=== PATIENT | female | born 2000 | race Caucasian/White ===

== ENCOUNTER 2020-01-23 23:35 | Emergency (ER) | payer MEDICAID, SELFPAY ==
[2020-01-23 23:49] VITALS: BP 124/88; PULSE 87; RESP 17; TEMP 36.7; O2SAT 98; BMI 31.1
--- NOTE | 2020-01-24 | XR_ITS ---
EXAMINATIONS: ELBOW 3 VIEWS, LEFT AND FOREARM 2 VIEWS, LEFT AND WRIST 3 VIEWS, LEFT CLINICAL INFORMATION: Pain following trauma. COMPARISON: None. TECHNIQUE: AP, lateral, oblique views of the left elbow are provided. AP and lateral views of the left forearm are provided. AP, lateral, oblique views of the left wrist are provided. FINDINGS: There are no fractures or dislocations. There is no elbow joint effusion. There is no displacement of the pronator fat pad. There is mild soft tissue swelling about the medial aspect of the left elbow. IMPRESSION: Mild soft tissue swelling about the elbow. No evidence for acute fracture to the left elbow, forearm or wrist.
--- NOTE | 2020-01-24 | XR_ITS ---
EXAMINATIONS: SHOULDER 3 VIEWS, LEFT AND HUMERUS 2 VIEWS, LEFT CLINICAL INFORMATION: Pain following trauma. COMPARISON: None. TECHNIQUE: AP views of the left shoulder were obtained in internal and external rotation. In addition, a Y view was obtained. AP and lateral views of the left humerus are provided. FINDINGS: There are no fractures or dislocations. The humeral head is seated within a well-formed glenoid. The AC joint is intact. IMPRESSION: Unremarkable left shoulder and humerus radiographs.
--- NOTE | 2020-01-24 00:43 | PC.NURSE ---
Provider over to eval pt
--- NOTE | 2020-01-24 00:46 | ED.FALL ---
HPI - Fall General Chief Complaint: Fall <Tuyet Wong NP - Last Filed: 01/24/20 02:49> Stated Complaint: Crisis <Tuyet Wong NP - Last Filed: 01/24/20 02:49> Time Seen by Provider: 01/24/20 02:12 <Tuyet Wong NP - Last Filed: 01/24/20 02:49> Source: patient, EMS and RN notes reviewed <Tuyet Wong NP - Last Filed: 01/24/20 02:49> Mode of arrival: EMS <Tuyet Wong NP - Last Filed: 01/24/20 02:49> Limitations: other ( cognitive impairment) <Tuyet Wong NP - Last Filed: 01/24/20 02:49> History of Present Illness HPI Narrative: 20-year-old female presents with injury to the left bicep, elbow, and upper forearm after falling out of her First floor window. the fall was less than 2 ft, and patient has significant bruising to the medial aspect of the left arm. Patient does live in a [facility], the person is considered cognitively challenged, and is able to make her needs known. she reports pain in the left shoulder, bicep, elbow, forearm, and wrist. She does not describe any other injury and denies chest pain and pressure, palpitations, shortness of breath, abdominal pain, abdominal distention, dysuria, hematuria, loss of consciousness, and head trauma. <Tuyet Wong NP - Last Filed: 01/24/20 02:49> MD complaint: fall <MALCOLM Shaikh Last Filed: 01/24/20 02:49> Onset (ago): hour(s) ( 1 hour ago) <MALCOLM Shaikh Last Filed: 01/24/20 02:49> Fall from: from height (distance) ( 2 ft, fell out of her 1st floor window) <Tuyet Wong NP - Last Filed: 01/24/20 02:49> Fall witnessed: no <Tuyet Wong NP - Last Filed: 01/24/20 02:49> Place fall occurred: other ( [facility]) <Tuyet Wong NP - Last Filed: 01/24/20 02:49> Loss of consciousness: none <Tuyet Wong NP - Last Filed: 01/24/20 02:49> Symptoms prior to fall: none <Tuyet Wong NP - Last Filed: 01/24/20 02:49> Location of injury - extremities: left: arm, elbow and forearm <Tuyet Wong NP - Last Filed: 01/24/20 02:49> Severity: moderate <Tuyet Wong NP - Last Filed: 01/24/20 02:49> Severity scale (1-10): 5 <Tuyet Wong NP - Last Filed: 01/24/20 02:49> Quality: aching <Tuyet Wong NP - Last Filed: 01/24/20 02:49> Associated symptoms (after fall): denies <Tuyet Wong NP - Last Filed: 01/24/20 02:49> Related Data Home Medications: Home Medications Medication Instructions Recorded Confirmed aripiprazole [Abilify] 5 mg PO BID 01/24/20 01/24/20 guanfacine 2 mg PO BEDTIME 01/24/20 01/24/20 levonorgestrel-ethinyl estrad 1 tab PO DAILY 01/24/20 01/24/20 [Aviane] melatonin 5 mg PO BEDTIME PRN 01/24/20 01/24/20 metformin 2,250 mg PO DAILY 01/24/20 01/24/20 sertraline 150 mg PO DAILY 01/24/20 01/24/20 <Tuyet Wong NP - Last Filed: 01/24/20 02:49> Allergies/Adverse Reactions: Allergies Allergy/AdvReac Type Severity Reaction Status Date / Time No Known Allergies Allergy Verified 01/24/20 00:57 <Tuyet Wong NP - Last Filed: 01/24/20 02:49> Review of Systems Review of Systems: Yes all other systems are reviewed and are negative <Tuyet Wong NP - Last Filed: 01/24/20 02:49> Constitutional: Constitutional: Reports no additional constitutional complaints <MALCOLM Shaikh Last Filed: 01/24/20 02:49> Eyes: Eyes: Reports no additional eye complaints <Tuyet Wong NP - Last Filed: 01/24/20 02:49> ENT: Reports system reviewed and no additional complaints, except as documented and Reports Normal hearing present <Tuyet Wong NP - Last Filed: 01/24/20 02:49> Cardiovascular: Cardiovascular: Reports no additional cardiovascular complaints <Tuyet Wong NP - Last Filed: 01/24/20 02:49> Respiratory: Respiratory: Reports no additional respiratory complaints <Tuyet Wong NP - Last Filed: 01/24/20 02:49> Gastrointestinal: Gastrointestinal: Reports no additional gastrointestinal complaints <Tuyet Wong NP - Last Filed: 01/24/20 02:49> Musculoskeletal: Musculoskeletal: Reports no additional musculoskeletal complaints and Reports as per HPI <Tuyet Wong NP - Last Filed: 01/24/20 02:49> Integumentary/Breasts: Skin/Breast: Reports swelling <Tuyet Wong NP - Last Filed: 01/24/20 02:49> Neurologic: Reports system reviewed and no additional complaints, except as documented and Reports Normal hearing present <Tuyet Wong ALL AROUND GEAR MACHINE OPERATOR - Last Filed: 01/24/20 02:49> Psychiatric: Psychiatric: Reports no additional psychiatric complaints <Tuyet Wong NP - Last Filed: 01/24/20 02:49> Endocrine: Endocrine: Reports no additional endocrine complaints <Tuyet Wong NP - Last Filed: 01/24/20 02:49> Hematologic/Lymphatic: Hematologic/Lymphatic: Reports no additional hematologic/lymphatic complaints <Tuyet Wong NP - Last Filed: 01/24/20 02:49> [facility] Past Medical History Attestation statement: The following information was validated with the patient. <Tuyet Wong NP - Last Filed: 01/24/20 02:49> Medical History: Medical History Anxiety Obsessive compulsive disorder <Tuyet Wong NP - Last Filed: 01/24/20 02:49> Social History Social History: Social History Alcohol intake: never Smoked in Last 30 Days: No Use of substances other than those prescribed or required for medical reasons: No Advance Directives: No <Tuyet Wong NP - Last Filed: 01/24/20 02:49> Physical Exam Vital Signs and I&O and Narrative: Vital Signs and I&O: Vital Signs Temp 98.0 F 01/23/20 23:49 Pulse 87 01/23/20 23:49 Resp 17 01/24/20 02:01 BP 124/88 01/23/20 23:49 Pulse Ox 98 01/23/20 23:49 Intake & Output 01/23/20 01/24/20 01/24/20 18:59 06:59 18:59 Weight 79.746 kg Body Mass Index 31.1 <Tuyet Wong NP - Last Filed: 01/24/20 02:49> Vital Signs and I&O: Vital Signs Temp 98.0 F 01/23/20 23:49 Pulse 87 01/23/20 23:49 Resp 17 01/24/20 02:01 BP 124/88 01/23/20 23:49 Pulse Ox 98 01/23/20 23:49 Intake & Output 01/23/20 01/24/20 01/24/20 18:59 06:59 18:59 Weight 79.746 kg Body Mass Index 31.1 <Gonzalez Chaney DO - Last Filed: 01/24/20 18:14> Const: General: cooperative, healthy appearing, comfortable and no acute distress <Tuyet Wong NP - Last Filed: 01/24/20 02:49> Nutritional Appearance: average body habitus <Tuyet Wong NP - Last Filed: 01/24/20 02:49> Orientation/consciousness: patient oriented x3 <Tuyet Wong NP - Last Filed: 01/24/20 02:49> Limitations: other limitations ( Cognitive impairment, resides in a mcc) <Tuyet Wong NP - Last Filed: 01/24/20 02:49> HENMT: Head: Yes normal to inspection, Yes No palpable skull fracture present and No Rausch's sign <Tuyet Wong NP - Last Filed: 01/24/20 02:49> Ears: hearing grossly normal bilaterally and external ears normal <Tuyet Wong NP - Last Filed: 01/24/20 02:49> General nose exam: Normal external nose present <Tuyet Wong ALL AROUND GEAR MACHINE OPERATOR - Last Filed: 01/24/20 02:49> Face and sinus: Yes normal facial exam <Tuyet Wong ALL AROUND GEAR MACHINE OPERATOR - Last Filed: 01/24/20 02:49> Mouth: Normal oral and palatal mucosa present <Tuyet Wong ALL AROUND GEAR MACHINE OPERATOR - Last Filed: 01/24/20 02:49> Teeth and gingiva: dentition normal <Tuyet Wong ALL AROUND GEAR MACHINE OPERATOR - Last Filed: 01/24/20 02:49> Throat: Yes posterior oropharynx normal <Tuyet Wong ALL AROUND GEAR MACHINE OPERATOR - Last Filed: 01/24/20 02:49> Eyes: General: appearance normal, both eyes and all related structures <Tuyet Wong ALL AROUND GEAR MACHINE OPERATOR - Last Filed: 01/24/20 02:49> Pupils: Equal, round and reactive pupils present <Tuyet Wong ALL AROUND GEAR MACHINE OPERATOR - Last Filed: 01/24/20 02:49> EOM: EOMs intact bilaterally <Tuyet Wong ALL AROUND GEAR MACHINE OPERATOR - Last Filed: 01/24/20 02:49> Neck: Neck: Yes normal visual inspection, Yes full ROM, Yes no lymphadenopathy and Yes no meningeal signs <Tuyet Wong ALL AROUND GEAR MACHINE OPERATOR - Last Filed: 01/24/20 02:49> Chest: Chest palpation & inspection: normal inspection of the chest and normal palpation of entire chest wall <Tuyet Wong ALL AROUND GEAR MACHINE OPERATOR - Last Filed: 01/24/20 02:49> Resp: Effort & Inspection: normal respiratory effort and able to speak in complete sentences <Tuyet Wong ALL AROUND GEAR MACHINE OPERATOR - Last Filed: 01/24/20 02:49> Auscultation: clear to auscultation bilaterally <Tuyet Wong ALL AROUND GEAR MACHINE OPERATOR - Last Filed: 01/24/20 02:49> Cardio: Rate: regular rate <Tuyet Wong ALL AROUND GEAR MACHINE OPERATOR - Last Filed: 01/24/20 02:49> Rhythm: regular rhythm <Tuyet Wong ALL AROUND GEAR MACHINE OPERATOR - Last Filed: 01/24/20 02:49> GI: Inspection: Yes normal to inspection <Tuyet Wong ALL AROUND GEAR MACHINE OPERATOR - Last Filed: 01/24/20 02:49> Auscultation: normal bowel sounds <Tuyet Wong ALL AROUND GEAR MACHINE OPERATOR - Last Filed: 01/24/20 02:49> : General: Yes no CVA tenderness <Tuyet Wong ALL AROUND GEAR MACHINE OPERATOR - Last Filed: 01/24/20 02:49> Back/Spine/Pelvis: Back: no CVA tenderness <Tuyet Wong ALL AROUND GEAR MACHINE OPERATOR - Last Filed: 01/24/20 02:49> Thoracic/Lumbar Spine: thoracic and lumbar spine normal to inspection <Tuyet Wong ALL AROUND GEAR MACHINE OPERATOR - Last Filed: 01/24/20 02:49> Pelvis: no pain with anterior-posterior compression and no pain with lateral compression <Tuyet Wong ALL AROUND GEAR MACHINE OPERATOR - Last Filed: 01/24/20 02:49> Skin: Other: 10 cm by 5 cm ecchymotic area from the lower bicep to the mid forearm, dime-sized bruise to the left wrist radial aspect. <Tuyet Wong ALL AROUND GEAR MACHINE OPERATOR - Last Filed: 01/24/20 02:49> General skin exam: ecchymosis and erythema <Tuyet Wong ALL AROUND GEAR MACHINE OPERATOR - Last Filed: 01/24/20 02:49> Neuro: General: patient oriented x3 and no meningeal signs <Tuyet Wong ALL AROUND GEAR MACHINE OPERATOR - Last Filed: 01/24/20 02:49> Cranial nerves: Yes Normal hearing present <Tuyet Wong ALL AROUND GEAR MACHINE OPERATOR - Last Filed: 01/24/20 02:49> Motor exam (neuro): 5/5 motor strength present throughout <Tuyet Wong ALL AROUND GEAR MACHINE OPERATOR - Last Filed: 01/24/20 02:49> Extrem: General: Yes full ROM, Yes capillary refill normal and Yes normal exam except as noted ( tenderness to the left acromial process, bicep, elbow, and wrist) <Tuyet Wong ALL AROUND GEAR MACHINE OPERATOR - Last Filed: 01/24/20 02:49> Right upper extremity: full ROM <Tuyet Wong ALL AROUND GEAR MACHINE OPERATOR - Last Filed: 01/24/20 02:49> Left upper extremity: normal to inspection and full ROM <Tuyet Wong ALL AROUND GEAR MACHINE OPERATOR - Last Filed: 01/24/20 02:49> Right lower extremity: normal to inspection and full ROM <Tuyet Wong ALL AROUND GEAR MACHINE OPERATOR - Last Filed: 01/24/20 02:49> Left lower extremity: normal to inspection and full ROM <Tuyet Wong NP - Last Filed: 01/24/20 02:49> Psych: Appearance: grossly normal <Tuyet Wong NP - Last Filed: 01/24/20 02:49> Speech and movement: Normal speech and movement present <Tuyet Wong NP - Last Filed: 01/24/20 02:49> Attitude: cooperative <Tuyet Wong NP - Last Filed: 01/24/20 02:49> Course Course Hospital Course: 20-year-old female presents after fall out of her 1st floor window. At this time we will order x-ray of the left shoulder, humerus, elbow, forearm and wrist. She does have full range of motion to all extremities, no tenderness to cervical thoracic or lumbar spine with full range of motion. <MALCOLM Shaikh Last Filed: 01/24/20 02:49> Reevaluation(s) Reevaluation #1: x-rays are negative for acute findings and fracture. Plan of care is to discharge home, pain management Tylenol and Motrin as needed. Patient verbalized understanding of and agrees to plan of care discharge home. <Tuyet Wong NP - Last Filed: 01/24/20 02:49> Time: 02:14 <Tuyet Wong NP - Last Filed: 01/24/20 02:49> MDM - Fall Differential Diagnosis Differential diagnosis: Likely dislocation, fracture and compression fracture <Tuyet Wong NP - Last Filed: 01/24/20 02:49> Medical Records Attestation: I reviewed the patient's medical records. <MALCOLM Shaikh Last Filed: 01/24/20 02:49> Imaging Data left shoulder, humerus, elbow, forearm and wrist x-ray: Attestation: I personally reviewed and interpreted this imaging study as follows: <MALCOLM Shaikh Last Filed: 01/24/20 02:49> My impression: I agree with radiologist's interpretation <Tuyet Wong NP - Last Filed: 01/24/20 02:49> Radiologist's impression: AP, lateral, oblique views of the left elbow are provided. AP and lateral views of the left forearm are provided. AP, lateral, oblique views of the left wrist are provided. FINDINGS: There are no fractures or dislocations. There is no elbow joint effusion. There is no displacement of the pronator fat pad. There is mild soft tissue swelling about the medial aspect of the left elbow. IMPRESSION: Mild soft tissue swelling about the elbow. No evidence for acute fracture to the left elbow, forearm or wrist <Tuyet Wong NP - Last Filed: 01/24/20 02:49> Discharge Plan Discharge Clinical Impression: Fall Qualifiers: Encounter type: initial encounter Qualified Code(s): W19.XXXA - Unspecified fall, initial encounter Contusion Qualifiers: Encounter type: initial encounter Contusion area: elbow Qualified Code(s): S50.02XA - Contusion of left elbow, initial encounter <Tuyet Wong NP - Last Filed: 01/24/20 02:49> Patient Disposition: Home, Self-Care <Tuyet Wong NP - Last Filed: 01/24/20 02:49> Instructions: Contusion in Adults (ED), Fall Prevention (ED) <Tuyet Wong NP - Last Filed: 01/24/20 02:49> Additional Instructions: please follow-up with primary care provider in 3-5 days to evaluate contusion to the left elbow. Use compression wrap as needed to help with pain management. return to the emergency department for any new, concerning, or worsening symptoms. <Tuyet Wong NP - Last Filed: 01/24/20 02:49> Prescriptions: No Action levonorgestrel-ethinyl estrad [Aviane] 0.1-20 mg-mcg Tablet 1 tab PO DAILY RF: 0 guanfacine 2 mg Tablet 2 mg PO BEDTIME RF: 0 aripiprazole [Abilify] 10 mg Tablet 5 mg PO BID RF: 0 metformin 750 mg Tablet Extended Release 24 Hr 2,250 mg PO DAILY RF: 0 melatonin 5 mg Tablet 5 mg PO BEDTIME PRN (Reason: Sleep) RF: 0 sertraline 100 mg Tablet 150 mg PO DAILY RF: 0 <MALCOLM Shaikh Last Filed: 01/24/20 02:49> Interventions: ED Discharge Assessment Last Done: 01/24/20 03:52 <MALCOLM Shaikh Last Filed: 01/24/20 02:49> Discharge Date/Time: 01/24/20 03:53 <Tuyet Wong NP - Last Filed: 01/24/20 02:49>
[2020-01-24 01:52] VITALS: RESP 20
[2020-01-24 02:01] VITALS: RESP 17
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
== END 2020-01-24 03:53 | disposition home or self-care (01) ==
LOC: HO.ED 01-24 02:33
PROVIDERS: Emergency Provider Emergency Medicine
DX: S50.02XA Contusion of left elbow, initial encounter (principal); W13.4XXA Fall from, out of or through window, initial encounter; Y93.9 Activity, unspecified; Y92.042 Bedroom in boarding-house as the place of occurrence of the external cause; Y99.9 Unspecified external cause status
CPT/HCPCS: 73020; 73060; 73070; 73090; 73100; 99284

== ENCOUNTER 2020-02-28 07:05 | Emergency (ER) | payer MEDICARE, MEDICAID, SELFPAY ==
[2020-02-28] VITALS (10 sets, daily range): BP systolic 109–124; BP diastolic 60–79; PULSE 81–99; RESP 16–24; TEMP 36.1–36.8; O2SAT 95–97; BMI 29.2
--- NOTE | 2020-02-28 07:14 | ED.PSYCH ---
HPI - Psych General Chief Complaint: Psychiatric Symptoms Stated Complaint: HAVING BAD DAY @ [facility],ODD W/CPD,?SI Time Seen by Provider: 02/28/20 07:14 Source: patient and EMS Mode of arrival: EMS Limitations: other (intellectual disability, uncooperative, agitated) History of Present Illness MD complaint: suicidal ideation, feels depressed and other (agitation, agression at care home) Onset (ago): day(s) (today) Duration: constant History of same: Yes Relieving factors: none Exacerbating factors: none Associated psychiatric symptoms: depression and suicidal ideation Associated symptoms: denies other symptoms Treatments prior to arrival: none If self harm: admits thoughts of self harm Related Data Home Medications Medication Instructions Recorded Confirmed aripiprazole [Abilify] 5 mg PO BID 01/24/20 01/24/20 guanfacine 2 mg PO BEDTIME 01/24/20 01/24/20 levonorgestrel-ethinyl estrad 1 tab PO DAILY 01/24/20 01/24/20 [Aviane] melatonin 5 mg PO BEDTIME PRN 01/24/20 01/24/20 metformin 2,250 mg PO DAILY 01/24/20 01/24/20 sertraline 150 mg PO DAILY 01/24/20 01/24/20 Allergies Allergy/AdvReac Type Severity Reaction Status Date / Time No Known Allergies Allergy Verified 01/24/20 00:57 Review of Systems Review of Systems: ROS unable to be obtained due to agitation and being uncooperative on arrival PMFSH Past Medical History Medical History Anxiety Intellectual disability Obsessive compulsive disorder Oppositional defiant disorder Social History Social History (Updated 02/28/20 @ 07:15 by Brynn Ruiz DO) Alcohol intake: never Smoking Status: Smoker, status unknown Use of substances other than those prescribed or required for medical reasons: No Advance Directives: No Advance Directives Information Provided: No Physical Exam Vital Signs: Vital Signs: Last Vital Signs Temp 98.2 F 02/28/20 07:57 Pulse 87 02/28/20 10:50 Resp 20 02/28/20 11:05 BP 109/60 02/28/20 10:35 Pulse Ox 95 02/28/20 10:50 Body Mass Index 29.2 Appearance: Alert. Oriented X3. No distress but intermittent agitation Eyes: Pupils equal, round and reactive to light. ENT: Pharynx normal. Neck: Normal inspection. Neck supple. CVS: Normal heart rate and rhythm. Pulses normal. Respiratory: No respiratory distress. Breath sounds normal. Abdomen: no signs of trauma Skin: Skin warm and dry. Normal skin color. Normal skin turgor. Extremities: No lower extremity edema. Neuro: Oriented X 3. No motor deficit. No sensory deficit. cannot participate in exam Course Course Course Narrative: patient became very agitated, hitting her head, self harm, refused PO medications could not be de-escalated by staff - IM haldol and ativan ordered for patient and staff safety these behaviors are not new, currently plan back to care home per CARE team patient became agitated about going to care home RN worried she may need IM medications due to escalation, patient agitated, threatening patient able to take PO medications instead of IM, CARE team and care home trying to work out a plan for [place] note these behaviors are chronic MDM - Psych MDM Narrative Medical decision making narrative: 20 yo female with impulse control, ODD, intellectual disability here with agitation and making SI statements - at this time will need labs, BHN consult, she was able to de-escalate with staff Lab Data Result diagrams: 02/28/20 14:52 02/28/20 14:52 Labs: Lab Results 02/28/20 02/28/20 Range/Units 14:52 14:52 WBC 8.0 (4.8-10.8) X10*3/uL RBC 4.50 (4.20-5.50) X10*6/uL Hgb 13.4 (12.0-16.0) g/dl Hct 39.2 (37-47) % MCV 87.1 (80-98) fL MCH 29.8 (27.0-33.0) pg MCHC 34.2 (31.0-35.0) g/dl RDW 12.5 (11.0-16.0) % Plt Count 228 (160-400) X10*3/uL MPV 9.2 L (9.4-12.3) fL Immature Gran % (Auto) 0.4 (0.0-0.4) % Neut % (Auto) 72.4 (45-73) % Lymph % (Auto) 16.5 L (20-40) % Woodward % (Auto) 8.8 (2-11) % Eos % (Auto) 1.4 (0-4) % Baso % (Auto) 0.5 (0-2) % Lymph # (Auto) 1.3 (1.2-4.9) X10*3/uL Woodward # (Auto) 0.7 (0.1-1.2) X10*3/uL Eos # (Auto) 0.1 (0.0-0.4) X10*3/uL Baso # (Auto) 0.0 (0.0-0.2) X10*3/uL Abs Immat Gran (auto) 0.03 (0.00-0.03) X10*3/uL Absolute Neuts (auto) 5.8 (2.0-8.3) X10*3/uL Absolute Nucleated RBC 0.000 (0.0-0.012) X10*3/uL Nucleated RBC % (auto) 0.0 (0.0-0.2) /100WBC Sodium 138 (135-145) mmol/L Potassium 4.1 (3.3-5.1) mmol/l Chloride 100 (96-108) mmol/L Carbon Dioxide 28 (22-29) mmol/L Anion Gap 14 (12-20) BUN 16 (9-16) mg/dL Creatinine 0.76 (0.5-1.4) mg/dL Estim Creat Clear Calc 112.5 Estimated GFR > 60 Random Glucose 116 H (60-115) mg/dL Calcium 8.8 (8.4-10.2) mg/dL Total Bilirubin 0.5 (0.0-1.0) mg/dL Direct Bilirubin 0.2 (0.0-0.5) mg/dL AST 25 (5-31) U/L ALT 28 (0-31) U/L Alkaline Phosphatase 63 (39-117) U/L Total Protein 7.3 (6.5-8.0) g/dL Albumin 4.4 (3.5-5.0) g/dL Discharge Plan Discharge Clinical Impression: Oppositional defiant disorder Patient Disposition: Home, Self-Care Additional Instructions: return to ED for any worsening symptoms or concerns Prescriptions: No Action levonorgestrel-ethinyl estrad [Aviane] 0.1-20 mg-mcg Tablet 1 tab PO DAILY RF: 0 guanfacine 2 mg Tablet 2 mg PO BEDTIME RF: 0 aripiprazole [Abilify] 10 mg Tablet 5 mg PO BID RF: 0 metformin 750 mg Tablet Extended Release 24 Hr 2,250 mg PO DAILY RF: 0 melatonin 5 mg Tablet 5 mg PO BEDTIME PRN (Reason: Sleep) RF: 0 sertraline 100 mg Tablet 150 mg PO DAILY RF: 0 Referrals: Physician,Unknown [Primary Care Provider] - 2 days (please follow up with your mental health providers)
--- NOTE | 2020-02-28 09:31 | PC.NURSE ---
Pt out on unit, began to eat plastic cup and yell when attempting to remove. Pt also making gestures to bite arms. Pt quickly varies from laughing, and joking with staff to gesturing to bite arm while smiling and looking at staff. Attempted to give pt ativan but pt declining at this time.
--- NOTE | 2020-02-28 09:46 | PC.NURSE ---
Attempted to call nursing home re: medications- staff member does not have access at this time, but will return call.
[2020-02-28] MEDS: Haloperidol Lactate 5 MG/ML VIAL IM ×2 (10:12→15:42)
[2020-02-28] MEDS: LORazepam 2 MG/ML VIAL IM (10:13)
--- NOTE | 2020-02-28 10:16 | PC.NURSE ---
Pt declined to take PO medications despite multiple attempts by different staff. Pt attempting to eat paper that she is finding around the unit, then began banging her head against the wall. Attempted to redirect multiple times, pt unable to accept redirection. Pt medicated as ordered, then required restraints for safety as she continued to bang her head. Dr meadows notied
--- NOTE | 2020-02-28 11:55 | PC.NURSE ---
Restraints d/c at 1105, pt no longer harming herself. Pt reporting nausea at this time- Dr Ruiz aware.
--- NOTE | 2020-02-28 12:39 | PC.NURSE ---
Per [facility], pt has been trying to gag by putting finger down her throat. Pt asked to stop behavior. Pt is awaiting BHN evaluation. Attempted to reach BHN but unable to. Care team able to reach BHN- will call w/ eta of crisis evaluation.
--- NOTE | 2020-02-28 13:09 | PC.NURSE ---
Yinka Sharma- [employer] [facility]: [phone]
--- NOTE | 2020-02-28 13:21 | PC.NURSE ---
Care team in to see. N called to notify that care team will evaluate pt.
[2020-02-28 15:00] LABS: MANUAL DIFF FLAG NO
[2020-02-28 15:01] LABS: Basophils Percent Auto 0.5 % (0-2); Eosinophils Absolute Auto 0.1 X10*3/uL (0.0-0.4); Eosinophils Percent Auto 1.4 % (0-4); Hematocrit 39.2 % (37-47); Hemoglobin 13.4 g/dl (12.0-16.0); Imm Gran Abs Auto 0.03 X10*3/uL (0.00-0.03); Imm Gran Pct Auto 0.4 % (0.0-0.4); Lymphocytes Absolute Auto 1.3 X10*3/uL (1.2-4.9); Lymphocytes Percent Auto 16.5 % (20-40); Mean Corpuscular HGB Conc 34.2 g/dl (31.0-35.0); Mean Corpuscular Hemoglobin 29.8 pg (27.0-33.0); Mean Corpuscular Volume 87.1 fL (80-98); Mean Platelet Volume 9.2 fL (9.4-12.3); Monocytes Absolute Auto 0.7 X10*3/uL (0.1-1.2); Monocytes Percent Auto 8.8 % (2-11); Neutrophils Absolute Auto 5.8 X10*3/uL (2.0-8.3); Neutrophils Percent Auto 72.4 % (45-73); Platelet Count 228 X10*3/uL (160-400); Red Cell Distribution Width 12.5 % (11.0-16.0)
--- NOTE | 2020-02-28 15:19 | PC.NURSE ---
Pt calling 911 several times, states she is refusing to return to residential. pt standing on furniture, refusing prn, states 'i want to go to a mental hospital' Dr meadows aware. Care team in to talk w/ pt.
[2020-02-28 15:25] LABS: Alanine Aminotransferase 28 U/L (0-31); Albumin Level 4.4 g/dL (3.5-5.0); Alkaline Phosphatase 63 U/L (39-117); Anion Gap 14 (12-20); Aspartate Amino Transferase 25 U/L (5-31); Bilirubin Direct 0.2 mg/dL (0.0-0.5); Bilirubin Total 0.5 mg/dL (0.0-1.0); Blood Urea Nitrogen 16 mg/dL (9-16); Calcium 8.8 mg/dL (8.4-10.2); Carbon Dioxide 28 mmol/L (22-29); Chloride 100 mmol/L (96-108); Creatinine Clr Calc Pharmacy 112.5; Estimated Glomerular Filt Rate > 60; Glucose Random 116 mg/dL (60-115); Potassium 4.1 mmol/l (3.3-5.1); Sodium 138 mmol/L (135-145); Total Protein 7.3 g/dL (6.5-8.0)
--- NOTE | 2020-02-28 15:51 | PC.NURSE ---
Pt accepted po medication, currently resting in room, no further spitting or jumping up on furniture.
--- NOTE | 2020-02-28 16:21 | PC.NURSE ---
When speaking to pt about returning to custodial, pt became agitated, stating 'i don't want to go back,' pt got up and attempted to acll 911. When attempting to remove phone, pt began to bite, kick. Pt restrained, Dr Marroquin notified.
--- NOTE | 2020-02-28 17:29 | PC.NURSE ---
Pt now stating that she would like to return to long-term, but behaviorally continues to be oppositional, setting off alarms in the pod, refusing to return to room when asked. Yinka Sharma from long-term called, report given including recent restraint, pt threatening to ask ambulance to take her to [facility] instead of long-term.
--- NOTE | 2020-02-28 17:55 | PC.NURSE ---
pt calmer, has maintained behavioral control and states she is ready to return to the retirement. [facility] called. Dr Marroquin aware pt is stating that she is ready to return. pt currently on telephone, calling her mother.
--- NOTE | 2020-02-28 19:31 | PC.NURSE ---
Patient was supposed to be picked up at 1815, at 1930 we were notified that there is a delay d/t emergency, new tentative ETA for ambulance will be 1999, will continue to monitor. Patient hyper-verbal, presents staff with numerous question, needs to be monitored for her behavior, will continue to monitor.
--- NOTE | 2020-02-28 19:45 | PC.NURSE ---
Called [facility] to check on ETA, notified that delayed happened d/t high volume of cases, new ETA will be 2015 or sooner, patient not happy with wait time, just voided in water pitcher calling her urine a Bailey Mcghee, patient advised not repeat the behavior, little to no effect to redirection, will continue to monitor.
== END 2020-02-28 20:33 | disposition home or self-care (01) ==
PROVIDERS: Emergency Provider Emergency Medicine
DX: F91.3 Oppositional defiant disorder (principal); Z79.899 Other long term (current) drug therapy
CPT/HCPCS: 36415; 80048; 80076; 85025; 96372; 99285; J2060

== ENCOUNTER 2020-06-30 09:58 | Outpatient (REF) | payer MEDICARE, MEDICAID, SELFPAY ==
[2020-07-01 09:20] LABS: BV Int Neg Control Negative (Negative); BV Int Pos Control Positive (Positive)
== END 2020-06-30 09:59 | disposition home or self-care (01) ==
LOC: HO.LAB 09:58
PROVIDERS: PCP Internal Medicine; Visit Provider Obstetrics & Gynecology
DX: N89.8 Other specified noninflammatory disorders of vagina (principal); R30.0 Dysuria; F79 Unspecified intellectual disabilities
CPT/HCPCS: 87480; 87510; 87660; 99202

== ENCOUNTER 2020-07-01 11:51 | Outpatient (REF) | payer MEDICARE, MEDICAID, SELFPAY ==
--- NOTE | ~2020-07-01 | XR_ITS ---
EXAMINATION: XR FOOT, LEFT CLINICAL INFORMATION: Left foot injury COMPARISON: None TECHNIQUE: AP, lateral, and oblique views of the left foot. FINDINGS: There is either nonunion of ossification center versus old nonunion fracture base of the left metatarsal. Soft tissue swelling is seen about the dorsum and inferior aspects of metatarsals. No acute fracture or dislocation is evident. Joint spaces are maintained. XR/XR foot LT 2V IMPRESSION: Soft tissue swelling without evidence of acute fracture or dislocation of the left foot. Either old fracture with nonunion versus secondary ossification center base of the fifth metatarsal.
== END 2020-07-01 11:52 | disposition home or self-care (01) ==
LOC: HO.LAB 11:51
PROVIDERS: Absent Provider Internal Medicine; PCP Internal Medicine; Visit Provider Obstetrics & Gynecology
DX: R30.0 Dysuria (principal); E11.9 Type 2 diabetes mellitus without complications; S99.922A Unspecified injury of left foot, initial encounter
CPT/HCPCS: 73620; 87086

== ENCOUNTER 2020-10-07 21:16 | Emergency (ER) | payer MEDICARE, MEDICAID, SELFPAY ==
--- NOTE | ~2020-10-07 | XR_ITS ---
EXAMINATION: CHEST RADIOGRAPH AND KUB CLINICAL INFORMATION: Patient swallowed a quater COMPARISON: None TECHNIQUE: 2 view chest, single view abdomen FINDINGS: No significant abnormalities seen involving the heart lungs or mediastinum. Mild thoracic scoliosis is present. A radiopaque foreign body is not seen. The abdominal bowel gas pattern is normal. No abnormal calcifications are seen. A radiopaque foreign body is not seen. XR/XR KUB IMPRESSION: Negative studies. The quater is not visualized. The patient did in fact swallow this, it has already passed.
--- NOTE | ~2020-10-07 | XR_ITS ---
EXAMINATION: CHEST RADIOGRAPH AND KUB CLINICAL INFORMATION: Patient swallowed a quater COMPARISON: None TECHNIQUE: 2 view chest, single view abdomen FINDINGS: No significant abnormalities seen involving the heart lungs or mediastinum. Mild thoracic scoliosis is present. A radiopaque foreign body is not seen. The abdominal bowel gas pattern is normal. No abnormal calcifications are seen. A radiopaque foreign body is not seen. XR/XR chest 2V IMPRESSION: Negative studies. The quater is not visualized. The patient did in fact swallow this, it has already passed.
[2020-10-07 21:22] VITALS: BP 148/84; PULSE 95; RESP 18; TEMP 36.8; O2SAT 96; BMI 26.4
--- NOTE | 2020-10-07 22:19 | ED.GENADULT ---
HPI - General Adult General Chief complaint: General Medical Stated complaint: swallowed a quarter Time Seen by Provider: 10/07/20 22:18 Source: patient and family Mode of arrival: ambulatory Limitations: other (Cognitive impairment, cerebral palsy) History of Present Illness HPI narrative: 20-year-old female presents with her mother, 20-year-old female with cerebral palsy, cognitive impairment presents with suspicion of swallowing a quarter. Patient does have a history of swallowing items. States that she swallowed this quarter last night and is not complaining of any symptoms or complications. Onset (ago): day(s) (One) Severity: mild Treatments prior to arrival: none Related Data Home Medications Medication Instructions Recorded Confirmed guanfacine 1 mg tablet,extended 1 mg PO QAM 06/30/20 release 24 hr guanfacine 2 mg tablet,extended 2 mg PO BEDTIME 06/30/20 release 24 hr haloperidol 5 mg tablet 7.5 mg PO BID 06/30/20 Previous Rx's Medication Instructions Recorded aripiprazole 10 mg tablet 5 mg PO BID 90 Days #90 tab 04/26/20 guanfacine 2 mg tablet 2 mg PO BEDTIME 90 Days #90 tab 04/26/20 melatonin 5 mg tablet 5 mg PO BEDTIME PRN 90 Days #90 tab 04/26/20 sertraline 100 mg tablet 150 mg PO DAILY 90 Days #135 tab 04/26/20 metformin 750 mg tablet,extended 750 mg PO BID 90 Days #180 tab 05/25/20 release 24 hr fluconazole 150 mg tablet 150 mg PO Q3D #2 tab 07/02/20 acetaminophen 500 mg tablet 500 mg PO Q6H PRN 30 Days #120 tab 09/09/20 Allergies Allergy/AdvReac Type Severity Reaction Status Date / Time No Known Allergies Allergy Verified 06/30/20 10:29 Review of Systems Review of Systems: Constitutional: No Fever, No Chills ENT/Mouth: No Ear Pain, No Hoarseness, No sore throat Eyes: No Eye Pain, No Swelling, No Redness, No Foreign Body Cardiovascular: No Chest Pain, No SOB Respiratory: No Cough, No Dyspnea Gastrointestinal: No Nausea, No Vomiting, No Diarrhea, No abdominal Pain Genitourinary: No Dysuria, No Hematuria Musculoskeletal: No joint pain, No Myalgias, No Joint Swelling Skin: No Skin lacerations, No rash Neuro: No Weakness, No Numbness, No Paresthesias, No Loss of Consciousness, No Dizziness, No Headache Psych: No Anxiety/Panic, No Depression Heme/Lymph: no easy bruising, no Lymphadenopathy Endocrine: No Polyuria, No Polydipsia Yes all other systems are reviewed and are negative [facility] Past Medical History Attestation statement: The following information was validated with the patient. Source: old records reviewed Medical History Anxiety Diabetes mellitus Intellectual disability Obsessive compulsive disorder Oppositional defiant disorder Trauma of toe of left foot Vaginal irritation Social History Social History Alcohol intake: never Advance Directives: No Advance Directives Information Provided: Yes Patient : No Gender identity: female Physical Exam Vital Signs: Vital Signs: Last Vital Signs Temp 98.2 F 10/07/20 21: Pulse 95 10/07/20 21:22 Resp 18 10/07/20 21: BP 148/84 H 10/07/20 21: Pulse Ox 96 10/07/20 21:22 Body Mass Index 26.4 Appearance: Alert. Oriented to self, per patient baseline of cerebral palsy and cognitive impairment. No acute distress. Eyes: Pupils equal, round and reactive to light. ENT: Pharynx normal. Neck: Normal inspection. Neck supple. CVS: Normal heart rate and rhythm. Pulses normal. Respiratory: No respiratory distress. Breath sounds normal. Abdomen: Soft and nontender. Skin: Skin warm and dry. Normal skin color. Normal skin turgor. Extremities: No lower extremity edema. Neuro: No motor deficit. No sensory deficit. Course Course Course Narrative: 20-year-old female presents for suspicion of swallowed foreign body, a quarter which she reported to her [facility] staff that she swallowed last night. KUB and chest x-ray does not indicate any foreign bodies, patient does have a history of reporting foreign body ingestion without actually swallowing an item. Mother states this is 1 of her behaviors for attention Chest x-ray and KUB negative. Plan of care is to discharge home. Medical Decision Making MDM Narrative Medical decision making narrative: Foreign body ingestion Imaging Data Chest and KUB: Attestation: I personally reviewed and interpreted this imaging study as follows: Radiologist's impression: EXAMINATION: CHEST RADIOGRAPH AND KUB CLINICAL INFORMATION: Patient swallowed a quater COMPARISON: None TECHNIQUE: 2 view chest, single view abdomen FINDINGS: No significant abnormalities seen involving the heart lungs or mediastinum. Mild thoracic scoliosis is present. A radiopaque foreign body is not seen. The abdominal bowel gas pattern is normal. No abnormal calcifications are seen. A radiopaque foreign body is not seen. XR/XR KUB IMPRESSION: Negative studies. The quater is not visualized. The patient did in fact swallow this, it has already passed. Discharge Plan Discharge Clinical Impression: Normal exam Patient Disposition: Home, Self-Care Instructions: Normal Exam (ED) Additional Instructions: Your child was evaluated for suspicion of swallowing a coin. X-rays are negative for foreign body. Thank you for choosing this emergency department for evaluation. Please follow-up with primary care physician as needed. Return to the emergency department for any new, concerning, or worsening symptoms. Prescriptions: No [facility] aripiprazole [Abilify] 10 mg tablet 5 mg PO BID 90 Days Qty: 90 RF: 2 guanfacine 2 mg tablet 2 mg PO BEDTIME 90 Days Qty: 90 RF: 1 melatonin 5 mg tablet 5 mg PO BEDTIME PRN (Reason: Sleep) 90 Days Qty: 90 RF: 3 sertraline 100 mg tablet 150 mg PO DAILY 90 Days Qty: 135 RF: 3 metformin 750 mg tablet extended release 24 hr 750 mg PO BID 90 Days Qty: 180 RF: 3 fluconazole 150 mg tablet 150 mg PO Q3D Qty: 2 RF: 0 acetaminophen [Acetaminophen Pain Relief] 500 mg tablet 500 mg PO Q6H PRN (Reason: fever or pain) 30 Days Qty: 120 RF: 6 haloperidol 5 mg tablet 7.5 mg PO BID RF: 0 guanfacine 2 mg tablet extended release 24 hr 2 mg PO BEDTIME RF: 0 guanfacine 1 mg tablet extended release 24 hr 1 mg PO QAM RF: 0 Interventions: ED Discharge Assessment Last Done: 10/07/20 22:25 Discharge Date/Time: 10/07/20 22:27
== END 2020-10-07 22:27 | disposition home or self-care (01) ==
PROVIDERS: Emergency Provider Emergency Medicine Emergency Medical Services; PCP Internal Medicine
DX: Z03.89 Encounter for observation for other suspected diseases and conditions ruled out (principal); G80.9 Cerebral palsy, unspecified
CPT/HCPCS: 71046; 74018; 99283

== ENCOUNTER 2020-10-17 20:53 | Emergency (ER) | payer MEDICARE, MEDICAID, SELFPAY ==
[2020-10-17 21:11] VITALS: BP 138/85; PULSE 123
[2020-10-17 21:13] VITALS: BP 127/82; PULSE 96; RESP 18; TEMP 36.4; O2SAT 96; BMI 31.8
--- NOTE | 2020-10-17 22:39 | ED_ITS ---
HPI - General Adult General Chief complaint: General Medical Stated complaint: crisis Time Seen by Provider: 10/17/20 22:38 History of Present Illness HPI narrative: 20-year-old female presents today with having agitation. Patient denies any suicidal homicidal ideation. Came from a detention. Related Data Home Medications Medication Instructions Recorded Confirmed guanfacine 1 mg tablet,extended 1 mg PO QAM 06/30/20 10/17/20 release 24 hr guanfacine 2 mg tablet,extended 2 mg PO BEDTIME 06/30/20 10/17/20 release 24 hr haloperidol 5 mg tablet 7.5 mg PO BID 06/30/20 10/17/20 Previous Rx's Medication Instructions Recorded guanfacine 2 mg tablet 2 mg PO BEDTIME 90 Days #90 tab 04/26/20 melatonin 5 mg tablet 5 mg PO BEDTIME PRN 90 Days #90 tab 04/26/20 sertraline 100 mg tablet 150 mg PO DAILY 90 Days #135 tab 04/26/20 metformin 750 mg tablet,extended 750 mg PO BID 90 Days #180 tab 05/25/20 release 24 hr acetaminophen 500 mg tablet 500 mg PO Q6H PRN 30 Days #120 tab 09/09/20 Allergies Allergy/AdvReac Type Severity Reaction Status Date / Time No Known Allergies Allergy Verified 06/30/20 10:29 Review of Systems Review of Systems: No chest pain or shortness breath no dizziness no nausea no vomiting Yes all other systems are reviewed and are negative [facility] Past Medical History Medical History Anxiety Diabetes mellitus Intellectual disability Obsessive compulsive disorder Oppositional defiant disorder Trauma of toe of left foot Vaginal irritation Social History Social History Alcohol intake: never Advance Directives: No Advance Directives Information Provided: Yes Guardian: Yes (Sheila Everett, mother) Patient : No Gender identity: female Physical Exam Vital Signs: Vital Signs: Last Vital Signs Temp 98.1 F 10/18/20 01:15 Pulse 86 10/18/20 01:15 Resp 17 10/18/20 01:15 BP 143/74 H 10/18/20 01:15 Pulse Ox 98 10/18/20 01:15 Body Mass Index 31.8 Appearance: Alert. Oriented X3. No acute distress. Eyes: Pupils equal, round and reactive to light. ENT: Pharynx normal. Neck: Normal inspection. Neck supple. No lymph nodes noted. No crepitus CVS: Normal heart rate and rhythm. Pulses normal. Normal S1 and S2 Respiratory: No respiratory distress. Breath sounds normal. No Wheezing. No rales Abdomen: Soft and nontender. No rigidity. No distention. good BS x4 Skin: Skin warm and dry. Normal skin color. Normal skin turgor. Extremities: No lower extremity edema. Neurovascular intact to all extremities. No Lacerations. No Rash Neuro: Oriented X 3. No motor deficit. No sensory deficit. Moving all extermities. No slurred speech Medical Decision Making MDM Narrative Medical decision making narrative: well-appearing no acute distress. Patient evaluated by care team. They are comfortable with discharge close follow-up outpatient basis. Lab Data Labs: Lab Results 10/17/20 Range/Units 23:28 COVID-19 ([facility]EDA) Negative (Negative) COVID-19 Clin Com See Note Discharge Plan Discharge Clinical Impression: Mood disorder Patient Disposition: Home, Self-Care Instructions: Mood Disorders (ED) Prescriptions: No [facility] guanfacine 2 mg tablet 2 mg PO BEDTIME 90 Days Qty: 90 RF: 1 melatonin 5 mg tablet 5 mg PO BEDTIME PRN (Reason: Sleep) 90 Days Qty: 90 RF: 3 sertraline 100 mg tablet 150 mg PO DAILY 90 Days Qty: 135 RF: 3 metformin 750 mg tablet extended release 24 hr 750 mg PO BID 90 Days Qty: 180 RF: 3 acetaminophen [Acetaminophen Pain Relief] 500 mg tablet 500 mg PO Q6H PRN (Reason: fever or pain) 30 Days Qty: 120 RF: 6 haloperidol 5 mg tablet 7.5 mg PO BID RF: 0 guanfacine 2 mg tablet extended release 24 hr 2 mg PO BEDTIME RF: 0 guanfacine 1 mg tablet extended release 24 hr 1 mg PO QAM RF: 0 Referrals: Physician,Unknown [Primary Care Provider] - 2 days (follow up as per care team)
--- NOTE | 2020-10-18 00:03 | PC.NURSE ---
Patient uncooperative, labile, little to no re-directability, engages in unsafe behavior, standing on table, calling 911, punching TV, refusing to take medication, detention staff here with patient, will continue to monitor.
[2020-10-18 00:18] LABS: COVID-19 Test Negative (Negative); IDNOW Serial# 08D9AD1C
[2020-10-18] MEDS: HaloperidoL 0.5 MG TABLET 7.5 MG PO (01:09)
[2020-10-18 01:15] VITALS: BP 143/74; PULSE 86; RESP 17; TEMP 36.7; O2SAT 98
--- NOTE | 2020-10-18 01:17 | PC.NURSE ---
Patient took her HS Haldol 7.5 mg after repeated encouragement, allowed look into her left nostril for crayon, appears like something piece lodged, provider notified for assessment, provider assessed the left nostril for crayon reported no foreign object lodged, patient reported she doesn't feel anything lodged in her nostril, will continue to monitor.
--- NOTE | 2020-10-18 02:56 | MHC.CARE ---
CARE team completed evaluation. Plan is for discharge in the morning. CARE team will coordinate with nursing home staff for pt to return to the program.
--- NOTE | 2020-10-18 06:18 | PC.NURSE ---
Patient did have difficulty falling sleep but overall slept well, staff from [facility] left at 0545, no distress observed/reported, patient was up x 2 for bathroom use and back, disposition is discharge in the morning to the [facility], care team is in touch with [facility] staff, will continue to monitor.
--- NOTE | 2020-10-18 07:21 | PC.NURSE ---
patient remains at rest presently attended by close obs staff patients respirations are even and unlabored, appears in no distress
--- NOTE | 2020-10-18 07:55 | PC.NURSE ---
clients staff arrived from long[facility]term t/w was in preparation to discharge client to long-term. [place] periodically yelled not going back there leave me alone . 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 patient expressed displeasure even after staff left. patient began slapping and striking face not sufficient force to cause damage
--- NOTE | 2020-10-18 08:21 | PC.NURSE ---
patient refused am medications. will reattempt delivery in 15 minutes.
--- NOTE | 2020-10-18 08:40 | PC.NURSE ---
reattempted to deliver clients medications. patient does not express why she doesnt want to take meds, yells and kicks legs on bed expressing desire to not take meds. patient attended by close obs staff.
--- NOTE | 2020-10-18 08:50 | PC.NURSE ---
third attempt made to request client to take meds unsuccessful.
--- NOTE | 2020-10-18 11:22 | MHC.CARE ---
Call from Tammie Florez from [facility] ([phone]) They are not able to brain picker patient at the hospital and requesting ambulance ride to [address] [place] [address] in [place]. This was arranged, CARE Team called Tammie and confirmed 11:30 am brain picker here. Since patient has been refusing to go home, strategies to help facilitate were discussed. Patient's evening phone call with mom is scheduled for 8:00 and can only happen if she is at home, she is likely looking forward to that. There will be no residents and one staff at the house and patient will have activities and 1:1 attention. Updated ED staff about the plan and that patient may be difficult to transition.
== END 2020-10-18 12:18 | disposition home or self-care (01) ==
PROVIDERS: Emergency Provider Emergency Medicine Emergency Medical Services
DX: F39 Unspecified mood [affective] disorder (principal); E11.9 Type 2 diabetes mellitus without complications; Z79.84 Long term (current) use of oral hypoglycemic drugs; Z20.822 Contact with and (suspected) exposure to COVID-19
CPT/HCPCS: 36415; 87635; 99283

== ENCOUNTER 2020-10-18 12:48 | Emergency (ER) | payer MEDICARE, MEDICAID, SELFPAY ==
[2020-10-18] VITALS (12 sets, daily range): BP systolic 118; BP diastolic 67; PULSE 91; RESP 18; TEMP 36.6; O2SAT 97; BMI 26.6
--- NOTE | 2020-10-18 13:44 | ED.PSYCH ---
HPI - Psych General Chief Complaint: Psychiatric Symptoms Stated Complaint: crisis Time Seen by Provider: 10/18/20 15:56 Source: patient Mode of arrival: ambulatory Limitations: no limitations History of Present Illness HPI Narrative: Patient presents to ED incident behavior disturbance. Patient with discharges morning from ER back to her nursing home and the nursing home called EMS because they state they cannot watch the patient. [facility] crisis evaluated patient in community and does not think patient needs inpatient care. Patient was not suicidal or homicidal. Patient has developmental delay and needs constant attention. Patient is not suicidal or homicidal. Related Data Home Medications Medication Instructions Recorded Confirmed guanfacine 1 mg tablet,extended 1 mg PO QAM 06/30/20 10/18/20 release 24 hr guanfacine 2 mg tablet,extended 2 mg PO BEDTIME 06/30/20 10/18/20 release 24 hr haloperidol 5 mg tablet 7.5 mg PO BID 06/30/20 10/18/20 Previous Rx's Medication Instructions Recorded guanfacine 2 mg tablet 2 mg PO BEDTIME 90 Days #90 tab 04/26/20 melatonin 5 mg tablet 5 mg PO BEDTIME PRN 90 Days #90 tab 04/26/20 sertraline 100 mg tablet 150 mg PO DAILY 90 Days #135 tab 04/26/20 metformin 750 mg tablet,extended 750 mg PO BID 90 Days #180 tab 05/25/20 release 24 hr acetaminophen 500 mg tablet 500 mg PO Q6H PRN 30 Days #120 tab 09/09/20 Allergies Allergy/AdvReac Type Severity Reaction Status Date / Time No Known Allergies Allergy Verified 06/30/20 10:29 Review of Systems Review of Systems: Yes all other systems are reviewed and are negative Constitutional: Constitutional: Reports as per HPI and Reports no additional constitutional complaints Eyes: Eyes: Reports as per HPI and Reports no additional eye complaints ENT: Reports system reviewed and no additional complaints, except as documented and Reports as per HPI Cardiovascular: Cardiovascular: Reports as per HPI and Reports no additional cardiovascular complaints Respiratory: Respiratory: Reports as per HPI and Reports no additional respiratory complaints Gastrointestinal: Gastrointestinal: Reports as per HPI and Reports no additional gastrointestinal complaints Genitourinary: Genitourinary: Reports no additional female genitourinary complaints and Reports as per HPI Musculoskeletal: Musculoskeletal: Reports no additional musculoskeletal complaints and Reports as per HPI Neurologic: Reports system reviewed and no additional complaints, except as documented and Reports as per HPI Psychiatric: Psychiatric: Reports no additional psychiatric complaints and Reports as per HPI Comments: Behavior disturbance [facility] Past Medical History Medical History Anxiety Diabetes mellitus Intellectual disability Obsessive compulsive disorder Oppositional defiant disorder Trauma of toe of left foot Vaginal irritation Social History Social History Alcohol intake: never Advance Directives: No Advance Directives Information Provided: No Gender identity: female Physical Exam Vital Signs: Vital Signs: Last Vital Signs Temp 97.9 F 10/18/20 19:10 Pulse 91 10/18/20 19:10 Resp 18 10/18/20 21:05 BP 118/67 10/18/20 19:10 Pulse Ox 97 10/18/20 19:10 Body Mass Index 26.6 Const: General: cooperative, healthy appearing, comfortable, no acute distress, well developed and alert Orientation/consciousness: patient oriented x3 HENMT: Head: Yes normal to inspection, Yes No palpable skull fracture present, Yes normocephalic and Yes atraumatic Eyes: General: appearance normal, both eyes and all related structures Neck: Neck: Yes normal visual inspection, Yes full ROM, Yes no lymphadenopathy, Yes no meningeal signs, Yes trachea midline, Yes supple and No tender Chest: Chest palpation & inspection: normal inspection of the chest and normal palpation of entire chest wall Resp: Effort & Inspection: normal respiratory effort and able to speak in complete sentences Auscultation: clear to auscultation bilaterally Cardio: Jugular venous distension: no JVD Heart sounds: S1 normal heart sound present and S2 normal heart sound present GI: Inspection: Yes normal to inspection and No abdominal wall ecchymosis Palpation (GI): Soft to palpation, not firm, nontender, no guarding and not rigid : General: No CVA tenderness and Yes no CVA tenderness Back/Spine/Pelvis: Back: no CVA tenderness, No CVA tenderness and No back tenderness Skin: General skin exam: no rashes or lesions noted and elasticity normal Neuro: General: patient oriented x3, gait normal, no meningeal signs and CN's II-XI intact bilaterally Cranial nerves: Yes CN's II-XII intact bilaterally Extrem: General: Yes normal to inspection and Yes full ROM Psych: Appearance: grossly normal, well kempt and not disheveled Course Course Course Narrative: care team consulting Felicitas will contact nursing home. Does not think patient needs inpatient admission. Reevaluation(s) Reevaluation #1: PATIENT WILL BE A N REFERRAL FOR RESPITE. PATIENT DURING ED STAY BECAME AGGRESSIVE AND WAS TRYING TO HURT HERSELF BY HITTING HEAD ON THE WALL AND NOT LISTENING TO THE NURSES STOP. PATIENT REFUSED TO TAKE ANY ORAL MEDS. PATIENT TRIED THROWING BODY IN THE GROUND. PATIENT WILL BE SEDATED. Time: 18:06 Reevaluation #2: Care team middleware consultant Ebony states patient no longer needs N evaluation. Patient will be discharged tomorrow after 12:30pmt tomorrow. She states nursing home will have a staff meeting concerning patient tomorrow morning. Time: 21:51 MDM - Psych MDM Narrative Medical decision making narrative: behavior disturbance Lab Data Result diagrams: 10/18/20 17:28 10/18/20 17:28 Labs: Lab Results 10/18/20 10/18/20 10/18/20 Range/Units 17:28 17:28 17:28 WBC 7.6 (4.8-10.8) X10*3/uL RBC 4.46 (4.20-5.50) X10*6/uL Hgb 12.9 (12.0-16.0) g/dl Hct 39.1 (37-47) % MCV 87.7 (80-98) fL MCH 28.9 (27.0-33.0) pg MCHC 33.0 (31.0-35.0) g/dl RDW 12.5 (11.0-16.0) % Plt Count 264 (160-400) X10*3/uL MPV 8.8 L (9.4-12.3) fL Immature Gran % (Auto) 0.7 H (0.0-0.4) % Neut % (Auto) 69.7 (45-73) % Lymph % (Auto) 17.1 L (20-40) % Mellette % (Auto) 10.9 (2-11) % Eos % (Auto) 1.2 (0-4) % Baso % (Auto) 0.4 (0-2) % Lymph # (Auto) 1.3 (1.2-4.9) X10*3/uL Mellette # (Auto) 0.8 (0.1-1.2) X10*3/uL Eos # (Auto) 0.1 (0.0-0.4) X10*3/uL Baso # (Auto) 0.0 (0.0-0.2) X10*3/uL Abs Immat Gran (auto) 0.05 H (0.00-0.03) X10*3/uL Absolute Neuts (auto) 5.3 (2.0-8.3) X10*3/uL Absolute Nucleated RBC 0.000 (0.0-0.012) X10*3/uL Nucleated RBC % (auto) 0.0 (0.0-0.2) /100WBC Sodium 137 (135-145) mmol/L Potassium 4.2 (3.3-5.1) mmol/L Chloride 103 (96-108) mmol/L Carbon Dioxide 24 (22-29) mmol/L Anion Gap 14 (12-20) BUN 12 (9-16) mg/dL Creatinine 0.79 (0.5-1.4) mg/dL Estim Creat Clear Calc 103.6 Estimated GFR > 60 Random Glucose 120 H (60-115) mg/dL Calcium 9.6 D (8.4-10.2) mg/dL Total Bilirubin < 0.2 (0.0-1.0) mg/dL Direct Bilirubin < 0.2 (0.0-0.5) mg/dL AST 20 (5-31) U/L ALT 14 (0-31) U/L Alkaline Phosphatase 65 (39-117) U/L Total Protein 7.7 (6.5-8.0) g/dL Albumin 4.3 (3.5-5.0) g/dL Ethyl Alcohol < 10 mg/dL 10/18/20 Range/Units 17:28 WBC (4.8-10.8) X10*3/uL RBC (4.20-5.50) X10*6/uL Hgb (12.0-16.0) g/dl Hct (37-47) % MCV (80-98) fL MCH (27.0-33.0) pg MCHC (31.0-35.0) g/dl RDW (11.0-16.0) % Plt Count (160-400) X10*3/uL MPV (9.4-12.3) fL Immature Gran % (Auto) (0.0-0.4) % Neut % (Auto) (45-73) % Lymph % (Auto) (20-40) % Mellette % (Auto) (2-11) % Eos % (Auto) (0-4) % Baso % (Auto) (0-2) % Lymph # (Auto) (1.2-4.9) X10*3/uL Mellette # (Auto) (0.1-1.2) X10*3/uL Eos # (Auto) (0.0-0.4) X10*3/uL Baso # (Auto) (0.0-0.2) X10*3/uL Abs Immat Gran (auto) (0.00-0.03) X10*3/uL Absolute Neuts (auto) (2.0-8.3) X10*3/uL Absolute Nucleated RBC (0.0-0.012) X10*3/uL Nucleated RBC % (auto) (0.0-0.2) /100WBC Sodium (135-145) mmol/L Potassium (3.3-5.1) mmol/L Chloride (96-108) mmol/L Carbon Dioxide (22-29) mmol/L Anion Gap (12-20) BUN (9-16) mg/dL Creatinine (0.5-1.4) mg/dL Estim Creat Clear Calc Estimated GFR Random Glucose (60-115) mg/dL Calcium (8.4-10.2) mg/dL Total Bilirubin Cancelled (0.0-1.0) mg/dL Direct Bilirubin Cancelled (0.0-0.5) mg/dL AST Cancelled (5-31) U/L ALT Cancelled (0-31) U/L Alkaline Phosphatase Cancelled (39-117) U/L Total Protein Cancelled (6.5-8.0) g/dL Albumin Cancelled (3.5-5.0) g/dL Ethyl Alcohol mg/dL Discharge Plan Discharge Clinical Impression: Behavioral problems Prescriptions: No Action guanfacine 2 mg tablet 2 mg PO BEDTIME 90 Days Qty: 90 RF: 1 melatonin 5 mg tablet 5 mg PO BEDTIME PRN (Reason: Sleep) 90 Days Qty: 90 RF: 3 sertraline 100 mg tablet 150 mg PO DAILY 90 Days Qty: 135 RF: 3 metformin 750 mg tablet extended release 24 hr 750 mg PO BID 90 Days Qty: 180 RF: 3 acetaminophen [Acetaminophen Pain Relief] 500 mg tablet 500 mg PO Q6H PRN (Reason: fever or pain) 30 Days Qty: 120 RF: 6 haloperidol 5 mg tablet 7.5 mg PO BID RF: 0 guanfacine 2 mg tablet extended release 24 hr 2 mg PO BEDTIME RF: 0 guanfacine 1 mg tablet extended release 24 hr 1 mg PO QAM RF: 0
--- NOTE | 2020-10-18 14:23 | PC.NURSE ---
half-way staff at bedside
--- NOTE | 2020-10-18 14:26 | MHC.CARE ---
1300 Spoke to [facility] Co-response clinician, Anam Gomez, who responded to the 911 call from [facility] and came to the ED with first responders. He stated that the situation was out of control, patient was throwing object, aggressive, could not be calmed or redirected so they brought her to the ED. 1345 Call to logistics program manager, Tammie Florez regarding patient's quick return to the hospital after discharging. She stated that she does not believe an inpatient admission is indicated due to patient's attention seeking behavior and unhappy with placement. Tammie ([phone]) explained that since patient returned from vacation her behavior has escalated. She recommended a respite which would give them more time to put things in place for patient, they will call [facility] to try and work out a plan. She will call us as soon as she has information about next steps, this may not be until tomorrow.
--- NOTE | 2020-10-18 15:08 | MHC.CARE ---
Addendum entered by Ebony Cheney LCSW 10/18/20 16:04: CARE team spoke with Tammie. Discussed plan for pt to remain in ED overnight and to discharge around 12:30pm tomorrow (Thursday 10/19) to return to the [facility] for a 1:00pm team meeting. The goal is that pt will be agreeable to returning to the [facility], as she typically enjoys attending these meetings. If pt is agreeable, she can be transported by the [facility] staff. If she is not agreeable, an ambulance will be arranged to transport her home. This physician underwriter will discuss plan to ED provider and pod nurse and will speak with pt later about the meeting. No [facility] evaluation needed at this time. Original Note: CARE team completed an evaluation with pt last night 10/17/20 after she arrived to ED following an episode of aggression at her [facility]. Pt was cleared for discharge and return to her [facility], which was discussed with the quality assurance test program manager. This physician underwriter spoke with Jessica Yan, hydrochloric area supervisor for [facility], who is advocating for a short inpatient admission so that pt can be started on a PRN for agitation. Pt reportedly has a history of a paradoxical reaction to a previous PRN that had been prescribed, however Jessica doesn't recall what medication this is, which is not helpful. This recommendation is a contrast to what another CARE restaurant team member had discussed with the [facility]ci clinician, Tammie, that inpt psych wouldn't be appropriate and that a [facility] respite stay would be best. Pt will be referred to [facility] for evaluation. A psych consult may be requested, dependent on what the recommendations from [facility] crisis team are.
[2020-10-18 17:34] LABS: MANUAL DIFF FLAG NO
[2020-10-18 17:45] LABS: Basophils Percent Auto 0.4 % (0-2); Eosinophils Absolute Auto 0.1 X10*3/uL (0.0-0.4); Eosinophils Percent Auto 1.2 % (0-4); Hematocrit 39.1 % (37-47); Hemoglobin 12.9 g/dl (12.0-16.0); Imm Gran Abs Auto 0.05 X10*3/uL (0.00-0.03); Imm Gran Pct Auto 0.7 % (0.0-0.4); Lymphocytes Absolute Auto 1.3 X10*3/uL (1.2-4.9); Lymphocytes Percent Auto 17.1 % (20-40); Mean Corpuscular Hemoglobin 28.9 pg (27.0-33.0); Mean Corpuscular Volume 87.7 fL (80-98); Mean Platelet Volume 8.8 fL (9.4-12.3); Monocytes Absolute Auto 0.8 X10*3/uL (0.1-1.2); Monocytes Percent Auto 10.9 % (2-11); Neutrophils Absolute Auto 5.3 X10*3/uL (2.0-8.3); Neutrophils Percent Auto 69.7 % (45-73); Platelet Count 264 X10*3/uL (160-400); Red Blood Count 4.46 X10*6/uL (4.20-5.50); Red Cell Distribution Width 12.5 % (11.0-16.0); White Blood Count 7.6 X10*3/uL (4.8-10.8)
[2020-10-18] MEDS: diphenhydrAMINE HCL 50 MG/ML VIAL IM (18:00)
[2020-10-18] MEDS: Haloperidol Lactate 5 MG/ML VIAL IM (18:00)
[2020-10-18] MEDS: LORazepam 2 MG/ML VIAL IM (18:00)
--- NOTE | 2020-10-18 18:00 | PC.NURSE ---
PT COMBATIVE, NOT RESPONDING TO STAFF REDIRECTION, BANGING HEAD AGAINST WALL, SLAMMING DOOR, PUNCHING TV, REFUSING PRN MEDICATIONS, REFUSING RELAXATION TECHNIQUES, PROVIDER NOTIFIED, IM MEDICATIONS ORDERED FOR AGITATION.
[2020-10-18 18:04] LABS: Ethanol < 10 mg/dL
[2020-10-18 18:15] LABS: Alanine Aminotransferase 14 U/L (0-31); Albumin Level 4.3 g/dL (3.5-5.0); Alkaline Phosphatase 65 U/L (39-117); Anion Gap 14 (12-20); Aspartate Amino Transferase 20 U/L (5-31); Bilirubin Direct < 0.2 mg/dL (0.0-0.5); Bilirubin Total < 0.2 mg/dL (0.0-1.0); Blood Urea Nitrogen 12 mg/dL (9-16); Calcium 9.6 mg/dL (8.4-10.2); Carbon Dioxide 24 mmol/L (22-29); Chloride 103 mmol/L (96-108); Creatinine Clr Calc Pharmacy 103.6; Estimated Glomerular Filt Rate > 60; Glucose Random 120 mg/dL (60-115); Potassium 4.2 mmol/L (3.3-5.1); Sodium 137 mmol/L (135-145); Total Protein 7.7 g/dL (6.5-8.0)
--- NOTE | 2020-10-18 22:04 | PC.NURSE ---
Patient is in milieu playing DARNELL with staff member, calm and quiet at this time, patient 4 times bladder incontinence, patient had supervised shower, patient is status post chemical restraint with minimal to no effect, will continue to monitor.
[2020-10-19] MEDS: Melatonin 3 MG TABLET 6 MG PO (00:44)
[2020-10-19] MEDS: HaloperidoL 5 MG TABLET 7.5 MG PO (00:44)
--- NOTE | 2020-10-19 06:19 | PC.NURSE ---
Patient is currently in bed appears sleeping, no distress observed/reported, respiration +/=/non-labored bilaterally, patient overall slept well had some difficulty falling sleep. Patient before going to bed had episodes of biting piece of Styrofoam cup but piece came out with vomit, patient also tried to eat pillow tag but was intervened appropriately, disposition is patient will be discharged to her [facility] at 1230 today per her [facility] team meeting, patient is aware, will continue to monitor.
--- NOTE | 2020-10-19 11:23 | PC.NURSE ---
Report received. Pt currently resting in bed, no complaints at this time, calm.
--- NOTE | 2020-10-19 12:30 | MHC.CARE ---
Call from program staff, Tammie, she asked that we tell patient that she is going home, there will be a meeting with Gwen Cho ([facility]), Angelina and Gale as soon as she gets there. Spoke to patient who remained facing the wall and barely engaged. Provided the updated information and advised that the ambulance would be coming to get her soon, asked her if she would cooperate and she said she would. Called Tammie back and told her that at this time patient seems agreeable at this time.
== END 2020-10-19 14:36 | disposition home or self-care (01) ==
PROVIDERS: Physician Assistant; Emergency Provider Internal Medicine
DX: F69 Unspecified disorder of adult personality and behavior (principal); F41.9 Anxiety disorder, unspecified; F42.9 Obsessive-compulsive disorder, unspecified; E11.9 Type 2 diabetes mellitus without complications; Z79.84 Long term (current) use of oral hypoglycemic drugs; Z79.899 Other long term (current) drug therapy
CPT/HCPCS: 36415; 80053; 80076; 82077; 82248; 85025; 96372; 99285; J1200; J2060

== ENCOUNTER 2020-10-19 14:38 | Emergency (ER) | payer MEDICARE, MEDICAID, SELFPAY ==
[2020-10-19] VITALS (12 sets, daily range): BP systolic 105; BP diastolic 72; PULSE 91; RESP 17–22; TEMP 36.4; O2SAT 95; BMI 32.0
--- NOTE | ~2020-10-19 | XR_ITS ---
EXAMINATION: XR CHEST CLINICAL INFORMATION: swallowed pen COMPARISON: None TECHNIQUE: 2 views of the chest were obtained. FINDINGS: No radiopaque foreign body. No significant abnormality is noted involving the heart, lungs, mediastinum, bony thorax or soft tissues. XR/XR chest 2V IMPRESSION: Unremarkable examination. No radiopaque foreign body.
--- NOTE | 2020-10-19 15:12 | PC.NURSE ---
alf staff with pt at bedside
--- NOTE | 2020-10-19 15:24 | PC.NURSE ---
Addendum entered by Romy Street 10/19/20 17:59: Provider Maxine Lebron and CARE team notified at time of original note. Original Note: retirement staff asked to leave because pt was asleep. retirement staff advised that they needed to stay with pt. retirement staff asked to be let out to make a phone call. retirement staff was then observed on camera exiting the hospital through the ambulance bay door approx 15 minutes ago, and has not returned. [facility] went outside approx 10 minutes ago to check if retirement staff was still outside, and reported they were nowhere to be seen.
--- NOTE | 2020-10-19 15:44 | ED_ITS ---
HPI - Psych General Chief Complaint: Psychiatric Symptoms <Maxine Sampson NP - Last Filed: 10/19/20 16:54> Stated Complaint: Crisis <Maxine Sampson NP - Last Filed: 10/19/20 16:54> Time Seen by Provider: 10/19/20 15:43 <Maxine Sampson NP - Last Filed: 10/19/20 16:54> Source: EMS and old records reviewed <Maxine Sampson NP - Last Filed: 10/19/20 16:54> Mode of arrival: EMS <Maxine Sampson NP - Last Filed: 10/19/20 16:54> Limitations: no limitations <Maxine Sampson NP - Last Filed: 10/19/20 16:54> History of Present Illness HPI Narrative: 20-year-old female with a past medical history of behavioral disturbances coming from a longterm due to aggressive behavior. This is the patient's 3rd visit in the last 24 hours for similar complaints. She was seen here yesterday and was cleared to return to the longterm and the same this morning but she has had a aggressive behavior there and they feel like they cannot manage her safely. Per staff the patient has been in this longterm for approximately 1 month and it is a new place for her. <Maxine Sampson NP - Last Filed: 10/19/20 16:54> Related Data Home Medications: Home Medications Medication Instructions Recorded Confirmed guanfacine 1 mg tablet,extended 1 mg PO QAM 06/30/20 10/19/20 release 24 hr guanfacine 2 mg tablet,extended 2 mg PO BEDTIME 06/30/20 10/19/20 release 24 hr haloperidol 5 mg tablet 7.5 mg PO BID 06/30/20 10/19/20 Previous Rx's Medication Instructions Recorded melatonin 5 mg tablet 5 mg PO BEDTIME PRN 90 Days #90 tab 04/26/20 sertraline 100 mg tablet 150 mg PO DAILY 90 Days #135 tab 04/26/20 metformin 750 mg tablet,extended 750 mg PO BID 90 Days #180 tab 05/25/20 release 24 hr acetaminophen 500 mg tablet 500 mg PO Q6H PRN 30 Days #120 tab 09/09/20 <Maxine Sampson NP - Last Filed: 10/19/20 16:54> Allergies/Adverse Reactions: Allergies Allergy/AdvReac Type Severity Reaction Status Date / Time No Known Allergies Allergy Verified 06/30/20 10:29 <Maxine Sampsno NP - Last Filed: 10/19/20 16:54> Review of Systems Review of Systems: Yes Unobtainable due to mental status <Maxine Sampson NP - Last Filed: 10/19/20 16:54> PMFSH Past Medical History Attestation statement: The following information was validated with the patient. <Maxine Sampson NP - Last Filed: 10/19/20 16:54> Source: old records reviewed and nursing notes reviewed <Maxine Sampson NP - Last Filed: 10/19/20 16:54> Medical History: Medical History Anxiety Diabetes mellitus Intellectual disability Obsessive compulsive disorder Oppositional defiant disorder Trauma of toe of left foot Vaginal irritation <Maxine Sampson NP - Last Filed: 10/19/20 16:54> Social History Social History: Social History Alcohol intake: never Advance Directives: No Advance Directives Information Provided: No Gender identity: female <Maxine Sampson NP - Last Filed: 10/19/20 16:54> Physical Exam Vital Signs: Vital Signs: Last Vital Signs Temp 97.3 F 10/24/20 08:14 Pulse 87 10/24/20 08:14 Resp 16 10/24/20 08:14 BP 119/66 10/24/20 08:14 Pulse Ox 95 10/24/20 08:14 Body Mass Index 32.0 <Maxine Sampson NP - Last Filed: 10/19/20 16:54> Vital Signs: Last Vital Signs Temp 97.3 F 10/24/20 08:14 Pulse 87 10/24/20 08:14 Resp 16 10/24/20 08:14 BP 119/66 10/24/20 08:14 Pulse Ox 95 10/24/20 08:14 Body Mass Index 32.0 <Tuyet Omalley NP - Last Filed: 10/19/20 22:00> Vital Signs: Last Vital Signs Temp 97.3 F 10/24/20 08:14 Pulse 87 10/24/20 08:14 Resp 16 10/24/20 08:14 BP 119/66 10/24/20 08:14 Pulse Ox 95 10/24/20 08:14 Body Mass Index 32.0 <LAURA Mcgee - Last Filed: 10/23/20 08:55> Vital Signs: Last Vital Signs Temp 97.3 F 10/24/20 08:14 Pulse 87 10/24/20 08:14 Resp 16 10/24/20 08:14 BP 119/66 10/24/20 08:14 Pulse Ox 95 10/24/20 08:14 Body Mass Index 32.0 <LAURA Maher - Last Filed: 10/21/20 11:42> Vital Signs: Last Vital Signs Temp 97.3 F 10/24/20 08:14 Pulse 87 10/24/20 08:14 Resp 10/24/20 08:14 BP 119/66 10/24/20 08:14 Pulse Ox 95 10/24/20 08:14 Body Mass Index 32.0 <LAURA Schulte - Last Filed: 10/24/20 08:54> Const: General: awake <Maxine Sampson NP - Last Filed: 10/19/20 16:54> Limitations: behavioral limitations <Maxine Sampson NP - Last Filed: 10/19/20 16:54> HENMT: Head: Yes normal to inspection <Maxine Sampson NP - Last Filed: 10/19/20 16:54> Ears: hearing grossly normal bilaterally <Maxine Sampson NP - Last Filed: 10/19/20 16:54> General nose exam: Normal external nose present <Maxine Sampson NP - Last Filed: 10/19/20 16:54> Face and sinus: Yes normal facial exam <Maxine Sampson NP - Last Filed: 10/19/20 16:54> Mouth: Normal oral and palatal mucosa present <Maxine Sampson NP - Last Filed: 10/19/20 16:54> Throat: Yes posterior oropharynx normal <Maxine Sampson NP - Last Filed: 10/19/20 16:54> Eyes: General: appearance normal, both eyes and all related structures <Maxine Sampson NP - Last Filed: 10/19/20 16:54> Neck: Neck: Yes normal visual inspection <Maxine Sampson NP - Last Filed: 10/19/20 16:54> Chest: Chest palpation & inspection: normal inspection of the chest <Allan Sampson NP - Last Filed: 10/19/20 16:54> Resp: Effort & Inspection: normal respiratory effort <Maxine Sampson NP - Last Filed: 10/19/20 16:54> Skin: General skin exam: no rashes or lesions noted <Maxine Sampson NP - Last Filed: 10/19/20 16:54> Neuro: General: moves all extremities <Maxine Sampson NP - Last Filed: 10/19/20 16:54> Gait exam (Neuro): Normal gait present <Maxine Sampson NP - Last Filed: 10/19/20 16:54> Extrem: General: Yes normal to inspection <Maxine Sampson NP - Last Filed: 10/19/20 16:54> Course Course Course Narrative: 20-year-old female with a past medical history of ODD, OCD, intellectual disability here from a longterm for behavior change. This is patient's 3rd visit in the last 24 hours for similar unfortunately, she was recently placed in a new longterm in the last few weeks and she has had changes in behavior since then. She does have of self-harm behaviors and frequently bangs her head against objects. No current trauma. Vital signs stable. Patient is intermittently cooperative with staff. Will plan for crisis evaluation 1700-Sign out to Tuyet Rogers pending above <Maxine Sampson NP - Last Filed: 10/19/20 16:54> Physician observation continued. Patient is not in any physical distress. Patient vital signs are stable. Patient is still a bed search <LAURA Schulte - Last Filed: 10/24/20 08:54> Reevaluation(s) Reevaluation #1: 10/21/20--Physician observation continued. Vital signs are stable. No complaints overnight, patient continues to be Section 12 inpatient bed search. <LAURA Maher - Last Filed: 10/21/20 11:42> Time: 08:40 <LAURA Maher - Last Filed: 10/21/20 11:42> MDM - Psych Lab Data Labs: Lab Results 10/23/20 Range/Units 09:38 COVID-19 (FRIEDA) Negative (Negative) COVID-19 Clin Com See Note <Maxine Sampson NP - Last Filed: 10/19/20 16:54> Lab Results 10/23/20 Range/Units 09:38 COVID-19 (FRIEDA) Negative (Negative) COVID-19 Clin Com See Note <Tuyet Omalley NP - Last Filed: 10/19/20 22:00> Lab Results 10/23/20 Range/Units 09:38 COVID-19 (FRIEDA) Negative (Negative) COVID-19 Clin Com See Note <LAURA Mcgee - Last Filed: 10/23/20 08:55> Lab Results 10/23/20 Range/Units 09:38 COVID-19 (FRIEDA) Negative (Negative) COVID-19 Clin Com See Note <LAURA Maher - Last Filed: 10/21/20 11:42> Lab Results 10/23/20 Range/Units 09:38 COVID-19 (FRIEDA) Negative (Negative) COVID-19 Clin Com See Note <LAURA Schulte - Last Filed: 10/24/20 08:54> Discharge Plan Discharge Clinical Impression: Bipolar disorder, Cognitive developmental delay <Maxine Sampson NP - Last Filed: 10/19/20 16:54> Patient Disposition: [facility] <Maxine Sampson NP - Last Filed: 10/19/20 16:54> Transfer Details: patient will be transferred to [facility] accepting physician <Maxine Sampson NP - Last Filed: 10/19/20 16:54> patient will be transferred to [facility] accepting physician <Tuyet Omalley NP - Last Filed: 10/19/20 22:00> patient will be transferred to [facility] accepting physician <LAURA Mcgee - Last Filed: 10/23/20 08:55> patient will be transferred to [facility] accepting physician <LAURA Maher - Last Filed: 10/21/20 11:42> patient will be transferred to [facility] accepting physician <LAURA Schulte - Last Filed: 10/24/20 08:54> Instructions: Anxiety (ED) <Maxine Sampson NP - Last Filed: 10/19/20 16:54> Additional Instructions: please follow-up with outpatient psychiatry as scheduled. Thank you for choosing this emergency department for evaluation. Please follow-up with primary care physician as needed. Return to the emergency department for any new, concerning, or worsening symptoms. <Maxine Sampson NP - Last Filed: 10/19/20 16:54> Prescriptions: No Action melatonin 5 mg tablet 5 mg PO BEDTIME PRN (Reason: Sleep) 90 Days Qty: 90 RF: 3 sertraline 100 mg tablet 150 mg PO DAILY 90 Days Qty: 135 RF: 3 metformin 750 mg tablet extended release 24 hr 750 mg PO BID 90 Days Qty: 180 RF: 3 acetaminophen [Acetaminophen Pain Relief] 500 mg tablet 500 mg PO Q6H PRN (Reason: fever or pain) 30 Days Qty: 120 RF: 6 haloperidol 5 mg tablet 7.5 mg PO BID RF: 0 guanfacine 2 mg tablet extended release 24 hr 2 mg PO BEDTIME RF: 0 guanfacine 1 mg tablet extended release 24 hr 1 mg PO QAM RF: 0 <Maxine Sampson NP - Last Filed: 10/19/20 16:54> Interventions: ED Discharge Assessment Last Done: 10/19/20 20:35 <Maxine Sampson NP - Last Filed: 10/19/20 16:54> ED Observation ED Observation Progress Notes 1: Progress Note: 10/20/20 - 08:14 LAURA Mcgee Physician observation continued. Overnight patient was aggressive and was unable to be redirected despite attempting multiple times and she was starting to hurt herself as well and there was the risks of her breaking the glasses in the psychiatric area in hurting herself with the glass from the door/windows therefore the patient was placed in a four-point restraint given IM Haldol 5 mg and 2 mg of IM Ativan and 10 mg of IM Olanzapine. then the patient was placed on one-to-one observation. After that patient had an uneventful night she was released from the 4 point restraints. patient was reporting that she swallowed a pen and she vomited therefore an x-ray was obtained and was negative for any foreign bodies. Otherwise patient is currently resting respirations even and unlabored in no apparent distress. Vital signs remained stable within normal limits. No focal deficits are noted. Lungs clear to auscultation. CV RRR. Abdomen is soft and nontender. Will continue to monitor as patient is awaiting [facility] evaluation. <LAURA Mcgee - Last Filed: 10/23/20 08:55>
--- NOTE | 2020-10-19 17:06 | PC.NURSE ---
Pt incontinent of urine x1. Pt was observed standing in her room, and urinating onto the floor. When asked why she did this, pt stated I did it because I was lonely . Pt cooperative with filemon marcelo, and assisted MHT in cleaning up her room.
--- NOTE | 2020-10-19 17:19 | PC.NURSE ---
Spoke with Desirae, it business systems analyst at [facility]. Referral was received, and she will be calling back with an ETA.
--- NOTE | 2020-10-19 17:25 | PC.NURSE ---
Call back from Desirae at [facility] - someone will be out to assess pt within the next two hours
--- NOTE | 2020-10-19 17:54 | PC.NURSE ---
Message left for jail clinician, Tammie ([phone]), requesting for pt's personal supply of guanfacine ER to be delivered to the hospital, as medication is not stocked in the hospital pharmacy.
--- NOTE | 2020-10-19 18:15 | PC.NURSE ---
BHN here to assess pt
--- NOTE | 2020-10-19 19:01 | PC.NURSE ---
Patient wandering in POD, patient is being closely watched for her unsafe behavior, will continue to monitor.
[2020-10-19] MEDS: HaloperidoL 5 MG TABLET 7.5 MG PO (19:36)
[2020-10-19] MEDS: Haloperidol Lactate 5 MG/ML VIAL IM (22:18)
[2020-10-19] MEDS: LORazepam 2 MG/ML VIAL IM (22:18)
[2020-10-19] MEDS: OLANZapine 10 MG VIAL IM (22:19)
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
[2020-10-20] VITALS (11 sets, daily range): RESP 18
--- NOTE | 2020-10-20 00:55 | PC.NURSE ---
Patient's restraint was released from her restraint at 2330, appears patient was calming down, patient had an episode vomiting and reported she swallowed whole pen, security checked the camera nothing obvious was seen, provider notified/X-ray ordered/result no foreign object was seen int he X-ray, patient was then put on one to one observation for her unsafe behavior, patient is currently in bed appears sleeping, no distress observed/reported, will continue to monitor on 1:1 for observation.
--- NOTE | 2020-10-20 06:04 | PC.NURSE ---
Patient needed continuous redirection while awake, patient is being observed on one to one for her unsafe behavior, patient has been sleeping since 329, will continue to monitor.
--- NOTE | 2020-10-20 08:07 | PC.NURSE ---
PT REMAINS ASLEEP. 1:1 MAINTAINED.
--- NOTE | 2020-10-20 10:01 | MHC.CARE ---
Call from Tammie Florez ([phone]), assisted clinician, she was unaware that patient had not made it back to the program last night, provided her with details. Regarding patient swallowing objects, to staff knowledge patient many times has reported she swallowed something but has actually not; they do not delay medical treatment but have made this observation. intermediate staff stated a commitment to caring for this patient and feel they are able to but not while she is so dysregulated and violent. The current situation is dangerous for everyone involved. They are requesting a medication consult with the purpose of breaking the current cycle of agitation so they can work on skill development and emotional regulation. She is in a training from 1-4 but could take a call if necessary. Jessica Yan ([phone]), S Psychologist/Clinical Director from the [facility] called to encourage psychiatry consultation and inpatient admission, said that patient has been stable for long periods of time and is off her baseline, thinks there is an anxiety component. There were no S respite beds available. She would like patient's psychiatrist Dr. Guzman consulted. Provider updated with plan of care.
--- NOTE | 2020-10-20 11:33 | PC.NURSE ---
Report received. Pt asleep at current, no signs of distress, RR even and unlabored. Remains on 1:1 obs. Waiting for BHN to reassess.
--- NOTE | 2020-10-20 12:44 | PC.NURSE ---
Spoke with Maia at [facility]. A clinician should be available to assess pt between 1400 and 1500.
[2020-10-20] MEDS: HaloperidoL 5 MG TABLET 7.5 MG PO ×2 (13:45→21:20)
[2020-10-20] MEDS: Sertraline HCL 50 MG TABLET 150 MG PO (13:46)
[2020-10-20] MEDS: metFORMIN HCl ER 750 MG TAB.ER.24H PO ×2 (13:46→19:55)
--- NOTE | 2020-10-20 14:21 | PM.PSYCN ---
History of Present Illness Date of Service: 10/20/20 Chief Complaint: Crisis Reason for Consult: oppositional and aggressive behaviors apparently being deployed instrumentally to prevent discharge from the ED to long-term. Requesting physician: Alisson Bryant Discussed with referring provider: No Sources of Information: patient interviewed and chart reviewed Additional Sources of Information: staff in the behavioral pod HPI Narrative: aggressive/violent at long-term, brought to ED as long-term cannot manage her behaviors. pt gets violent/agitated with attempts to discharge her back to long-term. Past Psychiatric History: Anxiety Intellectual disability Obsessive compulsive disorder Oppositional defiant disorder Medical Evaluation Reviewed: Yes Personal & Social History: had lived at home with her mother and been cared for by her until recently as mother is no longer able. she was placed in a long-term which she does not like. [facility] Medical History Anxiety Diabetes mellitus Intellectual disability Obsessive compulsive disorder Oppositional defiant disorder Trauma of toe of left foot Vaginal irritation Substance History: N/A Diagnostics Vital Signs (24Hr): Vital Signs - 24 hr 10/19/20 14:57 10/19/20 15:05 10/19/20 21:10 Temperature Pulse Rate Respiratory Rate 18 18 18 Blood Pressure Pulse Oximetry 10/19/20 21:55 10/19/20 22:10 10/19/20 22:25 Temperature Pulse Rate Respiratory Rate 20 20 22 H Blood Pressure Pulse Oximetry 10/19/20 22:40 10/19/20 22:55 10/19/20 23:10 Temperature Pulse Rate Respiratory Rate 20 20 20 Blood Pressure Pulse Oximetry 10/19/20 23:25 10/19/20 23:30 10/19/20 23:51 Temperature 97.6 F Pulse Rate 91 Respiratory Rate 18 18 17 Blood Pressure 105/72 Pulse Oximetry 95 Body Mass Index 32.0 Imaging Radiology Impressions: ITS Impressions Chest X-Ray 10/20/20 00:24 IMPRESSION: Unremarkable examination. No radiopaque foreign body. Mental Status Exam Mental Status Exam Narrative: pt found lying in bed in behavioral health pod, 1:1 sitter by her side. pt was calm and cooperative with interview. she indicated she would like to be admitted to the [facility] hospital. speech increased in amount, mildly dysarthric. nml rate, loudness, latency. thoughts linear and illogical (she wants to be admitted to a state hospital. why? so they can help her. how will they do that? any way they can. can we try to help you here? no, you're not helping here. how can we help you? you can't). affect constricted, normo-intense, non-labile. mood not assessed, no SI/HI/AVH expressed. Medications Medications Current Medications Generic Name Dose Route Start Last Admin Trade Name Freq PRN Reason Stop Dose Admin Acetaminophen 650 mg 10/19/20 17:52 Acetaminophen 325 Mg Tablet PO Q6H PRN fever or pain Haloperidol 7.5 mg 10/19/20 21:00 10/20/20 13:45 Haloperidol 5 Mg Tablet PO 7.5 mg BID SHANI Administration Melatonin 6 mg 10/19/20 17:48 Melatonin 3 Mg Tablet PO BEDTIME PRN Sleep Metformin HCl 750 mg 10/20/20 08:00 10/20/20 13:46 Metformin Hcl Er 750 Mg Tab.Er.24h PO 750 mg BIDWM SHANI Administration Non-Form Med ( 2 mg 10/19/20 21:00 10/19/20 19:59 Guanfacine 2 Mg PO 2 mg Tablet Extended BEDTIME SHANI Administration Release 24 Hr) Patient Own 1 each 10/21/20 09:00 Medication ( PO Guanfacine Er 1mg) DAILY SHANI Sertraline HCl 150 mg 10/20/20 09:00 10/20/20 13:46 Sertraline Hcl 50 Mg Tablet PO 150 mg DAILY SHANI Administration Allergies Allergies Allergy/AdvReac Type Severity Reaction Status Date / Time No Known Allergies Allergy Verified 06/30/20 10:29 Assessment & Plan Assessment & Plan (1) Adjustment disorder with mixed disturbance of emotions and conduct: Status: Acute Code(s): F43.25 - Adjustment disorder with mixed disturbance of emotions and conduct Recommendations: transitioning from living with her mother as her sole forgeman helper for her entire life to a long-term. start thorazine 25-100 mg TID and 25-100 mg PRN agitation/aggression. would start with a test dose of 25 mg now to gauge response and guide initial dosing. would transition off of haldol entirely and replace with thorazine once an effective dose is identified. thorazine may reduce aggression and impulsivity. however, as the challenging behavior appears to be instrumental, it is not going to be medicated away. this patient's goal is to not return to a living situation which she does not want to be in, and she has clearly shown she is committed to that goal. (2) Oppositional defiant disorder, severe: Status: Acute Code(s): F91.3 - Oppositional defiant disorder Recommendations: as discussed above, this patient's h/o ODD supports the likelihood that her challenging behaviors will be difficult to prevent or address without addressing the underlying problem: she does not want to return to the long-term where she is living. she might be sedated with medication, but sedating her around the clock at the long-term to prevent her from acting out is not a reasonable or humane plan. (3) Intellectual disability: Status: Acute Code(s): F79 - Unspecified intellectual disabilities Recommendations: this patient's intellectual disability makes arriving at a mutually satisfactory solution here challenging. she is more likely to act out her emotions than to verbalize them and less likely to meaningfully grasp her circumstance and the options available to her. it is my understanding that she has lived with her mother as her sole forgeman helper until referral to this long-term, which makes this an incredibly challenging transition time. discharge/placement may require her mother's regular involvement and advocacy with pt for the best plan available. Greater than 50% of the session was spent on counseling and/or coordination of care
[2020-10-20] MEDS: Haloperidol Lactate 5 MG/ML VIAL IM (15:41)
[2020-10-20] MEDS: LORazepam 2 MG/ML VIAL IM ×2 (15:41→17:50)
[2020-10-20] MEDS: OLANZapine 10 MG VIAL IM (15:42)
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
[2020-10-20] MEDS: Ziprasidone Mesylate 20 MG VIAL IM (17:50)
[2020-10-20] MEDS: diphenhydrAMINE HCL 50 MG/ML VIAL IM (17:50)
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
--- NOTE | 2020-10-20 19:45 | PC.NURSE ---
Patient was in mechanical restraint at the time of reporting, restraint paper continued, restraint was released at 1930 and incontinence care provided, patient is in better behavioral control still requires intermittent redirection, minimal to no [id number], patient is on linen restriction, observed on one to one for safety and unsafe behavior, at this point disposition is pending reassessment, will continue to monitor.
--- NOTE | 2020-10-20 23:51 | PC.NURSE ---
Patient was compliant with her HS PO medication, behavior in control, BHN called spoke with Hollie/notified that patient will be seen in overnight, patient is on 1:1, will continue to monitor.
--- NOTE | 2020-10-21 | ECG_ITS ---
Test Reason : MED CLEARANCE Blood Pressure : / mmHG Vent. Rate : 106 BPM Atrial Rate : 106 BPM P-R Int : 142 ms QRS Dur : 080 ms QT Int : 378 ms P-R-T Axes : 049 052 016 degrees QTc Int : 502 ms Poor data quality Sinus tachycardia Otherwise normal ECG No previous ECGs available Referred By: Sarah Vazquez Electronically Signed By:AGAPITO BALL MD
--- NOTE | 2020-10-21 03:08 | PC.NURSE ---
MARVAN completed assessment, disposition section 12 inpatient bed search, will continue to monitor.
--- NOTE | 2020-10-21 06:08 | PC.NURSE ---
Patient slept total 5 hours, no behavioral issues overnight, patient is on 1:1 observation unsafe behavior, patient is on linen restriction for unsafe behavior, disposition is section 12 inpatient bed search, will continue to monitor.
[2020-10-21 06:39] VITALS: BP 131/85; PULSE 74; RESP 16; TEMP 36.2; O2SAT 96
--- NOTE | 2020-10-21 07:05 | PC.NURSE ---
patient appears at rest at present respirations appear even and unlabored, patient appears in no distress
[2020-10-21] MEDS: metFORMIN HCl ER 750 MG TAB.ER.24H PO ×2 (07:58→18:09)
[2020-10-21] MEDS: Sertraline HCL 50 MG TABLET 150 MG PO (07:58)
[2020-10-21] MEDS: HaloperidoL 5 MG TABLET 7.5 MG PO ×2 (07:59→18:41)
--- NOTE | 2020-10-21 09:49 | MHC.CARE ---
Calls from both Tammie Florez ([phone]) SN mcfp clinician and Jessica Yan ([phone]), DDS Clinical Director, both wanted updates on patient, advised each that patient had a difficult day yesterday but an uneventful evening and so far today. She was re-evaluated by [facility] Crisis to need inpatient psychiatric care and will remain in the ED until an appropriate placement is secured?likely [facility]. Jessica has sent referral form to [facility] and will send a copy here for patient?s chart. Patient?s DDS team and mother met yesterday and one of the determinations was that patient cannot call her mother from the hospital; she has been calling up to 20 times in a row and becomes obsessive and agitated. Asked that staff here reinforce that patient will be able to call her mother from home when she is stable. If patient needs to call someone she can call the mcfp ([phone]) this may be helpful in maintaining relationship with program staff, should it become too much they may to reassess. POD staff updated about the phone use and mcfp number provided. CARE Team will inquire about borrowing weighted blanket for patient while in the ED and will ask OT for recommendations about use. [facility] is managing patient?s bed search and daily MSU?s, CARE Team is available to support communication and continuity of care as needed.
--- NOTE | 2020-10-21 20:20 | PC.NURSE ---
Patient is in good behavioral control, compliant with her medication, [facility] called/spoke with intake staff Damion/confirmed that patient is on on first wait list, will continue to monitor.
[2020-10-21] MEDS: Melatonin 3 MG TABLET 6 MG PO (22:16)
[2020-10-21] MEDS: guaiFEN/Codeine SF 200/20/10ML 10 ML LIQUID PO (22:16)
--- NOTE | 2020-10-21 22:35 | PC.NURSE ---
Patient is in the milieu, watching TV at this time, compliant with HS PO medication, patient is in good behavioral control, patient is being observed on 1:1 for safety, will continue to monitor.
--- NOTE | 2020-10-22 06:08 | PC.NURSE ---
Patient slept through the night, patient is in good behavioral control, compliant with her medication, responding better to redirection, awaiting bed opening at [facility], will continue to monitor.
--- NOTE | 2020-10-22 07:13 | PC.NURSE ---
patient remains at rest at present with even unlabored breaths patient appears in no distress.
[2020-10-22] MEDS: HaloperidoL 5 MG TABLET 7.5 MG PO ×2 (11:10→20:34)
[2020-10-22] MEDS: metFORMIN HCl ER 750 MG TAB.ER.24H PO ×2 (11:10→16:52)
[2020-10-22] MEDS: Sertraline HCL 50 MG TABLET 150 MG PO (11:10)
[2020-10-22] MEDS: Acetaminophen 325 MG TABLET 650 MG PO ×2 (17:25→22:49)
[2020-10-22 20:14] VITALS: BP 135/81; PULSE 100; TEMP 36.2; O2SAT 98
[2020-10-22] MEDS: Melatonin 3 MG TABLET 6 MG PO (20:34)
[2020-10-22] MEDS: guaiFENesin 100 MG/5 ML LIQUID PO (20:43)
--- NOTE | 2020-10-22 21:01 | PC.NURSE ---
Patient in milieu, wandering, often visits nurses station for multiple need, good behavioral control, compliant HS PO medication, no distress observed/reported, will continue to monitor 1:1.
--- NOTE | 2020-10-23 03:22 | PC.NURSE ---
Per charge nurse patient is no more on 1:1 observation, patient is in bed appears sleeping, no distress observed/reported, will continue to monitor.
[2020-10-23] MEDS: guaiFENesin 100 MG/5 ML LIQUID PO (05:42)
--- NOTE | 2020-10-23 06:15 | PC.NURSE ---
Patient slept through the night, patient was up times 1, for bathroom use and back, no distress observed/reported, disposition is section 12 inpatient bed search, awaiting bed openings at [facility], will continue to monitor.
[2020-10-23 06:33] VITALS: BP 157/87; PULSE 85; RESP 16; TEMP 36.8; O2SAT 97
[2020-10-23] MEDS: HaloperidoL 5 MG TABLET 7.5 MG PO ×2 (09:28→19:37)
[2020-10-23] MEDS: Sertraline HCL 50 MG TABLET 150 MG PO (09:28)
[2020-10-23] MEDS: metFORMIN HCl ER 750 MG TAB.ER.24H PO ×2 (09:28→17:27)
--- NOTE | 2020-10-23 09:36 | PC.NURSE ---
pt took her morning medications, allowed staff to swab her for Covid and is asking for a shower. Female staff is helping pt shower. Pt calm and cooperative.
--- NOTE | 2020-10-23 09:48 | PC.NURSE ---
pt has headphones in a case with a power cord on her person. This was discovered when pt was assisted with shower by female staff. Explained to pt her items would be locked in her locker. She has asked to watch them be locked up.
[2020-10-23 09:57] LABS: COVID-19 Test Negative (Negative)
--- NOTE | 2020-10-23 13:21 | PC.NURSE ---
pt has been sleeping in room
--- NOTE | 2020-10-23 13:54 | MHC.CARE ---
CARE Team spoke with [facility] bedsearch station- Pt continues to be on the waitlist for [facility].
--- NOTE | 2020-10-23 17:19 | MHC.CARE ---
Sheila, pt's mother, contacted CARE team to inquire about how pt is doing. She shared that the pt has continued to call her many times, which she has not answered per direction from the half-way's clinical team, and was concerned that the pt may not be responding well to this. This typewriter operator automatic shared that there are no incidents that have been documented within the past 24 hrs. No additional questions of concerns were expressed at that time.
[2020-10-23] MEDS: Melatonin 3 MG TABLET 6 MG PO (19:37)
--- NOTE | 2020-10-23 19:41 | PC.NURSE ---
Patient just woke up, ate her supper, requesting her HS medication, asked to wait until 8 pm but said she wont take if she doesn't get it now, night time meds administered as requested to avoid behavioral escalation, provider made aware, will continue to monitor
[2020-10-23 19:57] VITALS: BP 124/77; PULSE 97; RESP 18; TEMP 36; O2SAT 97
[2020-10-24 00:14] VITALS: BP 146/74; PULSE 91; RESP 17; TEMP 36.5; O2SAT 97
[2020-10-24] MEDS: guaiFEN/Codeine SF 200/20/10ML 10 ML LIQUID PO (00:33)
--- NOTE | 2020-10-24 06:14 | PC.NURSE ---
Patient did not sleep throughout the night as expected because slept most part of the day over 8 hours, out of room multiple times for multiple needs, currently in her bed resting, no distress observed/reported, will continue to monitor.
--- NOTE | 2020-10-24 06:58 | PC.NURSE ---
patient relaxing in milieu, t/w received report from prior RN patient appears calm remains cooperative
[2020-10-24] MEDS: HaloperidoL 5 MG TABLET 7.5 MG PO ×2 (07:59→20:11)
[2020-10-24] MEDS: metFORMIN HCl ER 750 MG TAB.ER.24H PO ×3 (07:59→20:11)
[2020-10-24] MEDS: Sertraline HCL 50 MG TABLET 150 MG PO (07:59)
[2020-10-24 08:14] VITALS: BP 119/66; PULSE 87; RESP 16; TEMP 36.3; O2SAT 95
[2020-10-24 19:21] VITALS: BP 122/61; PULSE 86; RESP 18; TEMP 36.7; O2SAT 97
[2020-10-24] MEDS: Melatonin 3 MG TABLET 6 MG PO (20:11)
--- NOTE | 2020-10-25 05:28 | PC.NURSE ---
Patient slept through the night, no distress observed/reported, disposition continues, section 12 inpatient bed search, awaiting bed opening in [facility], [facility], will continue to monitor.
[2020-10-25 06:32] VITALS: BP 116/69; PULSE 84; RESP 16; TEMP 36.6; O2SAT 97
--- NOTE | 2020-10-25 07:33 | PC.NURSE ---
Report from Mayco RN, pt sleeping at this time. NAD.
--- NOTE | 2020-10-25 09:07 | PC.NURSE ---
per James pt has been accepted to [facility] for 10 am 10/26/20
--- NOTE | 2020-10-25 09:32 | PC.NURSE ---
May VS faxed for Valerie and [facility] per [facility] request.
--- NOTE | 2020-10-25 10:41 | PC.NURSE ---
pt sleeping at this time, will admin meds when she awakens.
[2020-10-25 14:22] VITALS: RESP 16
[2020-10-25] MEDS: metFORMIN HCl ER 750 MG TAB.ER.24H PO (16:55)
[2020-10-25] MEDS: guaiFENesin 200 MG/10 ML 10 ML LIQUID PO (19:49)
[2020-10-25] MEDS: Melatonin 3 MG TABLET 6 MG PO (20:30)
[2020-10-25] MEDS: HaloperidoL 5 MG TABLET 7.5 MG PO (20:31)
[2020-10-25 22:29] VITALS: BP 128/76; PULSE 84; TEMP 36.4; O2SAT 98
--- NOTE | 2020-10-25 23:32 | PC.NURSE ---
Patient had good evening shift, no behavioral concerns, appetite good, elimination intact, compliant with HS PO medication, [facility] called and spoke with eligibility worker Jonah, confirmed acceptance to [facility] ETA 10 am, transfer paper work completed and submitted to ED financial secretary, THELMA, patient tried to reach her mother multiple times but with no success, will continue to monitor.
[2020-10-26 04:02] VITALS: BP 122/64; PULSE 80; RESP 16; TEMP 36.3; O2SAT 96
--- NOTE | 2020-10-26 06:03 | PC.NURSE ---
Patient slept through the night, no distress observed/reported, patient is accepted to [facility] and ETA at [facility] is 10 am, will continue to monitor.
[2020-10-26] MEDS: metFORMIN HCl ER 750 MG TAB.ER.24H PO (06:54)
[2020-10-26] MEDS: HaloperidoL 5 MG TABLET 7.5 MG PO (06:54)
[2020-10-26] MEDS: Sertraline HCL 50 MG TABLET 150 MG PO (06:54)
== END 2020-10-26 07:56 ==
PROVIDERS: Student in an Organized Health Care Education/Training Program; Emergency Provider Emergency Medicine Emergency Medical Services
DX: F31.9 Bipolar disorder, unspecified (principal); F88 Other disorders of psychological development; F43.25 Adjustment disorder with mixed disturbance of emotions and conduct; F91.3 Oppositional defiant disorder; F79 Unspecified intellectual disabilities; E11.9 Type 2 diabetes mellitus without complications; Z79.899 Other long term (current) drug therapy; Z79.84 Long term (current) use of oral hypoglycemic drugs; Z91.5 Personal history of self-harm; Z72.89 Other problems related to lifestyle; Z20.822 Contact with and (suspected) exposure to COVID-19; Z78.1 Physical restraint status
CPT/HCPCS: 36415; 71046; 87635; 93005; 96372; 99285; J1200; J2060; J3486

== ENCOUNTER 2020-12-01 19:26 | Emergency (ER) | payer MEDICARE, MEDICAID, SELFPAY ==
[2020-12-01 19:38] VITALS: BP 119/65; PULSE 114; RESP 18; TEMP 37.3; O2SAT 95; BMI 34.3
[2020-12-01 21:04] LABS: Influenza A PCR NEGATIVE (Negative); Influenza B PCR NEGATIVE (Negative); Resp Syncy Virus RNA Qual PCR NEGATIVE (Negative); SARS COV2 PCR INHOUSE NEGATIVE (Negative)
--- NOTE | 2020-12-01 21:09 | ED_ITS ---
HPI - Psych General Chief Complaint: Psychiatric Symptoms Stated Complaint: CRISIS Time Seen by Provider: 12/01/20 21:04 Source: patient and EMS Mode of arrival: EMS Limitations: other History of Present Illness HPI Narrative: Patient comes to the emergency room by EMS. Patient was discharged from the hospital today, she got back to her prison, staff reported that she was being verbally aggressive, she threw a chair, threatening the staff, police department was called, patient was sectioned and brought to the emergency room. Patient is well-known to the [facility] staff. Per N, this is the patient's baseline. Patient reports no complaints Related Data Home Medications Medication Instructions Recorded Confirmed guanfacine 1 mg tablet,extended 1 mg PO QAM 06/30/20 10/19/20 release 24 hr guanfacine 2 mg tablet,extended 2 mg PO BEDTIME 06/30/20 10/19/20 release 24 hr haloperidol 5 mg tablet 7.5 mg PO BID 06/30/20 10/19/20 Previous Rx's Medication Instructions Recorded melatonin 5 mg tablet 5 mg PO BEDTIME PRN 90 Days #90 tab 04/26/20 sertraline 100 mg tablet 150 mg PO DAILY 90 Days #135 tab 04/26/20 metformin 750 mg tablet,extended 750 mg PO BID 90 Days #180 tab 05/25/20 release 24 hr acetaminophen 500 mg tablet 500 mg PO Q6H PRN 30 Days #120 tab 09/09/20 (Acetaminophen Pain Relief) Allergies Allergy/AdvReac Type Severity Reaction Status Date / Time No Known Allergies Allergy Verified 06/30/20 10:29 Review of Systems Review of Systems: Constitutional : No Weight loss, No Fever, No Chills, No Night Sweats, No Fatigue, No Malaise ENT/Mouth : No Hearing loss, No Ear Pain, No Nasal Congestion, No Sinus Pain, No Hoarseness, No sore throat, No Rhinorrhea, No Swallowing Difficulty Eyes: No Eye Pain, No Swelling, No Redness, No Foreign Body, No Discharge, No Vision Changes Cardiovascular : No Chest Pain, No SOB, No Dyspnea on Exertion, No Orthopnea, No Edema, No Palpitations Respiratory : No Cough, No Sputum, No Wheezing, No Smoke Exposure, No Dyspnea Gastrointestinal : No Nausea, No Vomiting, No Diarrhea, No Constipation, No abdominal Pain, No Hematochezia, No Melena Genitourinary : no irregular bleeding, No Dysuria, No Urinary Frequency, No Hematuria, No Urinary Incontinence, No Urgency, No Flank Pain, No Urinary Flow Changes, No Hesitancy Musculoskeletal : No joint pain, No Myalgias, No Joint Swelling Skin : No Skin Lesions, No rash Neuro : No Weakness, No Numbness, No Paresthesias, No Loss of Consciousness, No Dizziness, No Headache Psych : No Anxiety/Panic, No Depression, No SI/HI/AH/VH, No Social Issues, Heme/Lymph: No Bruising, No Bleeding,No Lymphadenopathy Endocrine : No Polyuria, No Polydipsia, No Temperature Intolerance [facility] Past Medical History Medical History Anxiety Diabetes mellitus Intellectual disability Obsessive compulsive disorder Oppositional defiant disorder Trauma of toe of left foot Vaginal irritation Social History Social History Alcohol intake: never Advance Directives: No Advance Directives Information Provided: Yes Patient : No Gender identity: female Physical Exam Vital Signs: Vital Signs: Last Vital Signs Temp 99.1 F 12/01/20 19:38 Pulse 114 H 12/01/20 19:38 Resp 18 12/01/20 19:38 BP 119/65 12/01/20 19:38 Pulse Ox 95 12/01/20 19:38 Body Mass Index 34.3 Const: Other: Appearance: Alert. Oriented X3. No acute distress. Eyes: Pupils equal, round and reactive to light. ENT: Pharynx normal. Neck: Normal inspection. Neck supple. No lymph nodes noted. No crepitus CVS: Normal heart rate and rhythm. Pulses normal. Normal S1 and S2 Respiratory: No respiratory distress. Breath sounds normal. No Wheezing. No rales Abdomen: Soft and nontender. No rigidity. No distention. good BS x4 Skin: Skin warm and dry. Normal skin color. Normal skin turgor. Extremities: No lower extremity edema. No Lacerations. No Rash Neuro: Oriented X 3. No motor deficit. No sensory deficit. Moving all extermities. No slurred speech. Course Course Course Narrative: Behavioral health network consult pending. Physician observation started at 21:00 Sign-out given to Dr. Mon Discharge Plan Discharge Clinical Impression: Aggression Prescriptions: No Action melatonin 5 mg tablet 5 mg PO BEDTIME PRN (Reason: Sleep) 90 Days Qty: 90 RF: 3 sertraline 100 mg tablet 150 mg PO DAILY 90 Days Qty: 135 RF: 3 metformin 750 mg tablet extended release 24 hr 750 mg PO BID 90 Days Qty: 180 RF: 3 acetaminophen [Acetaminophen Pain Relief] 500 mg tablet 500 mg PO Q6H PRN (Reason: fever or pain) 30 Days Qty: 120 RF: 6 haloperidol 5 mg tablet 7.5 mg PO BID RF: 0 guanfacine 2 mg tablet extended release 24 hr 2 mg PO BEDTIME RF: 0 guanfacine 1 mg tablet extended release 24 hr 1 mg PO QAM RF: 0
[2020-12-01 21:23] LABS: Glucose, Whole Blood 128 mg/dL (60-115)
--- NOTE | 2020-12-01 21:36 | MHC.CARE ---
CARE TEAM spoke to Palomo at [facility] [phone]. Staff reported pt is not allowed back at [facility] tonight secondary to engaging in aggressive behaviors (spit, bit extension cords, attempted to bit and hit staff) and threatening to stab staff in the neck. Staff is suggesting pt to [facility] tomorrow (12/02/20). Pt is a DDS client, has a excessive hx with BHN and will require BHN evaluation.
--- NOTE | 2020-12-01 22:29 | MHC.CARE ---
Pt was reportedly d/c from [facility] three hours prior to arrival.
[2020-12-01 22:36] LABS: Glucose Urine UA NEG (NEG); Leukocyte Esterase Urine 2+ (NEG); Nitrite Urine NEG (NEG); PH 6.5 (5.0-8.0); Specific Gravity - Urine <= 1.005 (1.005-1.025); UACC Culture Trigger YES; Urine Blood 1+ (NEG); Urine Ketones NEG (NEG); Urine Protein NEG (NEG-TRACE)
[2020-12-01] MEDS: Melatonin 3 MG TABLET 6 MG PO (22:39)
[2020-12-01] MEDS: HaloperidoL 5 MG TABLET 7.5 MG PO (22:40)
[2020-12-01] MEDS: diphenhydrAMINE HCL 25 MG TABLET 50 MG PO (22:40)
[2020-12-01 22:44] LABS: Appearance Urine CLEAR; Color Urine YELLOW
[2020-12-01 22:45] LABS: UPreg QC Valid YES; Urine Pregnancy NEGATIVE (NEGATIVE)
[2020-12-01] MEDS: chlorproMAZINE HCl 100 MG TABLET PO (22:47)
[2020-12-01 22:53] LABS: Bacteria Urine 1+ /LPF; RBC Urine 0-2 /HPF (0); Squamous Epithelial Cell Urine TRACE /LPF; UACC CULT YES
[2020-12-01 23:04] LABS: Amphetamine Screen Urine Not Detected (Not Detect); Barbiturates, Urine Not Detected (Not Detect); Benzodiazepines Screen Urine Not Detected (Not Detect); Cannabinoid Screen Urine Not Detected (Not Detect); Cocaine Screen Urine Not Detected (Not Detect); Fentanyl, urine Not Detected (Not Detect); Opiate Screen Urine Not Detected (Not Detect); Phencyclidine Screen Urine Not Detected (Not Detect)
[2020-12-01 23:49] VITALS: BP 95/62; PULSE 93; RESP 16; TEMP 36.2; O2SAT 97
--- NOTE | 2020-12-02 01:07 | PC.NURSE ---
Patient is currently sleeping, N referral completed, care team spoke with Desirae and confirmed receipt of referral, patient will be seen in the morning, med rec completed by referring to the med list which was faxed to us by the jail, Thorazine 100 mg BID was added to the med list, provider notified/reconciled by provider/MAR updated. Patient received her night time medication and patient compliant with her medication, behavior at baseline, will continue to monitor.
--- NOTE | 2020-12-02 06:08 | PC.NURSE ---
Patient slept through the night, no distress observed/reported, N referral completed/confirmed by [facility] business continuity specialist Desirae, patient will be seen in the morning, VSS, will continue to monitor.
--- NOTE | 2020-12-02 07:21 | PC.NURSE ---
pt sleeping at this time, resp even and unlabored. pt slept in back common area last night per cayden collado. plan to see [facility] today.
[2020-12-02 07:22] VITALS: RESP 16
[2020-12-02 16:27] VITALS: BP 120/80; PULSE 110; RESP 20; TEMP 36.4; O2SAT 96
--- NOTE | 2020-12-02 16:44 | PC.NURSE ---
ambulance being booked to transport pt back to intermediate
== END 2020-12-02 20:31 | disposition other institution (70) ==
PROVIDERS: Emergency Provider Emergency Medicine
DX: F33.1 Major depressive disorder, recurrent, moderate (principal); F41.1 Generalized anxiety disorder; F43.0 Acute stress reaction; F42.9 Obsessive-compulsive disorder, unspecified; Z79.899 Other long term (current) drug therapy; Z20.822 Contact with and (suspected) exposure to COVID-19
CPT/HCPCS: 0241U; 36415; 80307; 81001; 81025; 82947; 87086; 99284; Q0163

== ENCOUNTER 2020-12-03 18:13 | Emergency (ER) | payer MEDICARE, MEDICAID, SELFPAY ==
[2020-12-03 18:24] VITALS: BP 112/62; PULSE 82; RESP 18; TEMP 37.1; O2SAT 98; BMI 27.4
[2020-12-03 20:12] LABS: COVID-19 Test Negative (Negative); IDNOW Serial# 9DD0AD1C
--- NOTE | 2020-12-03 20:41 | P.CNPS_ITS ---
History of Present Illness Date of Service: 12/03/20 Chief Complaint: section 12 Reason for Consult: agitation, intellectual disability Requesting physician: Sarah Vazquez Discussed with referring provider: No Sources of Information: patient interviewed and chart reviewed Additional Sources of Information: discussed case with Maxine Sampson. HPI Narrative: 20 y.o. Female who carries a dx of intellectual disability. She presented to [facility] ED via ambulance on a section 12a due to senior care reporting agitation, aggressive behaviors. She was recently released from [facility] at [facility] on 12/01/2020 back to her senior care. Per [facility] crisis eval, staff reported she was ?throwing things and threatening staff? after returning home. She was reportedly ?spitting and biting extension cords,? threatening staff. Utox negative.? I evaluated the patient this evening and upon interview she reports ?I dont know? when asked why she is here. She reports she does not like her medications but also does not know what she is taking for meds. Says her sleep is ?not good? but per ED staff, she slept well. Says she does not want to go back to her senior care because she is ?scared of hurting someone? but denies having a plan or intent to hurt someone. Denies assaultive ideation. Also says she doesn?t want to go home because ?I dont feel safe at home? but when asked why, she stated ?I dont know.? Her mood is ?mad? but when asked why, she says ?I dont know.? She is eating well, hydrating. Says she feels safe in the ED. In the milieu, she is safe in her behaviors, sitting with her headphones on, behaviors are appropriate. She currently denies SI/SIB/HI upon inquiry.? I reviewed her discharge from [facility] and discharge meds are sertraline 150 mg QD, thorazine 100 mg TID, Intuniv 2 mg BID, and melatonin 3 mg QHS PRN. However, senior care sent discharge med list as haldol 7.5 mg BID, thorazine 100 mg BID, Intuniv 2 mg QHS and 1 mg QAM, and melatonin 5 mg QHS PRN. She is also on metformin 750 mg XR BID for diabetes management and acetaminophen PRN. Per psych consult at [facility] ED in 10/20/20 she was put on haldol PRN with plan to discontinue haldol and it appears [facility] continued with this plan, titrating up the thorazine to 100 mg TID. However, per senior care med list faxed to ED, the senior care continued both haldol and thorazine.? SH: -Has DDS services ([place]/ [place] [facility]), lives in senior care, has guardian (bio mom, Sheila Everett). Per [facility] crisis eval, IQ is in the 60s per assessment in 2016.? -She was living at [facility] in [place], a residential facility from age [age]. She then moved to [facility] in [place] but was discharged due to breaking windows. She was then placed in a DDS residential program in [place] and is now residing at a [facility] senior care in [place] x 4-6 weeks. -She and her M half older brother were adopted, raised by her until she transitioned to a senior care.? FH: -Maternal family hx of ETOH and substance use. ? PPH: -Past medications include abilify 10 mg BID, Focalin XR 10 mg QAM -Hx of IPLOC, last 10/26/2020 at [facility] (there for 6 weeks), 12/13/2011 at [facility].? -Hx of multiple past crisis evals, last seen 10/21/2020 due to destroying property, aggressive, refusing medications. Seen 10/19/20 due to disruptive behaviors, med non-adherence, property destruction, disposition back to residential program. Crisis eval 01/25/20 due to threatening self harm, threatening staff, throwing objects at staff, jumping out of 1st floor window. Disposition was to follow up with OP providers.? Substance use: -No hx of illicit substance use or ETOH use Past Psychiatric History: Anxiety Intellectual disability Obsessive compulsive disorder Oppositional defiant disorder Medical Evaluation Reviewed: Yes [facility] Medical History Anxiety Diabetes mellitus Intellectual disability Obsessive compulsive disorder Oppositional defiant disorder Trauma of toe of left foot Vaginal irritation Diagnostics Vital Signs (24Hr): Vital Signs - 24 hr 12/03/20 18:24 Temperature 98.7 F Pulse Rate 82 Respiratory Rate 18 Blood Pressure 112/62 Pulse Oximetry 98 Body Mass Index 27.4 Labs Labs: Laboratory Results - last 48 hr 12/03/20 19:49 COVID-19 ([facility]) Negative COVID-19 Clin Com See Note Mental Status Exam Mental Status Exam Narrative: Well groomed, good hygiene, in hospital gown. Good eye contact, attentive. No Tics or Tremors. No abnormal involuntary movements. Calm, coop erative, difficult to engage in meaningful conversation. Non-pressured speech, non-spontaneous. No prolonged speech latency or dysarthria. Mood is ?I dont know,? affect is euthymic. Denies SI/SIB/HI upon inquiry. Denies A/VH or delusional thought content. Thoughts are concrete, linear. Has known cognitive and memory impairment. Insight/ Judgment limited but adequate. Medications Medications Current Medications Generic Name Dose Route Start Last Admin Trade Name Freq PRN Reason Stop Dose Admin Pharmacy Consult 1 each 12/03/20 19:03 Consult Rx Perform Med Rec MISCELLANE ONCE PRN Consult order Allergies Allergies Allergy/AdvReac Type Severity Reaction Status Date / Time No Known Allergies Allergy Verified 06/30/20 10:29 Assessment & Plan Assessment & Plan (1) Intellectual disability: Status: Acute Code(s): F79 - Unspecified intellectual disabilities Assessment and Plan: 20 y.o. Female who carries a dx of intellectual disability. She presented to [facility] ED via ambulance on a section 12a due to senior care reporting agitation, aggressive behaviors. She was recently released from [facility] at [facility] on 12/01/2020 back to her senior care. Sunni is presenting as calm, cooperative, and pleasant in the ED. She continues to advocate for not wanting to return to her senior care. Last seen at [place] ED 10/20/20 with similar presentation. Sunni is exhibiting externalizing, acting out behaviors at the senior care, resulting in crisis eval and her requesting not to return to the senior care. She was recently admitted to [facility] for inpatient psych care and per senior care med list, she was continued on haldol and thorazine although [facility] discontinued haldol. Will continue haldol and change thorazine to a PRN and monitor for benefit. She reports she feels safe in the ED. Will discuss patient with case management, as there are no acute psych symptoms to medicate but she does not want to return to her senior care. Recently transitioned from adopted mom?s care to residential living facility. Has DDS services.? Plan: -Will continue haldol 7.5 mg BID for mood stability, as she has been on this medication at the senior care since returning from [facility]. -Will change thorazine to 100 mg BID PRN for agitation due to polypharmacy with two typical antipsychotics. -Will continue intuniv 2 mg QHS and 1 mg QAM (this was increased at [facility] but senior care is giving it at lower dose, will monitor for efficacy at lower dose as this is what she has been taking). -Will continue sertraline 150 mg QD (this was continued at [facility], unclear if senior care was giving this but will continue to avoid discontinuation syndrome).? -Will continue melatonin 3 mg QHS PRN for sleep (2) Adjustment disorder with mixed disturbance of emotions and conduct: Status: Acute Code(s): F43.25 - Adjustment disorder with mixed disturbance of emotions and conduct Greater than 50% of the session was spent on counseling and/or coordination of care
--- NOTE | 2020-12-03 21:10 | MHC.CARE ---
CARE team spoke with Jessica, plan is for pt to return home tomorrow morning. Pt was seen by Psychiatry Sherice Montilla, MALCOLM who has conducted an medication reconciliation, had adjusted her medications and will be returning to the [facility] tomorrow. CARE team contacted [facility] staff director who is aware they just request a nurse to nurse to discuss medication adjustment and pt's presentation prior to discharge. Gale [phone] Felicitas [phone]
[2020-12-03] MEDS: Sertraline HCL 50 MG TABLET 150 MG PO (21:37)
[2020-12-03] MEDS: HaloperidoL 5 MG TABLET 7.5 MG PO (21:37)
--- NOTE | 2020-12-03 23:49 | ED_ITS ---
HPI - Psych General Chief Complaint: Psychiatric Symptoms Stated Complaint: section 12 Time Seen by Provider: 12/03/20 19:02 Source: patient and EMS Mode of arrival: EMS History of Present Illness HPI Narrative: 20-year-old female with a past medical history of anxiety, diabetes, intellectual disability, OCD, ODD, [facility] [employer]. Patient reports passive SI/HI. Denies fever, chills, cough, CP/SOB, abdominal pain, nausea/vomiting. Patient was recently seen and treated in our facility, [facility] yesterday to [facility] 6 week hospitalization at [facility] complaint: suicidal ideation and homicidal ideation Related Data Home Medications Medication Instructions Recorded Confirmed guanfacine 1 mg tablet,extended 1 mg PO QAM 06/30/20 12/03/20 release 24 hr guanfacine 2 mg tablet,extended 2 mg PO BEDTIME 06/30/20 12/03/20 release 24 hr chlorpromazine 100 mg tablet 100 mg PO BID 12/01/20 12/03/20 diphenhydramine HCl 50 mg capsule 1 cap PO BEDTIME PRN 12/01/20 12/03/20 haloperidol 5 mg tablet 1 tab PO BEDTIME 12/03/20 12/03/20 levonorgestrel-ethinyl estradiol 1 tab PO DAILY 12/03/20 12/03/20 0.1 mg-20 mcg tablet (Larissia) melatonin 3 mg tablet 6 mg PO BEDTIME PRN 12/03/20 12/03/20 Allergies Allergy/AdvReac Type Severity Reaction Status Date / Time No Known Allergies Allergy Verified 06/30/20 10:29 Review of Systems Review of Systems: Constitutional: No Fever, No Chills, No Fatigue, No Malaise ENT/Mouth: No Ear Pain, No Nasal Congestion, No sore throat Eyes: No Eye Pain Cardiovascular: No Chest Pain, No SOB, No Palpitations Respiratory: No Cough, No Dyspnea Gastrointestinal: No Nausea, No Vomiting, No Diarrhea, No Constipation, No Abdominal pain Genitourinary:No Dysuria, No Urinary Frequency, No Hematuria, No Flank Pain Musculoskeletal: No joint pain, No Myalgias Skin: No Skin Lesions, No rash Neuro: No Weakness, No Headache Psych: No Anxiety/Panic, No Depression, + SI/HI, +Social Issues Yes all other systems are reviewed and are negative Neurologic: Denies Abnormal speech present [facility] Past Medical History Attestation statement: The following information was validated with the patient. Medical History Anxiety Diabetes mellitus Intellectual disability Obsessive compulsive disorder Oppositional defiant disorder Trauma of toe of left foot Vaginal irritation Social History Social History Alcohol intake: never Advance Directives: No Advance Directives Information Provided: Yes Patient : No Gender identity: female Physical Exam Vital Signs: Vital Signs: Last Vital Signs Temp 98.7 F 12/03/20 18:24 Pulse 82 12/03/20 18:24 Resp 18 12/03/20 18:24 BP 112/62 12/03/20 18:24 Pulse Ox 98 12/03/20 18:24 Body Mass Index 27.4 Const: General: cooperative, healthy appearing, well developed, alert and awake HENMT: Head: Yes normal to inspection Ears: hearing grossly normal bilaterally General nose exam: Normal external nose present Face and sinus: Yes normal facial exam Eyes: General: appearance normal, both eyes and all related structures EOM: EOMs intact bilaterally Neck: Neck: Yes normal visual inspection Resp: Effort & Inspection: normal respiratory effort Auscultation: clear to auscultation bilaterally and no wheezes Cardio: Rate: regular rate Heart sounds: S1 normal heart sound present and S2 normal heart sound present GI: Inspection: Yes normal to inspection Palpation (GI): Soft to palpation, nontender, no guarding and not rigid Skin: Rashes: no rashes Wounds: no wounds Neuro: General: gait normal, tone normal, moves all extremities and no focal motor deficits Cranial nerves: Yes CN's II-XII intact bilaterally Speech: No Abnormal speech present Gait exam (Neuro): Normal gait present Extrem: General: Yes normal to inspection Psych: Thought content: Suicidality present and Homicidality present Course Course Course Narrative: -psychiatry evaluated patient in the ED recommended medication changes/adjustments. Plan will be for [facility] to return to [facility] in [facility] morning. Physician observation initiated -0-- ED care transferred to Dr. Mcgarry pending d/c in AM to [facility] MDM - Psych MDM Narrative Medical decision making narrative: 20-year-old female with a past medical history of anxiety, diabetes, intellectual disability, OCD, ODD, [facility]/aggressive behaviors at [facility] [employer]. On exam VS as, NAD/well-appearing, physical exam as above. Patient was just discharged from our facility yesterday. Will have N consult on patient Medical Records Attestation: I reviewed the patient's medical records. Lab Data Attestation: I reviewed the patient's lab results. Labs: Lab Results 12/03/20 Range/Units 19:49 COVID-19 (FRIEDA) Negative (Negative) COVID-19 Clin Com See Note Discharge Plan Discharge Clinical Impression: Behavior concern Prescriptions: No Action haloperidol 5 mg tablet 1 tab PO BEDTIME RF: 0 levonorgestrel-ethinyl estrad [Larissia] 0.1-20 mg-mcg tablet 1 tab PO DAILY RF: 0 melatonin 3 mg Tablet 6 mg PO BEDTIME PRN (Reason: Sleep) RF: 0 chlorpromazine 100 mg tablet 100 mg PO BID RF: 0 diphenhydramine HCl 50 mg capsule 1 cap PO BEDTIME PRN (Reason: insomnia) RF: 0 guanfacine 2 mg tablet extended release 24 hr 2 mg PO BEDTIME RF: 0 guanfacine 1 mg tablet extended release 24 hr 1 mg PO QAM RF: 0
--- NOTE | 2020-12-04 06:27 | PC.NURSE ---
Patient slept through the night, no distress observed/reported, med compliant, psychiatry changed patient's medication, [facility] made aware, disposition is to discharge [facility] in the morning, care team involved, VSS, behavior appropriate and pleasant, will continue to monitor.
[2020-12-04 06:36] VITALS: BP 110/57; PULSE 90; RESP 16; TEMP 36.8; O2SAT 96
--- NOTE | 2020-12-04 07:01 | PC.NURSE ---
patient appears to remain at rest at present respirations are even and unlabored patient appears in no distress.
--- NOTE | 2020-12-04 08:28 | MHC.CARE ---
[facility] #[phone]
--- NOTE | 2020-12-04 08:29 | MHC.CARE ---
CARE Team spoke with Pts guardian who is in agreement with plan to return to her [facility].
--- NOTE | 2020-12-04 12:43 | MHC.CARE ---
Late Entry: CARE Team spoke with SALIMA Duncan at [facility] [phone] regarding concerns of discharging Pt. CARE Team spoke with field underwriter, Nursing Gas Engine Mechanic and Pod RN regarding medications concerns t/w was not able to answer due to be out of scope of t/w practice. CARE Team spoke with Sherice Montilla NP who agreed to speak with SALIMA Duncan to address concerns.
--- NOTE | 2020-12-04 12:45 | MHC.CARE ---
CARE Team updated Edilia Sewell, Clinical Coordinator regarding [email or web address]
--- NOTE | 2020-12-04 12:46 | MHC.CARE ---
CARE Team spoke with Jessica TAO at [facility] ([phone]) to formulate a plan. She reported she will connect with [facility] and [facility] staff and follow up with t/w.
--- NOTE | 2020-12-04 12:50 | MHC.CARE ---
Jessica does not recommend utilizing Pts mother as means to assist in transporting her back to the program.
--- NOTE | 2020-12-04 12:54 | MHC.CARE ---
CARE Team contacted Pts Psychiatrist, Dr. Guzman who clancy not have any recommendations at this time.
== END 2020-12-04 15:12 | disposition home or self-care (01) ==
PROVIDERS: Emergency Provider Emergency Medicine
DX: F43.24 Adjustment disorder with disturbance of conduct (principal); R45.1 Restlessness and agitation; F91.3 Oppositional defiant disorder; F79 Unspecified intellectual disabilities; Z20.822 Contact with and (suspected) exposure to COVID-19; F41.9 Anxiety disorder, unspecified; E11.9 Type 2 diabetes mellitus without complications; Z79.899 Other long term (current) drug therapy
CPT/HCPCS: 36415; 87635; 99284

== ENCOUNTER 2020-12-07 21:01 | Emergency (ER) | payer MEDICARE, MEDICAID, SELFPAY ==
[2020-12-07 21:26] VITALS: BP 132/72; PULSE 111; RESP 16; TEMP 36.5; O2SAT 95; BMI 34.3
[2020-12-07] MEDS: chlorproMAZINE HCl 100 MG TABLET PO (21:52)
[2020-12-07 21:55] LABS: UPreg QC Valid YES; Urine Pregnancy NEGATIVE (NEGATIVE)
[2020-12-07 22:19] LABS: Amphetamine Screen Urine Not Detected (Not Detect); Barbiturates, Urine Not Detected (Not Detect); Benzodiazepines Screen Urine Not Detected (Not Detect); Cannabinoid Screen Urine Not Detected (Not Detect); Cocaine Screen Urine Not Detected (Not Detect); Fentanyl, urine Not Detected (Not Detect); Opiate Screen Urine Not Detected (Not Detect); Phencyclidine Screen Urine Not Detected (Not Detect)
[2020-12-07 22:28] LABS: COVID-19 Test Negative (Negative)
--- NOTE | 2020-12-07 23:56 | ED_ITS ---
HPI - Psych General Chief Complaint: Psychiatric Symptoms <LAURA Maher Last Filed: 12/08/20 00:31> Stated Complaint: sec 12 <LAURA Maher Last Filed: 12/08/20 00:31> Time Seen by Provider: 12/07/20 21:42 <LAURA Maher Last Filed: 12/08/20 00:31> Source: patient and EMS <LAURA Maher Last Filed: 12/08/20 00:31> Mode of arrival: EMS <LAURA Maher Last Filed: 12/08/20 00:31> History of Present Illness HPI Narrative: 20-year-old female with a past medical history of anxiety, diabetes, intellectual disability, OCD, ODD, BIBA from long term for increased agitation and aggression at long term [employer] WORK[employer]. Patient denies SI/HI. Denies CP/SOB, abdominal pain, nausea/vomiting <LAURA Maher Last Filed: 12/08/20 00:31> Related Data Home Medications: Home Medications Medication Instructions Recorded Confirmed guanfacine 2 mg tablet,extended 2 mg PO BID 06/30/20 12/07/20 release 24 hr chlorpromazine 100 mg tablet 100 mg PO TID 12/01/20 12/07/20 diphenhydramine HCl 50 mg capsule 1 cap PO BEDTIME PRN 12/01/20 12/07/20 levonorgestrel-ethinyl estradiol 1 tab PO DAILY 12/03/20 12/07/20 0.1 mg-20 mcg tablet (Larissia) melatonin 3 mg tablet 6 mg PO BEDTIME PRN 12/03/20 12/07/20 sertraline 50 mg tablet 150 mg PO DAILY 12/07/20 12/07/20 <LAURA Maher Last Filed: 12/08/20 00:31> Allergies/Adverse Reactions: Allergies Allergy/AdvReac Type Severity Reaction Status Date / Time No Known Allergies Allergy Verified 06/30/20 10:29 <LAURA Maher Last Filed: 12/08/20 00:31> Review of Systems Review of Systems: Constitutional: No Fever, No Chills, No Fatigue, No Malaise ENT/Mouth: No Ear Pain, No Nasal Congestion, No sore throat, No Rhinorrhea Eyes: No Eye Pain Cardiovascular: No Chest Pain, No SOB Respiratory: No Cough, No Dyspnea Gastrointestinal: No Nausea, No Vomiting, No Diarrhea, No Constipation, No Abdominal pain Genitourinary: No Dysuria, No Urinary Frequency, No Hematuria Musculoskeletal: No joint pain, No Myalgias, No Joint Swelling Skin: No Skin Lesions, No rash Psych: No Anxiety/Panic, No Depression, No SI/HI + Social Issues <LAURA Maher - Last Filed: 12/08/20 00:31> Yes all other systems are reviewed and are negative <LAURA Maher - Last Filed: 12/08/20 00:31> [facility] Past Medical History Attestation statement: The following information was validated with the patient. <LAURA Maher - Last Filed: 12/08/20 00:31> Medical History: Medical History Anxiety Diabetes mellitus Intellectual disability Obsessive compulsive disorder Oppositional defiant disorder Trauma of toe of left foot Vaginal irritation <LAURA Maher - Last Filed: 12/08/20 00:31> Social History Social History: Social History Alcohol intake: never Patient Tobacco Use Status: Never used Tobacco Use of substances other than those prescribed or required for medical reasons: No Advance Directives: No Patient : No Gender identity: female <LAURA Maher - Last Filed: 12/08/20 00:31> Physical Exam Vital Signs: Vital Signs: Last Vital Signs Temp 98.0 F 12/08/20 05:01 Pulse 68 12/08/20 05:01 Resp 12/08/20 05:01 BP 128/74 12/08/20 05:01 Pulse Ox 98 12/08/20 05:01 Body Mass Index 34.3 <LAURA Maher - Last Filed: 12/08/20 00:31> Vital Signs: Last Vital Signs Temp 98.0 F 12/08/20 05:01 Pulse 68 12/08/20 05:01 Resp 16 12/08/20 05:01 BP 128/74 12/08/20 05:01 Pulse Ox 98 12/08/20 05:01 Body Mass Index 34.3 <Alisson Bryant, [facility] Last Filed: 12/08/20 08:41> Const: General: cooperative, healthy appearing, no acute distress, alert and awake <LAURA Maher - Last Filed: 12/08/20 00:31> Limitations: no limitations <Sarah Vazquez [facility] Last Filed: 12/08/20 00:31> HENMT: Head: Yes normal to inspection and Yes atraumatic <Sarah Vazquez [place] - Last Filed: 12/08/20 00:31> Ears: hearing grossly normal bilaterally <Sarah Vazquez [place] - Last Filed: 12/08/20 00:31> General nose exam: Normal external nose present <LAURA Maher Last Filed: 12/08/20 00:31> Face and sinus: Yes normal facial exam <LAURA Maher Last Filed: 12/08/20 00:31> Eyes: General: appearance normal, both eyes and all related structures <Sarah Vazquez [place] - Last Filed: 12/08/20 00:31> EOM: EOMs intact bilaterally <Sarah Vazquez [facility] Last Filed: 12/08/20 00:31> Neck: Neck: Yes normal visual inspection <LAURA Maher Last Filed: 12/08/20 00:31> Resp: Effort & Inspection: normal respiratory effort and no respiratory distress <Sarah Vazquez [facility] Last Filed: 12/08/20 00:31> Auscultation: clear to auscultation bilaterally <Sarah Vazquez [facility] Last Filed: 12/08/20 00:31> Cardio: Rate: regular rate <Sarah Vazquez [facility] Last Filed: 12/08/20 00:31> Heart sounds: S1 normal heart sound present and S2 normal heart sound present <Sarah Vazquez [facility] Last Filed: 12/08/20 00:31> GI: Inspection: Yes normal to inspection <LAURA Maher Last Filed: 12/08/20 00:31> Skin: Rashes: no rashes <Sarah Vazquez [facility] Last Filed: 12/08/20 00:31> Wounds: no wounds <Sarah Vazquez [place] - Last Filed: 12/08/20 00:31> Neuro: General: gait normal, tone normal and moves all extremities <LAURA Maher - Last Filed: 12/08/20 00:31> Cranial nerves: Yes CN's II-XII intact bilaterally <LAURA Maher - Last Filed: 12/08/20 00:31> Gait exam (Neuro): Normal gait present <LAURA Maher - Last Filed: 12/08/20 00:31> Extrem: General: Yes normal to inspection <LAURA Maher - Last Filed: 12/08/20 00:31> Course Course Course Narrative: -0002--patient placed in physician observation as needs more time to be evaluated by crisis -0100--ED care transferred to Dr. Mcgarry pending crisis evaluation <LAURA Maher - Last Filed: 12/08/20 00:31> MDM - Psych MDM Narrative Medical decision making narrative: 20-year-old female with a past medical history of anxiety, diabetes, intellectual disability, OCD, ODD, BIBA from long term for increased agitation and aggression at long term [employer] WORK[employer]. On exam VSS, NAD, calm and cooperative in our facility, physical exam as above. Will have crisis evaluate patient <LAURA Maher - Last Filed: 12/08/20 00:31> Medical Records Attestation: I reviewed the patient's medical records. <LAURA Maher - Last Filed: 12/08/20 00:31> Lab Data Attestation: I reviewed the patient's lab results. <LAURA Maher - Last Filed: 12/08/20 00:31> Labs: Lab Results 12/07/20 12/07/20 12/07/20 Range/Units 21:36 21:36 21:54 Urine Test NEGATIVE (NEGATIVE) Urine Opiates Screen Not Detected (Not Detect) Urine Fentanyl Screen Not Detected (Not Detect) Ur Barbiturates Screen Not Detected (Not Detect) Ur Phencyclidine Scrn Not Detected (Not Detect) Ur Amphetamines Screen Not Detected (Not Detect) U Benzodiazepines Scrn Not Detected (Not Detect) Urine Cocaine Screen Not Detected (Not Detect) U Marijuana (THC) Screen Not Detected (Not Detect) COVID-19 (FRIEDA) Negative (Negative) COVID-19 Clin Com See Note <LAURA Maher - Last Filed: 12/08/20 00:31> Lab Results 12/07/20 12/07/20 12/07/20 Range/Units 21:36 21:36 21:54 Urine Test NEGATIVE (NEGATIVE) Urine Opiates Screen Not Detected (Not Detect) Urine Fentanyl Screen Not Detected (Not Detect) Ur Barbiturates Screen Not Detected (Not Detect) Ur Phencyclidine Scrn Not Detected (Not Detect) Ur Amphetamines Screen Not Detected (Not Detect) U Benzodiazepines Scrn Not Detected (Not Detect) Urine Cocaine Screen Not Detected (Not Detect) U Marijuana (THC) Screen Not Detected (Not Detect) COVID-19 (FRIEDA) Negative (Negative) COVID-19 Clin Com See Note <LAURA Mcgee - Last Filed: 12/08/20 08:41> Discharge Plan Discharge Clinical Impression: Behavior concern <LAURA Maher - Last Filed: 12/08/20 00:31> Prescriptions: No Action levonorgestrel-ethinyl estrad [Larissia] 0.1-20 mg-mcg tablet 1 tab PO DAILY RF: 0 melatonin 3 mg Tablet 6 mg PO BEDTIME PRN (Reason: Sleep) RF: 0 chlorpromazine 100 mg tablet 100 mg PO TID RF: 0 diphenhydramine HCl 50 mg capsule 1 cap PO BEDTIME PRN (Reason: insomnia) RF: 0 sertraline 50 mg tablet 150 mg PO DAILY RF: 0 guanfacine 2 mg tablet extended release 24 hr 2 mg PO BID RF: 0 <LAURA Maher - Last Filed: 12/08/20 00:31>
[2020-12-08] MEDS: Melatonin 3 MG TABLET 6 MG PO ×2 (00:50→20:24)
[2020-12-08] MEDS: HaloperidoL 5 MG TABLET PO (01:43)
[2020-12-08 05:01] VITALS: BP 128/74; PULSE 68; RESP 16; TEMP 36.7; O2SAT 98
--- NOTE | 2020-12-08 06:24 | PC.NURSE ---
Patient struggled to go to sleep d/t racing thought, patient received Haldol 5 mg and Melatonin 6 mg with positive effect, patient has been sleeping since 0200, no distress observed/reported, VSS, behavior at baseline, N referral completed, awaiting evaluation in the morning, will continue to monitor.
[2020-12-08] MEDS: chlorproMAZINE HCl 100 MG TABLET PO ×3 (09:04→20:24)
[2020-12-08] MEDS: Sertraline HCL 50 MG TABLET 150 MG PO (09:04)
[2020-12-08 13:15] LABS: Glucose, Whole Blood 92 mg/dL (60-115)
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
--- NOTE | 2020-12-09 05:59 | PC.NURSE ---
Patient slept through the night, no distress observed/reported, behavior at baseline and appropriate, med compliant, appetite good, patient's disposition is section 12 inpatient bed search, VSS, will continue to monitor.
--- NOTE | 2020-12-09 07:12 | PC.NURSE ---
patient appeared to remain at rest at beginning of shift, now awake for the day and starting adl's patient appears in no distress.
[2020-12-09] MEDS: chlorproMAZINE HCl 100 MG TABLET PO ×2 (16:10→20:05)
[2020-12-09] MEDS: Sertraline HCL 50 MG TABLET 150 MG PO (16:10)
[2020-12-09] MEDS: Melatonin 3 MG TABLET 6 MG PO (20:05)
[2020-12-09] MEDS: HaloperidoL 5 MG TABLET 10 MG PO (22:15)
--- NOTE | 2020-12-10 06:12 | PC.NURSE ---
Patient slept through the night, patient at time was loud and disruptive , provider ordered Haldol 10 mg, administered with PRN Benadryl 50 mg with positive effect, patient behavior is mostly at baseline with high unpredictability, VSS, appetite good, disposition section 12 inpatient bed search, will continue to monitor.
[2020-12-10 06:38] VITALS: RESP 16
--- NOTE | 2020-12-10 08:03 | PC.NURSE ---
patient appearsd to remain at rest at present, when awakened earlier, patient states i want to go home today patient appears in no distress
--- NOTE | 2020-12-10 09:05 | PC.NURSE ---
patient resistant to taking meds on time
[2020-12-10] MEDS: Sertraline HCL 50 MG TABLET 150 MG PO (09:33)
[2020-12-10] MEDS: chlorproMAZINE HCl 100 MG TABLET PO ×2 (09:33→15:06)
[2020-12-10 14:42] VITALS: BP 116/66; PULSE 110; RESP 22; TEMP 36.6; O2SAT 95
== END 2020-12-10 18:20 | disposition home or self-care (01) ==
PROVIDERS: Emergency Provider Emergency Medicine Emergency Medical Services
DX: F25.9 Schizoaffective disorder, unspecified (principal); F43.25 Adjustment disorder with mixed disturbance of emotions and conduct; F79 Unspecified intellectual disabilities; F91.3 Oppositional defiant disorder; Z20.822 Contact with and (suspected) exposure to COVID-19; E11.9 Type 2 diabetes mellitus without complications; Z79.899 Other long term (current) drug therapy
CPT/HCPCS: 36415; 80307; 81025; 82947; 87635; 99284; 99285

== ENCOUNTER → 2021-02-24 13:40 | Outpatient (BNVA) | payer MEDICARE, MEDICAID, SELFPAY | PROVIDERS: PCP Internal Medicine; Visit Provider Advanced Practice Midwife | DX: Z30.41 Encounter for surveillance of contraceptive pills (principal) | CPT/HCPCS: 99212 ==

== ENCOUNTER 2021-04-10 20:10 | Emergency (ER) | payer MEDICARE, MEDICAID, SELFPAY ==
[2021-04-10 23:00] VITALS: BP 114/71; PULSE 98; RESP 20; TEMP 36.9; O2SAT 98; BMI 27.4
--- NOTE | 2021-04-11 02:13 | ED.EXTPRO ---
HPI - Extremity Problem General Chief complaint: Skin/Abscess/Foreign Body Stated complaint: Rash, swollen leg Time Seen by Provider: 04/11/21 02:13 Source: patient and other (Screw Down) Mode of arrival: ambulatory Limitations: no limitations History of Present Illness HPI Narrative: Patient 21 years old mentally challenged brought by nursing home workup for a rash on the left rankin for last few days and redness started yesterday spreading all the way to the leg no fever no open Related Data Previous Rx's Medication Instructions Recorded cefuroxime axetil 500 mg tablet 500 mg PO BID #20 tab 04/11/21 doxycycline hyclate 100 mg tablet 100 mg PO BID #20 tab 04/11/21 Allergies Allergy/AdvReac Type Severity Reaction Status Date / Time No Known Allergies Allergy Verified 04/11/21 02:14 Review of Systems Review of Systems: Yes all other systems are reviewed and are negative [facility] Social History Social History Advance Directives: No Advance Directives Information Provided: No Physical Exam Vital Signs: Vital Signs: Last Vital Signs Temp 98.4 F 04/10/21 23:00 Pulse 98 04/10/21 23:00 Resp 20 04/10/21 23:00 BP 114/71 04/10/21 23:00 Pulse Ox 98 04/10/21 23:00 BMI result Body Mass Index 27.4 Appearance: Alert. And awake mentally challenged ENT: Pharynx normal. Oral Mucosa moist Neck: Normal inspection. Neck supple. CVS: Normal heart rate and rhythm. Pulses normal. Respiratory: No respiratory distress. Equal air entry bilateral, Abdomen: Soft and nontender. Skin: Skin warm and dry. Extremities: Left leg eczematous rash on the rankin with streak of redness spreading all the way to the left thigh no pus discharge no open wound 1+ edema of left ankle Neuro: Oriented X 2 MDM - Extremity (Nontraumatic) MDM Narrative Medical decision making narrative: Patient uncomplicated cellulitis left leg treatment doxycycline and cefuroxime as outpatient antibiotic treatment Discharge Plan Discharge Clinical Impression: Cellulitis Qualifiers: Site of cellulitis: extremity Site of cellulitis of extremity: lower extremity Laterality: left Qualified Code(s): L03.116 - Cellulitis of left lower limb Patient Disposition: Home, Self-Care Instructions: Cellulitis (ED) Additional Instructions: Take antibiotics as advised Keep left leg elevated Report to the ER/PCP worsening of the rash/fever Prescriptions: New cefuroxime axetil 500 mg tablet 500 mg PO BID Qty: 20 RF: 0 doxycycline hyclate 100 mg tablet 100 mg PO BID Qty: 20 RF: 0 Interventions: ED Discharge Assessment Last Done: 04/11/21 03:01 Discharge Date/Time: 04/11/21 03:01
[2021-04-11] MEDS: cephALEXin 500 MG CAPSULE PO (02:58)
== END 2021-04-11 03:01 | disposition home or self-care (01) ==
PROVIDERS: Emergency Provider Internal Medicine
DX: L03.116 Cellulitis of left lower limb (principal); R21 Rash and other nonspecific skin eruption; E11.9 Type 2 diabetes mellitus without complications; F79 Unspecified intellectual disabilities
CPT/HCPCS: 99283

== ENCOUNTER 2021-07-15 08:34 | Outpatient (REF) | payer MEDICARE, MEDICAID, SELFPAY ==
[2021-07-15 09:21] LABS: Basophils Percent Auto 0.6 % (0-2); Hematocrit 38.4 % (37.0-47.0); Hemoglobin 12.5 g/dl (12.0-16.0); Imm Gran Abs Auto 0.01 X10*3/uL (0.00-0.03); Imm Gran Pct Auto 0.2 % (0.0-0.4); Lymphocytes Absolute Auto 1.1 X10*3/uL (1.2-4.9); MANUAL DIFF FLAG NO; Mean Corpuscular HGB Conc 32.6 g/dl (31.0-35.0); Mean Corpuscular Volume 86.1 fL (80.0-98.0); Mean Platelet Volume 9.3 fL (9.4-12.3); Monocytes Absolute Auto 0.6 X10*3/uL (0.1-1.2); Monocytes Percent Auto 11.5 % (2-11); Neutrophils Absolute Auto 3.6 x10*3/uL (2.0-8.3); Neutrophils Percent Auto 67.7 % (45-73); Platelet Count 208 X10*3/uL (160-400); Red Blood Count 4.46 X10*6/uL (4.20-5.50); Red Cell Distribution Width 13.8 % (11.0-16.0); White Blood Count 5.2 X10*3/uL (4.8-10.8)
[2021-07-15 09:51] LABS: Alanine Aminotransferase 33 U/L (0-31); Alkaline Phosphatase 74 U/L (39-117); Anion Gap 16 (12-20); Aspartate Amino Transferase 24 U/L (5-31); Bilirubin Total 0.5 mg/dL (0.0-1.0); Blood Urea Nitrogen 14 mg/dL (9-16); Calcium 9.3 mg/dL (8.4-10.2); Carbon Dioxide 22 mmol/L (22-29); Chloride 103 mmol/L (96-108); Cholesterol 240 mg/dL; Estimated Glomerular Filt Rate > 60; Glucose Random 96 mg/dL (60-115); HDL Cholesterol 43 mg/dL; LDL Cholesterol Calculated 148 mg/dl; Potassium 4.5 mmol/L (3.3-5.1); Sodium 136 mmol/L (135-145); Total Protein 7.3 g/dL (6.5-8.0); Triglycerides 245 mg/dL
[2021-07-15 09:54] LABS: Estimated Average Glucose 88 mg/dL; Hemoglobin A1C 149.2693 umol/L; Hemoglobin A1c % 4.7 %
[2021-07-15 10:10] LABS: Thyroid Stimulating Hormone 4.61 uIU/mL (0.32-4.0)
[2021-07-17 01:51] LABS: Prolactin 31.2 ng/mL
== END 2021-07-15 08:35 | disposition home or self-care (01) ==
LOC: HO.LAB 08:34
PROVIDERS: Visit Provider Ophthalmology
DX: F63.81 Intermittent explosive disorder (principal); Z79.899 Other long term (current) drug therapy
CPT/HCPCS: 36415; 80053; 80061; 83036; 84146; 84443; 85025

== ENCOUNTER → 2021-09-26 09:41 | Outpatient (BNVA) | payer MEDICARE, MEDICAID, SELFPAY | PROVIDERS: PCP Internal Medicine; Visit Provider Advanced Practice Midwife | DX: Z13.89 Encounter for screening for other disorder (principal) ==

== ENCOUNTER → 2021-11-04 10:00 | Outpatient (BNVA) | payer MEDICARE, MEDICAID, SELFPAY | PROVIDERS: PCP Internal Medicine; Visit Provider Dietitian, Registered | DX: E11.9 Type 2 diabetes mellitus without complications (principal) | CPT/HCPCS: 97802 ==

== ENCOUNTER 2021-11-18 08:32 | Outpatient (REF) | payer MEDICARE, MEDICAID, SELFPAY ==
[2021-11-18 09:56] LABS: Alanine Aminotransferase 100 U/L (0-31); Alkaline Phosphatase 71 U/L (39-117); Anion Gap 17 (12-20); Aspartate Amino Transferase 46 U/L (5-31); Bilirubin Total 0.3 mg/dL (0.0-1.0); Blood Urea Nitrogen 17 mg/dL (9-16); Calcium 8.7 mg/dL (8.4-10.2); Carbon Dioxide 20 mmol/L (22-29); Chloride 105 mmol/L (96-108); Cholesterol 207 mg/dL; Estimated Glomerular Filt Rate > 60; Glucose Fasting 94 mg/dL (60-99); HDL Cholesterol 29 mg/dL; LDL Cholesterol Calculated 129 mg/dl; Potassium 4.5 mmol/L (3.3-5.1); Sodium 137 mmol/L (135-145); Total Protein 7.4 g/dL (6.5-8.0); Triglycerides 245 mg/dL
[2021-11-18 10:18] LABS: Thyroid Stimulating Hormone 3.05 uIU/mL (0.32-4.0)
[2021-11-21 21:45] LABS: Thyroglobulin Antibodies <1 IU/mL (< or = 1); Thyroid Peroxidase Antibodies 1 IU/mL (<9)
== END 2021-11-18 08:33 | disposition home or self-care (01) ==
LOC: HO.LAB 08:32
PROVIDERS: PCP Internal Medicine; Visit Provider Internal Medicine
DX: E11.9 Type 2 diabetes mellitus without complications (principal); E78.5 Hyperlipidemia, unspecified; R79.89 Other specified abnormal findings of blood chemistry; L98.9 Disorder of the skin and subcutaneous tissue, unspecified
CPT/HCPCS: 36415; 80053; 80061; 84443; 86376; 86800

== ENCOUNTER → 2021-12-29 09:48 | Outpatient (BNVA) | payer MEDICARE, MEDICAID, SELFPAY | PROVIDERS: PCP Internal Medicine; Visit Provider Dietitian, Registered | DX: E11.9 Type 2 diabetes mellitus without complications (principal) | CPT/HCPCS: 97803 ==

== ENCOUNTER 2022-01-09 13:32 | Outpatient (REF) | payer MEDICARE, MEDICAID, SELFPAY ==
[2022-01-09 14:27] LABS: COVID-19 Test Negative (Negative); IDNOW Serial# 55D5AD1C
== END 2022-01-09 13:33 | disposition home or self-care (01) ==
LOC: HO.LAB 13:32
PROVIDERS: Visit Provider Internal Medicine
DX: Z20.822 Contact with and (suspected) exposure to COVID-19 (principal)
CPT/HCPCS: 87635; C9803

== ENCOUNTER 2022-01-11 08:53 | Outpatient (REF) | payer MEDICARE, MEDICAID, SELFPAY ==
[2022-01-11 10:23] LABS: Alanine Aminotransferase 45 U/L (0-31); Alkaline Phosphatase 60 U/L (39-117); Anion Gap 18 (12-20); Aspartate Amino Transferase 33 U/L (5-31); Bilirubin Total 0.5 mg/dL (0.0-1.0); Blood Urea Nitrogen 18 mg/dL (9-16); Calcium 8.7 mg/dL (8.4-10.2); Carbon Dioxide 19 mmol/L (22-29); Chloride 104 mmol/L (96-108); Cholesterol 248 mg/dL; Estimated Glomerular Filt Rate > 60; Glucose Fasting 93 mg/dL (60-99); HDL Cholesterol 45 mg/dL; LDL Cholesterol Calculated 165 mg/dl; Potassium 4.5 mmol/L (3.3-5.1); Sodium 136 mmol/L (135-145); Total Protein 7.4 g/dL (6.5-8.0); Triglycerides 190 mg/dL
== END 2022-01-11 08:54 | disposition home or self-care (01) ==
LOC: HO.LAB 08:53
PROVIDERS: PCP Internal Medicine; Visit Provider Internal Medicine
DX: E11.9 Type 2 diabetes mellitus without complications (principal); E78.5 Hyperlipidemia, unspecified
CPT/HCPCS: 36415; 80053; 80061

== ENCOUNTER 2022-02-16 13:52 | Outpatient (REF) | payer MEDICARE, MEDICAID, SELFPAY ==
[2022-02-16 14:36] LABS: Influenza A PCR NEGATIVE (Negative); Influenza B PCR NEGATIVE (Negative); Resp Syncy Virus RNA Qual PCR NEGATIVE (Negative); SARS COV2 PCR INHOUSE NEGATIVE (Negative)
== END 2022-02-16 13:53 | disposition home or self-care (01) ==
LOC: HO.LNP 13:52
PROVIDERS: Visit Provider Nurse Practitioner Family
DX: R05.9 Cough, unspecified (principal); Z20.822 Contact with and (suspected) exposure to COVID-19
CPT/HCPCS: 0241U

== ENCOUNTER → 2022-04-05 09:45 | Outpatient (BNVA) | payer MEDICARE, MEDICAID, SELFPAY | PROVIDERS: PCP Internal Medicine; Visit Provider Dietitian, Registered | DX: E11.9 Type 2 diabetes mellitus without complications (principal) | CPT/HCPCS: 97803 ==

== ENCOUNTER 2022-05-01 22:00 | Emergency (ER) | payer MEDICARE, MEDICAID, SELFPAY ==
[2022-05-01 22:08] VITALS: BMI 34.9
--- NOTE | 2022-05-01 22:59 | ED_ITS ---
HPI - Psych General Chief Complaint: Psychiatric Symptoms Stated Complaint: HI per EMS Time Seen by Provider: 05/01/22 22:07 Source: patient and other (jail staff) Mode of arrival: ambulatory Limitations: no limitations History of Present Illness HPI Narrative: Patient comes to the emergency room complaining of feeling angry. Patient states that she is not sure why. The custodial director is at bedside. Seems that the patient has been depressed lately. They suspect that the patient is becoming depressed because they are a lot of new staff changes and the patient does not do well with changes. Patient denies suicidal homicidal ideation. Patient states that she is scared to return to the custodial. However, patient states that she does not know why she is scared. Patient denies SI or HI Related Data Home Medications Medication Instructions Recorded Confirmed guanfacine 2 mg tablet,extended 2 mg PO BID 06/30/20 04/27/22 release 24 hr chlorpromazine 100 mg tablet 100 mg PO TID 12/01/20 05/01/22 melatonin 3 mg tablet 6 mg PO BEDTIME PRN Sleep 12/03/20 04/27/22 sertraline 50 mg tablet 150 mg PO DAILY depressive disorder 12/07/20 05/01/22 clonazepam 1 mg tablet (Klonopin) 1 mg PO BID 10/06/21 04/27/22 betamethasone dipropionate 0.05 % appl topical 01/09/22 04/27/22 topical cream guanfacine 4 mg tablet,extended 1 tab PO DAILY 05/01/22 05/01/22 release 24 hr Previous Rx's Medication Instructions Recorded omeprazole 20 mg capsule,delayed 20 mg PO DAILY #90 caps 07/25/21 release levonorgestrel 0.15 mg-ethinyl 1 tab PO DAILY #91 ea 09/26/21 estradiol 30 mcg tablets,3 mos pack(91) (Haroldo) triamcinolone acetonide 0.1 % 1 appl topical DAILY 14 days #15 10/26/21 topical cream grams metformin 750 mg tablet,extended 750 mg PO BID 90 days #180 tabs 01/03/22 release 24 hr atorvastatin 20 mg tablet 20 mg PO BEDTIME 90 days #90 tabs 01/15/22 acetaminophen 500 mg tablet 500 mg PO Q6H PRN for fever #30 03/07/22 tabs dextromethorphan polistirex 30 10 ml PO Q12H PRN cough 10 days 04/27/22 mg/5 mL oral susp ext.release 12hr #100 mL (Delsym 12 hour) fluticasone propionate 50 1 spray intranasal DAILY 30 days 04/27/22 mcg/actuation nasal #100 mL spray,suspension (Flonase Allergy Relief) Allergies Allergy/AdvReac Type Severity Reaction Status Date / Time No Known Allergies Allergy Verified 04/27/22 11:32 Review of Systems Review of Systems: Constitutional : No Weight loss, No Fever, No Chills, No Night Sweats, No Fatigue, No Malaise ENT/Mouth : No Hearing loss, No Ear Pain, No Nasal Congestion, No Sinus Pain, No Hoarseness, No sore throat, No Rhinorrhea, No Swallowing Difficulty Eyes: No Eye Pain, No Swelling, No Redness, No Foreign Body, No Discharge, No Vision Changes Cardiovascular : No Chest Pain, No SOB, No Dyspnea on Exertion, No Orthopnea, No Edema, No Palpitations Respiratory : No Cough, No Sputum, No Wheezing, No Smoke Exposure, No Dyspnea Gastrointestinal : No Nausea, No Vomiting, No Diarrhea, No Constipation, No abdominal Pain, No Hematochezia, No Melena Genitourinary : no irregular bleeding, No Dysuria, No Urinary Frequency, No Hematuria, No Urinary Incontinence, No Urgency, No Flank Pain, No Urinary Flow Changes, No Hesitancy Musculoskeletal : No joint pain, No Myalgias, No Joint Swelling Skin : No Skin Lesions, No rash Neuro : No Weakness, No Numbness, No Paresthesias, No Loss of Consciousness, No Dizziness, No Headache Psych : Patient reports fear, anxiety. jail staff reports possible depression due to new changes in staff Heme/Lymph: No Bruising, No Bleeding,No Lymphadenopathy Endocrine : No Polyuria, No Polydipsia, No Temperature Intolerance FOR[facility]LY [facility], [facility] Past Medical History Medical History Anxiety Cellulitis of toe of left foot Diabetes mellitus Intellectual disability Obsessive compulsive disorder Oppositional defiant disorder Trauma of toe of left foot Vaginal irritation Surgical History No pertinent past surgical history Family History Family History Mother No problems noted. Social History Social History Housing: House Housing Other:: Snf Alcohol intake: never Patient Tobacco Use Status: Never used Tobacco e-Cigarette/Vaping Use: Never Used Second Hand Smoke Exposure: No service: No Current occupational status: disabled Gender identity: Female Cognitive needs: Yes Hearing needs: No Vision needs: No Physical Exam Vital Signs: Vital Signs: BMI result Body Mass Index 34.9 Const: Other: Appearance: Alert. Oriented X3. No acute distress. Eyes: Pupils equal, round and reactive to light. ENT: Pharynx normal. Neck: Normal inspection. Neck supple. No lymph nodes noted. No crepitus CVS: Normal heart rate and rhythm. Pulses normal. Normal S1 and S2 Respiratory: No respiratory distress. Breath sounds normal. No Wheezing. No rales Abdomen: Soft and nontender. No rigidity. No distention. Skin: Skin warm and dry. Normal skin color. Normal skin turgor. Extremities: No lower extremity edema. No Lacerations. No Rash Neuro: Oriented X 3. No motor deficit. No sensory deficit. Moving all extremities. No slurred speech. CN 2 through 12 grossly intact Psych: calm, cooperative, flat affect Course Course Course Narrative: Labs and care team pending sign out given to Dr. saleem Medical Decision Making Differential Diagnosis Differential Diagnoses: The differential diagnosis associated with the presentation includes (Anxiety, depression) Admission/Observation Consideration of admission/observation: Escalation of care including admission/observation considered (Patient is under observation in the Behavioral Health section, care team consult pending.) Discharge Plan Discharge Clinical Impression: Depression with anxiety Patient Disposition: Still a Patient Prescriptions: No Action omeprazole 20 mg capsule,delayed release(DR/EC) 20 mg PO DAILY Qty: 90 0RF triamcinolone acetonide 0.1 % cream 1 appl topical DAILY 14 Days Qty: 15 0RF metformin 750 mg tablet extended release 24 hr 750 mg PO BID 90 Days Qty: 180 1RF atorvastatin 20 mg tablet 20 mg PO BEDTIME 90 Days Qty: 90 1RF acetaminophen 500 mg tablet 500 mg PO Q6H PRN (Reason: for fever) Qty: 30 0RF melatonin 3 mg Tablet 6 mg PO BEDTIME PRN (Reason: Sleep) chlorpromazine 100 mg tablet 100 mg PO TID sertraline 50 mg tablet 150 mg PO DAILY clonazepam [Klonopin] 1 mg tablet 1 mg PO BID fluticasone propionate [Flonase Allergy Relief] 50 mcg/actuation spray,suspension 1 spray intranasal DAILY 30 Days Qty: 100 0RF Rx Instructions: administer into each nostril dextromethorphan polistirex [Delsym 12 hour] 30 mg/5 mL suspension,extended rel 12 hr 10 ml PO Q12H PRN (Reason: cough) 10 Days Qty: 100 0RF betamethasone dipropionate 0.05 % cream topical guanfacine 2 mg tablet extended release 24 hr 2 mg PO BID levonorgestrel-ethinyl estrad [Jolessa] 0.15 mg-30 mcg (91) tablets,dose pack,3 month 1 tab PO DAILY Qty: 91 3RF
[2022-05-01 23:27] LABS: Influenza A PCR NEGATIVE (Negative); Influenza B PCR NEGATIVE (Negative); Resp Syncy Virus RNA Qual PCR NEGATIVE (Negative); SARS COV2 PCR INHOUSE NEGATIVE (Negative)
[2022-05-01 23:42] LABS: MANUAL DIFF FLAG NO
[2022-05-01 23:54] LABS: Basophils Percent Auto 0.4 % (0-2); Eosinophils Percent Auto 0.1 % (0-4); Hematocrit 36.3 % (37.0-47.0); Hemoglobin 12.2 g/dl (12.0-16.0); Imm Gran Abs Auto 0.03 X10*3/uL (0.00-0.03); Imm Gran Pct Auto 0.4 % (0.0-0.4); Lymphocytes Absolute Auto 1.4 X10*3/uL (1.2-4.9); Lymphocytes Percent Auto 20.7 % (20-40); Mean Corpuscular HGB Conc 33.6 g/dl (31.0-35.0); Mean Corpuscular Hemoglobin 28.9 pg (27.0-33.0); Mean Platelet Volume 9.2 fL (9.4-12.3); Monocytes Absolute Auto 0.7 X10*3/uL (0.1-1.2); Monocytes Percent Auto 9.8 % (2-11); Neutrophils Absolute Auto 4.7 x10*3/uL (2.0-8.3); Neutrophils Percent Auto 68.6 % (45-73); Platelet Count 225 X10*3/uL (160-400); Red Blood Count 4.22 X10*6/uL (4.20-5.50); Red Cell Distribution Width 13.5 % (11.0-16.0); White Blood Count 6.8 X10*3/uL (4.8-10.8)
[2022-05-02 00:14] LABS: Alanine Aminotransferase 55 U/L (0-31); Albumin Level 4.1 g/dL (3.5-5.0); Alkaline Phosphatase 49 U/L (39-117); Anion Gap 14 (12-20); Aspartate Amino Transferase 31 U/L (5-31); Bilirubin Total 0.4 mg/dL (0.0-1.0); Blood Urea Nitrogen 17 mg/dL (9-16); Carbon Dioxide 21 mmol/L (22-29); Chloride 103 mmol/L (96-108); Creatinine Clr Calc Pharmacy 130.2; Estimated Glomerular Filt Rate > 60; Glucose Random 78 mg/dL (60-115); Potassium 4.2 mmol/L (3.3-5.1); Sodium 134 mmol/L (135-145); Total Protein 7.2 g/dL (6.5-8.0)
--- NOTE | 2022-05-02 05:52 | PC.NURSE ---
Patient slept through the night, no distress observed/reported, behavior non concerning at this time, [facility] for 1:1 observation for safety (PICA) per care plan/Charge nurse aware, med rec completed/pending provider's approval, urine sample pending, patient is awaiting care team evaluation in the morning, will continue to monitor.
[2022-05-02 05:56] VITALS: BP 117/70; PULSE 87; RESP 16; TEMP 36.7; O2SAT 95
[2022-05-02] MEDS: Sertraline HCL 50 MG TABLET 150 MG PO (08:03)
[2022-05-02] MEDS: metFORMIN HCl ER 750 MG TAB.ER.24H PO (08:03)
[2022-05-02] MEDS: guanFACINE HCl ER 2 MG TAB.ER.24H 4 MG PO (08:03)
[2022-05-02] MEDS: chlorproMAZINE HCl 100 MG TABLET PO (08:03)
== END 2022-05-02 10:53 | disposition other institution (70) ==
PROVIDERS: Emergency Provider Emergency Medicine; PCP Internal Medicine
DX: F32.A Depression, unspecified (principal); F41.9 Anxiety disorder, unspecified; F43.25 Adjustment disorder with mixed disturbance of emotions and conduct; F91.3 Oppositional defiant disorder; F79 Unspecified intellectual disabilities; E11.9 Type 2 diabetes mellitus without complications; E78.00 Pure hypercholesterolemia, unspecified; Z79.899 Other long term (current) drug therapy; Z79.84 Long term (current) use of oral hypoglycemic drugs; Z79.02 Long term (current) use of antithrombotics/antiplatelets; Z20.822 Contact with and (suspected) exposure to COVID-19; Z20.828 Contact with and (suspected) exposure to other viral communicable diseases
CPT/HCPCS: 0241U; 36415; 80053; 85025; 99284

== ENCOUNTER → 2022-07-21 09:57 | Outpatient (BNVA) | payer MEDICARE, MEDICAID, SELFPAY | PROVIDERS: PCP Internal Medicine; Visit Provider Dietitian, Registered | DX: E11.9 Type 2 diabetes mellitus without complications (principal); Z71.3 Dietary counseling and surveillance | CPT/HCPCS: 97803 ==

== ENCOUNTER 2022-09-01 08:43 | Emergency (ER) | payer MEDICARE, MEDICAID, SELFPAY ==
[2022-09-01 08:47] VITALS: BP 131/82; PULSE 100; PULSE 108; RESP 20; TEMP 36.6; O2SAT 94; O2SAT 96; BMI 31.1
--- NOTE | 2022-09-01 08:57 | ED.PSYCH ---
HPI - Psych General Chief Complaint: Psychiatric Symptoms Stated Complaint: SI/HI per EMS Time Seen by Provider: 09/01/22 08:51 Source: patient Mode of arrival: EMS Limitations: physical limitation History of Present Illness HPI Narrative: Patient states that she doesn't want to hurt herself, she is here for behavioral problems. Onset (ago): minute(s) Duration: constant History of same: Yes Related Data Home Medications Medication Instructions Recorded Confirmed chlorpromazine 100 mg tablet 100 mg PO TID 12/01/20 07/10/22 melatonin 3 mg tablet 6 mg PO BEDTIME PRN Sleep 12/03/20 07/10/22 sertraline 50 mg tablet 150 mg PO DAILY depressive disorder 12/07/20 07/10/22 guanfacine 4 mg tablet,extended 1 tab PO DAILY 05/01/22 07/10/22 release 24 hr Previous Rx's Medication Instructions Recorded levonorgestrel 0.15 mg-ethinyl 1 tab PO DAILY #91 ea 09/26/21 estradiol 30 mcg tablets,3 mos pack(91) (Haroldo) metformin 750 mg tablet,extended 750 mg PO BID 90 days #180 tabs 06/23/22 release 24 hr betamethasone dipropionate 0.05 % 1 appl topical BID PRN skin 07/10/22 topical cream irritation #45 grams Allergies Allergy/AdvReac Type Severity Reaction Status Date / Time No Known Allergies Allergy Verified 09/01/22 09:02 Review of Systems Review of Systems: Yes all other systems are reviewed and are negative Neurologic: Denies Sensory deficit (Neuro) Psychiatric: Comments: behavioral issues PMFSH Past Medical History Medical History Anxiety Cellulitis of toe of left foot Diabetes mellitus Intellectual disability Obsessive compulsive disorder Oppositional defiant disorder Trauma of toe of left foot Vaginal irritation Surgical History No pertinent past surgical history Family History Family History Mother No problems noted. Social History Social History Housing: House Housing Other:: Retirement Alcohol intake: never Patient Tobacco Use Status: Never used Tobacco Smoked in Last 30 Days: No e-Cigarette/Vaping Use: Never Used Second Hand Smoke Exposure: No Use of substances other than those prescribed or required for medical reasons: No Advance Directives: No Advance Directives Information Provided: No service: No Current occupational status: disabled Gender identity: Female Cognitive needs: Yes Hearing needs: No Vision needs: No Physical Exam Vital Signs: Vital Signs: Last Vital Signs Temp 97.8 F 09/01/22 08:47 Pulse 108 H 09/01/22 08:47 Resp 20 09/01/22 08:47 BP 131/82 09/01/22 08:47 Pulse Ox 94 09/01/22 08:47 O2 Del Method Room Air 09/01/22 08:47 BMI result Body Mass Index 31.1 Const: Other: young female with mental disability, calm General: healthy appearing Nutritional Appearance: average body habitus Orientation/consciousness: oriented to person Limitations: no limitations HEENT: Head: Yes normal to inspection Ears: external ears normal General nose exam: Normal external nose present Mouth: Normal oral and palatal mucosa present and oropharynx normal Throat: Yes posterior oropharynx normal Eyes: General: appearance normal, both eyes and all related structures Neck: Other: supple Neck: Yes normal visual inspection Chest: Chest palpation & inspection: normal inspection of the chest Resp: Auscultation: clear to auscultation bilaterally Cardio: Jugular venous distension: no JVD Rate: regular rate Rhythm: regular rhythm Heart sounds: S1 normal heart sound present and S2 normal heart sound present GI: Inspection: Yes normal to inspection Palpation (GI): Soft to palpation, nontender and No hepatosplenomegaly present Auscultation: normal bowel sounds : General: Yes no CVA tenderness Back/Spine/Pelvis: Back: no CVA tenderness Skin: General skin exam: no rashes or lesions noted Neuro: General: oriented to person Cranial nerves: Yes CN's II-XII intact bilaterally Motor exam (neuro): 5/5 motor strength present throughout Sensory Exam: No Sensory deficit (Neuro) Extrem: General: Yes normal to inspection Psych: Other: baseline Course Reevaluation(s) Reevaluation #1: patient is medically cleared for CARE evaluation Time: 09:25 Reevaluation #2: Conversation with the detention will allow patient to be discharged Time: 13:11 Medical Decision Making Differential Diagnosis Differential Diagnoses: The differential diagnosis associated with the presentation includes (behavioral problems, anxiety, ) Consult Healthcare Provider Management of the patient was discussed with: Behavioral Health Provider Tests considered The following testing was considered but not selected: basic blood and Urine were considered Chronic Conditions Patient?s care impacted by: Other (CP) Social Determinants [facility] Discharge Plan Discharge Clinical Impression: Oppositional defiant disorder, severe Patient Disposition: Home, Self-Care Prescriptions: No Action metformin 750 mg tablet extended release 24 hr 750 mg PO BID 90 Days Qty: 180 1RF melatonin 3 mg Tablet 6 mg PO BEDTIME PRN (Reason: Sleep) chlorpromazine 100 mg tablet 100 mg PO TID sertraline 50 mg tablet 150 mg PO DAILY guanfacine 4 mg tablet extended release 24 hr 1 tab PO DAILY betamethasone dipropionate 0.05 % cream 1 appl topical BID PRN (Reason: skin irritation) Qty: 45 0RF levonorgestrel-ethinyl estrad [Jolessa] 0.15 mg-30 mcg (91) tablets,dose pack,3 month 1 tab PO DAILY Qty: 91 3RF Referrals: Physician,Unknown J [Primary Care Provider] - 1 week Interventions: [place]-Suicide Risk Severity Scale Last Done: 09/01/22 09:01
--- NOTE | 2022-09-01 09:13 | PC.NURSE ---
per ems, pt locked self in bathroom refused to open door. threatened staff and roommates. opened door when PD arrived. she denies si/hi. pt a+o x3, vss, denies pain. pt seen by Dr. Mackenzie. nursing home staff at pt's bedside. will continue to observe.
--- NOTE | 2022-09-01 14:21 | PC.NURSE ---
pt cleared for discharge. discharge instructions reviewed with [facility] staff. pt discharged with [facility] staff. denies pain, no complaints
== END 2022-09-01 14:30 | disposition home or self-care (01) ==
PROVIDERS: Emergency Provider Emergency Medicine
DX: F91.3 Oppositional defiant disorder (principal); F41.9 Anxiety disorder, unspecified; F43.25 Adjustment disorder with mixed disturbance of emotions and conduct; F79 Unspecified intellectual disabilities; Z79.899 Other long term (current) drug therapy
CPT/HCPCS: 99284; 99285

== ENCOUNTER 2022-09-21 03:21 | Emergency (ER) | payer MEDICARE, MEDICAID, SELFPAY ==
[2022-09-21 03:33] VITALS: BP 122/67; PULSE 110; RESP 18; TEMP 36.6; O2SAT 94; BMI 24.7
--- NOTE | 2022-09-21 03:47 | MHC.EDTECH ---
t/w attempted to collect urine sample and bloodwork, pt refusing all lab work/urinalysis at this time. RN MADE AWARE.
[2022-09-21] MEDS: Ibuprofen 800 MG TABLET PO (04:00)
[2022-09-21 04:15] LABS: COVID-19 Test Negative (Negative); IDNOW Serial# 6674DD1D
--- NOTE | 2022-09-21 05:48 | MHC.EDTECH ---
pt woke up briefly to use the bathroom and continued to refuse to give urine sample. RN MADE AWARE.
--- NOTE | 2022-09-21 06:32 | PC.NURSE ---
Patient arrived in the middle of the night, went to bed as soon as she arrived, reported right arm pain from police hold, patient eloped from her [facility] after having verbal altercation with staff member, Ibuprofin 800 mg administered @ 0400 with + effect, patient currently in bed appears sleeping, unable to provide urine, blood work pending as well, med rec completed/pending provider's approval, behavior non concerning, care consult ordered/pending evaluation, will continue to monitor.
--- NOTE | 2022-09-21 06:52 | ED_ITS ---
HPI - Psych General Chief Complaint: Psychiatric Symptoms Stated Complaint: sec12,crisis,combative @ [facility] per ems Time Seen by Provider: 09/21/22 04:23 Source: EMS Mode of arrival: EMS Limitations: no limitations History of Present Illness HPI Narrative: Patient with developmental delay anxiety disorder, oppositional defiant disorder came from detention as she was very aggressive fighting with the staff eloped from the detention on arrival patient was common quite denies any SI or significant depression no substance abuse Related Data Home Medications Medication Instructions Recorded Confirmed melatonin 3 mg tablet 6 mg PO BEDTIME PRN Sleep 12/03/20 09/21/22 sertraline 50 mg tablet 150 mg PO DAILY depressive disorder 12/07/20 09/21/22 clonazepam 1 mg tablet 1 mg PO BID PRN Anxiety 09/21/22 09/21/22 divalproex 250 mg tablet,extended 250 mg PO BEDTIME 09/21/22 09/21/22 release 24 hr guanfacine 4 mg tablet,extended 4 mg PO DAILY 09/21/22 09/21/22 release 24 hr metformin 750 mg tablet,extended 750 mg PO BID 09/21/22 09/21/22 release 24 hr Previous Rx's Medication Instructions Recorded levonorgestrel 0.15 mg-ethinyl 1 tab PO DAILY #91 ea 09/26/21 estradiol 30 mcg tablets,3 mos pack(91) (Haroldo) Allergies Allergy/AdvReac Type Severity Reaction Status Date / Time No Known Allergies Allergy Verified 09/01/22 09:02 Review of Systems Review of Systems: Yes all other systems are reviewed and are negative PMFSH Past Medical History Medical History Anxiety Cellulitis of toe of left foot Diabetes mellitus Intellectual disability Obsessive compulsive disorder Oppositional defiant disorder Trauma of toe of left foot Vaginal irritation Surgical History No pertinent past surgical history Family History Family History Mother No problems noted. Social History Social History Housing: House Housing Other:: [facility]iary Alcohol intake: never Patient Tobacco Use Status: Never used Tobacco e-Cigarette/Vaping Use: Never Used Second Hand Smoke Exposure: No Advance Directives: No Advance Directives Information Provided: Yes Guardian: Yes service: No Current occupational status: disabled Gender identity: Female Cognitive needs: Yes Hearing needs: No Vision needs: No Physical Exam Vital Signs: Vital Signs: Last Vital Signs Temp 97.9 F 09/21/22 03:33 Pulse 110 H 09/21/22 03:33 Resp 18 09/21/22 03:33 BP 122/67 09/21/22 03:33 Pulse Ox 94 09/21/22 03:33 O2 Del Method Room Air 09/21/22 03:33 BMI result Body Mass Index 24.7 Appearance: Alert. Oriented X3. No acute distress. Eyes: PERRLA, No Nystagmus ENT: Pharynx normal. Oral Mucosa moist Neck: Normal inspection. Neck supple. CVS: Normal heart rate and rhythm. Pulses normal. Respiratory: No respiratory distress. Equal air entry bilateral, no wheezing/rales/rhonchi Abdomen: Soft and nontender. Bowel sounds are present, no mass palpable, no CVA tenderness Skin: Skin warm and dry. Normal skin color. Normal skin turgor. Extremities: No lower extremity edema. No calf tenderness psych: Calm and cooperative denies any significant SI or depression no hallucination /delusion Neuro: Oriented X 3. No motor deficit. No sensory deficit.No cerebellar signs , cranial nerves II-XII intact Medications Administered Generic Name Dose Route Start Last Admin Trade Name Freq PRN Reason Stop Dose Admin Guanfacine HCl 4 mg 09/21/22 09:00 09/21/22 11:51 Guanfacine Hcl Er 2 Mg Tab.Er.24h PO 4 mg DAILY SHANI Administration Metformin HCl 750 mg 09/21/22 09:00 09/21/22 11:50 Metformin Hcl Er 750 Mg Tab.Er.24h PO 750 mg BID SHANI Administration Sertraline HCl 150 mg 09/21/22 09:00 09/21/22 11:50 Sertraline Hcl 50 Mg Tablet PO 150 mg DAILY SHANI Administration Discontinued Medications Generic Name Dose Route Start Last Admin Trade Name Freq PRN Reason Stop Dose Admin Ibuprofen 800 mg 09/21/22 03:53 09/21/22 04:00 Ibuprofen 800 Mg Tablet PO 09/21/22 03:54 800 mg ONCE ONE Administration Medical Decision Making Medical Decision Making MDM Narrative: Patient with developmental delay anxiety disorder, oppositional defiant disorder came from detention as she was very aggressive fighting with the staff eloped from the detention on arrival patient was common quite denies any SI or signi ficant depression no substance abuse 1250: I assumed care of this patient from my colleague, Dr. Warner at 07:00 hours. Patient was evaluated by care team was felt patient be discharged back to her detention. Differential Diagnosis Differential Diagnoses: The differential diagnosis associated with the presentation includes Differential diagnosis includes was not limited to aggressive behavior, suicidal ideation, anxiety, depression Lab Data Labs: Lab Results 09/21/22 Range/Units 03:39 COVID-19 (FRIEDA) Negative (Negative) COVID-19 Clin Com See Note Discharge Plan Discharge Clinical Impression: Adjustment disorder with mixed disturbance of emotions and conduct Patient Disposition: Home, Self-Care Prescriptions: No Action melatonin 3 mg Tablet 6 mg PO BEDTIME PRN (Reason: Sleep) sertraline 50 mg tablet 150 mg PO DAILY clonazepam 1 mg tablet 1 mg PO BID PRN (Reason: Anxiety) divalproex 250 mg tablet extended release 24 hr 250 mg PO BEDTIME metformin 750 mg tablet extended release 24 hr 750 mg PO BID guanfacine 4 mg tablet extended release 24 hr 4 mg PO DAILY levonorgestrel-ethinyl estrad [Jolessa] 0.15 mg-30 mcg (91) tablets,dose pack,3 month 1 tab PO DAILY Qty: 91 3RF Interventions: [place]-Suicide Risk Severity Scale Last Done: 09/21/22 03:54
[2022-09-21] MEDS: Sertraline HCL 50 MG TABLET 150 MG PO (11:50)
[2022-09-21] MEDS: metFORMIN HCl ER 750 MG TAB.ER.24H PO (11:50)
[2022-09-21] MEDS: guanFACINE HCl ER 2 MG TAB.ER.24H 4 MG PO (11:51)
--- NOTE | 2022-09-21 15:32 | P.CNPS_ITS ---
History of Present Illness Date of Service: 09/21/22 Chief Complaint: sec12,crisis,combative @ [facility] home per ems Sources of Information: patient interviewed, chart reviewed and crisis/core team assessment reviewed HPI Narrative: Patient is a 22-year-old female with developmental disorder who has been spending past few weeks in and out of the emergency room for some disruptive behavior; she was back at the senior care for 2 days but overnight eloped and was brought to the emergency room by police. Citizenship Teacher discussed case with care team and it seems that patient is pretty close to her baseline. Patient is a poor historian. She was pleasant on approach however on inquiry as to why she ran away she says I do not know and despite multiple inquiries, patient remained with I do not know; that said she does want to go back to her senior care. Citizenship Teacher discussed medications with patient and she was not opposed to some medication changes though so far she had yet to take her morning medications. At baseline at the senior care, patient will get frustrated and break items; patient was recently at [facility] when they had increased patient was recently a [facility] where they had increased her Depakote to 500 mg q.h.s. however she is currently on only 250 mg. Citizenship Teacher considered increasing Depakote however Labs were pending, including Depakote level, liver enzymes and urine . Patient has been in good behavioral and impulse control in the ED. Patient wants to go back to her senior care; her mother also feels she is ready to go back and senior care is amenable to her returning; Since patient is either at or close to baseline rfp writer agrees with this as a plan since her medications can be adjusted by her outpatient psychiatrist. Past Psychiatric History: Anxiety Intellectual disability Obsessive compulsive disorder Oppositional defiant disorder [facility] Medical History (Updated 09/21/22 @ 15:37 by Nazario Yeh MD) Anxiety Cellulitis of toe of left foot Diabetes mellitus Intellectual disability Obsessive compulsive disorder Oppositional defiant disorder Trauma of toe of left foot Vaginal irritation Surgical History No pertinent past surgical history Diagnostics Vital Signs (24Hr): Vital Signs - 24 hr 09/21/22 03:33 Temperature 97.9 F Pulse Rate 110 H Respiratory Rate 18 Blood Pressure 122/67 Pulse Oximetry 94 Oxygen Delivery Method Room Air BMI result Body Mass Index 24.7 Labs Labs: Laboratory Results - last 48 hr 09/21/22 03:39 COVID-19 ([facility]) Negative COVID-19 Clin Com See Note Mental Status Exam Mental Status Exam Narrative: Pt is alert and oriented; behavior is cooperative, friendly and calm; patient is not in distress; dressed in hospital attire with unkempt hair but adequate hygiene; mood is described as ok and affect congruent; eye contact appropriate; Speech is normal rate, volume and prosody and not pressured; no psychomotor agitation/retardation present; thought process is goal directed; Thought content is on returning to senior care; otherwise pertinent to relevant topics and without any delusional content, paranoid ideations or grandiosity; denies any SI/HI. There is no evidence of perceptual disturbance. Patients insight and judgment are impaired, but likely at baseline. Medications Allergies Allergies Allergy/AdvReac Type Severity Reaction Status Date / Time No Known Allergies Allergy Verified 09/01/22 09:02 Assessment & Plan Assessment & Plan (1) Intellectual disability: Status: Acute Code(s): F79 - Unspecified intellectual disabilities Plan Patient is a 22-year-old female with developmental disorder who has been spending past few weeks in and out of the emergency room for some disruptive behavior; she was back at the senior care for 2 days but overnight eloped and was brought to the emergency room by police. Citizenship Teacher discussed case with care team and it seems that patient is pretty close to her baseline. Patient is a poor historian and cannot say why she eloped; however she says she wants to go back to the senior care today if possible. Impression/plan: Patient has been in good behavioral and impulse control in the ED. Patient wants to go back to her senior care; her mother also feels she is ready to go back and senior care is amenable to her returning; Since patient is either at or close to baseline rfp writer agrees with this as a plan since her medications can be adjusted by her outpatient psychiatrist. -patient okay for discharge back to senior care Total time managing care of this patient today ____ minutes. Patient educated on: diagnosis and medication risk/benefits Informed Consent: further education needed
== END 2022-09-21 13:32 | disposition home or self-care (01) ==
PROVIDERS: Internal Medicine; Emergency Provider Emergency Medicine Emergency Medical Services
DX: F43.25 Adjustment disorder with mixed disturbance of emotions and conduct (principal); Z20.822 Contact with and (suspected) exposure to COVID-19; Z20.828 Contact with and (suspected) exposure to other viral communicable diseases; Z79.899 Other long term (current) drug therapy
CPT/HCPCS: 87635; 99284

== ENCOUNTER → 2022-09-28 09:14 | Outpatient (BNVA) | payer MEDICARE, MEDICAID, SELFPAY | PROVIDERS: PCP Internal Medicine; Visit Provider Advanced Practice Midwife | DX: Z01.419 Encounter for gynecological examination (general) (routine) without abnormal findings (principal); Z30.09 Encounter for other general counseling and advice on contraception | CPT/HCPCS: G0101 ==

== ENCOUNTER 2022-11-15 08:36 | Outpatient (AMB) | payer MEDICARE, MEDICAID, SELFPAY ==
--- NOTE | 2022-11-15 08:50 | A.OFFPC_ITS ---
Vital Signs 11/15/22 08:51 Height 5 ft 2 in Weight 175 lb BMI 32.0 BP 112/80 Blood Pressure Location Lt brachial Position Sitting Intake Visit Reasons: Annual Exam Intake Note: Patient here for an annual physical exam Print Production Coordinator Required: No Accompanied by: Self / Same As Patient Allergies No Known Allergies Allergy (Verified 11/15/22 08:58) Medication List - Last Reconciled 11/15/22 by Carolyn Goodwin MD acetaminophen 500 mg PO Q6H PRN betamethasone dipropionate 0.05% appl topical BID PRN chlorpromazine 0 mg PO clonazepam 1 mg PO BID PRN divalproex ER 500 mg PO BEDTIME guanfacine ER 4 mg PO DAILY levonorgestrel-ethinyl estrad 0.15 mg-30 mcg (91) (Jolessa) 1 tab PO DAILY melatonin 6 mg PO BEDTIME PRN metformin ER 750 mg PO BID sertraline 150 mg PO DAILY Tobacco use date assessed: 04/27/22 Dental Screening Dental Screen Date: 11/15/22 Did you have a dental visit in the last 12 months?: Yes Did you have a dental problem in the last 6 months where you did not have access to dental care?: No Was dental information given to patient?: Patient has dentist HPI HPI Comments History of Present Illness Details This is a 22-year-old female with intellectual disability that comes today accompanied by staff member for her physical exam. Has no acute complaints. dietary service aide exams are up-to-date. [facility] Medical History (Updated 11/15/22 @ 09:08 by Carolyn Goodwin MD) Anxiety Cellulitis of toe of left foot Intellectual disability Obsessive compulsive disorder Oppositional defiant disorder Trauma of toe of left foot Vaginal irritation Surgical History No pertinent past surgical history Family History Mother No problems noted. Social History Housing: House Housing Other:: Half-Way Alcohol intake: never Patient Tobacco Use Status: Never used Tobacco e-Cigarette/Vaping Use: Never Used Second Hand Smoke Exposure: No service: No Current occupational status: disabled Gender identity: Female Cognitive needs: Yes Hearing needs: No Vision needs: No Questionnaire Thrive Questionnaire Date Thrive assessed: 04/27/22 JO-7 AMB Questionnaire JO-7 Date JO - 7 assessed: 11/08/21 Source: Developed by Drs. Gilbert Hunter, Jina Healy, Slim Gallardo and colleagues, with an educational edie from [employer]. Review of Systems Const All systems reviewed & are unremarkable except as noted in HPI and below Eyes Reports no additional complaints, Denies change in vision and Denies other visual disturbances Card Denies chest pain at rest, Denies chest pain with activity, Denies edema, Denies irregular heart rhythm, Denies claudication, Denies dyspnea, Denies dyspnea on exertion, Denies orthopnea, Denies paroxysmal nocturnal dyspnea and Denies slow heart rate Resp Denies cough, Denies dyspnea and Denies dyspnea on exertion GI Denies abdominal pain, Denies change in bowel habits, Denies excessive flatus, Denies nausea and Denies vomiting Denies urinary incontinence, Denies urinary hesitancy and Denies urinary urgency Musc Denies abnormal gait, Denies atrophy, Denies deformity and Denies limited range of motion Skin/Breast Denies bleeding lesions, Denies changing lesions and Denies rash Neuro Denies abnormal gait and Denies lack of coordination Physical exam (Primary Care) Vital Signs: Last Vital Signs BP 112/80 11/15/22 08:51 BMI result Body Mass Index 32.0 Tobacco/Smoking Status: Tobacco use Status Tobacco use date assessed 04/27/22 11/15/22 08:58 Patient Tobacco Use Status Never used Tobacco 11/15/22 08:58 e-Cigarette/Vaping Use Never Used 11/15/22 08:58 Thrive Assessment: Date of Thrive Assessment Date Thrive assessed 04/27/22 11/15/22 08:58 Const Orientation/consciousness: patient oriented x3 HENMT Head: Yes normal to inspection, Yes normocephalic and Yes atraumatic Ears: external ears normal Eyes General: appearance normal, both eyes and all related structures Eyelids: Yes eyelids normal Conjunctivae: conjunctivae normal Neck Neck: Yes normal visual inspection and Yes supple Resp Effort & Inspection: normal respiratory effort Auscultation: clear to auscultation bilaterally Cardio Jugular venous distension: no JVD Rate: regular rate Rhythm: regular rhythm Heart sounds: S1 normal heart sound present and S2 normal heart sound present GI Inspection: Yes normal to inspection Palpation (GI): Soft to palpation and nontender Auscultation: normal bowel sounds Skin General skin exam: no rashes or lesions noted Neuro General: patient oriented x3 and no focal motor deficits Extrem General: Yes full ROM Psych Appearance: grossly normal Results AMB Hemoglobin A1c AMB Hemoglobin A1c 4.3 % Last Edit by LUCILLE Goddard on 11/15/22 09:0 0 Results Reviewed Results Reviewed: Laboratory Last Values Hgb A1c (Clinic) 4.3 % (4.0-6.0) 11/15/22 08:59 Assessment and Plan Assessment & Plan (1) Physical exam: Code(s): Z00.00 - Encounter for general adult medical examination without abnormal findings Plan: Repeat in a year Orders: Orders Lipid Panel Today E78.5 - Hyperlipidemia, unspecified AMB Hemoglobin A1c Today E11.9 - Type 2 diabetes mellitus without complications Coding Level of Care Code Est Pt Prev Care 18-39y(56690) Diagnoses Physical exam Z00.00 Time Spent (min) 32
[2022-11-15 08:51] VITALS: BP 112/80; BMI 32.0
== END 2022-11-15 09:16 | disposition home or self-care (01) ==
PROVIDERS: Visit Provider Internal Medicine
DX: Z00.00 Encounter for general adult medical examination without abnormal findings (principal); E11.9 Type 2 diabetes mellitus without complications
CPT/HCPCS: 83036; 99395

== ENCOUNTER 2022-11-17 09:48 | Outpatient (REF) | payer MEDICARE, MEDICAID, SELFPAY ==
[2022-11-17 10:57] LABS: Cholesterol 247 mg/dL; HDL Cholesterol 45 mg/dL; LDL Cholesterol Calculated 152 mg/dl; Triglycerides 251 mg/dL
== END 2022-11-17 09:49 | disposition home or self-care (01) ==
LOC: HO.LAB 09:48
PROVIDERS: PCP Internal Medicine; Visit Provider Internal Medicine
DX: E78.5 Hyperlipidemia, unspecified (principal)
CPT/HCPCS: 36415; 80061

== ENCOUNTER 2023-01-01 12:01 | Outpatient (AMB) | payer MEDICARE, MEDICAID, SELFPAY ==
--- NOTE | 2023-01-01 12:36 | MHC.OFFWIV ---
Intake Vital Signs 01/01/23 13:06 Height 5 ft 2 in Weight 183 lb BMI 33.5 BP 100/60 Blood Pressure Location Lt brachial Position Sitting Pulse 95 Pulse Source Pulse Oximeter Temp 97.9 F Temp Source Temporal Artery Scan Pulse Oximetry (%) 96 Oxygen Delivery Method Room Air Intake Visit Reasons: EST/cough and sore throat Intake Note: Pt is here c/o bad cough and sore throat for the last few days. Patient Tobacco Use Status: Never used Tobacco Allergies No Known Allergies Allergy (Verified 11/15/22 08:58) HPI EST/cough and sore throat HPI Details 22-year-old female patient presents today for a sick visit. Her director of group sales, Beulah is accompanying her. Patient has history of developmental delay. Patient reports several day history of sore throat and nonproductive cough. Denies any fever, chills, shortness of breath. Denies any known exposure to sick contacts. [facility] Medical History Cellulitis of toe of left foot Vaginal irritation Trauma of toe of left foot Oppositional defiant disorder Intellectual disability Obsessive compulsive disorder Anxiety Surgical History No pertinent past surgical history Family History Mother No problems noted. Social History Housing: House Housing Other:: [facility] Alcohol intake: never Patient Tobacco Use Status: Never used Tobacco e-Cigarette/Vaping Use: Never Used Second Hand Smoke Exposure: No service: No Current occupational status: disabled Gender identity: Female Cognitive needs: Yes Hearing needs: No Vision needs: No Review of Systems Const All systems reviewed & are unremarkable except as noted in HPI and below Physical Exam Vital Signs: Last Vital Signs Temp 97.9 F 01/01/23 13:06 Pulse 95 01/01/23 13:06 BP 100/60 01/01/23 13:06 Pulse Ox 96 01/01/23 13:06 Oxygen Delivery Method Room Air 01/01/23 13:06 BMI result Body Mass Index 33.5 Const General: cooperative, healthy appearing, comfortable and no acute distress Limitations: behavioral limitations HEENT Head: Yes normal to inspection General nose exam: Normal external nose present and Normal nasal mucous membranes and turbinates present Face and sinus: Yes normal facial exam and Yes sinuses nontender Mouth: Normal oral and palatal mucosa present and moist mucous membranes Throat: Yes posterior oropharynx abnormal ( Mild erythema) Neck Neck: Yes no lymphadenopathy Resp Effort & Inspection: normal respiratory effort and able to speak in complete sentences Auscultation: clear to auscultation bilaterally Cardio Jugular venous distension: no JVD Palpation: normal PMI Rate: regular rate Rhythm: regular rhythm Skin General skin exam: no rashes or lesions noted Extrem General: Yes capillary refill normal and Yes no clubbing, cyanosis or edema Psych Appearance: grossly normal Mental Status: mental status grossly normal Speech and movement: Normal speech and movement present Assessment & Plan Assessment & Plan (1) URI (upper respiratory infection): Code(s): J06.9 - Acute upper respiratory infection, unspecified Qualifiers: URI type: unspecified viral URI Qualified Code(s): J06.9 - Acute upper respiratory infection, unspecified Plan: Symptoms consistent with likely be viral URI. Advised to increase hydration, may take OTC Tylenol. Prescribed benzonatate b.i.d. p.r.n. cough. Reviewed indications, use, possible side effects with director of group sales present. [facility] paperwork completed by this marketing writer. Advised to follow-up at clinic or with PCP if symptoms do not improve with time and conservative measures, or symptoms worsen. Medications: New benzonatate 100 mg PO BID PRN 14 caps 0RF cough 7 days J06.9 - Acute upper respiratory infection, unspecified Coding Level of Care Code Est Pt Level 3 (78047) Diagnoses Viral upper respiratory tract infection J06.9 URI type: unspecified viral URI
[2023-01-01 13:06] VITALS: BP 100/60; PULSE 95; TEMP 36.6; O2SAT 96; BMI 33.5
== END 2023-01-01 13:51 | disposition home or self-care (01) ==
PROVIDERS: PCP Internal Medicine; Visit Provider Nurse Practitioner Family
DX: J06.9 Acute upper respiratory infection, unspecified (principal)
CPT/HCPCS: 99213

== ENCOUNTER 2023-01-22 09:28 | Outpatient (AMB) | payer MEDICARE, MEDICAID, SELFPAY ==
--- NOTE | 2023-01-22 09:34 | MHC.AMNUTRGE ---
Intake VS Expanded 01/22/23 09:35 Height 5 ft 2 in Weight 181 lb 14.102 oz BMI 33.3 Intake Visit Reasons: T2DM/Confirmed Allergies No Known Allergies Allergy (Verified 11/15/22 08:58) HPI Nutrition Presentation Details Pt presents for MNT for obesity. Pt presents with staff member from the [place] [facility]. Pt reports not keeping physically active, and admits to choosing high fat foods when eating out. Most Recent Diabetes Results: Cholesterol 247 mg/dL 11/17/22 HDL Cholesterol 45 mg/dL 11/17/22 Triglycerides 251 mg/dL 11/17/22 Creatinine 0.76 mg/dL (0.5-1.4) 05/01/22 Blood Urea Nitrogen 17 mg/dL (9-16) H 05/01/22 Sodium 134 mmol/L (135-145) L 05/01/22 Potassium 4.2 mmol/L (3.3-5.1) 05/01/22 Chloride 103 mmol/L (96-108) 05/01/22 Carbon Dioxide 21 mmol/L (22-29) L 05/01/22 Calcium 9.0 mg/dL (8.4-10.2) 05/01/22 AST 31 U/L (5-31) 05/01/22 ALT 55 U/L (0-31) H 05/01/22 Total Protein 7.2 g/dL (6.5-8.0) 05/01/22 Albumin 4.1 g/dL (3.5-5.0) 05/01/22 [facility] Medical History Cellulitis of toe of left foot Vaginal irritation Trauma of toe of left foot Oppositional defiant disorder Intellectual disability Obsessive compulsive disorder Anxiety Surgical History No pertinent past surgical history Family History Mother No problems noted. Social History Housing: House Housing Other:: Shelter Alcohol intake: never Patient Tobacco Use Status: Never used Tobacco e-Cigarette/Vaping Use: Never Used Second Hand Smoke Exposure: No service: No Current occupational status: disabled Gender identity: Female Cognitive needs: Yes Hearing needs: No Vision needs: No Assessment & Plan Assessment & Plan (1) Diabetes mellitus: Comment: Pt gained 8-10 lbs since last visit in 06/2022 Code(s): E11.9 - Type 2 diabetes mellitus without complications Qualifiers: Diabetes mellitus type: type 2 Diabetes mellitus terminal system operator insulin use: without usp use Diabetes mellitus complication status: without complication Qualified Code(s): E11.9 - Type 2 diabetes mellitus without complications Plan: Educate Pt on healthy plate method and low fat food concepts Used wt : 78 kg (pt gained 8- 10 lbs today's wt at 82 kg) Est kcal as per MSJ: 1825 (40% carb, 30% fat/prot) Est fluid needs: 1950 ml/d ml/kg bw) Rec fiber: increase to 8-10 g per day and gradually increase to as tolerated Rec Na: < 2000 mg /d Educate patient on: (R= Reviewed, V = verbalizes understanding N/R= Needs review N/A= not applicable) Food sources of carbohydrates and serving adequate serving sizes : R Difference between complex carbohydrates and simple carbohydrates, role of fiber: R Differences between fats (MUFA/PUFA/saturated fats, trans fats) and food sources of various fats: R Food sources of sodium and salt and healthy modifications for heart health and kidney health: R Vitamins and minerals: N/R How to interpret food labels: N/R Healthy Plate method concept: R Physical activity: benefits and precaution: R V meal plan Patient Instructions: Reduce bread to 2 slices instead of 3 have a vegetable smoothie twice a week in place of fries - see recipes walk on treadmill 20-30 minutes 2 times a week Coding Level of Care Code Nutr Indiv Subseq (87563) Diagnoses Type 2 diabetes mellitus without complication, without long-term current use of insulin E11.9 Diabetes mellitus type: type 2 Diabetes mellitus terminal system operator insulin use: without terminal system operator use Diabetes mellitus complication status: without complication Time Spent (min) 30
[2023-01-22 09:35] VITALS: BMI 33.3
== END 2023-01-22 09:58 | disposition home or self-care (01) ==
PROVIDERS: PCP Internal Medicine; Referring Provider Internal Medicine; Visit Provider Dietitian, Registered
DX: E11.9 Type 2 diabetes mellitus without complications (principal)

== ENCOUNTER → 2023-01-22 09:28 | Outpatient (BNVA) | payer MEDICARE, MEDICAID, SELFPAY | PROVIDERS: Visit Provider Dietitian, Registered | DX: E11.9 Type 2 diabetes mellitus without complications (principal); E66.9 Obesity, unspecified; Z68.33 Body mass index [BMI] 33.0-33.9, adult; Z71.3 Dietary counseling and surveillance | CPT/HCPCS: 97803 ==

== ENCOUNTER 2023-02-08 04:24 | Emergency (ER) | payer MEDICARE, MEDICAID, SELFPAY ==
[2023-02-08 04:28] VITALS: BMI 29.2
[2023-02-08 05:12] VITALS: BP 136/72; PULSE 100; RESP 17; TEMP 36.9; O2SAT 96
--- NOTE | 2023-02-08 05:29 | PC.NURSE ---
Patient i sin bed appears sleeping, at the time arrival was agitated and resistive with direction, unable to provide urine, non compliant with blood draw, patient appears tired, med rec completed/pending provider's approval, care consult ordered for SI, pending evaluation, will continue to monitor.
--- NOTE | 2023-02-08 05:58 | ED.PSYCH ---
HPI - Psych General Chief Complaint: Psychiatric Symptoms Stated Complaint: HI/ SI Time Seen by Provider: 02/08/23 04:37 Source: patient and EMS Mode of arrival: EMS Limitations: no limitations History of Present Illness HPI Narrative: Patient from shelter with history opposition defiant disorder adjustment disorder intellectual disability woke up from sleep felt suicidal with self-harm ideation PE no plan no history of substance abuse patient is well-known to our facility Related Data Home Medications Medication Instructions Recorded Confirmed melatonin 3 mg tablet 6 mg PO BEDTIME PRN Sleep 12/03/20 02/08/23 sertraline 50 mg tablet 150 mg PO DAILY depressive disorder 12/07/20 02/08/23 clonazepam 1 mg tablet 1 mg PO TID PRN Anxiety 09/21/22 02/08/23 guanfacine 4 mg tablet,extended 4 mg PO DAILY 09/21/22 02/08/23 release 24 hr chlorpromazine 100 mg tablet 100 mg PO QID 11/15/22 02/08/23 divalproex 250 mg tablet,extended 500 mg PO BEDTIME 11/15/22 02/08/23 release 24 hr Previous Rx's Medication Instructions Recorded levonorgestrel 0.15 mg-ethinyl 1 tab PO DAILY #91 ea 09/28/22 estradiol 30 mcg tablets,3 mos pack(91) (Haroldo) acetaminophen 500 mg tablet 500 mg PO Q6H PRN fever or pain 30 12/29/22 days #120 tabs benzonatate 100 mg capsule 100 mg PO BID PRN cough 7 days #14 01/01/23 caps metformin 750 mg tablet,extended 750 mg PO BID #180 tabs 01/22/23 release 24 hr Allergies Allergy/AdvReac Type Severity Reaction Status Date / Time No Known Allergies Allergy Verified 11/15/22 08:58 Review of Systems Review of Systems: Yes all other systems are reviewed and are negative [facility] Past Medical History Medical History Cellulitis of toe of left foot Vaginal irritation Trauma of toe of left foot Oppositional defiant disorder Intellectual disability Obsessive compulsive disorder Anxiety Surgical History No pertinent past surgical history Family History Family History Mother No problems noted. Social History Social History Housing: House Housing Other:: Halfway Alcohol intake: never Patient Tobacco Use Status: Never used Tobacco e-Cigarette/Vaping Use: Never Used Second Hand Smoke Exposure: No Advance Directives: No service: No Current occupational status: disabled Gender identity: Female Cognitive needs: Yes Hearing needs: No Vision needs: No Physical Exam Vital Signs: Vital Signs: Last Vital Signs Temp 98.4 F 02/08/23 05:12 Pulse 100 02/08/23 05:12 Resp 17 02/08/23 05:12 BP 136/72 02/08/23 05:12 Pulse Ox 96 02/08/23 05:12 O2 Del Method Room Air 02/08/23 05:12 BMI result Body Mass Index 29.2 Appearance: Alert. Oriented X3. No acute distress. Anxious Eyes: PERRLA, No Nystagmus ENT: Pharynx normal. Oral Mucosa moist Neck: Normal inspection. Neck supple. CVS: Normal heart rate and rhythm. Pulses normal. Respiratory: No respiratory distress. Equal air entry bilateral, no wheezing/rales/rhonchi Abdomen: Soft and nontender. Bowel sounds are present, no mass palpable, no CVA tenderness Skin: Skin warm and dry. Normal skin color. Normal skin turgor. Extremities: No lower extremity edema. No calf tenderness psych: Calm and cooperative no current SI, no hallucinations Neuro: Oriented X 3. No motor deficit. No sensory deficit.No cerebellar signs , cranial nerves II-XII intact Medical Decision Making Medical Decision Making MDM Narrative: Patient's suicidal ideation to cancel care team for evaluation 07:17 Start physician observation I assumed care of this patient from my colleague, Dr. Yaa Tompkins. Patient presented with suicidal ideation and also reported that she wanted to hurt someone. Patient has a history of autism and developmental delay. Patient is waiting to be seen by care team. Patient will be kept in the emergency department Behavioral Health Unit until disposition can be determined or until her symptoms improve over time. 08:21 End physician observation patient was seen by the care team. Patient is no longer suicidal. Patient's shelter staff is here and they are willing to take her back to her shelter. Patient was discharged Differential Diagnosis Differential Diagnoses: The differential diagnosis associated with the presentation includes Differential diagnosis includes was not limited to depression, anxiety, suicidal ideation, aggressive behavior Admission/Observation Consideration of admission/observation: Escalation of care including admission/observation considered Discharge Plan Discharge Clinical Impression: Suicidal ideation, Bipolar disorder, Aggressive behavior Patient Disposition: Home, Self-Care Additional Instructions: please follow the care team instructions continue taking medications as prescribed. Follow-up with your doctor in 2 days. Please return to the emergency department if your symptoms get worse or if you develop any symptoms that are concerning to you. Prescriptions: No Action acetaminophen 500 mg tablet 500 mg PO Q6H PRN (Reason: fever or pain) 30 Days Qty: 120 6RF metformin 750 mg tablet extended release 24 hr 750 mg PO BID Qty: 180 1RF melatonin 3 mg Tablet 6 mg PO BEDTIME PRN (Reason: Sleep) sertraline 50 mg tablet 150 mg PO DAILY clonazepam 1 mg tablet 1 mg PO TID PRN (Reason: Anxiety) guanfacine 4 mg tablet extended release 24 hr 4 mg PO DAILY divalproex 250 mg tablet extended release 24 hr 500 mg PO BEDTIME chlorpromazine 100 mg tablet 100 mg PO QID benzonatate 100 mg capsule 100 mg PO BID PRN (Reason: cough) 7 Days Qty: 14 0RF levonorgestrel-ethinyl estrad [Jolessa] 0.15 mg-30 mcg (91) tablets,dose pack,3 month 1 tab PO DAILY Qty: 91 4RF Interventions: Carver-Suicide Risk Severity Scale Last Done: 02/08/23 05:27
== END 2023-02-08 08:31 | disposition home or self-care (01) ==
PROVIDERS: Emergency Provider Emergency Medicine Emergency Medical Services; PCP Internal Medicine
DX: R45.851 Suicidal ideations (principal); R45.6 Violent behavior; F31.9 Bipolar disorder, unspecified; F43.25 Adjustment disorder with mixed disturbance of emotions and conduct; F79 Unspecified intellectual disabilities; E78.00 Pure hypercholesterolemia, unspecified; F19.10 Other psychoactive substance abuse, uncomplicated; Z79.84 Long term (current) use of oral hypoglycemic drugs; Z79.899 Other long term (current) drug therapy
CPT/HCPCS: 99283

== ENCOUNTER 2023-04-24 10:28 | Outpatient (AMB) | payer MEDICARE, MEDICAID, SELFPAY ==
--- NOTE | 2023-04-24 10:37 | MHC.AMNUTRGE ---
Intake VS Expanded 04/24/23 10:38 Height 5 ft 3 in Weight 181 lb 3.52 oz BMI 32.1 Intake Visit Reasons: Obesity/Unable to LVM Allergies No Known Allergies Allergy (Verified 11/15/22 08:58) HPI Nutrition Presentation Details Pt presents for MNT for obesity. Pt admits to having made no diet modifications. Most Recent Diabetes Results: Cholesterol 247 mg/dL 11/17/22 HDL Cholesterol 45 mg/dL 11/17/22 Triglycerides 251 mg/dL 11/17/22 [facility] Medical History Cellulitis of toe of left foot Vaginal irritation Trauma of toe of left foot Oppositional defiant disorder Intellectual disability Obsessive compulsive disorder Anxiety Surgical History No pertinent past surgical history Family History Mother No problems noted. Social History Housing: House Housing Other:: Penitentiary Alcohol intake: never Patient Tobacco Use Status: Never used Tobacco e-Cigarette/Vaping Use: Never Used Second Hand Smoke Exposure: No service: No Current occupational status: disabled Gender identity: Female Cognitive needs: Yes Hearing needs: No Vision needs: No Assessment & Plan Assessment & Plan (1) Diabetes mellitus: Comment: Pt gained 8-10 lbs since last visit in 06/2022 Code(s): E11.9 - Type 2 diabetes mellitus without complications Qualifiers: Diabetes mellitus type: type 2 Diabetes mellitus fpc insulin use: without terminal operations supervisor use Diabetes mellitus complication status: without complication Qualified Code(s): E11.9 - Type 2 diabetes mellitus without complications Plan: Reinforce reduction, trying meal replacement and increasing physical activity Used wt : 78 kg (pt gained 8- 10 lbs today's wt at 82 kg) Est kcal as per MSJ: 1825 (40% carb, 30% fat/prot) Est fluid needs: 1950 ml/d ml/kg bw) Rec fiber: increase to 8-10 g per day and gradually increase to as tolerated Rec Na: < 2000 mg /d Educate patient on: (R= Reviewed, V = verbalizes understanding N/R= Needs review N/A= not applicable) Food sources of carbohydrates and serving adequate serving sizes : R Difference between complex carbohydrates and simple carbohydrates, role of fiber: R Differences between fats (MUFA/PUFA/saturated fats, trans fats) and food sources of various fats: R Food sources of sodium and salt and healthy modifications for heart health and kidney health: R Vitamins and minerals: N/R How to interpret food labels: N/R Healthy Plate method concept: R Physical activity: benefits and precaution: R V meal replacement benefit and choices: R Patient Instructions: Have a meal replacement once a day at lunch time Drink 6-8 oz of water with meals and snacks Walk 30 minutes at least 2 times a week Coding Level of Care Code Nutr Indiv Subseq (10158) Diagnoses Type 2 diabetes mellitus without complication, without long-term current use of insulin E11.9 Diabetes mellitus type: type 2 Diabetes mellitus fpc insulin use: without terminal operations supervisor use Diabetes mellitus complication status: without complication Time Spent (min) 30
[2023-04-24 10:38] VITALS: BMI 32.1
== END 2023-04-24 10:59 | disposition home or self-care (01) ==
PROVIDERS: PCP Internal Medicine; Visit Provider Dietitian, Registered
DX: E11.9 Type 2 diabetes mellitus without complications (principal)

== ENCOUNTER → 2023-04-24 10:28 | Outpatient (BNVA) | payer MEDICARE, MEDICAID, SELFPAY | PROVIDERS: PCP Internal Medicine; Visit Provider Dietitian, Registered | DX: E11.9 Type 2 diabetes mellitus without complications (principal); E66.9 Obesity, unspecified; Z68.32 Body mass index [BMI] 32.0-32.9, adult; Z71.3 Dietary counseling and surveillance | CPT/HCPCS: 97803 ==

== ENCOUNTER 2023-05-03 11:03 | Outpatient (AMB) | payer MEDICARE, MEDICAID, SELFPAY ==
[2023-05-03 11:44] VITALS: BP 90/48; PULSE 90; RESP 16; O2SAT 95; BMI 32.0
--- NOTE | 2023-05-03 11:44 | A.OFFPC_ITS ---
Vital Signs 3 05/03/23 11:44 Height 5 ft 3 in Weight 180 lb 8 oz BMI 32.0 BP 90/48 L Blood Pressure Location Lt brachial Position Sitting Respiration 16 Pulse 90 Pulse Source Pulse Oximeter Pulse Oximetry (%) 95 Oxygen Delivery Method Room Air Intake Visit Reasons: ED F/U-ED [facility]-Behavioral Issues Intake Note: Dr. Kang patient is here to follow-up after a visit the emergency department at [facility] on 02/06/23. Athletic Equipment Manager Required: No Accompanied by: Mg Rivers Miscellaneous Machine Operator Allergies No Known Allergies Allergy (Verified 05/03/23 12:04) Medication List - Last Reconciled 05/03/23 by Emmett Elise PA-C acetaminophen 500 mg PO Q6H PRN 30 days chlorpromazine 100 mg PO QID clonazepam 1 mg PO TID PRN divalproex ER 500 mg PO BEDTIME guanfacine ER 4 mg PO DAILY levonorgestrel-ethinyl estrad 0.15 mg-30 mcg (91) (Jolessa) 1 tab PO DAILY melatonin 6 mg PO BEDTIME PRN metformin ER 750 mg PO BID sertraline 150 mg PO DAILY Tobacco use date assessed: 04/27/22 HPI ED F/U-ED [facility]-Behavioral Issues 2 HPI0 Details Patient is a 23-year-old female here today for follow-up after being seen at the [facility] ED for some behavioral issues. This is the 1st time I am meeting this 23-year-old female with past medical history significant for hyperlipidemia, intellectual disability, oppositional defiant disorder, adjustment disorder. Apparently was seen for aggressive behavior Seen her psychiatrist after her discharge from [facility] ED and her clonazepam was adjusted. 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 Also has had a chronic rash over though posterior side of her left lower extremity. Interested in getting a cream. [facility] Medical History Cellulitis of toe of left foot Vaginal irritation Trauma of toe of left foot Oppositional defiant disorder Intellectual disability Obsessive compulsive disorder Anxiety Surgical History No pertinent past surgical history Family History Mother No problems noted. Social History Housing: House Housing Other:: Skilled Nursing Alcohol intake: never Patient Tobacco Use Status: Never used Tobacco e-Cigarette/Vaping Use: Never Used Second Hand Smoke Exposure: No service: No Current occupational status: disabled Gender identity: Female Cognitive needs: Yes Hearing needs: No Vision needs: No Questionnaire Thrive Questionnaire Date Thrive assessed: 04/27/22 JO-7 AMB Questionnaire JO-7 Date JO - 7 assessed: 11/08/21 Source: Developed by Drs. Gilbert Hunter, Jina Healy, Slim Gallardo and colleagues, with an educational edie from [employer]. Review of Systems Const Denies headache(s) Eyes Denies loss of vision ENT Denies vertigo, Denies dizziness, Denies headache(s) and Denies sore throat Card Denies chest pain, Denies leg edema and Denies lightheadedness Resp Denies cough, Denies hemoptysis and Denies wheezing GI Denies abdominal pain, Denies melena, Denies constipation, Denies diarrhea and Denies vomiting Denies urinary frequency, Denies dysuria and Denies urinary urgency Musc Denies arthralgias, Denies joint swelling, Denies numbness and Denies tingling Neuro Denies Abnormal speech present, Denies behavioral changes, Denies vertigo, Denies dizziness, Denies headache(s), Denies loss of vision, Denies memory loss, Denies numbness and Denies tingling Psych Denies anxiety, Denies behavioral changes, Denies depression, Denies memory loss and Denies panic attacks Chidi/Lymph Denies easy bleeding and Denies easy bruising Aller/Immun Denies wheezing Physical exam (Primary Care) Vital Signs: Last Vital Signs Pulse 90 05/03/23 11:44 Resp 16 05/03/23 11:44 BP 90/48 L 05/03/23 11:44 Pulse Ox 95 05/03/23 11:44 Oxygen Delivery Method Room Air 05/03/23 11:44 BMI result Body Mass Index 32.0 Tobacco/Smoking Status: Tobacco use Status Tobacco use date assessed 04/27/22 05/03/23 11:47 Patient Tobacco Use Status Never used Tobacco 05/03/23 11:47 e-Cigarette/Vaping Use Never Used 05/03/23 11:47 Thrive Assessment: Date of Thrive Assessment Date Thrive assessed 04/27/22 05/03/23 11:47 Const General: healthy appearing, no acute distress, alert and awake Nutritional Appearance: well nourished Orientation/consciousness: oriented to person, oriented to place and oriented to time HENMT Ears: TM's normal bilaterally General nose exam: Normal nasal mucous membranes and turbinates present Eyes Other: RIGHT EYE WITH NOTABLE CONJUNCTIVAL CRUSTING AND SLIGHTLY ERYTHEMATOUS Sclerae: sclerae normal Pupils: Equal, round and reactive pupils present Neck Neck: Yes no lymphadenopathy and Yes no JVD Thyroid: Thyroid normal Carotids: no bruits Resp Effort & Inspection: normal respiratory effort and not tachypneic Auscultation: no crackles, no rales, no rhonchi and no wheezes Cardio Rate: regular rate Rhythm: regular rhythm Heart sounds: no murmurs and normal S1 and S2 GI Palpation (GI): Soft to palpation, nontender, no hepatomegaly and no splenomegaly Auscultation: normal bowel sounds Skin General skin exam: no rashes or lesions noted and dry skin Full body images: 2 1. ROUGH TEXTURED FLAT RASH OVER THE POSTERIOR ASPECT OF LEFT LOWER EXTREMITY Neuro General: oriented to person, oriented to place and oriented to time Cranial nerves: Yes Equal, round and reactive pupils present Speech: No Abnormal speech present Gait exam (Neuro): Normal gait present Motor exam (neuro): no tremor noted Extrem Right upper extremity: full ROM Left upper extremity: full ROM Right lower extremity: full ROM; no edema Left lower extremity: full ROM; no edema Psych Mental Status: mental status grossly normal Speech and movement: Normal speech and movement present Affect: normal affect Attitude: cooperative Thought process: Normal thought process present Assessment and Plan Assessment & Plan (1) Conjunctivitis: Code(s): H10.9 - Unspecified conjunctivitis Qualifiers: Acute conjunctivitis type: unspecified Conjunctivitis type: acute L aterality: bilateral Qualified Code(s): H10.33 - Unspecified acute conjunctivitis, bilateral Plan: Patient's signs symptoms most consistent with a conjunctivitis. Likely viral though will send in Polytrim eyedrops. Advised on frequent hand washing and changing pillow case, (2) Intellectual disability: Code(s): F79 - Unspecified intellectual disabilities Plan: As per HPI patient recently seen at [facility] for aggressive behavior. Has followed up with her psychiatrist and med adjustments have been made to her clonazepam. (3) Dermatitis: Code(s): L30.9 - Dermatitis, unspecified Plan: As per HPI Orders: Orders 2 Comprehensive [place]. Panel Fast Today E11.9 - Type 2 diabetes mellitus without complications Hemoglobin A1c Today E11.9 - Type 2 diabetes mellitus without complications Lipid Panel Today E78.00 - Pure hypercholesterolemia, unspecified Medications: New 2 clotrimazole-betamethasone 1-0.05 % 1 appl topical BID 30 days 45 grams 0RF L30.9 - Dermatitis, unspecified guaifenesin ER (Mucinex) 600 mg PO BID 30 days PRN 60 tabs 1RF cough R05.9 - Cough, unspecified polymyxin B sulf-trimethoprim 10,000 unit- 1 mg/mL while awake; do not exceed 6 doses in 24 hours 1 drp ophthalmic (eye) TID 7 days 10 mL 0RF H10.33 - Unspecified acute conjunctivitis, bilateral, H10.9 - Unspecified conjunctivitis dextromethorphan-guaifenesin 5-100 mg/5 mL (Robitussin Cough-Chest Congestion DM) 10 mL PO Q4-8H 30 days PRN 355 mL 0RF cough Coding Level of Care Code Est Pt Level 4 (36410) Diagnoses Acute conjunctivitis of both eyes, unspecified acute conjunctivitis type H10.33 Acute conjunctivitis type: unspecified Conjunctivitis type: acute Laterality: bilateral Intellectual disability F79 Dermatitis L30.9
== END 2023-05-03 12:38 | disposition home or self-care (01) ==
PROVIDERS: PCP Internal Medicine; Visit Provider Physician Assistant
DX: H10.33 Unspecified acute conjunctivitis, bilateral (principal); F79 Unspecified intellectual disabilities; L30.9 Dermatitis, unspecified
CPT/HCPCS: 99214

== ENCOUNTER 2023-05-11 10:02 | Outpatient (REF) | payer MEDICARE, MEDICAID, SELFPAY ==
[2023-05-11 10:50] LABS: Estimated Average Glucose 77 mg/dL; Hemoglobin A1c % 4.3 % (<6.0)
[2023-05-11 11:21] LABS: Alanine Aminotransferase 34 U/L (0-31); Albumin Level 3.9 g/dL (3.5-5.0); Alkaline Phosphatase 42 U/L (39-117); Anion Gap 14 (12-20); Aspartate Amino Transferase 25 U/L (5-31); Bilirubin Total 0.5 mg/dL (0.0-1.0); Blood Urea Nitrogen 13 mg/dL (9-16); Calcium 9.1 mg/dL (8.4-10.2); Carbon Dioxide 23 mmol/L (22-29); Chloride 105 mmol/L (96-108); Cholesterol 214 mg/dL (<200); Estimated Glomerular Filt Rate > 60; Glucose Fasting 96 mg/dL (60-99); HDL Cholesterol 42 mg/dL (>40); LDL Cholesterol Calculated 140 mg/dL (<100); Potassium 4.3 mmol/L (3.3-5.1); Sodium 138 mmol/L (135-145); Total Protein 7.3 g/dL (6.5-8.0); Triglycerides 164 mg/dL (<150)
== END 2023-05-11 10:03 | disposition home or self-care (01) ==
LOC: HO.LAB 10:02
PROVIDERS: PCP Physician Assistant; Visit Provider Physician Assistant
DX: E11.9 Type 2 diabetes mellitus without complications (principal); E78.00 Pure hypercholesterolemia, unspecified
CPT/HCPCS: 36415; 80053; 80061; 83036

== ENCOUNTER → 2023-07-26 13:54 | Outpatient (BNVA) | payer MEDICARE, MEDICAID, SELFPAY | PROVIDERS: PCP Internal Medicine; Visit Provider Dietitian, Registered ==

== ENCOUNTER 2023-08-07 14:23 | Outpatient (REF) | payer MEDICARE, MEDICAID, SELFPAY ==
[2023-08-07 14:57] LABS: Ammonia 32 umol/L (13-55)
[2023-08-07 16:36] LABS: Alanine Aminotransferase 20 U/L (0-31); Albumin Level 3.8 g/dL (3.5-5.0); Alkaline Phosphatase 40 U/L (39-117); Aspartate Amino Transferase 16 U/L (5-31); Bilirubin Direct 0.1 mg/dL (0.0-0.5); Bilirubin Total 0.4 mg/dL (0.0-1.0); Total Protein 7.5 g/dL (6.5-8.0)
== END 2023-08-07 14:24 | disposition home or self-care (01) ==
LOC: HO.LAB 14:23
PROVIDERS: Visit Provider Psychiatry & Neurology Psychiatry
DX: F71 Moderate intellectual disabilities (principal); Z79.899 Other long term (current) drug therapy
CPT/HCPCS: 36415; 80076; 80164; 82140

== ENCOUNTER 2023-09-11 09:39 | Emergency (ER) | payer MEDICARE, MEDICAID, SELFPAY ==
[2023-09-11 09:53] VITALS: BP 110/64; PULSE 111; O2SAT 97
[2023-09-11 09:55] VITALS: PULSE 110; RESP 18; TEMP 36.6; O2SAT 96; BMI 29.2
--- NOTE | 2023-09-11 09:57 | ED.PSYCH ---
HPI - Psych General Stated Complaint: Pt coming from fpc w/HI, per ems Time Seen by Provider: 09/11/23 09:41 Source: patient, EMS and old records reviewed Mode of arrival: EMS Limitations: no limitations History of Present Illness ED Provider: CIPRIANO HPI Narrative: 23 yo female with PMH of intellectual disablitly, DM, anxiety, GERD, gastritis - who woke up angry and cranky and feels upset and mad at people and wants to be angry with people but does not want to specifically hurt one person. No trauma to fpc staff. No SI. This is baseline for patient. CHD was on site and supportive to patient. CARE team reached out to fpc staff no safety concerns. complaint: anxiety Onset (ago): day(s) (this AM) Duration: other (improving) History of same: Yes Relieving factors: none Exacerbating factors: other Associated psychiatric symptoms: other (feels angry today) Associated symptoms: denies other symptoms Treatments prior to arrival: none Related Data Home Medications ?Medication ?Instructions ?Recorded ?Confirmed melatonin 3 mg tablet 6 mg PO BEDTIME PRN Sleep 12/03/20 05/03/23 clonazepam 1 mg tablet 1 mg PO TID PRN Anxiety 09/21/22 05/03/23 guanfacine 4 mg tablet,extended 4 mg PO DAILY 09/21/22 05/03/23 release 24 hr chlorpromazine 100 mg tablet 100 mg PO QID 11/15/22 05/03/23 divalproex 250 mg tablet,extended 500 mg PO BEDTIME 11/15/22 05/03/23 release 24 hr sertraline 50 mg tablet 150 mg PO DAILY depressive disorder 05/03/23 05/03/23 Previous Rx's ?Medication ?Instructions ?Recorded acetaminophen 500 mg tablet 500 mg PO Q6H PRN fever or pain 30 12/29/22 days #120 tabs polymyxin B sulfate 10,000 1 drp ophthalmic (eye) TID 7 days 05/03/23 unit-trimethoprim 1 mg/mL eye drops #10 mL dextromethorphan-guaifenesin 5 10 ml PO Q4-8H PRN cough #355 mL 05/14/23 mg-100 mg/5 mL oral liquid (Robitussin Cough-Chest Congestion DM) clotrimazole-betamethasone 1 1 appl topical BID PRN rash #45 01/24/24 %-0.05 % topical cream grams metformin 750 mg tablet,extended 750 mg PO BID #180 tabs 08/08/23 release 24 hr levonorgestrel 0.15 mg-ethinyl 1 tab PO DAILY #1 ea 08/29/23 estradiol 30 mcg tablets,3 mos pack(91) (Haroldo) Allergies Allergy/AdvReac Type Severity Reaction Status Date / Time No Known Allergies Allergy Verified 09/11/23 09:59 Review of Systems Review of Systems: Constitutional : No Fever, No Chills ENT/Mouth : No Ear Pain, No Nasal Congestion, No sore throat Eyes: No Eye Pain, No Swelling, No Redness Cardiovascular : No Chest Pain, No SOB Respiratory : No Cough, No Sputum, No Dyspnea Gastrointestinal : No Nausea, No Vomiting, No Diarrhea, No Hematochezia, No Melena Genitourinary : No Dysuria, No Urinary Frequency, No Hematuria Musculoskeletal : No Myalgias Skin : No Skin Lesions, No rash Neuro : No Weakness, No Numbness, No Paresthesias, No Dizziness, No Headache Psych : positive Anxiety, positive Depression, no SI All other systems reviewed and are negative [facility] Past Medical History Source: old records reviewed Medical History Cellulitis of toe of left foot Vaginal irritation Trauma of toe of left foot Oppositional defiant disorder Intellectual disability Obsessive compulsive disorder Anxiety Surgical History No pertinent past surgical history Family History Family History Mother No problems noted. Social History Social History Housing: House Housing Other:: Jail Alcohol intake: never Patient Tobacco Use Status: Never used Tobacco e-Cigarette/Vaping Use: Never Used Second Hand Smoke Exposure: No service: No Current occupational status: disabled Gender identity: Female Cognitive needs: Yes Hearing needs: No Vision needs: No Physical Exam Vital Signs: Appearance: Alert. at her baseline, hugging her comfort doll. No acute distress. Eyes: Pupils equal, round and reactive to light. ENT: Pharynx normal. Neck: Normal inspection. Neck supple. CVS: Normal heart rate and rhythm. Pulses normal. Respiratory: No respiratory distress. Breath sounds normal. Abdomen: Soft and nontender. Skin: Skin warm and dry. Normal skin color. Normal skin turgor. Extremities: No lower extremity edema. No calf ttp Neuro: at her baseline. No motor deficit. No sensory deficit. CN2-12 intact Medical Decision Making Medical Decision Making MDM Narrative: 23 yo female with PMH of intellectual disablitly, DM, anxiety, GERD, gastritis here acting out and feeling angry no SI and no HI towards anyone she just feels angry no concerns for safety this is a chronic behavioral issue where the patient usually escalates and hangs out then calms down and demands significant attention in the ED without any real benefit to her other than attention from staff. At this time no SI/HI can be DC back to fpc who are aware of plan. Differential Diagnosis Differential Diagnoses: The differential diagnosis associated with the presentation includes anxiety, adjustment disorder, behavioral disorder Admission/Observation Consideration of admission/observation: Escalation of care including admission/observation considered no HI towards anyone fpc not concern for safety, no SI, this is baseline for patient she has safe DC with her fpc Consult Healthcare Provider Management of the patient was discussed with: Behavioral Health Provider Independent Historian Clinical information obtained from an independent historian. History obtained from or confirmed by: EMS External Record Review External record reviewed: Inpatient record Discharge Plan Discharge Clinical Impression: Adjustment disorder Patient Disposition: Home, Self-Care Instructions: Anxiety (ED) Additional Instructions: please follow up with your outpatient mental health providers Prescriptions: No Action acetaminophen 500 mg tablet 500 mg PO Q6H PRN (Reason: fever or pain) 30 Days Qty: 120 6RF Robitussin Cough-Chest Mason DM 5-100 mg/5 mL liquid 10 ml PO Q4-8H PRN (Reason: cough) Qty: 355 1RF clotrimazole-betamethasone 1-0.05 % cream 1 appl topical BID PRN (Reason: rash) Qty: 45 1RF metformin 750 mg tablet extended release 24 hr 750 mg PO BID Qty: 180 5RF levonorgestrel-ethinyl estrad [Jolessa] 0.15 mg-30 mcg (91) tablets,dose pack,3 month 1 tab PO DAILY Qty: 1 0RF melatonin 3 mg Tablet 6 mg PO BEDTIME PRN (Reason: Sleep) sertraline 50 mg tablet 150 mg PO DAILY clonazepam 1 mg tablet 1 mg PO TID PRN (Reason: Anxiety) guanfacine 4 mg tablet extended release 24 hr 4 mg PO DAILY divalproex 250 mg tablet extended release 24 hr 500 mg PO BEDTIME chlorpromazine 100 mg tablet 100 mg PO QID polymyxin B sulf-trimethoprim 10,000 unit- 1 mg/mL drops 1 drp ophthalmic (eye) TID 7 Days Qty: 10 0RF Rx Instructions: while awake; do not exceed 6 doses in 24 hours Print Language: Martiniquais
[2023-09-11 10:10] VITALS: BP 132/74; PULSE 110; RESP 18; TEMP 36.6; O2SAT 96
== END 2023-09-11 10:14 | disposition home or self-care (01) ==
PROVIDERS: Emergency Provider Emergency Medicine; PCP Internal Medicine
DX: F43.20 Adjustment disorder, unspecified (principal); R45.4 Irritability and anger; F79 Unspecified intellectual disabilities; E11.9 Type 2 diabetes mellitus without complications; K21.9 Gastro-esophageal reflux disease without esophagitis; Z79.899 Other long term (current) drug therapy
CPT/HCPCS: 99282

== ENCOUNTER 2023-10-03 10:27 | Outpatient (AMB) | payer MEDICAID, MEDICARE, SELFPAY ==
[2023-10-03 10:36] VITALS: BP 120/60; BMI 33.1
--- NOTE | 2023-10-03 10:36 | MHC.OFFVIS ---
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 She is currently taking OCPs for cycle control and dysmenorrhea treatment. She lives in a senior living that has male residents, admits to liking, just talking, no physical contact. She is accompanied by her relief counselor Ermelinda Ocasio. She reports she does not like to exercise but does not participate in limited activities. She denies any concerns today, she denies any symptoms of visual disturbances, chest pain, leg or arm pain, abdominal pain, or significant headaches or loss of vision. [facility] Medical History Cellulitis of toe of left foot Vaginal irritation Trauma of toe of left foot Oppositional defiant disorder Intellectual disability Obsessive compulsive disorder Anxiety Surgical History No pertinent past surgical history Family History Mother No problems noted. Social History Housing: House Housing Other:: Longterm Alcohol intake: never Patient Tobacco Use Status: Never used Tobacco e-Cigarette/Vaping Use: Never Used Second Hand Smoke Exposure: No service: No Current occupational status: disabled Gender identity: Female Cognitive needs: Yes Hearing needs: No Vision needs: No Female Reproductive History Menstrual control method: pills Total pregnancies: 0 Review of Systems Const All systems reviewed & are unremarkable except as noted in HPI and below Reports no additional complaints Skin/Breast Reports system reviewed and no additional complaints, except as documented and Reports as per HPI Physical Exam Vital Signs: Last Vital Signs BP 120/60 10/03/23 10:36 BMI result Body Mass Index 33.1 Const General: cooperative, healthy appearing and no acute distress HEENT Head: Yes normal to inspection Neck Neck: Yes normal visual inspection Thyroid: Thyroid normal Chest Breast/axilla inspection: normal inspection of the breasts and normal inspection of the axillae Breast/axilla palpation: normal palpation of the breasts GI Inspection: Yes normal to inspection and Yes obesity Palpation (GI): Soft to palpation and Other GI palpation findings present (Nontender) Other: Patient declined pelvic exam Skin General skin exam: no rashes or lesions noted Assessment & Plan Assessment & Plan (1) Encounter for well woman exam with routine gynecological exam: Code(s): Z01.419 - Encounter for gynecological examination (general) (routine) without abnormal findings Category: Medical (2) Surveillance for control, oral contraceptives: Code(s): Z30.41 - Encounter for surveillance of contraceptive pills Category: Medical (3) Dysmenorrhea: Code(s): N94.6 - Dysmenorrhea, unspecified Plan Discussed: Breast awareness and periodic breast exams. Maintain a healthy lifestyle including a well balanced diet and encourage routine at least walking 30 minute a day. Use condoms for STI prevention if ever sexually active. It is unclear if she comprehends all of the conversation, Ermelinda listened throughout the conversation and provided support for her. She was given opportunity to ask questions and all questions were answered to the best of my ability. RTO in one year for annual bridge maintainer examination, and medical review for prescription planning. Niki wants to continue her control pills to help with her painful and do the history of her menstrual irregularity. She is happy with only 4 cycles a year and wants to stay on the same medication. control hormone use warnings: go to ER if and loss of vision, blindness, severe headache, chest pain or difficulty breathing, severe abdominal pain, or any pain or swelling in an extremity. This note is constructed using voice recognition software. While every effort has been made to ensure accuracy, knockup worker errors may have been included. Medications: New levonorgestrel-ethinyl estrad 0.15 mg-30 mcg (91) (Jolessa) 1 tab PO DAILY 91 ea 4RF Discontinued levonorgestrel-ethinyl estrad 0.15 mg-30 mcg (91) (Jolessa) Discontinued Reason: Duplicate 1 tab PO DAILY 1 ea 0RF Coding Level of Care Code Est Pt Prev Care 18-39y(78805) Diagnoses Encounter for well woman exam with routine gynecological exam Z01.419 Surveillance for control, oral contraceptives Z30.41 Dysmenorrhea N94.6
== END 2023-10-03 11:10 | disposition home or self-care (01) ==
LOC: HO.HWS 10:27
PROVIDERS: PCP Internal Medicine; Visit Provider Advanced Practice Midwife
DX: Z01.419 Encounter for gynecological examination (general) (routine) without abnormal findings (principal); N94.6 Dysmenorrhea, unspecified
CPT/HCPCS: G0101

== ENCOUNTER → 2023-10-03 10:27 | Outpatient (BNVA) | payer MEDICARE, MEDICAID, SELFPAY | PROVIDERS: PCP Internal Medicine; Visit Provider Advanced Practice Midwife | DX: Z01.419 Encounter for gynecological examination (general) (routine) without abnormal findings (principal); N94.6 Dysmenorrhea, unspecified | CPT/HCPCS: G0101 ==

== ENCOUNTER 2023-11-15 09:36 | Outpatient (AMB) | payer MEDICARE, MEDICAID, SELFPAY ==
--- NOTE | 2023-11-15 10:25 | AM.OFFWIN_ITS ---
Intake Vital Signs 11/15/23 10:30 Height 5 ft 3 in Weight 185 lb BMI 32.8 BP 124/76 Blood Pressure Location Rt brachial Position Sitting Pulse 108 H Pulse Source Pulse Oximeter Temp Source Oral Pulse Oximetry (%) 95 Oxygen Delivery Method Room Air Intake Visit Reasons: Cough, congestion, wheezing Intake Note: pt c/o cough, congestion and wheezing. started 3 days ago. Patient Tobacco Use Status: Never used Tobacco Allergies No Known Allergies Allergy (Verified 11/15/23 10:26) Do you need a note to return to daycare/school/sports/work: No HPI HPI Comments History of Present Illness Details Patient is a 23-year-old female who is here with her worker complaining of 3 days of a productive cough, chest congestion, shortness of breath and wheezing. She denies any ear pain, sinus pain, fevers, nausea or vomiting. She denies a history of asthma. She denies any sick contacts. [facility] Medical History Cellulitis of toe of left foot Vaginal irritation Trauma of toe of left foot Oppositional defiant disorder Intellectual disability Obsessive compulsive disorder Anxiety Surgical History No pertinent past surgical history Family History Mother No problems noted. Social History Housing: House Housing Other:: Halfway Alcohol intake: never Patient Tobacco Use Status: Never used Tobacco e-Cigarette/Vaping Use: Never Used Second Hand Smoke Exposure: No service: No Current occupational status: disabled Gender identity: Female Cognitive needs: Yes Hearing needs: No Vision needs: No Review of Systems Const All systems reviewed & are unremarkable except as noted in HPI and below Physical Exam Vital Signs: Last Vital Signs Pulse 108 H 11/15/23 10:30 BP 124/76 11/15/23 10:30 Pulse Ox 95 11/15/23 10:30 Oxygen Delivery Method Room Air 11/15/23 10:30 BMI result Body Mass Index 32.8 Const General: cooperative, healthy appearing, comfortable and no acute distress Orientation/consciousness: patient oriented x3 Limitations: no limitations HEENT Head: Yes normal to inspection Ears: hearing grossly normal bilaterally, external ears normal and TM's normal bilaterally General nose exam: Normal external nose present, Normal nares present and No nasal discharge present Face and sinus: Yes normal facial exam and Yes sinuses nontender Mouth: Normal oral and palatal mucosa present and moist mucous membranes Throat: Yes tonsils normal, Yes uvula midline and Yes posterior oropharynx abnormal (Erythema) Eyes General: appearance normal, both eyes and all related structures Neck Neck: Yes normal visual inspection Resp Effort & Inspection: normal respiratory effort, able to speak in complete sentences, Actively coughing, no respiratory distress, not tachypneic, no tripod positioning and no use of accessory muscles Auscultation: clear to auscultation bilaterally Cardio Rate: regular rate Rhythm: regular rhythm Heart sounds: normal S1 and S2 Skin General skin exam: no rashes or lesions noted Neuro General: patient oriented x3 Extrem General: Yes normal to inspection and Yes no clubbing, cyanosis or edema Assessment & Plan Assessment & Plan (1) URI (upper respiratory infection): Code(s): J06.9 - Acute upper respiratory infection, unspecified Qualifiers: URI type: unspecified viral URI Qualified Code(s): J06.9 - Acute upper respiratory infection, unspecified Plan: Sent flu, COVID and RSV testing, signed paperwork for the patient to treat herself with [id number] medications for her symptoms until we have testing for COVID back. Plan See above Orders: Orders SARS-CoV2/FLU/RSV Today J06.9 - Acute upper respiratory infection, unspecified Coding Level of Care Code Est Pt Level 3 (90834) Diagnoses Viral upper respiratory tract infection J06.9 URI type: unspecified viral URI
[2023-11-15 10:30] VITALS: BP 124/76; PULSE 108; O2SAT 95; BMI 32.8
== END 2023-11-15 11:19 | disposition home or self-care (01) ==
PROVIDERS: PCP Internal Medicine; Visit Provider Physician Assistant
DX: J06.9 Acute upper respiratory infection, unspecified (principal)
CPT/HCPCS: 99213

== ENCOUNTER 2023-11-15 11:08 | Outpatient (REF) | payer MEDICARE, MEDICAID, SELFPAY ==
[2023-11-15 14:10] LABS: Influenza A PCR NEGATIVE (Negative); Influenza B PCR NEGATIVE (Negative); Resp Syncy Virus RNA Qual PCR NEGATIVE (Negative); SARS COV2 PCR INHOUSE NEGATIVE (Negative)
== END 2023-11-15 11:09 | disposition home or self-care (01) ==
LOC: HO.LAB 11:08
PROVIDERS: Visit Provider Physician Assistant
DX: J06.9 Acute upper respiratory infection, unspecified (principal)
CPT/HCPCS: 0241U

== ENCOUNTER 2023-11-19 13:49 | Outpatient (AMB) | payer MEDICARE, MEDICAID, SELFPAY ==
[2023-11-19 13:52] VITALS: BP 122/76; BMI 32.9
--- NOTE | 2023-11-19 13:52 | A.OFFPC_ITS ---
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 Accompanied by: staff Allergies No Known Allergies Allergy (Verified 11/19/23 14:00) Medication List - Last Reconciled 11/19/23 by Carolyn Goodwin MD acetaminophen 500 mg PO Q6H PRN 30 days chlorpromazine 100 mg PO QID clonazepam 1 mg PO TID PRN clotrimazole-betamethasone 1-0.05 % 1 appl topical BID PRN divalproex ER 500 mg PO DAILY doxycycline hyclate 100 mg PO BID guaifenesin ER (Mucinex) 600 mg PO BID guanfacine ER 4 mg PO DAILY levonorgestrel-ethinyl estrad 0.15 mg-30 mcg (91) (Jolessa) 1 tab PO DAILY melatonin 6 mg PO BEDTIME PRN melatonin 3 mg PO BEDTIME PRN metformin ER 750 mg PO BID polymyxin B sulf-trimethoprim 10,000 unit- 1 mg/mL 1 drp ophthalmic (eye) TID 7 days sertraline mg PO Tobacco use date assessed: 11/19/23 Dental Screening Dental Screen Date: 11/19/23 Did you have a dental visit in the last 12 months?: Yes Did you have a dental problem in the last 6 months where you did not have access to dental care?: No Was dental information given to patient?: Patient has dentist HPI HPI Comments History of Present Illness Details This is a 23-year-old female with diabetes mellitus type 2 that comes for her physical exam accompanied by staff member. She has developmental delay. Her A1c is within goal. Last eye exam was last week. Complains of bilateral breast pain that started about a week ago. No nipple discharge or retraction. No previous trauma. No breast masses. [facility] Medical History (Updated 11/19/23 @ 14:24 by Carolyn Goodwin MD) Cellulitis of toe of left foot Vaginal irritation Trauma of toe of left foot Oppositional defiant disorder Intellectual disability Obsessive compulsive disorder Anxiety Surgical History No pertinent past surgical history Family History Mother No problems noted. Father No problems noted. Social History Housing: House Housing Other:: Half-Way Alcohol intake: never Patient Tobacco Use Status: Never used Tobacco e-Cigarette/Vaping Use: Never Used Second Hand Smoke Exposure: No service: No Current occupational status: disabled Gender identity: Female Cognitive needs: Yes Hearing needs: No Vision needs: No Questionnaire PHQ-9 Over the last 2 weeks, how often have you been bothered by any of the following problems? 1. Little interest or pleasure in doing things: not at all 2. Feeling down, depressed, or hopeless: not at all 3. Trouble falling or staying asleep, or sleeping too much: not at all 4. Feeling tired or having little energy: not at all 5. Poor appetite or overeating: not at all 6. Feeling bad about yourself - or that you are a failure or have let yourself or your family down: not at all 7. Trouble concentrating on things, such as reading the newspaper or watching television: not at all 8. Moving or speaking so slowly that other people could have noticed. Or the opposite - being so fidgety or restless that you have been moving around a lot more than usual: not at all 9. Thoughts that you would be better off or of hurting yourself in some way: not at all Total score: 0 Source: Developed by Drs. Gilbert Hunter, Jina Healy, Slim Gallardo and colleagues, with an educational edie from [employer]. Thrive Questionnaire Date Thrive assessed: 11/19/23 I am a: Parent/Caregiver What is your living situation today?: I have a steady place to live Within the past 12 months, did the food you bought not last and you didn't have the money to get more?: Never true Within the past 12 months, did you worry whether your food would run out before you got money to buy more?: Never true Do you have trouble paying for medicines?: No Do you have trouble getting transportation to medical appointments?: No Do you have trouble paying your heating and electricity bill?: No Do you have trouble taking care of your child, family member or friend?: No Do you have trouble with day-to-day activities such as bathing, preparing meals, shopping, managing finances, etc.?: No Are you currently unemployed and looking for a job?: No Are you interested in more education?: No Please select the resources that you would like help with: None Currently or been in a relationship where the following occur: No concerns reported THRIVE Score: 0 AUDIT C Alcohol Use Questionnaire (AUDIT-C) 1. How often do you have a drink containing alcohol?: Never Total Score: 0 JO-7 AMB Questionnaire JO-7 Date JO - 7 assessed: 11/19/23 Feeling nervous, anxious, or on edge: 0 = Not at all Not being able to stop or control worryin = Not at all Worrying too much about different things: 0 = Not at all Trouble relaxin = Not at all Being so restless that it is hard to sit still: 0 = Not at all Becoming easily annoyed or irritable: 0 = Not at all Feeling afraid as if something awful might happen: 0 = Not at all Total JO-7 score (0-4 normal; 5-9 mild; 10-14 moderate; 15-21 severe): 0 Source: Developed by Drs. Gilbert Hunter, Jina Healy, Slim Gallardo and colleagues, with an educational edie from [employer]. Review of Systems Const All systems reviewed & are unremarkable except as noted in HPI and below Card Denies chest pain at rest, Denies chest pain with activity, Denies edema, Denies irregular heart rhythm, Denies claudication, Denies dyspnea, Denies dyspnea on exertion, Denies orthopnea, Denies paroxysmal nocturnal dyspnea and Denies slow heart rate Resp Denies cough, Denies dyspnea and Denies dyspnea on exertion GI Denies abdominal pain, Denies change in bowel habits, Denies excessive flatus, Denies nausea and Denies vomiting Skin/Breast Reports breast pain Neuro Denies behavioral changes and Denies lack of coordination Psych Denies behavioral changes Physical exam (Primary Care) Vital Signs: Last Vital Signs BP 122/76 11/19/23 13:52 BMI result Body Mass Index 32.9 BMI Assessment/Plan discussion: High BMI High, discussed plan: lifestyle, weight reduction, dietary and physical activity Tobacco/Smoking Status: Tobacco use Status Tobacco use date assessed 04/27/22 11/19/23 13:52 Patient Tobacco Use Status Never used Tobacco 11/19/23 13:52 e-Cigarette/Vaping Use Never Used 11/19/23 13:52 Thrive Assessment: Date of Thrive Assessment Date Thrive assessed 04/27/22 11/19/23 13:52 Currently or been in a relationship where the following occur: No concerns reported [facility] Head: Yes normal to inspection, Yes normocephalic and Yes atraumatic Ears: external ears normal Eyes General: appearance normal, both eyes and all related structures Eyelids: Yes eyelids normal Conjunctivae: conjunctivae normal Neck Neck: Yes normal visual inspection and Yes supple Chest Breast/axilla inspection: normal inspection of the breasts and normal inspection of the axillae Breast/axilla palpation: normal palpation of the axillae and abnormal palpation of the breast (Bilateral breast pain at 12:00 o'clock) Resp Effort & Inspection: normal respiratory effort Auscultation: clear to auscultation bilaterally Cardio Jugular venous distension: no JVD Rate: regular rate Rhythm: regular rhythm Heart sounds: S1 normal heart sound present and S2 normal heart sound present GI Inspection: Yes normal to inspection Palpation (GI): Soft to palpation and nontender Auscultation: normal bowel sounds Skin General skin exam: no rashes or lesions noted Neuro General: no focal motor deficits Extrem General: Yes full ROM Psych Appearance: grossly normal Results AMB Hemoglobin A1c AMB Hemoglobin A1c 4.8 % Last Edit by LUCILLE Goddard on 11/19/23 14:0 3 Assessment and Plan Assessment & Plan (1) Physical exam: Code(s): Z00.00 - Encounter for general adult medical examination without abnormal findings Plan: Repeat in a year. (2) T2DM (type 2 diabetes mellitus): Code(s): E11.9 - Type 2 diabetes mellitus without complications Plan: I am going to metformin. A1c goal is equal or less than 7%. (3) Breast pain: Code(s): N64.4 - Mastodynia Plan: Ultrasound of the breast and mammogram ordered. Orders: Orders MM diagnostic mammo BI Today N64.4 - Mastodynia US breast RT complete Today N64.4 - Mastodynia US breast LT complete Today N64.4 - Mastodynia AMB Hemoglobin A1c Today E11.9 - Type 2 diabetes mellitus without complications Coding Level of Care Code Est Pt Level 3 (66519) Est Pt Prev Care 18-39y(85822) Diagnoses Physical exam Z00.00 T2DM (type 2 diabetes mellitus) E11.9 Breast pain N64.4 Time Spent (min) 35
== END 2023-11-19 14:16 | disposition home or self-care (01) ==
PROVIDERS: PCP Internal Medicine; Visit Provider Internal Medicine
DX: Z00.00 Encounter for general adult medical examination without abnormal findings (principal); E11.9 Type 2 diabetes mellitus without complications; N64.4 Mastodynia
CPT/HCPCS: 83036; 99213; 99395

== ENCOUNTER 2023-12-26 12:53 | Outpatient (REF) | payer MEDICARE, MEDICAID, SELFPAY ==
--- NOTE | ~2023-12-26 | US_ITS ---
EXAMINATION: US DIAGNOSTIC ULTRASOUND BREAST, BILATERAL CLINICAL INFORMATION: 23-year-old special needs patient, complaining of bilateral breast pain 12:00 axes. No significant family history. COMPARISON: None available. TECHNIQUE: Ultrasound of the both breasts is performed with real-time roberts scale imaging and color Doppler. Attention was given to the 10-2:00 axes of both breasts to cover the areas of concern. FINDINGS: There is no focal suspicious finding in either breast. There is dense fibroglandular tissue present. There is no solid mass, architectural abnormality, duct ectasia, or edema in the soft tissue planes. There is no cystic abnormality. There is no correlate to the regions of bilateral breast pain 12:00 axes. US/US breast BI limited mamm only IMPRESSION: No findings suspicious for malignancy. No correlate to the regions of breast pain bilaterally 12 clock axes. Recommend clinical management and follow-up. ASSESSMENT: BI-RADS 1: Negative RECOMMENDATION: 1. Patient should be managed based on the clinical impression. Electronically signed by: Adrian Spring MD 12/26/2023 02:52 PM EDT
== END 2023-12-26 12:54 | disposition home or self-care (01) ==
LOC: HO.MAMMO 12:53
PROVIDERS: PCP Internal Medicine; Visit Provider Internal Medicine
DX: N64.4 Mastodynia (principal)
CPT/HCPCS: 76642

== ENCOUNTER → 2023-12-26 13:00 | Outpatient (BNV) | payer MEDICARE, MEDICAID, SELFPAY | PROVIDERS: PCP Internal Medicine; Visit Provider Radiology Diagnostic Radiology | DX: N64.4 Mastodynia (principal) | CPT/HCPCS: 76642 ==

== ENCOUNTER 2024-01-20 19:18 | Emergency (ER) | payer MEDICARE, MEDICAID, SELFPAY ==
--- NOTE | ~2024-01-20 | CT_ITS ---
EXAMINATION: CT HEAD WITHOUT CONTRAST CT CERVICAL SPINE WITHOUT CONTRAST CLINICAL INFORMATION: Trauma. Pain. COMPARISON: None available. TECHNIQUE: Contiguous axial imaging was performed through the head and cervical spine without intravenous administration of contrast. Sagittal and coronal reformatted images also obtained. This CT examination was performed using dose optimization techniques as appropriate, variously including the following: *Automated exposure control *Adjustment of mA and/or kV according to patient size (this includes techniques or standardized protocols for targeted exams where dose is matched to indication/reason for exam; i.e. extremities or head) *Use of iterative reconstruction technique DLP: 1149 mGy-cm FINDINGS: The lateral, third and fourth ventricles are normally outlined. The cortical sulci and basal cisterns are normally outlined as well. There is no acute territorial defects, hemorrhage or midline shift. The extra-axial spaces are unremarkable. Calvarium/scalp: Intact. Maxillofacial sinuses and mastoids: Clear as visualized. Cervical spine: There is straightening of the expected cervical spine curvature. The disc spaces are maintained. The spinal canal and neuroforamen are patent. The bone mineralization is normal. There is no fracture. The soft tissues are unremarkable. The visualized upper lung han are clear. CT/CT cervical spine wo IV con IMPRESSION: 1. No acute intracranial pathology. 2. No evidence of acute cervical spine traumatic injury. Electronically signed by: Martin Slater MD 01/20/2024 11:44 PM EDT
--- NOTE | ~2024-01-20 | CT_ITS ---
EXAMINATION: CT HEAD WITHOUT CONTRAST CT CERVICAL SPINE WITHOUT CONTRAST CLINICAL INFORMATION: Trauma. Pain. COMPARISON: None available. TECHNIQUE: Contiguous axial imaging was performed through the head and cervical spine without intravenous administration of contrast. Sagittal and coronal reformatted images also obtained. This CT examination was performed using dose optimization techniques as appropriate, variously including the following: *Automated exposure control *Adjustment of mA and/or kV according to patient size (this includes techniques or standardized protocols for targeted exams where dose is matched to indication/reason for exam; i.e. extremities or head) *Use of iterative reconstruction technique DLP: 1149 mGy-cm FINDINGS: The lateral, third and fourth ventricles are normally outlined. The cortical sulci and basal cisterns are normally outlined as well. There is no acute territorial defects, hemorrhage or midline shift. The extra-axial spaces are unremarkable. Calvarium/scalp: Intact. Maxillofacial sinuses and mastoids: Clear as visualized. Cervical spine: There is straightening of the expected cervical spine curvature. The disc spaces are maintained. The spinal canal and neuroforamen are patent. The bone mineralization is normal. There is no fracture. The soft tissues are unremarkable. The visualized upper lung han are clear. CT/CT head/brain wo IV con IMPRESSION: 1. No acute intracranial pathology. 2. No evidence of acute cervical spine traumatic injury. Electronically signed by: Martin Slater MD 01/20/2024 11:44 PM EDT
[2024-01-20 19:57] VITALS: BP 131/80; PULSE 108; RESP 20; TEMP 36.8; O2SAT 94; BMI 34.6
--- NOTE | 2024-01-20 22:40 | PC.NURSE ---
pt jogged to the bathroom. reports pain, says it is painul to lie down
[2024-01-20 22:46] VITALS: BP 134/78; PULSE 102; RESP 20; TEMP 36.7; O2SAT 97
--- NOTE | 2024-01-21 00:10 | ED_ITS ---
HPI - Fall General Chief Complaint: Fall Stated Complaint: fell down stairs Time Seen by Provider: 01/20/24 22:12 Source: patient and other (Caregiver) History of Present Illness ED Provider: Keiko Graf PA-C HPI Narrative: 24-year-old female with a history of intellectual disability, diabetes, hyperlipidemia, morbid obesity presents after fall downstairs. Patient apparently fell down 4-5 steps while trying to catch her CT. She did hit her head, there was no loss of consciousness. The patient complains of ?pain everywhere?. The patient does not use a blood thinner. Related Data Home Medications ?Medication ?Instructions ?Recorded ?Confirmed melatonin 3 mg tablet 6 mg PO BEDTIME PRN Sleep 12/03/20 11/19/23 clonazepam 1 mg tablet 1 mg PO TID PRN Anxiety 09/21/22 11/19/23 guanfacine 4 mg tablet,extended 4 mg PO DAILY 09/21/22 11/19/23 release 24 hr chlorpromazine 100 mg tablet 100 mg PO QID 11/15/22 11/19/23 divalproex 500 mg tablet,extended 500 mg PO DAILY 11/15/23 11/19/23 release 24 hr melatonin 3 mg capsule 3 mg PO BEDTIME PRN 11/15/23 11/19/23 sertraline 100 mg tablet mg PO 11/15/23 11/19/23 Previous Rx's ?Medication ?Instructions ?Recorded acetaminophen 500 mg tablet 500 mg PO Q6H PRN fever or pain 30 12/29/22 days #120 tabs polymyxin B sulfate 10,000 1 drp ophthalmic (eye) TID 7 days 05/03/23 unit-trimethoprim 1 mg/mL eye drops #10 mL clotrimazole-betamethasone 1 1 appl topical BID PRN rash #45 05/16/23 %-0.05 % topical cream grams metformin 750 mg tablet,extended 750 mg PO BID #180 tabs 08/08/23 release 24 hr levonorgestrel 0.15 mg-ethinyl 1 tab PO DAILY #91 ea 10/03/23 estradiol 30 mcg tablets,3 mos pack(91) (Haroldo) doxycycline hyclate 100 mg tablet 100 mg PO BID #10 tabs 11/15/23 dextromethorphan-guaifenesin 10 2 tab-cap (2 x 10-200 mg) PO Q6H 12/12/23 mg-200 mg capsule (Robitussin PRN cough 30 days #240 caps Cough-Chest Congestion DM) Allergies Allergy/AdvReac Type Severity Reaction Status Date / Time No Known Allergies Allergy Verified 01/20/24 20:01 Review of Systems Review of Systems: Yes all other systems are reviewed and are negative Constitutional: Constitutional: Denies fever(s) and Denies headache(s) Eyes: Eyes: Denies change in vision ENT: Denies headache(s) and Reports neck pain Cardiovascular: Cardiovascular: Denies chest pain and Denies dyspnea Respiratory: Respiratory: Denies dyspnea Gastrointestinal: Gastrointestinal: Denies abdominal pain Musculoskeletal: Musculoskeletal: Reports back pain, Reports myalgias, Reports arthralgias, Reports neck pain and Denies tingling Neurologic: Denies headache(s), Denies focal weakness and Denies tingling PMFSH Past Medical History Attestation statement: The following information was validated with the patient. Medical History Cellulitis of toe of left foot Vaginal irritation Trauma of toe of left foot Oppositional defiant disorder Intellectual disability Obsessive compulsive disorder Anxiety Surgical History No pertinent past surgical history Family History Family History (Updated 11/19/23 @ 14:05 by Carolyn Goodwin MD) Mother No problems noted. Father No problems noted. Social History Social History Housing: House Housing Other:: Halfway Alcohol intake: never Patient Tobacco Use Status: Never used Tobacco Smoked in Last 30 Days: No e-Cigarette/Vaping Use: Never Used Second Hand Smoke Exposure: No Use of substances other than those prescribed or required for medical reasons: No Advance Directives: No Advance Directives Information Provided: No Do you have a plan to hurt others: No Plan service: No Current occupational status: disabled Gender identity: Female Cognitive needs: Yes Hearing needs: No Vision needs: No Physical Exam Vital Signs: Vital Signs: Last Vital Signs Temp 98.1 F 01/20/24 22:46 Pulse 102 H 01/20/24 22:46 Resp 20 01/20/24 22:46 BP 134/78 01/20/24 22:46 Pulse Ox 97 01/20/24 22:46 O2 Del Method Room Air 01/20/24 22:46 BMI result Body Mass Index 34.6 Const: Other: Alert, well in appearance, no sign of head trauma on exam Orientation/consciousness: oriented to person and oriented to place Neck: Other: Soft supple, no midline tenderness, full range of motion Resp: Effort & Inspection: normal respiratory effort Cardio: Other: Normal peripheral perfusion Back/Spine/Pelvis: Other: No midline tenderness length of spine, no bruising noted over the back Skin: Other: Warm dry no rash Neuro: General: oriented to person, oriented to place, no focal motor deficits and CN's II-XI intact bilaterally Extrem: Other: Strength 5/5 bilateral upper and lower extremities, walking with a normal steady gait Psych: Other: Cooperative Medical Decision Making Medical Decision Making MDM Narrative: 24-year-old female with a history of intellectual disability, diabetes, hyperlipidemia, morbid obesity presents after fall downstairs. Patient apparently fell down 4-5 steps while trying to catch her CT. She did hit her head, there was no loss of consciousness. The patient complains of ?pain everywhere?. The patient does not use a blood thinner. Problem: Intellectual disability History: Per patient and caregiver I have considered the following differential diagnoses: Intracranial hemorrhage, cervical spine injury, fracture, dislocation, contusion Plan: Given fall downstairs, am scanning of the patient's head and neck, to note I do have low suspicion for intracranial hemorrhage, she is at her baseline mentation, she has no neurologic deficits, she is not actively vomiting. Likewise, she has no midline tenderness of the C-spine and she has full range of motion of the neck. However given her intellectual disability, her own report of the fall and her symptoms may be skewed. I have independently reviewed the following tests: CT brain and cervical spine:CT HEAD WITHOUT CONTRAST CT CERVICAL SPINE WITHOUT CONTRAST CLINICAL INFORMATION: Trauma. Pain. COMPARISON: None available. TECHNIQUE: Contiguous axial imaging was performed through the head and cervical spine without intravenous administration of contrast. Sagittal and coronal reformatted images also obtained. This CT examination was performed using dose optimization techniques as appropriate, variously including the following: *Automated exposure control *Adjustment of mA and/or kV according to patient size (this includes techniques or standardized protocols for targeted exams where dose is matched to indication/reason for exam; i.e. extremities or head) *Use of iterative reconstruction technique DLP: 1149 mGy-cm FINDINGS: The lateral, third and fourth ventricles are normally outlined. The cortical sulci and basal cisterns are normally outlined as well. There is no acute territorial defects, hemorrhage or midline shift. The extra-axial spaces are unremarkable. Calvarium/scalp: Intact. Maxillofacial sinuses and mastoids: Clear as visualized. Cervical spine: There is straightening of the expected cervical spine curvature. The disc spaces are maintained. The spinal canal and neuroforamen are patent. The bone mineralization is normal. There is no fracture. The soft tissues are unremarkable. The visualized upper lung han are clear. CT/CT cervical spine wo IV con IMPRESSION: 1. No acute intracranial pathology. 2. No evidence of acute cervical spine traumatic injury. Electronically signed by: Martin Slater MD 01/20/2024 11:44 PM EDT RP Discharge Plan Discharge Clinical Impression: Fall down stairs Patient Disposition: Home, Self-Care Instructions: Fall Prevention (ED) Additional Instructions: The CT scan of your brain and neck were negative for acute injury. You have sustained musculoskeletal strain. You can use [id number] Tylenol 1000 mg taken every 8 hours, alternated with the use of [id number]-[id number] ibuprofen 600 mg taken every 6 hours with food. Follow up with your primary care provider as needed Prescriptions: No Action acetaminophen 500 mg tablet 500 mg PO Q6H PRN (Reason: fever or pain) 30 Days Qty: 120 6RF clotrimazole-betamethasone 1-0.05 % cream 1 appl topical BID PRN (Reason: rash) Qty: 45 1RF metformin 750 mg tablet extended release 24 hr 750 mg PO BID Qty: 180 5RF Robitussin Cough-Chest Mason DM 10-200 mg capsule 2 tab-cap PO Q6H PRN (Reason: cough) 30 Days Qty: 240 6RF melatonin 3 mg Tablet 6 mg PO BEDTIME PRN (Reason: Sleep) clonazepam 1 mg tablet 1 mg PO TID PRN (Reason: Anxiety) guanfacine 4 mg tablet extended release 24 hr 4 mg PO DAILY chlorpromazine 100 mg tablet 100 mg PO QID polymyxin B sulf-trimethoprim 10,000 unit- 1 mg/mL drops 1 drp ophthalmic (eye) TID 7 Days Qty: 10 0RF Rx Instructions: while awake; do not exceed 6 doses in 24 hours melatonin 3 mg capsule 3 mg PO BEDTIME PRN sertraline 100 mg tablet PO divalproex 500 mg tablet extended release 24 hr 500 mg PO DAILY doxycycline hyclate 100 mg tablet 100 mg PO BID Qty: 10 0RF levonorgestrel-ethinyl estrad [Jolessa] 0.15 mg-30 mcg (91) tablets,dose pack,3 month 1 tab PO DAILY Qty: 91 4RF Print Language: Urdu
[2024-01-21] MEDS: Ibuprofen 600 MG TABLET PO (00:55)
[2024-01-21] MEDS: Acetaminophen 325 MG TABLET 975 MG PO (00:56)
[2024-01-21 01:01] VITALS: BP 134/78; PULSE 102; RESP 20; TEMP 36.7; O2SAT 97
== END 2024-01-21 01:10 | disposition home or self-care (01) ==
PROVIDERS: Emergency Provider Emergency Medicine; PCP Internal Medicine
DX: S19.9XXA Unspecified injury of neck, initial encounter (principal); S09.90XA Unspecified injury of head, initial encounter; W10.9XXA Fall (on) (from) unspecified stairs and steps, initial encounter; M54.2 Cervicalgia; R51.9 Headache, unspecified; Y93.89 Activity, other specified; Y92.89 Other specified places as the place of occurrence of the external cause; Y99.8 Other external cause status; Z79.899 Other long term (current) drug therapy
CPT/HCPCS: 70450; 72125; 99284

== ENCOUNTER 2024-01-25 19:44 | Emergency (ER) | payer MEDICARE, MEDICAID, SELFPAY ==
--- NOTE | ~2024-01-25 | CT_ITS ---
EXAMINATION: CT HEAD WITHOUT CONTRAST CLINICAL INFORMATION: Head injury. Fall. COMPARISON: CT head 01/20/2024. TECHNIQUE: Contiguous axial imaging was performed from the skull base to vertex without intravenous administration of contrast. This CT examination was performed using dose optimization techniques as appropriate, variously including the following: *Automated exposure control *Adjustment of mA and/or kV according to patient size (this includes techniques or standardized protocols for targeted exams where dose is matched to indication/reason for exam; i.e. extremities or head) *Use of iterative reconstruction technique DLP: 631 mGy-cm FINDINGS: No intracranial hemorrhage, tumors or acute infarcts identified. Mild diffuse symmetric prominence of ventricles and sulci. No focal parenchymal lesions of the brain. No abnormal extra-axial fluid collections. Normal appearance of the orbits and globes. No significant opacification of the visualized paranasal sinuses, mastoid air cells and middle ear cavities. CT/CT head/brain wo IV con IMPRESSION: No acute intracranial abnormalities. Electronically signed by: Luis Garcia MD 01/26/2024 03:04 AM EDT
[2024-01-25 19:52] VITALS: BP 128/82; PULSE 100; RESP 18; TEMP 36.7; O2SAT 96; BMI 35.8
--- NOTE | 2024-01-25 19:54 | ED_ITS ---
HPI - General Adult General Chief complaint: General Medical Stated complaint: neck pain, ' feels like it's closing up Time Seen by Provider: 01/25/24 22:17 Source: patient Mode of arrival: ambulatory Limitations: no limitations History of Present Illness HPI narrative: Patient is a 24-year-old female with past medical history of intellectual disability, diabetes, hyperlipidemia, morbid obesity who presents emergency department with group therapy counselor for evaluation. She began complaining of a sore throat today, ?like my throat is closing?. Patient endorsed having a fall in the bathroom today, unwitnessed by staff, it is unclear whether she hit her head but she is endorsing a posterior headache. She denies dizziness, lightheadedness, neck pain, neck stiffness, vision changes. Denies pain to her extremities. Denies any fevers or chills. Related Data Home Medications ?Medication ?Instructions ?Recorded ?Confirmed melatonin 3 mg tablet 6 mg PO BEDTIME PRN Sleep 12/03/20 11/19/23 clonazepam 1 mg tablet 1 mg PO TID PRN Anxiety 09/21/22 11/19/23 guanfacine 4 mg tablet,extended 4 mg PO DAILY 09/21/22 11/19/23 release 24 hr chlorpromazine 100 mg tablet 100 mg PO QID 11/15/22 11/19/23 divalproex 500 mg tablet,extended 500 mg PO DAILY 11/15/23 11/19/23 release 24 hr melatonin 3 mg capsule 3 mg PO BEDTIME PRN 11/15/23 11/19/23 sertraline 100 mg tablet mg PO 11/15/23 11/19/23 Previous Rx's ?Medication ?Instructions ?Recorded acetaminophen 500 mg tablet 500 mg PO Q6H PRN fever or pain 30 12/29/22 days #120 tabs polymyxin B sulfate 10,000 1 drp ophthalmic (eye) TID 7 days 05/03/23 unit-trimethoprim 1 mg/mL eye drops #10 mL clotrimazole-betamethasone 1 1 appl topical BID PRN rash #45 05/16/23 %-0.05 % topical cream grams metformin 750 mg tablet,extended 750 mg PO BID #180 tabs 08/08/23 release 24 hr levonorgestrel 0.15 mg-ethinyl 1 tab PO DAILY #91 ea 10/03/23 estradiol 30 mcg tablets,3 mos pack(91) (Haroldo) doxycycline hyclate 100 mg tablet 100 mg PO BID #10 tabs 11/15/23 dextromethorphan-guaifenesin 10 2 tab-cap (2 x 10-200 mg) PO Q6H 12/12/23 mg-200 mg capsule (Robitussin PRN cough 30 days #240 caps Cough-Chest Congestion DM) amoxicillin 500 mg tablet 1,000 mg (2 x 500 mg) PO DAILY 9 01/26/24 days #18 tabs Allergies Allergy/AdvReac Type Severity Reaction Status Date / Time No Known Allergies Allergy Verified 01/25/24 19:56 Review of Systems Review of Systems: Yes all other systems are reviewed and are negative [facility] Past Medical History Attestation statement: The following information was validated with the patient. Source: old records reviewed Medical History Cellulitis of toe of left foot Vaginal irritation Trauma of toe of left foot Oppositional defiant disorder Intellectual disability Obsessive compulsive disorder Anxiety Surgical History No pertinent past surgical history Family History Family History (Updated 11/19/23 @ 14:05 by Carolyn Goodwin MD) Mother No problems noted. Father No problems noted. Social History Social History Housing: House Housing Other:: [facility] Alcohol intake: never Patient Tobacco Use Status: Never used Tobacco e-Cigarette/Vaping Use: Never Used Second Hand Smoke Exposure: No Advance Directives: No Advance Directives Information Provided: No service: No Current occupational status: disabled Gender identity: Female Cognitive needs: Yes Hearing needs: No Vision needs: No Physical Exam ED Vital Signs: Vital Signs - 24 hr 01/25/24 19:52 01/25/24 22:31 Temperature 98.0 F 98.2 F Pulse Rate 100 96 Respiratory Rate 18 20 Blood Pressure 128/82 130/80 Pulse Oximetry 96 97 Oxygen Delivery Method Room Air Room Air BMI result Body Mass Index 35.8 Appearance: Alert.?Oriented to person, place and time. No acute distress.?Normal affect. Head: Normocephalic, atraumatic Eyes: Pupils equal, round and reactive to light.? ENT: Pharynx erythematous. No hypertrophy, no exudates. Uvula is midline. No trismus. No drooling. Neck: Normal inspection.? Neck supple.??No midline cervical spine tenderness, step-offs, deformities. CVS: Heart sounds normal. Normal heart rate and rhythm.? Pulses normal.?? Respiratory: No respiratory distress.? Lung sounds clear to auscultation bilaterally?? Abdomen: Soft and non-tender. Normoactive bowel sounds. Skin: Skin warm and dry.? Normal skin color.? Extremities: No lower extremity edema.? No calf ttp? Neuro: Moves all extremities spontaneously. Sensation intact bilaterally. CN II- XII intact. No focal neuro deficits. Ambulates with normal steady gait. Course Course Course Narrative: This is a Rapid Medical Examination (RME) performed by Leonardo Lowe PA-C in triage. Full HPI, ROS, assessment and treatment plan per primary provider in the Main ED. 24 yo female hx of intellectual disability, diabetes, hyperlipidemia, morbid obesity here w/ floor care technician for eval of throat pain beginning today. states i feel like my throat is closing . floor care technician reports pt told her she fell in the bathroom today. this was unwitnessed. patient is unsure if she hit her head. poor historian. began complaining of throat pain after this. + posterior oropharynx slightly erythematous, uvula midline, no tonsilar exudates. speaking in full complete sentences. no midline c spine tenderness. Plan: viral/strep swabs +/- imaging per primary provider Medications Administered Discontinued Medications Generic Name Dose Route Start Last Admin Trade Name Doc PRN Reason Stop Dose Admin Acetaminophen 975 mg 01/25/24 22:27 01/25/24 23:03 Acetaminophen 325 Mg Tablet PO 01/25/24 22:28 975 mg ONCE ONE Administration Amoxicillin 1,000 mg 01/25/24 22:27 01/25/24 23:03 Amoxicillin 500 Mg Capsule PO 01/25/24 22:28 1,000 mg ONCE ONE Administration Medical Decision Making Medical Decision Making MDM Narrative: Patient is a 24-year-old female who presents emergency department for evaluation, reporting a sore throat, on examination is mildly erythematous without evidence of 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 Given her report of mechanical fall with head strike, posterior headache, CT head obtained to exclude ICH, SDH or fracture ; no acute intracranial pathology. No focal neurological deficits. Ambulatory with a steady gait. Stable for discharge back to long term, advised on return precautions. All questions answered. Differential Diagnosis Differential Diagnoses: The differential diagnosis associated with the presentation includes (See narrative above) Admission/Observation Consideration of admission/observation: Escalation of care including admission/observation considered Lab Data MDM Lab Attestation statement: I reviewed the patient's lab results. (See narrative above) Labs: Lab Results 01/25/24 Range/Units 20:12 Influenza Type A (PCR) NEGATIVE (Negative) Influenza Type B (PCR) NEGATIVE (Negative) RSV RNA Qual (PCR) NEGATIVE (Negative) SARS-CoV-2 RNA (RT-PCR) NEGATIVE (Negative) S. pyogenes GrpA HARINDER Positive A (Negative) Independent Interpretation I performed an independent interpretation of an: CT Scan (No ICH or fracture) Radiology Impression Discussion of test interpretation with radiology: I have reviewed the radiologist's reading. Radiologist Impression: CT/CT head/brain wo IV con IMPRESSION: No acute intracranial abnormalities. Independent Historian Clinical information obtained from an independent historian. History obtained from or confirmed by: Other (ash worker) External Record Review External record reviewed: Outpatient record Prescription Management I considered prescription management with: Pain Medication and Antibiotic Discharge Plan Discharge Clinical Impression: Acute head injury without loss of consciousness, Acute streptococcal pharyngitis Patient Disposition: Home, Self-Care Instructions: Strep Throat (ED), Head Injury (ED) Additional Instructions: Complete the entire course of antibiotics as prescribed for additional 9 days, first dose was received in the emergency department. Follow-up primary care doctor. You may return to emergency department any new or worsening symptoms or concerns Prescriptions: New amoxicillin 500 mg tablet 1,000 mg PO DAILY 9 Days Qty: 18 0RF No Action acetaminophen 500 mg tablet 500 mg PO Q6H PRN (Reason: fever or pain) 30 Days Qty: 120 6RF clotrimazole-betamethasone 1-0.05 % cream 1 appl topical BID PRN (Reason: rash) Qty: 45 1RF metformin 750 mg tablet extended release 24 hr 750 mg PO BID Qty: 180 5RF Robitussin Cough-Chest Mason DM 10-200 mg capsule 2 tab-cap PO Q6H PRN (Reason: cough) 30 Days Qty: 240 6RF melatonin 3 mg Tablet 6 mg PO BEDTIME PRN (Reason: Sleep) clonazepam 1 mg tablet 1 mg PO TID PRN (Reason: Anxiety) guanfacine 4 mg tablet extended release 24 hr 4 mg PO DAILY chlorpromazine 100 mg tablet 100 mg PO QID polymyxin B sulf-trimethoprim 10,000 unit- 1 mg/mL drops 1 drp ophthalmic (eye) TID 7 Days Qty: 10 0RF Rx Instructions: while awake; do not exceed 6 doses in 24 hours melatonin 3 mg capsule 3 mg PO BEDTIME PRN sertraline 100 mg tablet PO divalproex 500 mg tablet extended release 24 hr 500 mg PO DAILY doxycycline hyclate 100 mg tablet 100 mg PO BID Qty: 10 0RF levonorgestrel-ethinyl estrad [Jolessa] 0.15 mg-30 mcg (91) tablets,dose pack,3 month 1 tab PO DAILY Qty: 91 4RF Referrals: Physician,Unknown J [Primary Care Provider] - Print Language: Kiswahili
--- NOTE | 2024-01-25 20:12 | MHC.EDTECH ---
Patient brought into triage area,strep,and sars/flu/rsv obtained and sent to lab.
[2024-01-25 20:32] LABS: IDNOW Serial# 6674DD1D; Strep A Nucleic Acid Positive (Negative)
[2024-01-25 21:04] LABS: Influenza A PCR NEGATIVE (Negative); Influenza B PCR NEGATIVE (Negative); Resp Syncy Virus RNA Qual PCR NEGATIVE (Negative); SARS COV2 PCR INHOUSE NEGATIVE (Negative)
[2024-01-25 22:31] VITALS: BP 130/80; PULSE 96; RESP 20; TEMP 36.8; O2SAT 97
[2024-01-25] MEDS: Acetaminophen 325 MG TABLET 975 MG PO (23:03)
[2024-01-25] MEDS: Amoxicillin 500 MG CAPSULE 1000 MG PO (23:03)
[2024-01-26 03:35] VITALS: BP 134/84; PULSE 88; RESP 18; TEMP 36.6; O2SAT 97
== END 2024-01-26 03:37 | disposition home or self-care (01) ==
PROVIDERS: Physician Assistant Medical; Emergency Provider Internal Medicine
DX: J02.0 Streptococcal pharyngitis (principal); S09.90XA Unspecified injury of head, initial encounter; W18.30XA Fall on same level, unspecified, initial encounter; R51.9 Headache, unspecified; Z03.818 Encounter for observation for suspected exposure to other biological agents ruled out; Y93.89 Activity, other specified; Y92.192 Bathroom in other specified residential institution as the place of occurrence of the external cause; Y99.9 Unspecified external cause status
CPT/HCPCS: 0241U; 70450; 87651; 99283; 99284

== ENCOUNTER 2024-01-28 17:13 | Outpatient (AMB) | payer MEDICARE, MEDICAID, SELFPAY ==
[2024-01-28 17:15] VITALS: BP 122/70; BMI 35.3
--- NOTE | 2024-01-28 17:15 | MHC.PC.OV ---
Vital Signs 01/28/24 17:15 Height 5 ft 1 in Weight 187 lb BMI 35.3 BP 122/70 Blood Pressure Location Lt brachial Position Sitting Intake Visit Reasons: [facility] 01/19 fell down stairs Mushroom Cultivator Required: No Accompanied by: staff Allergies No Known Allergies Allergy (Verified 01/28/24 17:25) Medication List - Last Reconciled 01/28/24 by Carolyn Goodwin MD acetaminophen 500 mg PO Q6H PRN 30 days amoxicillin 1,000 mg (2 x 500 mg) PO DAILY 9 days chlorpromazine 100 mg PO QID clonazepam 1 mg PO TID PRN clotrimazole-betamethasone 1-0.05 % 1 appl topical BID PRN dextromethorphan-guaifenesin 10-200 mg (Robitussin Cough-Chest Congestion DM) 2 tab-caps (2 x 10-200 mg) PO Q6H PRN 30 days divalproex ER 500 mg PO DAILY doxycycline hyclate 100 mg PO BID guanfacine ER 4 mg PO DAILY levonorgestrel-ethinyl estrad 0.15 mg-30 mcg (91) (Jolessa) 1 tab PO DAILY melatonin 6 mg PO BEDTIME PRN melatonin 3 mg PO BEDTIME PRN metformin ER 750 mg PO BID polymyxin B sulf-trimethoprim 10,000 unit- 1 mg/mL 1 drp ophthalmic (eye) TID 7 days sertraline mg PO Tobacco use date assessed: 11/19/23 Dental Screening Dental Screen Date: 11/19/23 HPI HPI Comments History of Present Illness Details This is a 24-year-old female with diabetes mellitus type 2 that comes accompanied by staff member as hospital discharge follow-up with discharge date 01/25/2024 due to falling down stairs and hitting her head with no loss of consciousness. Head CT was normal. She also had a fall at the end of last month in which also went to ER. She has full range of motion and is able to move her neck and head. Denies any headache. A1c within goal. [facility] Medical History (Updated 01/27/24 @ 00:01 by Diane Hernandez) Cellulitis of toe of left foot Vaginal irritation Trauma of toe of left foot Oppositional defiant disorder Intellectual disability Obsessive compulsive disorder Anxiety Surgical History No pertinent past surgical history Family History Mother No problems noted. Father No problems noted. Social History Housing: House Housing Other:: Jail Alcohol intake: never Patient Tobacco Use Status: Never used Tobacco e-Cigarette/Vaping Use: Never Used Second Hand Smoke Exposure: No service: No Current occupational status: disabled Gender identity: Female Cognitive needs: Yes Hearing needs: No Vision needs: No Questionnaire Thrive Questionnaire Date Thrive assessed: 11/19/23 JO-7 AMB Questionnaire JO-7 Date JO - 7 assessed: 11/19/23 Source: Developed by Drs. Giblert Hunter, Jina Healy, Slim Gallardo and colleagues, with an educational edie from [employer]. Review of Systems Const All systems reviewed & are unremarkable except as noted in HPI and below Card Denies chest pain at rest, Denies chest pain with activity, Denies edema, Denies irregular heart rhythm, Denies claudication, Denies dyspnea, Denies dyspnea on exertion, Denies orthopnea, Denies paroxysmal nocturnal dyspnea and Denies slow heart rate Resp Denies cough, Denies dyspnea and Denies dyspnea on exertion GI Denies abdominal pain, Denies change in bowel habits, Denies excessive flatus, Denies nausea and Denies vomiting Physical exam (Primary Care) Vital Signs: Last Vital Signs BP 122/70 01/28/24 17:15 BMI result Body Mass Index 35.3 Tobacco/Smoking Status: Tobacco use Status Tobacco use date assessed 11/19/23 01/28/24 17:16 Patient Tobacco Use Status Never used Tobacco 01/28/24 17:16 e-Cigarette/Vaping Use Never Used 01/28/24 17:16 Thrive Assessment: Date of Thrive Assessment Date Thrive assessed 11/19/23 01/28/24 17:16 Eyes General: appearance normal, both eyes and all related structures Eyelids: Yes eyelids normal Conjunctivae: conjunctivae normal Neck Neck: Yes normal visual inspection and Yes supple Resp Effort & Inspection: normal respiratory effort Auscultation: clear to auscultation bilaterally Cardio Jugular venous distension: no JVD Rate: regular rate Rhythm: regular rhythm Heart sounds: S1 normal heart sound present and S2 normal heart sound present Office Procedures Flu Questionnaire Does the patient have a severe egg allergy?: No Immunizations Fluarix Triv [id number] (PF) 45 mcg (15 mcg x 3)/0.5 mL IM syringe Performing Provider: Carolyn Goodwin MD Performing Location[facility] Documented (not given) by: LUCILLE Goddard on 01/28/24 17:35 Reason Not Given: Not Given Coding Level of Care Code Est Pt Level 3 (65470) Complex EM visit Add On G2211 Diagnoses T2DM (type 2 diabetes mellitus) E11.9 Time Spent (min) 21 Assessment & Plan Assessment & Plan (1) T2DM (type 2 diabetes mellitus): Code(s): E11.9 - Type 2 diabetes mellitus without complications Category: Medical Plan: Continue metformin. A1c within goal. Orders: Orders Influenza [id number] Immunization Today Z23 - Encounter for immunization
== END 2024-01-28 17:33 | disposition home or self-care (01) ==
PROVIDERS: PCP Internal Medicine; Visit Provider Internal Medicine
DX: E11.9 Type 2 diabetes mellitus without complications (principal); Z23 Encounter for immunization

== ENCOUNTER → 2024-01-28 17:13 | Outpatient (BNVA) | payer MEDICARE, MEDICAID, SELFPAY | PROVIDERS: PCP Internal Medicine; Visit Provider Internal Medicine | DX: E11.9 Type 2 diabetes mellitus without complications (principal) | CPT/HCPCS: 90471; 99212 ==

== ENCOUNTER 2024-02-25 11:13 | Outpatient (AMB) | payer MEDICARE, MEDICAID, SELFPAY ==
[2024-02-25 11:23] VITALS: BP 122/80; BMI 35.7
--- NOTE | 2024-02-25 11:23 | MHC.PC.OV ---
Vital Signs 02/25/24 11:23 Height 5 ft 1 in Weight 189 lb BMI 35.7 BP 122/80 Blood Pressure Location Lt brachial Position Sitting Intake Visit Reasons: R breast discomfort Catering Administrative Assistant Required: No Accompanied by: staff Allergies No Known Allergies Allergy (Verified 02/25/24 11:39) Medication List - Last Reconciled 02/25/24 by Carolyn Goodwin MD acetaminophen 500 mg PO Q6H PRN 30 days chlorpromazine 100 mg PO QID clonazepam 1 mg PO TID PRN clotrimazole-betamethasone 1-0.05 % 1 appl topical BID PRN dextromethorphan-guaifenesin 10-200 mg (Robitussin Cough-Chest Congestion DM) 2 tab-caps (2 x 10-200 mg) PO Q6H PRN 30 days divalproex ER 500 mg PO DAILY doxycycline hyclate 100 mg PO BID guanfacine ER 4 mg PO DAILY levonorgestrel-ethinyl estrad 0.15 mg-30 mcg (91) (Jolessa) 1 tab PO DAILY melatonin 6 mg PO BEDTIME PRN melatonin 3 mg PO BEDTIME PRN metformin ER 750 mg PO BID polymyxin B sulf-trimethoprim 10,000 unit- 1 mg/mL 1 drp ophthalmic (eye) TID 7 days sertraline mg PO Tobacco use date assessed: 11/19/23 Dental Screening Dental Screen Date: 11/19/23 HPI HPI Comments History of Present Illness Details This is a 24-year-old female with developmental delay that comes accompanied by staff member from [facility] complaining of right breast pain and lump that she noticed 4 days ago. She denies any previous trauma. No nipple discharge or retraction. Right breast was examined and she had yellow ecchymosis in the area that was tender and are lump was palpated. Last ultrasound of the breast was on December which was benign and she was complaining about breast pain. [facility] Medical History (Updated 02/25/24 @ 12:07 by Carolyn Goodwin MD) Cellulitis of toe of left foot Vaginal irritation Trauma of toe of left foot Oppositional defiant disorder Intellectual disability Obsessive compulsive disorder Anxiety Surgical History No pertinent past surgical history Family History Mother No problems noted. Father No problems noted. Social History Housing: House Housing Other:: [facility] Alcohol intake: never Patient Tobacco Use Status: Never used Tobacco e-Cigarette/Vaping Use: Never Used Second Hand Smoke Exposure: No service: No Current occupational status: disabled Gender identity: Female Cognitive needs: Yes Hearing needs: No Vision needs: No Questionnaire Thrive Questionnaire Date Thrive assessed: 11/19/23 JO-7 AMB Questionnaire JO-7 Date JO - 7 assessed: 11/19/23 Source: Developed by Drs. Gilbert Hunter, Jina Healy, Slim Gallardo and colleagues, with an educational edie from [email or web address]. Review of Systems Const All systems reviewed & are unremarkable except as noted in HPI and below Card Denies chest pain at rest, Denies chest pain with activity, Denies edema, Denies irregular heart rhythm, Denies claudication, Denies dyspnea, Denies dyspnea on exertion, Denies orthopnea, Denies paroxysmal nocturnal dyspnea and Denies slow heart rate Resp Denies cough, Denies dyspnea and Denies dyspnea on exertion Skin/Breast Reports breast pain and Reports breast mass Physical exam (Primary Care) Vital Signs: Last Vital Signs BP 122/80 02/25/24 11:23 BMI result Body Mass Index 35.7 BMI Assessment/Plan discussion: High BMI High, discussed plan: lifestyle, weight reduction, dietary and physical activity Tobacco/Smoking Status: Tobacco use Status Tobacco use date assessed 11/19/23 02/25/24 11:26 Patient Tobacco Use Status Never used Tobacco 02/25/24 11:26 e-Cigarette/Vaping Use Never Used 02/25/24 11:26 Thrive Assessment: Date of Thrive Assessment Date Thrive assessed 11/19/23 02/25/24 11:26 Chest Breast/axilla inspection: abnormal inspection of the breast (echymosis in right breast, scratch) Breast/axilla palpation: normal palpation of the axillae and abnormal palpation of the breast (painful lump in right breast at 11 o'clock) Resp Effort & Inspection: normal respiratory effort Auscultation: clear to auscultation bilaterally Cardio Jugular venous distension: no JVD Rate: regular rate Rhythm: regular rhythm Heart sounds: S1 normal heart sound present and S2 normal heart sound present Extrem General: Yes full ROM Coding Level of Care Code Est Pt Level 3 (13149) Complex EM visit Add On G2211 Diagnoses Lump of right breast N63.10 Time Spent (min) 18 Assessment & Plan Assessment & Plan (1) Lump of right breast: Code(s): N63.10 - Unspecified lump in the right breast, unspecified quadrant Category: Medical Plan: Ultrasound of the breast ordered. Mammogram ordered. Orders: Orders US breast RT complete Today N63.10 - Unspecified lump in the right breast, unspecified quadrant, N64.4 - Mastodynia MM diagnostic mammo BI Today N63.10 - Unspecified lump in the right breast, unspecified quadrant, N64.4 - Mastodynia
== END 2024-02-25 11:55 | disposition home or self-care (01) ==
LOC: HO.HMCH 11:14
PROVIDERS: PCP Internal Medicine; Visit Provider Internal Medicine
DX: N63.10 Unspecified lump in the right breast, unspecified quadrant (principal); Z23 Encounter for immunization

== ENCOUNTER → 2024-02-25 11:13 | Outpatient (BNVA) | payer MEDICARE, MEDICAID, SELFPAY | PROVIDERS: PCP Internal Medicine; Visit Provider Internal Medicine | DX: N63.10 Unspecified lump in the right breast, unspecified quadrant (principal); N64.4 Mastodynia | CPT/HCPCS: 90471; 99212 ==

== ENCOUNTER 2024-05-06 17:09 | Outpatient (AMB) | payer MEDICARE, MEDICAID, SELFPAY ==
[2024-05-06 17:16] VITALS: BP 122/70; BMI 36.1
--- NOTE | 2024-05-06 17:16 | A.OFFPC_ITS ---
Vital Signs 05/06/24 17:16 Height 5 ft 1 in Weight 191 lb BMI 36.1 BP 122/70 Blood Pressure Location Lt brachial Position Sitting Intake Visit Reasons: [facility] 05/01 cough, congestion, Shallot Cleaner Required: No Accompanied by: Staff Allergies No Known Allergies Allergy (Verified 05/06/24 17:26) Medication List - Last Reconciled 05/06/24 by Carolyn Goodwin MD acetaminophen 500 mg PO Q6H PRN 30 days chlorpromazine 100 mg PO QID clonazepam 1 mg PO TID PRN clotrimazole-betamethasone 1-0.05 % 1 appl topical BID PRN dextromethorphan-guaifenesin 10-200 mg (Robitussin Cough-Chest Congestion DM) 2 tab-caps (2 x 10-200 mg) PO Q6H PRN 30 days divalproex ER 500 mg PO DAILY doxycycline hyclate 100 mg PO BID guaifenesin ER (Mucinex) 600 mg PO Q12H PRN 5 days guanfacine ER 4 mg PO DAILY levonorgestrel-ethinyl estrad 0.15 mg-30 mcg (91) (Jolessa) 1 tab PO DAILY melatonin 6 mg PO BEDTIME PRN melatonin 3 mg PO BEDTIME PRN metformin ER 750 mg PO BID polymyxin B sulf-trimethoprim 10,000 unit- 1 mg/mL 1 drp ophthalmic (eye) TID 7 days sertraline mg PO Tobacco use date assessed: 05/06/24 Dental Screening Dental Screen Date: 05/06/24 Did you have a dental visit in the last 12 months?: No Did you have a dental problem in the last 6 months where you did not have access to dental care?: No Was dental information given to patient?: Patient has dentist HPI HPI Comments History of Present Illness Details This is a 24-year-old female with intellectual disability and mental health conditions that comes today accompanied by staff member complaining of nasal congestion and productive cough that started about 5 days ago. She went to urgent care and was negative to COVID, RSV and flu. Has not improved with guaifenesin. I will start her on Z-Odilon. [facility] Medical History (Updated 05/06/24 @ 22:04 by Carolyn Goodwin MD) Cellulitis of toe of left foot Vaginal irritation Trauma of toe of left foot Oppositional defiant disorder Intellectual disability Obsessive compulsive disorder Anxiety Surgical History No pertinent past surgical history Family History Mother No problems noted. Father No problems noted. Social History Housing: House Housing Other:: Long-Term Alcohol intake: never Patient Tobacco Use Status: Never used Tobacco e-Cigarette/Vaping Use: Never Used Second Hand Smoke Exposure: No service: No Current occupational status: disabled Gender identity: Female Cognitive needs: Yes Hearing needs: No Vision needs: No Questionnaire PHQ-9 Over the last 2 weeks, how often have you been bothered by any of the following problems? 1. Little interest or pleasure in doing things: not at all 2. Feeling down, depressed, or hopeless: not at all 3. Trouble falling or staying asleep, or sleeping too much: not at all 4. Feeling tired or having little energy: not at all 5. Poor appetite or overeating: not at all 6. Feeling bad about yourself - or that you are a failure or have let yourself or your family down: not at all 7. Trouble concentrating on things, such as reading the newspaper or watching television: not at all 8. Moving or speaking so slowly that other people could have noticed. Or the opposite - being so fidgety or restless that you have been moving around a lot more than usual: not at all 9. Thoughts that you would be better off or of hurting yourself in some way: not at all Total score: 0 Depression Screening Interpretation: Negative Depression Screening Done: Yes 61909 - PHQ-9 Billing: Yes Source: Developed by Drs. Gilbert Hunter, Jina Healy, Slim Gallardo and colleagues, with an educational edie from [employer]. Thrive Questionnaire Date Thrive assessed: 05/06/24 I am a: Parent/Caregiver What is your living situation today?: I have a steady place to live Within the past 12 months, did the food you bought not last and you didn't have the money to get more?: Never true Within the past 12 months, did you worry whether your food would run out before you got money to buy more?: Never true Do you have trouble paying for medicines?: No Do you have trouble getting transportation to medical appointments?: No Do you have trouble paying your heating and electricity bill?: No Do you have trouble taking care of your child, family member or friend?: No Do you have trouble with day-to-day activities such as bathing, preparing meals, shopping, managing finances, etc.?: No Are you currently unemployed and looking for a job?: No Are you interested in more education?: No Please select the resources that you would like help with: None Currently or been in a relationship where the following occur: No concerns reported THRIVE Score: 0 AUDIT C Alcohol Use Questionnaire (AUDIT-C) 1. How often do you have a drink containing alcohol?: Never Total Score: 0 Score Reviewed/Action Taken: No JO-7 AMB Questionnaire JO-7 Date JO - 7 assessed: 05/06/24 Feeling nervous, anxious, or on edge: 0 = Not at all Not being able to stop or control worryin = Not at all Worrying too much about different things: 0 = Not at all Trouble relaxin = Not at all Being so restless that it is hard to sit still: 0 = Not at all Becoming easily annoyed or irritable: 0 = Not at all Feeling afraid as if something awful might happen: 0 = Not at all Total JO-7 score (0-4 normal; 5-9 mild; 10-14 moderate; 15-21 severe): 0 Source: Developed by Drs. Gilbert Hunter, Jina Healy, Slim Gallardo and colleagues, with an educational edie from [employer]. JO-7 Assessment Billing JO-7 Assessment Tool: JO-7 Assessment 05063 Review of Systems Const All systems reviewed & are unremarkable except as noted in HPI and below ENT Denies change in voice, Reports nasal discharge and Reports sinus pain Card Denies chest pain at rest, Denies chest pain with activity, Denies edema, Denies irregular heart rhythm, Denies claudication, Denies dyspnea, Denies dyspnea on exertion, Denies orthopnea, Denies paroxysmal nocturnal dyspnea and Denies slow heart rate Resp Reports cough, Denies dyspnea and Denies dyspnea on exertion Physical exam (Primary Care) Vital Signs: Last Vital Signs BP 122/70 05/06/24 17:16 BMI result Body Mass Index 36.1 BMI Assessment/Plan discussion: High BMI High, discussed plan: lifestyle, weight reduction, dietary and physical activity Tobacco/Smoking Status: Tobacco use Status Tobacco use date assessed 05/06/24 05/06/24 17:20 Patient Tobacco Use Status Never used Tobacco 05/06/24 17:20 e-Cigarette/Vaping Use Never Used 05/06/24 17:20 PHQ-9: PHQ-9 Score PHQ-9: Total score 0 05/06/24 17:31 Depression Screening Interpretation: Negative Thrive Assessment: Date of Thrive Assessment Date Thrive assessed 05/06/24 05/06/24 17:20 Currently or been in a relationship where the following occur: No concerns reported Resp Effort & Inspection: normal respiratory effort Auscultation: clear to auscultation bilaterally Cardio Jugular venous distension: no JVD Rate: regular rate Rhythm: regular rhythm Heart sounds: S1 normal heart sound present and S2 normal heart sound present Extrem General: Yes full ROM Coding Level of Care Code Est Pt Level 3 (67940) Complex EM visit Add On G2211 Diagnoses URI (upper respiratory infection) J06.9 Additional Codes JO-7 Assessment Billing - JO-7 Assessment Tool: JO-7 Assessment 99013 ([id number]) PHQ-9 - 35059 - PHQ-9 Billing: Yes ([id number]) Time Spent (min) 19 Assessment & Plan Assessment & Plan (1) URI (upper respiratory infection): Code(s): J06.9 - Acute upper respiratory infection, unspecified Category: Medical Plan: Start Z-Odilon Medications: New azithromycin Take 2 tabs the first day, then 1 tab for the next 4 days 250 mg PO DAILY 5 days 6 tabs 0RF Changed From dextromethorphan-guaifenesin 10-200 mg (Robitussin Cough-Chest Congestion DM) 2 tab-caps (2 x 10-200 mg) PO Q6H 30 days PRN 240 caps 6RF cough To dextromethorphan-guaifenesin 10-200 mg (Robitussin Cough-Chest Congestion DM) 2 tab-caps (2 x 10-200 mg) PO Q6H 7 days 56 caps 6RF cough From dextromethorphan-guaifenesin 10-200 mg (Robitussin Cough-Chest Congestion DM) 2 tab-caps (2 x 10-200 mg) PO Q6H 7 days 56 caps 6RF cough To dextromethorphan-guaifenesin 10-200 mg (Robitussin Cough-Chest Congestion DM) 2 tab-caps (2 x 10-200 mg) PO .four times a day 7 days 56 caps 6RF cough Refilled dextromethorphan-guaifenesin 10-200 mg (Robitussin Cough-Chest Congestion DM) 2 tab-caps (2 x 10-200 mg) PO Q6H 7 days 56 caps 6RF cough Discontinued guaifenesin ER (Mucinex) Discontinued Reason: Patient Completed Course 600 mg PO Q12H 5 days PRN 10 tabs 0RF congestion dextromethorphan-guaifenesin 10-200 mg (Robitussin Cough-Chest Congestion DM) Discontinued Reason: Patient Completed Course 2 tab-caps (2 x 10-200 mg) PO .four times a day 7 days 56 caps 6RF cough
== END 2024-05-06 17:38 | disposition home or self-care (01) ==
PROVIDERS: PCP Internal Medicine; Visit Provider Internal Medicine
DX: J06.9 Acute upper respiratory infection, unspecified (principal)

== ENCOUNTER → 2024-05-06 17:09 | Outpatient (BNVA) | payer MEDICARE, MEDICAID, SELFPAY | PROVIDERS: PCP Internal Medicine; Visit Provider Internal Medicine | DX: J06.9 Acute upper respiratory infection, unspecified (principal) | CPT/HCPCS: 96127; 99212 ==

== ENCOUNTER 2024-06-30 14:12 | Outpatient (AMB) | payer MEDICARE, MEDICAID, SELFPAY ==
--- NOTE | 2024-06-30 14:25 | AM.OFFWIN_ITS ---
Intake Vital Signs 06/30/24 14:26 Weight 193 lb BP 120/78 Blood Pressure Location Rt brachial Position Sitting Pulse 107 H Pulse Source Pulse Oximeter Temp 98.9 F Temp Source Oral Pulse Oximetry (%) 95 Oxygen Delivery Method Room Air Intake Visit Reasons: EP vomiting, headache, stomach ache Intake Note: Patient here for vomiting yesterday, headaches, stomach pain, loss of appetite. Patient Tobacco Use Status: Never used Tobacco Allergies No Known Allergies Allergy (Verified 05/06/24 17:26) Do you need a note to return to daycare/school/sports/work: No HPI HPI Comments History of Present Illness Details 24 y/o female patient who presents to [facility] walk [facility] clinic with c/o URI symptoms since yesterday. Reports Nausea, vomiting, Abdominal pain, and Poor appetite. [facility] Medical History (Updated 06/30/24 @ 14:43 by Karishma Turk NP) Nausea and vomiting in adult Cellulitis of toe of left foot Vaginal irritation Trauma of toe of left foot Oppositional defiant disorder Intellectual disability Obsessive compulsive disorder Anxiety Surgical History No pertinent past surgical history Family History Mother No problems noted. Father No problems noted. Social History Housing: House Housing Other:: Detention Alcohol intake: never Patient Tobacco Use Status: Never used Tobacco e-Cigarette/Vaping Use: Never Used Second Hand Smoke Exposure: No service: No Current occupational status: disabled Gender identity: Female Cognitive needs: Yes Hearing needs: No Vision needs: No Review of Systems Const All systems reviewed & are unremarkable except as noted in HPI and below Physical Exam Vital Signs: Last Vital Signs Temp 98.9 F 06/30/24 14: Pulse 107 H 06/30/24 14: BP 120/78 06/30/24 14: Pulse Ox 95 06/30/24 14:26 Oxygen Delivery Method Room Air 06/30/24 14:26 Const General: cooperative and no acute distress Nutritional Appearance: obese Orientation/consciousness: patient oriented x3 HEENT Head: Yes normocephalic Ears: external ears normal and TM's normal bilaterally General nose exam: Normal external nose present and No nasal discharge present Face and sinus: Yes sinuses nontender Mouth: moist mucous membranes Throat: Yes uvula midline Resp Effort & Inspection: normal respiratory effort and able to speak in complete sentences Auscultation: clear to auscultation bilaterally, no crackles, no rales, no rhonchi and no wheezes Cardio Heart sounds: S1 normal heart sound present and S2 normal heart sound present GI Inspection: Yes Abdominal panniculus present and Yes obesity Palpation (GI): Soft to palpation, not firm, nontender, no guarding, not rigid and No hepatosplenomegaly present Auscultation: normal bowel sounds Rectal Exam - Female: deferred Neuro General: patient oriented x3 Assessment & Plan Assessment & Plan (1) URI (upper respiratory infection): Code(s): J06.9 - Acute upper respiratory infection, unspecified Qualifiers: URI type: unspecified viral URI Qualified Code(s): J06.9 - Acute upper respiratory infection, unspecified Plan: Ordered SARs Avoid oily foods Advance diet as tolerated. Rest and hydrate well with warm fluids. Acetaminophen for pain relief. (2) Nausea and vomiting in adult: Code(s): R11.2 - Nausea with vomiting, unspecified Plan: Ordered SARs Avoid oily foods Advance diet as tolerated. Rest and hydrate well with warm fluids. Acetaminophen for pain relief. Orders: Orders SARS-CoV2/FLU/RSV Today J06.9 - Acute upper respiratory infection, unspecified Medications: New ondansetron 8 mg PO Q8H 20 tabs 0RF R11.2 - Nausea with vomiting, unspecified metoclopramide HCl (Reglan) 10 mg PO Q6H PRN 20 tabs 0RF nausea and vomiting R11.2 - Nausea with vomiting, unspecified ondansetron 8 mg PO Q8H 20 tabs 0RF R11.2 - Nausea with vomiting, unspecified Coding Level of Care Code Est Pt Level 4 (45871) Diagnoses Viral upper respiratory tract infection J06.9 URI type: unspecified viral URI Nausea and vomiting in adult R11.2 Time Spent (min) 20
[2024-06-30 14:26] VITALS: BP 120/78; PULSE 107; TEMP 37.2; O2SAT 95
--- OUTSIDE RECORDS SUMMARY | 2024-06-30 16:15 | XMS_ITS | Clinical Summary ---
Author Organization [facility] it Address [address] [place] [address] Care Team Providers Care Shipping Clerk Packing Name Role Phone Unavailable Primary Care Provider Unavailabl e Social History Tobacco Use Types Packs/Day Years Used Date Smoking Tobacco: Never Assessed Comments Unknown Sex and Gender Information Value Date Recorded Sex Assigned at Not on file Legal Sex Female 10:35 AM EST Gender Identity Not on file Sexual Orientation Not on file Plan of Treatment Health Maintenance Due Date Last Done Comments HPV Vaccines (1 - 3-dose series) 2013 DTaP,Tdap,and Td Vaccines (1 - Tdap) 2017 Hepatitis B Vaccines (1 of 3 - 19+ 3-dose series) 2017 Cervical Cancer Screening: P ap Smear 2019 Depression Screening 03/27/2022 HIV Screening 03/27/2022 Hepatitis C Screening 03/27/2022 Social Influencers of Health Screening 03/27/2022 COVID-19 Vaccine (2023-2 5 season) 2023 Influenza Vaccine (#1) 2023 HIB Vaccines Aged Out No longer eligi ble based on patient's age to complete this topic Hepatitis A Vaccines Aged Out No long er eligible based on patient's age to complete this topic IPV Vaccines Aged Out No longer eligi ble based on patient's age to complete this topic MMR Vaccines Aged Out No longer eligi ble based on patient's age to complete this topic Meningococcal ACWY Vaccine Aged Out N o longer eligible based on patient's age to complete this topic Meningococcal B Vacine Aged Out No lo nger eligible based on patient's age to complete this topic Pneumococcal Vaccine: Pediat rics (0 to 5 Years) and At-Risk Patients (6 to 64 Years) Aged Out No longer eligible b ased on patient's age to complete this topic RSV Immunization Patients Un eh 20 months Aged Out No longer eligible b ased on patient's age to complete this topic Varicella Vaccines Aged Out No longer eligible based on patient's age to complete this topic
== END 2024-06-30 15:04 | disposition home or self-care (01) ==
PROVIDERS: PCP Internal Medicine; Visit Provider Nurse Practitioner Family
DX: J06.9 Acute upper respiratory infection, unspecified (principal); R11.2 Nausea with vomiting, unspecified

== ENCOUNTER 2024-06-30 14:12 | Outpatient (REF) | payer MEDICARE, MEDICAID, SELFPAY ==
--- OUTSIDE RECORDS SUMMARY | 2024-06-30 17:01 | XMS_ITS | Clinical Summary ---
Author Organization [facility] it Address [address] [place] [address] Care Team Providers Care Store Receiving Specialist Name Role Phone Unavailable Primary Care Provider [...]
[2024-06-30 18:50] LABS: Influenza A PCR NEGATIVE (Negative); Influenza B PCR NEGATIVE (Negative); Resp Syncy Virus RNA Qual PCR NEGATIVE (Negative); SARS COV2 PCR INHOUSE NEGATIVE (Negative)
== END 2024-06-30 14:13 | disposition home or self-care (01) ==
LOC: HO.LAB 14:12
PROVIDERS: Nurse Practitioner Family; PCP Internal Medicine
DX: J06.9 Acute upper respiratory infection, unspecified (principal); R11.2 Nausea with vomiting, unspecified
CPT/HCPCS: 0241U; 99212

== ENCOUNTER 2024-07-21 10:37 | Outpatient (AMB) | payer MEDICARE, MEDICAID, SELFPAY ==
--- NOTE | 2024-07-21 10:53 | A.OFFPC_ITS ---
Vital Signs 07/21/24 10:57 Height 5 ft 1 in Weight 190 lb BMI 35.9 BP 118/72 Blood Pressure Location Lt brachial Position Sitting Intake Visit Reasons: follow up Walk in 06/30 Roller Turner Required: No Accompanied by: Staff Allergies No Known Allergies Allergy (Verified 07/21/24 11:09) Medication List - Last Reconciled 07/21/24 by Carolyn Goodwin MD acetaminophen 500 mg PO Q6H PRN 30 days chlorpromazine 100 mg PO QID clonazepam 1 mg PO TID PRN clotrimazole-betamethasone 1-0.05 % 1 appl topical BID PRN divalproex ER 500 mg PO DAILY levonorgestrel-ethinyl estrad 0.15 mg-30 mcg (91) (Jolessa) 1 tab PO DAILY melatonin 6 mg PO BEDTIME PRN melatonin 3 mg PO BEDTIME PRN metformin ER 750 mg PO BID ondansetron 8 mg PO Q8H PRN 30 days polymyxin B sulf-trimethoprim 10,000 unit- 1 mg/mL 1 drp ophthalmic (eye) TID 7 days sertraline mg PO Tobacco use date assessed: 05/06/24 Dental Screening Dental Screen Date: 05/06/24 HPI HPI Comments History of Present Illness Details The patient is a 24-year-old female presenting for evaluation of back pain and to follow up on previous nausea and vomiting episodes. Her back pain has progressively worsened during walking activities, necessitating frequent breaks due to increased discomfort. To manage the pain, she uses Tylenol on an as needed basis before engaging in physical activities. Previously, the patient experienced episodes of nausea and vomiting noted on a visit to a walk-in clinic on June 30. She was prescribed medications including chlorpromazine to manage these symptoms, and since taking the prescribed medication, she has not reported further episodes of nausea or vomiting. The effectiveness of these treatments suggests a resolution of her acute gastrointestinal symptoms, while her ongoing issue currently is managing the back pain effectively. She also has anxiety that is follow by Psychiatry and stable with benzodiazepines. She has intellectual disability and is accompanied by staff member today as always. [facility] Medical History (Updated 07/21/24 @ 11:50 by Carolyn Goodwin MD) Nausea and vomiting in adult Cellulitis of toe of left foot Vaginal irritation Trauma of toe of left foot Oppositional defiant disorder Intellectual disability Obsessive compulsive disorder Anxiety Surgical History No pertinent past surgical history Family History Mother No problems noted. Father No problems noted. Social History Housing: House Housing Other:: Intermediate Alcohol intake: never Patient Tobacco Use Status: Never used Tobacco e-Cigarette/Vaping Use: Never Used Second Hand Smoke Exposure: No service: No Current occupational status: disabled Gender identity: Female Cognitive needs: Yes Hearing needs: No Vision needs: No Questionnaire Thrive Questionnaire Date Thrive assessed: 05/06/24 JO-7 AMB Questionnaire JO-7 Date JO - 7 assessed: 05/06/24 Source: Developed by Drs. Gilbert Hunter, Jina Healy, Slim Gallardo and colleagues, with an educational edie from [employer]. Review of Systems Const All systems reviewed & are unremarkable except as noted in HPI and below Card Denies chest pain at rest, Denies chest pain with activity, Denies edema, Denies irregular heart rhythm, Denies claudication, Denies dyspnea, Denies dyspnea on exertion, Denies orthopnea, Denies paroxysmal nocturnal dyspnea and Denies slow heart rate Resp Denies cough, Denies dyspnea and Denies dyspnea on exertion GI Denies abdominal pain, Denies change in bowel habits, Denies excessive flatus, Denies nausea and Denies vomiting Musc Reports back pain Physical exam (Primary Care) Vital Signs: Last Vital Signs BP 118/72 07/21/24 10:57 BMI result Body Mass Index 35.9 Tobacco/Smoking Status: Tobacco use Status Tobacco use date assessed 05/06/24 07/21/24 10:56 Patient Tobacco Use Status Never used Tobacco 07/21/24 10:56 e-Cigarette/Vaping Use Never Used 07/21/24 10:56 Thrive Assessment: Date of Thrive Assessment Date Thrive assessed 05/06/24 07/21/24 10:56 Resp Effort & Inspection: normal respiratory effort Auscultation: clear to auscultation bilaterally Cardio Jugular venous distension: no JVD Rate: regular rate Rhythm: regular rhythm Heart sounds: S1 normal heart sound present and S2 normal heart sound present Extrem General: Yes full ROM Coding Level of Care Code Est Pt Level 4 (31643) Complex EM visit Add On G2211 Diagnoses Nausea and vomiting in adult R11.2 Breast pain N64.4 Thoracic spine pain M54.6 Anxiety F41.9 Time Spent (min) 21 Assessment & Plan Assessment & Plan (1) Nausea and vomiting in adult: Code(s): R11.2 - Nausea with vomiting, unspecified Category: Medical (2) Breast pain: Code(s): N64.4 - Mastodynia Category: Medical (3) Thoracic spine pain: Code(s): M54.6 - Pain in thoracic spine Category: Medical (4) Anxiety: Code(s): F41.9 - Anxiety disorder, unspecified Category: Medical Plan The patient will continue using Tylenol before walks to address her back pain and evaluate its effectiveness to maintain activity levels. She will maintain her current medications for resolved nausea and vomiting symptoms, including chlorpromazine and clonazepam, reflecting their success thus far. Further documentation on the use of Tylenol will help determine any future needs. There are no new prescriptions; current medication adherence is encouraged, with adjustments based on symptomatic assessments. Patient was informed and verbally consented to the use of an ambient scribe for clinic note documentation during this visit. During the visit, we discussed the continuation of current medication regimens, including Tylenol use for back pain associated with physical activity. The successful resolution of nausea and vomiting with existing prescriptions was noted, and the patient will continue these as directed. We discussed that should the back pain not improve with the current plan, further investigations or management adjustments may be considered. I provided reassurance about the current regimen's effectiveness and encouraged patient participation in monitoring symptom changes and medication effects. Patient Instructions: - Continue taking Tylenol as needed before engaging in physical activities to manage back pain. - Maintain current medication regimen for nausea and vomiting as previously prescribed. - Monitor any changes in symptoms and document the frequency of Tylenol use for back pain. - Seek medical attention if there are changes in symptoms or if current management becomes ineffective.
[2024-07-21 10:57] VITALS: BP 118/72; BMI 35.9
--- OUTSIDE RECORDS SUMMARY | 2024-07-21 11:58 | XMS_ITS ---
Author Name [facility] Organization Unknown Care Team Organization Name Specialty Phone Email Start Date End [facility]
--- OUTSIDE RECORDS SUMMARY | 2024-07-21 11:58 | XMS_ITS | Clinical Summary ---
Author Organization [facility] it Address [address] [place] [address] Care Team Providers Care Cardiology Rn Name Role Phone Unavailable Primary Care Provider [...]
== END 2024-07-21 11:21 | disposition home or self-care (01) ==
LOC: HO.HMCH 10:38
PROVIDERS: PCP Internal Medicine; Visit Provider Internal Medicine
DX: R11.2 Nausea with vomiting, unspecified (principal); N64.4 Mastodynia; M54.6 Pain in thoracic spine; F41.9 Anxiety disorder, unspecified

== ENCOUNTER → 2024-07-21 10:37 | Outpatient (BNVA) | payer MEDICARE, MEDICAID, SELFPAY | PROVIDERS: PCP Internal Medicine; Visit Provider Internal Medicine | DX: M54.6 Pain in thoracic spine (principal); N64.4 Mastodynia; R11.2 Nausea with vomiting, unspecified; F41.9 Anxiety disorder, unspecified | CPT/HCPCS: 99212 ==

== ENCOUNTER 2024-08-23 08:05 | Emergency (ER) | payer MEDICARE, MEDICAID, SELFPAY ==
[2024-08-23 08:18] VITALS: BP 155/78; PULSE 112; RESP 18; TEMP 36.3; O2SAT 95; BMI 32.9
--- NOTE | 2024-08-23 08:18 | ED.PSYCH ---
HPI - Psych General Chief Complaint: Psychiatric Symptoms Stated Complaint: +HI/-SI,FROM [facility] IS TRIGGERING FOR PT Time Seen by Provider: 08/23/24 08:16 Source: patient and EMS Mode of arrival: EMS History of Present Illness HPI Narrative: This is a 24 years old female [facility] brought in because SI and HI. The patient has history of development disorder she has a history of OCD , destructive behavior. Pt is stating I am upset denies SI and HI to me MD complaint: suicidal ideation Onset (ago): hour(s) (5) Duration: constant History of same: Yes Relieving factors: none Exacerbating factors: none Associated psychiatric symptoms: suicidal ideation and homicidal ideation Associated symptoms: denies other symptoms Related Data Home Medications ?Medication ?Instructions ?Recorded ?Confirmed melatonin 3 mg tablet 6 mg PO BEDTIME PRN Sleep 12/03/20 07/21/24 clonazepam 1 mg tablet 1 mg PO TID PRN Anxiety 09/21/22 07/21/24 chlorpromazine 100 mg tablet 100 mg PO QID 11/15/22 07/21/24 divalproex 500 mg tablet,extended 500 mg PO DAILY 11/15/23 07/21/24 release 24 hr melatonin 3 mg capsule 3 mg PO BEDTIME PRN 11/15/23 07/21/24 sertraline 100 mg tablet mg PO 11/15/23 07/21/24 Previous Rx's ?Medication ?Instructions ?Recorded acetaminophen 500 mg tablet 500 mg PO Q6H PRN fever or pain 30 12/29/22 days #120 tabs polymyxin B sulfate 10,000 1 drp ophthalmic (eye) TID 7 days 05/03/23 unit-trimethoprim 1 mg/mL eye drops #10 mL clotrimazole-betamethasone 1 1 appl topical BID PRN rash #45 05/16/23 %-0.05 % topical cream grams levonorgestrel 0.15 mg-ethinyl 1 tab PO DAILY #91 ea 10/03/23 estradiol 30 mcg tablets,3 mos pack(91) (Haroldo) ondansetron 8 mg disintegrating 8 mg PO Q8H PRN nausea and 07/04/24 tablet vomiting 30 days #90 tabs metformin 750 mg tablet,extended 750 mg PO BID #180 tabs 08/13/24 release 24 hr Allergies Allergy/AdvReac Type Severity Reaction Status Date / Time No Known Allergies Allergy Verified 08/23/24 08:20 Review of Systems Constitutional: Constitutional: Reports no additional constitutional complaints ENT: Reports system reviewed and no additional complaints, except as documented Psychiatric: Psychiatric: Reports as per [facility] Past Medical History Attestation statement: The following information was validated with the patient. Medical History Nausea and vomiting in adult Cellulitis of toe of left foot Vaginal irritation Trauma of toe of left foot Oppositional defiant disorder Intellectual disability Obsessive compulsive disorder Anxiety Surgical History No pertinent past surgical history Family History Family History Mother No problems noted. Father No problems noted. Social History Social History Housing: House Housing Other:: Correction Alcohol intake: never Patient Tobacco Use Status: Never used Tobacco e-Cigarette/Vaping Use: Never Used Second Hand Smoke Exposure: No Advance Directives: No Advance Directives Information Provided: No Do you have a plan to hurt others: No Plan Patient : No service: No Current occupational status: disabled Gender identity: Female Cognitive needs: Yes Hearing needs: No Vision needs: No Physical Exam Vital Signs: Vital Signs: Last Vital Signs Temp 97.4 F 08/23/24 08:18 Pulse 112 H 08/23/24 08:18 Resp 16 08/23/24 08:21 BP 155/78 H 08/23/24 08:18 Pulse Ox 95 08/23/24 08:18 O2 Del Method Room Air 08/23/24 08:18 BMI result Body Mass Index 32.9 No acute distress comfortable in the stretcher Const: General: cooperative Nutritional Appearance: average body habitus Orientation/consciousness: patient oriented x3 HEENT: Head: Yes normal to inspection General nose exam: Normal external nose present Face and sinus: Yes normal facial exam Throat: Yes posterior oropharynx normal Neck: Neck: Yes normal visual inspection Chest: Chest palpation & inspection: normal inspection of the chest Resp: Effort & Inspection: normal respiratory effort Auscultation: clear to auscultation bilaterally Cardio: Jugular venous distension: no JVD Rate: regular rate Rhythm: regular rhythm GI: Inspection: Yes normal to inspection Palpation (GI): Soft to palpation, not firm, nontender and no guarding Auscultation: normal bowel sounds Neuro: General: patient oriented x3 Cranial nerves: Yes CN's II-XII intact bilaterally Course Reevaluation(s) Reevaluation #1: Seen by crisis cleared for discharge Time: 13:13 Medical Decision Making Medical Decision Making [facility] Narrative: Patient is here complaining of sided SI and HI patient is known to this emergency department. We will get crisis evaluation Differential Diagnosis Differential Diagnoses: The differential diagnosis associated with the presentation includes Admission/Observation Consideration of admission/observation: Escalation of care including admission/observation considered Consult Healthcare Provider Management of the patient was discussed with: Behavioral Health Provider crisis team Chronic Conditions Patient?s care impacted by: Other (ocd/intellectual disability) Discharge Plan Discharge Clinical Impression: Depression Qualifiers: Depression Type: major depressive disorder Major depression recurrence: recurrent Active/Remission status: currently active Major depression episode severity: moderate Qualified Code(s): F33.1 - Major depressive disorder, recurrent, moderate Patient Disposition: Home, Self-Care Instructions: Depression (ED) Additional Instructions: Follow-up with your primary care physician return if worse Prescriptions: No Action acetaminophen 500 mg tablet 500 mg PO Q6H PRN (Reason: fever or pain) 30 Days Qty: 120 6RF clotrimazole-betamethasone 1-0.05 % cream 1 appl topical BID PRN (Reason: rash) Qty: 45 1RF ondansetron 8 mg tablet,disintegrating 8 mg PO Q8H PRN (Reason: nausea and vomiting) 30 Days Qty: 90 0RF metformin 750 mg tablet extended release 24 hr 750 mg PO BID Qty: 180 12RF melatonin 3 mg Tablet 6 mg PO BEDTIME PRN (Reason: Sleep) clonazepam 1 mg tablet 1 mg PO TID PRN (Reason: Anxiety) chlorpromazine 100 mg tablet 100 mg PO QID polymyxin B sulf-trimethoprim 10,000 unit- 1 mg/mL drops 1 drp ophthalmic (eye) TID 7 Days Qty: 10 0RF Rx Instructions: while awake; do not exceed 6 doses in 24 hours melatonin 3 mg capsule 3 mg PO BEDTIME PRN sertraline 100 mg tablet PO divalproex 500 mg tablet extended release 24 hr 500 mg PO DAILY levonorgestrel-ethinyl estrad [Jolessa] 0.15 mg-30 mcg (91) tablets,dose pack,3 month 1 tab PO DAILY Qty: 91 4RF Referrals: Carolyn Umanzor MD [Primary Care Provider] - 3 days Interventions: [place]-Suicide Risk Severity Scale Last Done: 08/23/24 08:22 Print Language: Cameroonian
[2024-08-23 08:21] VITALS: RESP 16
--- OUTSIDE RECORDS SUMMARY | 2024-08-23 08:53 | XMS_ITS | Clinical Summary ---
Author Organization [facility] it Address [address] [place] [address] Care Team Providers Care Key Bed Installer Name Role Phone Unavailable Primary Care Provider [...] Vaccine (2023-2 5 season) 2023 Influenza Vaccine (Season Ended) 2024 HIB Vaccines Aged Out No longer eligi [...] age to complete this topic Meningococcal B Vaccine Aged Out No l onger eligible based on patient's age to complete [...]
--- NOTE | 2024-08-23 10:18 | PC.NURSE ---
pts [facility] staff member agitating pt. [facility] staff member escorted back to waiting room, will wait here for further plan at this time
--- NOTE | 2024-08-23 10:21 | MHC.CARE ---
CARE team assessment completed, pt is cleared for discharge back to her long term. Pt became agitated during the assessment so discharge will be pushed back to allow for her to de-escalate and improve the likelihood of a successful discharge. nursing home, pt's mother, ER attending, and RN are aware of and in agreement with the plan of care.
--- NOTE | 2024-08-23 12:58 | PC.NURSE ---
pt calm and cooperative, watching TV in common area asking to go home
[2024-08-23 13:43] VITALS: BP 129/96; PULSE 100; RESP 16; TEMP 36.7; O2SAT 99
== END 2024-08-23 13:47 | disposition home or self-care (01) ==
PROVIDERS: Emergency Provider Emergency Medicine; PCP Internal Medicine
DX: F33.1 Major depressive disorder, recurrent, moderate (principal); R45.851 Suicidal ideations; R45.850 Homicidal ideations; F91.3 Oppositional defiant disorder; F79 Unspecified intellectual disabilities; Z79.899 Other long term (current) drug therapy
CPT/HCPCS: 99284; S9485

== ENCOUNTER 2024-08-26 03:43 | Emergency (ER) | payer MEDICARE, MEDICAID, SELFPAY ==
[2024-08-26 03:54] VITALS: BP 118/73; BP 130/82; PULSE 100; PULSE 93; RESP 20; TEMP 36.2; O2SAT 100; O2SAT 94; BMI 35.6
--- NOTE | 2024-08-26 05:47 | PC.NURSE ---
pt calm, talking/singing to self in room. pt within view of nurses station. waiting to be seen by provider at this time. requesting snack and deb gabriela. plan of care ongoing.
[2024-08-26 06:15] VITALS: BP 105/58; PULSE 88; RESP 16; O2SAT 92
--- NOTE | 2024-08-26 08:04 | ED_ITS ---
HPI - General Adult General Chief complaint: General Medical Stated complaint: AGITATED PER ALF Time Seen by Provider: 08/26/24 07:04 History of Present Illness HPI narrative: Patient is a 24-year-old female from a nursing home. Arrived after patient had a ?? rough night. Patient broke a window. Currently denies any suicidal homicidal ideation. Baseline mentally challenged lives in a nursing home. Patient has no specific complaints. Related Data Home Medications ?Medication ?Instructions ?Recorded ?Confirmed melatonin 3 mg tablet 6 mg PO BEDTIME PRN Sleep 12/03/20 08/26/24 clonazepam 1 mg tablet 1 mg PO BEDTIME Anxiety 09/21/22 08/26/24 chlorpromazine 100 mg tablet 100 mg PO QID 11/15/22 08/26/24 divalproex 500 mg tablet,extended 500 mg PO DAILY 11/15/23 08/26/24 release 24 hr clonazepam 1 mg tablet (Klonopin) 1 mg PO DAILY PRN Anxiety 08/26/24 08/26/24 guanfacine 4 mg tablet,extended 4 mg PO DAILY 08/26/24 08/26/24 release 24 hr sertraline 100 mg tablet 150 mg PO DAILY 08/26/24 08/26/24 Previous Rx's ?Medication ?Instructions ?Recorded levonorgestrel 0.15 mg-ethinyl 1 tab PO DAILY #91 ea 10/03/23 estradiol 30 mcg tablets,3 mos pack(91) (Haroldo) ondansetron 8 mg disintegrating 8 mg PO Q8H PRN nausea and 07/04/24 tablet vomiting 30 days #90 tabs metformin 750 mg tablet,extended 750 mg PO BID #180 tabs 08/13/24 release 24 hr Allergies Allergy/AdvReac Type Severity Reaction Status Date / Time No Known Allergies Allergy Verified 08/26/24 03:56 Review of Systems Review of Systems: No fever no chills no complaints Yes all other systems are reviewed and are negative PMFSH Past Medical History Attestation statement: The following information was validated with the patient. Medical History Nausea and vomiting in adult Cellulitis of toe of left foot Vaginal irritation Trauma of toe of left foot Oppositional defiant disorder Intellectual disability Obsessive compulsive disorder Anxiety Surgical History No pertinent past surgical history Family History Family History Mother No problems noted. Father No problems noted. Social History Social History Housing: House Housing Other:: Assisted Alcohol intake: never Patient Tobacco Use Status: Never used Tobacco Smoked in Last 30 Days: No e-Cigarette/Vaping Use: Never Used Second Hand Smoke Exposure: No Use of substances other than those prescribed or required for medical reasons: No Advance Directives: Yes Advance Directives Information Provided: Yes Advance Directives on File: No service: No Current occupational status: disabled Gender identity: Female Cognitive needs: Yes Hearing needs: No Vision needs: No Physical Exam ED Vital Signs: Vital Signs - 24 hr 08/26/24 03:54 08/26/24 06:15 08/26/24 14:20 Temperature 97.2 F 97.9 F Pulse Rate 100 88 95 Respiratory Rate 20 16 20 Blood Pressure 118/73 105/58 L 173/96 H Pulse Oximetry 94 92 100 Oxygen Delivery Method Room Air Room Air Room Air BMI result Body Mass Index 35.6 Appearance: Alert. Oriented X3. No acute distress. Eyes: Pupils equal, round and reactive to light. ENT: Pharynx normal. Neck: Normal inspection. Neck supple. No lymph nodes noted. No crepitus CVS: Normal heart rate and rhythm. Pulses normal. Normal S1 and S2 Respiratory: No respiratory distress. Breath sounds normal. No Wheezing. No rales Abdomen: Soft and nontender. No rigidity. No distention. good BS x4 Skin: Skin warm and dry. Normal skin color. Normal skin turgor. Extremities: No lower extremity edema. Neurovascular intact to all extremities. No Lacerations. No Rash Neuro: Oriented X 3. No motor deficit. No sensory deficit. Moving all extermities. No slurred speech Medications Administered Generic Name Dose Route Start Last Admin Trade Name Freq PRN Reason Stop Dose Admin Chlorpromazine HCl 100 mg 08/26/24 13:00 08/26/24 12:39 Chlorpromazine Hcl 100 Mg Tablet PO 100 mg QID SHANI Administration Clonazepam 1 mg 08/26/24 11:52 08/26/24 12:40 Clonazepam 1 Mg Tablet PO 1 mg DAILY PRN Administration Anxiety Divalproex Sodium 500 mg 08/26/24 12:00 08/26/24 12:40 Divalproex Sodium Er 500 Mg Tab.Er.24h PO 500 mg DAILY SHANI Administration Guanfacine HCl 4 mg 08/26/24 12:00 08/26/24 12:40 Guanfacine Hcl Er 2 Mg Tab.Er.24h PO 4 mg DAILY SHANI Administration Metformin HCl 750 mg 08/26/24 12:00 08/26/24 12:40 Metformin Hcl Er 750 Mg Tab.Er.24h PO 750 mg BIDWM SHANI Administration Sertraline HCl 150 mg 08/26/24 12:30 08/26/24 12:40 Sertraline Hcl 50 Mg Tablet PO 150 mg DAILY SHANI Administration Medical Decision Making Medical Decision Making [facility] Narrative: Patient extremely agitated earlier. Trying to break a window has a history of having violent behavior. Was sent in for further evaluation. Patient denies any suicidal homicidal ideation care team is involved. Patient to be re- evaluated in the morning. Differential Diagnosis Differential Diagnoses: The differential diagnosis associated with the presentation includes Anxiety, mood disorder, Admission/Observation Consideration of admission/observation: Escalation of care including admission/observation considered Consult Healthcare Provider Management of the patient was discussed with: [facility] (Care team) Lab Data [facility] Lab Attestation statement: I reviewed the patient's lab results. External Record Review External record reviewed: Outpatient record Chronic Conditions History of anxiety history of adjustment disorder history of oppositional defiant disorder Social Determinants Patient?s care significantly limited by Social Determinants of Health including: Problems related to primary support group Discharge Plan Discharge Clinical Impression: Oppositional defiant disorder, severe, Intellectual disability, Anxiety Prescriptions: No Action ondansetron 8 mg tablet,disintegrating 8 mg PO Q8H PRN (Reason: nausea and vomiting) 30 Days Qty: 90 0RF metformin 750 mg tablet extended release 24 hr 750 mg PO BID Qty: 180 12RF melatonin 3 mg Tablet 6 mg PO BEDTIME PRN (Reason: Sleep) clonazepam 1 mg tablet 1 mg PO BEDTIME clonazepam [Klonopin] 1 mg Tablet 1 mg PO DAILY PRN (Reason: Anxiety) guanfacine 4 mg tablet extended release 24 hr 4 mg PO DAILY sertraline 100 mg Tablet 150 mg PO DAILY chlorpromazine 100 mg tablet 100 mg PO QID divalproex 500 mg tablet extended release 24 hr 500 mg PO DAILY levonorgestrel-ethinyl estrad [Jolessa] 0.15 mg-30 mcg (91) tablets,dose pack,3 month 1 tab PO DAILY Qty: 91 4RF Print Language: Lao
--- OUTSIDE RECORDS SUMMARY | 2024-08-26 08:06 | XMS_ITS | Clinical Summary ---
Author Organization [facility] it Address [address] [place] [address] Care Team Providers Care Target Network Analyst Name Role Phone Unavailable Primary Care Provider [...]
--- NOTE | 2024-08-26 12:14 | PHA.MEDREC ---
Pharmacy Consult ? Medication Reconciliation RNhas completed the medication reconciliation, pharmacy reviewed. .
[2024-08-26] MEDS: chlorproMAZINE HCl 100 MG TABLET PO ×3 (12:39→21:07)
[2024-08-26] MEDS: clonazePAM 1 MG TABLET PO ×2 (12:40→21:07)
[2024-08-26] MEDS: Divalproex Sodium ER 500 MG TAB.ER.24H PO (12:40)
[2024-08-26] MEDS: guanFACINE HCl ER 2 MG TAB.ER.24H 4 MG PO (12:40)
[2024-08-26] MEDS: metFORMIN HCl ER 750 MG TAB.ER.24H PO ×2 (12:40→17:53)
[2024-08-26] MEDS: Sertraline HCL 50 MG TABLET 150 MG PO (12:40)
--- NOTE | 2024-08-26 13:33 | PC.NURSE ---
Patient is a 24-year-old female with developmental disorder who has been in and out of the emergency room for some disruptive behavior, [facility]. PMH: anxiety, intellectual disability, OCD and ODD. Patient alert. Respirations even and non-labored. Abdomen large, soft, non-tender with positive bowel sounds. longterm staff at the bedside.
[2024-08-26 14:20] VITALS: BP 173/96; PULSE 95; RESP 20; TEMP 36.6; O2SAT 100
--- NOTE | 2024-08-26 16:40 | MHC.CARE ---
Patient evaluated by the CARE Team, she does not require an inpatient psychiatric admission, however, a safe discharge plan could not be made today. CARE Team will arrange discharge in the morning.ED provider Dr. Melgoza updated
[2024-08-26 19:35] VITALS: BP 124/85; PULSE 96; RESP 16; TEMP 36.7; O2SAT 96
[2024-08-26 22:19] VITALS: BP 135/92; PULSE 84; RESP 14; TEMP 36.7; O2SAT 94
--- NOTE | 2024-08-27 00:05 | PC.NURSE ---
This lyric writer assumed care of this Pt at 2300. Pt A&Ox3, declines giving urine sample states she is on her menses. correction staff at bedside. Pt ambulated independently to with steady gait.
[2024-08-27] MEDS: clonazePAM 1 MG TABLET PO ×2 (00:30→11:47)
[2024-08-27 03:27] VITALS: RESP 16
[2024-08-27] MEDS: Sertraline HCL 50 MG TABLET 150 MG PO (07:59)
[2024-08-27] MEDS: chlorproMAZINE HCl 100 MG TABLET PO (07:59)
[2024-08-27] MEDS: Divalproex Sodium ER 500 MG TAB.ER.24H PO (07:59)
[2024-08-27 08:06] LABS: Creatinine Clr Calc Pharmacy 122.1; Estimated Glomerular Filt Rate > 60
== END 2024-08-27 13:44 | disposition home or self-care (01) ==
PROVIDERS: Emergency Provider Emergency Medicine Emergency Medical Services; PCP Internal Medicine
DX: F91.3 Oppositional defiant disorder (principal); F79 Unspecified intellectual disabilities; F41.9 Anxiety disorder, unspecified; R45.1 Restlessness and agitation; F43.25 Adjustment disorder with mixed disturbance of emotions and conduct; Z79.899 Other long term (current) drug therapy
CPT/HCPCS: 36415; 82565; 99284; S9485

== ENCOUNTER 2024-09-05 09:51 | Outpatient (AMB) | payer MEDICARE, MEDICAID, SELFPAY ==
--- NOTE | 2024-09-05 09:53 | MHC.PC.OV ---
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 She was admitted at [facility] on 08/26/24 for an evaluation of Agitated behavior PER PENITENTI[facility] staff. Patient broke a window. Currently denies any suicidal homicidal ideation. Baseline mentally challenged lives in a senior care. Patient has no specific complaints today. [facility] Medical History (Updated 09/05/24 @ 10:24 by Karishma Turk NP) Nausea and vomiting in adult Cellulitis of toe of left foot Vaginal irritation Trauma of toe of left foot Oppositional defiant disorder Intellectual disability Obsessive compulsive disorder Anxiety Surgical History No pertinent past surgical history Family History Mother No problems noted. Father No problems noted. Social History Housing: House Housing Other:: Skilled Nursing Alcohol intake: never Patient Tobacco Use Status: Never used Tobacco e-Cigarette/Vaping Use: Never Used Second Hand Smoke Exposure: No service: No Current occupational status: disabled Gender identity: Female Cognitive needs: Yes Hearing needs: No Vision needs: No Questionnaire PHQ-9 Over the last 2 weeks, how often have you been bothered by any of the following problems? 1. Little interest or pleasure in doing things: not at all 2. Feeling down, depressed, or hopeless: several days 3. Trouble falling or staying asleep, or sleeping too much: several days 4. Feeling tired or having little energy: several days 5. Poor appetite or overeating: several days 6. Feeling bad about yourself - or that you are a failure or have let yourself or your family down: not at all 7. Trouble concentrating on things, such as reading the newspaper or watching television: not at all 8. Moving or speaking so slowly that other people could have noticed. Or the opposite - being so fidgety or restless that you have been moving around a lot more than usual: more than half the days 9. Thoughts that you would be better off or of hurting yourself in some way: not at all Total score: 6 Source: Developed by Drs. Gilbert Hunter, Jina Healy, Slim Gallardo and colleagues, with an educational edie from [employer]. Thrive Questionnaire Date Thrive assessed: 09/05/24 I am a: Patient What is your living situation today?: I have a steady place to live Within the past 12 months, did the food you bought not last and you didn't have the money to get more?: Sometimes True Within the past 12 months, did you worry whether your food would run out before you got money to buy more?: Never true Do you have trouble paying for medicines?: No Do you have trouble getting transportation to medical appointments?: No Do you have trouble paying your heating and electricity bill?: No Do you have trouble taking care of your child, family member or friend?: No Do you have trouble with day-to-day activities such as bathing, preparing meals, shopping, managing finances, etc.?: No Are you currently unemployed and looking for a job?: No Are you interested in more education?: No Please select the resources that you would like help with: None Currently or been in a relationship where the following occur: No concerns reported and I choose not to answer THRIVE Score: 1 AUDIT C Alcohol Use Questionnaire (AUDIT-C) 1. How often do you have a drink containing alcohol?: Never 3. How often do you have six or more drinks on one occasion?: Never Total Score: 0 JO-7 AMB Questionnaire JO-7 Date JO - 7 assessed: 09/05/24 Feeling nervous, anxious, or on edge: 0 = Not at all Not being able to stop or control worryin = Several days Worrying too much about different things: 1 = Several days Trouble relaxin = Several days Being so restless that it is hard to sit still: 1 = Several days Becoming easily annoyed or irritable: 1 = Several days Feeling afraid as if something awful might happen: 1 = Several days Total JO-7 score (0-4 normal; 5-9 mild; 10-14 moderate; 15-21 severe): 6 Source: Developed by Drs. Gilbert Hunter, Jina Healy, Slim Gallardo and colleagues, with an educational edie from [employer]. Review of Systems Const All systems reviewed & are unremarkable except as noted in HPI and below Physical exam (Primary Care) Vital Signs: Last Vital Signs Pulse 74 09/05/24 09:54 BP 120/76 09/05/24 09:54 Pulse Ox 93 09/05/24 09:54 Oxygen Delivery Method Room Air 09/05/24 09:54 BMI result Body Mass Index 34.6 Tobacco/Smoking Status: Tobacco use Status Tobacco use date assessed 09/05/24 09/05/24 09:59 Patient Tobacco Use Status Never used Tobacco 09/05/24 09:59 e-Cigarette/Vaping Use Never Used 09/05/24 09:59 PHQ-9: PHQ-9 Score PHQ-9: Total score 6 09/05/24 09:59 Thrive Assessment: Date of Thrive Assessment Date Thrive assessed 09/05/24 09/05/24 09:59 Currently or been in a relationship where the following occur: No concerns reported and I choose not to answer Const General: no acute distress Nutritional Appearance: overweight Resp Effort & Inspection: normal respiratory effort Cardio Heart sounds: S1 normal heart sound present and S2 normal heart sound present Neuro General: gait normal and moves all extremities Psych Speech and movement: Clear speech present Coding Level of Care Code Est Pt Level 4 (43351) Diagnoses Intellectual disability F79 Time Spent (min) 20 Assessment & Plan Assessment & Plan (1) Intellectual disability: Code(s): F79 - Unspecified intellectual disabilities Category: Medical Plan: Stable.
[2024-09-05 09:54] VITALS: BP 120/76; PULSE 74; O2SAT 93; BMI 34.6
--- OUTSIDE RECORDS SUMMARY | 2024-09-05 10:08 | XMS_ITS | Clinical Summary ---
Author Organization [facility] it Address [address] [place] [address] Care Team Providers Care Circuit Design Engineer Name Role Phone Unavailable Primary Care Provider [...]
== END 2024-09-05 10:14 | disposition home or self-care (01) ==
LOC: HO.HMCH 09:52
PROVIDERS: PCP Internal Medicine; Visit Provider Nurse Practitioner Family
DX: F79 Unspecified intellectual disabilities (principal)

== ENCOUNTER → 2024-09-05 09:51 | Outpatient (BNVA) | payer MEDICARE, MEDICAID, SELFPAY | PROVIDERS: PCP Internal Medicine; Visit Provider Nurse Practitioner Family | DX: F79 Unspecified intellectual disabilities (principal) | CPT/HCPCS: 99212 ==

== ENCOUNTER 2024-09-17 11:12 | Outpatient (REF) | payer MEDICARE, MEDICAID, SELFPAY ==
[2024-09-17 11:44] LABS: Ammonia 45 umol/L (13-55)
[2024-09-17 12:33] LABS: Valproate 38.8 mcg/mL (50.0-100.0)
[2024-09-17 12:37] LABS: Alanine Aminotransferase 35 U/L (0-31); Albumin Level 4.1 g/dL (3.5-5.0); Alkaline Phosphatase 54 U/L (39-117); Aspartate Amino Transferase 30 U/L (5-31); Bilirubin Direct 0.2 mg/dL (0.0-0.5); Bilirubin Total 0.4 mg/dL (0.0-1.0); Total Protein 7.5 g/dL (6.5-8.0)
== END 2024-09-17 11:13 | disposition home or self-care (01) ==
LOC: HO.LAB 11:12
PROVIDERS: PCP Internal Medicine; Visit Provider General Practice
DX: Z79.899 Other long term (current) drug therapy (principal)
CPT/HCPCS: 36415; 80076; 80164; 82140

== ENCOUNTER 2024-09-18 09:56 | Outpatient (REF) | payer MEDICARE, MEDICAID, SELFPAY ==
--- NOTE | ~2024-09-18 | XR_ITS ---
EXAMINATION: XR CHEST CLINICAL INFORMATION: R05.9 - Cough, unspecified COMPARISON: 10/20/20. TECHNIQUE: 2 views of the chest were obtained. FINDINGS: The cardiac, hilar, and mediastinal contours are normal. The lungs are clear bilaterally. There is no pneumothorax or pleural effusion. There is no focal osseous or soft tissue abnormality. XR/XR chest 2V IMPRESSION: No active pulmonary disease. Electronically signed by: Adrian Spring MD 09/18/2024 11:18 AM EDT
[2024-09-18 11:52] LABS: Influenza A PCR NEGATIVE (Negative); Influenza B PCR NEGATIVE (Negative); Resp Syncy Virus RNA Qual PCR NEGATIVE (Negative); SARS COV2 PCR INHOUSE NEGATIVE (Negative)
== END 2024-09-18 09:57 | disposition home or self-care (01) ==
LOC: HO.LAB 09:56
PROVIDERS: PCP Internal Medicine; Visit Provider Physician Assistant Medical
DX: J06.9 Acute upper respiratory infection, unspecified (principal); R05.9 Cough, unspecified; R09.89 Other specified symptoms and signs involving the circulatory and respiratory systems; F91.3 Oppositional defiant disorder
CPT/HCPCS: 0241U; 71046; 99212

== ENCOUNTER 2024-09-18 09:56 | Outpatient (AMB) | payer MEDICARE, MEDICAID, SELFPAY ==
--- NOTE | 2024-09-18 10:09 | MHC.PC.OV ---
Vital Signs 09/18/24 10:15 Height 5 ft 2 in Weight 189 lb 4 oz BMI 34.6 BP 92/64 Blood Pressure Location Lt brachial Position Sitting Pulse 92 Pulse Source Pulse Oximeter Temp 97.1 F Temp Source Temporal Artery Scan Pulse Oximetry (%) 95 Oxygen Delivery Method Room Air Intake Visit Reasons: cough/cold It Analyst Required: No Accompanied by: Program Allergies No Known Allergies Allergy (Verified 09/18/24 10:36) Medication List - Last Reconciled 09/18/24 by Alisson Bryant PA-C amoxicillin 500 mg PO BID 7 days chlorpromazine 100 mg PO QID clonazepam 1 mg PO BEDTIME clonazepam (Klonopin) 1 mg PO DAILY PRN divalproex ER 500 mg PO DAILY docusate sodium (Colace) 100 mg PO BID PRN 30 days guanfacine ER 4 mg PO DAILY levonorgestrel-ethinyl estrad 0.15 mg-30 mcg (91) (Jolessa) 1 tab PO DAILY melatonin 6 mg PO BEDTIME PRN metformin ER 750 mg PO BID ondansetron 8 mg PO Q8H PRN 30 days sertraline 150 mg PO DAILY Tobacco use date assessed: 09/05/24 Dental Screening Dental Screen Date: 09/05/24 HPI cough/cold HPI Details The patient is a 24-year-old female with a past medical history of intellectual disability, 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 Symptoms initiated two days prior, characterized by both nasal and chest congestion. She denies experiencing fevers, gastrointestinal symptoms, or other respiratory symptoms such as sore throat. Her dietary intake remains normal, and she has not engaged in recent travel or been in contact with sick individuals. She does not participate in group activities outside of her usual environment, minimizing potential exposure to infections. Social History - Housing: She resides at a half-way. custodial staff member at bedside. - Day Programs: She attends the [facility] [facility]. [facility] Medical History Nausea and vomiting in adult Cellulitis of toe of left foot Vaginal irritation Trauma of toe of left foot Oppositional defiant disorder Intellectual disability Obsessive compulsive disorder Anxiety Surgical History No pertinent past surgical history Family History Mother No problems noted. Father No problems noted. Social History Housing: House Housing Other:: [facility] Alcohol intake: never Patient Tobacco Use Status: Never used Tobacco e-Cigarette/Vaping Use: Never Used Second Hand Smoke Exposure: No service: No Current occupational status: disabled Gender identity: Female Cognitive needs: Yes Hearing needs: No Vision needs: No Questionnaire Thrive Questionnaire Date Thrive assessed: 09/05/24 I am a: Patient What is your living situation today?: I have a steady place to live Within the past 12 months, did the food you bought not last and you didn't have the money to get more?: Sometimes True Within the past 12 months, did you worry whether your food would run out before you got money to buy more?: Never true Do you have trouble paying for medicines?: No Do you have trouble getting transportation to medical appointments?: No Do you have trouble paying your heating and electricity bill?: No Do you have trouble taking care of your child, family member or friend?: No Do you have trouble with day-to-day activities such as bathing, preparing meals, shopping, managing finances, etc.?: No Are you currently unemployed and looking for a job?: No Are you interested in more education?: No Please select the resources that you would like help with: None THRIVE Score: 1 JO-7 AMB Questionnaire JO-7 Date JO - 7 assessed: 09/05/24 Source: Developed by Drs. Gilbert Hunter, Jina Healy, Slim Gallardo and colleagues, with an educational edie from [employer]. Review of Systems Const Details: - Respiratory: Reports nasal and chest congestion, cough. - General: Denies fevers. - Gastrointestinal: Denies nausea, vomiting, diarrhea, abdominal pain. - Dermatological: Denies rashes. - Ears, Nose, Throat: Denies ear pain, sore throat. - Travel: Denies recent travel. - Contact: Denies contact with individuals known to be ill. Physical exam (Primary Care) Vital Signs: Last Vital Signs Temp 97.1 F 09/18/24 10:15 Pulse 92 09/18/24 10:15 BP 92/64 09/18/24 10:15 Pulse Ox 95 09/18/24 10:15 Oxygen Delivery Method Room Air 09/18/24 10:15 BMI result Body Mass Index 34.6 Tobacco/Smoking Status: Tobacco use Status Tobacco use date assessed 09/05/24 09/18/24 10:09 Patient Tobacco Use Status Never used Tobacco 09/18/24 10:09 e-Cigarette/Vaping Use Never Used 09/18/24 10:09 Thrive Assessment: Date of Thrive Assessment Date Thrive assessed 09/05/24 09/18/24 10:09 Const Other: Appearance: Alert. Oriented X3. No acute distress. Head: Normal external exam. Normocephalic. Atraumatic. Eyes: Pupils are equal, round, and reactive to light. Extraocular movements intact. Conjunctiva and sclera normal. Eyelids normal. No pink eye noted. Ears: External auditory canal normal. Tympanic membranes normal. Throat: Pharynx normal. Uvula midline. Moist mucous membranes. Neck: Normal inspection. Neck supple. Full range of motion. No adenopathy. Thyroid Normal. No meningeal signs. No neck mass noted. Cardiovascular: Normal heart rate and rhythm. Heart sound normal. No murmurs noted. Pulses normal throughout. Respiratory: No respiratory distress. Painless inspiration. Breath sounds normal. No wheezes/rales/rhonchi noted. Chest nontender. No accessory muscle usage noted or decreased air movement noted. Abdomen: Soft and nontender. Bowel sounds normal in all 4 quadrants. No distention noted. No organomegaly noted. No visible injury noted. Back: No costovertebral angle tenderness. Full range of motion noted. Skin: Skin warm and dry. Normal skin color. Normal skin turgor. No rashes/lesions/lacerations noted. Extremities: No lower extremity edema. Extremities exhibit normal range of motion. Extremities nontender. Neuro: Oriented X 3. No motor deficit. No sensory deficit. Reflexes normal. Coding Level of Care Code Est Pt Level 4 (05953) Diagnoses Viral upper respiratory tract infection J06.9 URI type: unspecified viral URI Assessment & Plan Assessment & Plan (1) URI (upper respiratory infection): Code(s): J06.9 - Acute upper respiratory infection, unspecified Category: Medical Qualifiers: URI type: unspecified viral URI Qualified Code(s): J06.9 - Acute upper respiratory infection, unspecified Plan: Chest congestion, cough and nasal congestion indicative of upper respiratory infection. Swabs for COVID 19, RSV, influenza have been ordered. Chest x-ray is recommended to rule out complications. Amoxicillin will be prescribed for upper respiratory infection.Supportive care and symptom monitoring are advised. Plan Plan Patient was informed and verbally consented to the use of an ambient scribe for clinic note documentation during this visit. 1. Upper Respiratory Infection Chest congestion, cough and nasal congestion indicative of upper respiratory infection. Swabs for COVID 19, RSV, influenza have been ordered. Chest x-ray is recommended to rule out complications. Amoxicillin will be prescribed for upper respiratory infection.Supportive care and symptom monitoring are advised. I discussed with the patient the diagnosis of acute bronchitis and the possibility of an upper respiratory infection. I recommended a chest x-ray to assess for any complications such as pneumonia and provided a prescription for Amoxicillin, as it does not interact with her current medications. I explained the potential side effect of diarrhea and advised the patient to report any severe symptoms. We discussed the importance of completing the antibiotic course and monitoring symptoms. I also ordered swabs for COVID-19, RSV, and influenza to rule out viral infections and advised supportive care measures. Follow-up will be based on diagnostic findings, and she should return if her symptoms worsen or do not improve. Orders: Orders Resp Pathogen Panel - [facility] Today R05.9 - Cough, unspecified SARS-CoV2/FLU/RSV Today R09.89 - Other specified symptoms and signs involving the circulatory and respiratory systems XR chest 2V Today R05.9 - Cough, unspecified Medications: New amoxicillin 500 mg PO BID 14 tabs 0RF 7 days Patient Instructions: - Take Amoxicillin twice a day for seven days. - Complete the full course of antibiotics. - Stay hydrated and rest as much as possible. - Monitor for any worsening of symptoms and report severe diarrhea. - Go for the chest x-ray and swab tests as instructed. - Follow up with results and any necessary further care. - Avoid contact with others to prevent spreading illness.
[2024-09-18 10:15] VITALS: BP 92/64; PULSE 92; TEMP 36.2; O2SAT 95; BMI 34.6
== END 2024-09-18 10:28 | disposition home or self-care (01) ==
LOC: HO.HMCH 09:57
PROVIDERS: PCP Internal Medicine; Visit Provider Physician Assistant Medical
DX: J06.9 Acute upper respiratory infection, unspecified (principal)

== ENCOUNTER → 2024-09-18 10:59 | Outpatient (BNV) | payer MEDICARE, MEDICAID, SELFPAY | PROVIDERS: PCP Internal Medicine; Visit Provider Radiology Diagnostic Radiology | DX: R05.9 Cough, unspecified (principal) | CPT/HCPCS: 71046 ==

== ENCOUNTER 2024-11-26 13:00 | Outpatient (AMB) | payer MEDICARE, MEDICAID, SELFPAY ==
[2024-11-26 13:04] VITALS: BP 124/72; BMI 34.6
--- NOTE | 2024-11-26 13:04 | MHC.PC.OV ---
Vital Signs 11/26/24 13:04 Height 5 ft 2 in Weight 189 lb BMI 34.6 BP 124/72 Blood Pressure Location Lt brachial Position Sitting Intake Visit Reasons: annual Intake Note: Patient here for an annual physical exam Analytical Clerk Required: No Accompanied by: staff Allergies No Known Allergies Allergy (Verified 11/26/24 13:16) Medication List - Last Reconciled 11/26/24 by Carolyn Goodwin MD chlorpromazine 100 mg PO QID clonazepam 1 mg PO BEDTIME clonazepam (Klonopin) 1 mg PO DAILY PRN clotrimazole 1% 1 appl topical BID PRN 4 weeks divalproex ER 500 mg PO DAILY docusate sodium (Colace) 100 mg PO BID PRN 30 days guanfacine ER 4 mg PO DAILY levonorgestrel-ethinyl estrad 0.15 mg-30 mcg (91) (Jolessa) 1 tab PO DAILY melatonin 6 mg PO BEDTIME PRN metformin ER 750 mg PO BID ondansetron 8 mg PO Q8H PRN 30 days sertraline 150 mg PO DAILY Tobacco use date assessed: 09/05/24 Dental Screening Dental Screen Date: 09/05/24 HPI HPI Comments History of Present Illness Details This is a 24-year-old female with intellectual disability that comes today accompanied by staff member where she lives for her physical exam. She said she had a fight with her mother today and took 2 pills but she does not know what she took and her mother either. It might have been Tylenol. This happened an hour ago. She has abdominal pain and feels nauseous. Abdomen is benign, her vitals are normal. She has ondansetron and she can take it as needed for nausea. [facility] Medical History (Updated 11/26/24 @ 13:38 by Carolyn Goodwin MD) Nausea and vomiting in adult Cellulitis of toe of left foot Vaginal irritation Trauma of toe of left foot Oppositional defiant disorder Intellectual disability Obsessive compulsive disorder Anxiety Surgical History No pertinent past surgical history Family History Mother No problems noted. Father No problems noted. Social History Housing: House Housing Other:: Detention Alcohol intake: never Patient Tobacco Use Status: Never used Tobacco e-Cigarette/Vaping Use: Never Used Second Hand Smoke Exposure: No service: No Current occupational status: disabled Gender identity: Female Cognitive needs: Yes Hearing needs: No Vision needs: No Questionnaire Thrive Questionnaire Date Thrive assessed: 09/05/24 I am a: Patient What is your living situation today?: I have a steady place to live Within the past 12 months, did the food you bought not last and you didn't have the money to get more?: Sometimes True Within the past 12 months, did you worry whether your food would run out before you got money to buy more?: Never true Do you have trouble paying for medicines?: No Do you have trouble getting transportation to medical appointments?: No Do you have trouble paying your heating and electricity bill?: No Do you have trouble taking care of your child, family member or friend?: No Do you have trouble with day-to-day activities such as bathing, preparing meals, shopping, managing finances, etc.?: No Are you currently unemployed and looking for a job?: No Are you interested in more education?: No Please select the resources that you would like help with: None THRIVE Score: 1 JO-7 AMB Questionnaire JO-7 Date JO - 7 assessed: 09/05/24 Source: Developed by Drs. Gilbert Hunter, Jina Healy, Slim Gallardo and colleagues, with an educational edie from [employer]. Review of Systems Const All systems reviewed & are unremarkable except as noted in HPI and below Card Denies chest pain at rest, Denies chest pain with activity, Denies edema, Denies irregular heart rhythm, Denies claudication, Denies dyspnea, Denies dyspnea on exertion, Denies orthopnea, Denies paroxysmal nocturnal dyspnea and Denies slow heart rate Resp Denies cough, Denies dyspnea and Denies dyspnea on exertion GI Denies abdominal pain, Denies change in bowel habits, Denies excessive flatus, Denies nausea and Denies vomiting Denies urinary incontinence, Denies urinary hesitancy and Denies urinary urgency Musc Denies atrophy, Denies deformity and Denies limited range of motion Physical exam (Primary Care) Vital Signs: Last Vital Signs BP 124/72 08/06/25 13:04 BMI result Body Mass Index 34.6 BMI Assessment/Plan discussion: High BMI High, discussed plan: lifestyle, weight reduction, dietary and physical activity Tobacco/Smoking Status: Tobacco use Status Tobacco use date assessed 09/05/24 11/26/24 13:06 Patient Tobacco Use Status Never used Tobacco 11/26/24 13:06 e-Cigarette/Vaping Use Never Used 11/26/24 13:06 Thrive Assessment: Date of Thrive Assessment Date Thrive assessed 09/05/24 11/26/24 13:06 HENMT Head: Yes normal to inspection, Yes normocephalic and Yes atraumatic Ears: external ears normal Eyes General: appearance normal, both eyes and all related structures Eyelids: Yes eyelids normal Conjunctivae: conjunctivae normal Neck Neck: Yes normal visual inspection and Yes supple Resp Effort & Inspection: normal respiratory effort Auscultation: clear to auscultation bilaterally Cardio Jugular venous distension: no JVD Rate: regular rate Rhythm: regular rhythm Heart sounds: S1 normal heart sound present and S2 normal heart sound present GI Inspection: Yes normal to inspection Palpation (GI): Soft to palpation and nontender Auscultation: normal bowel sounds Skin General skin exam: no rashes or lesions noted Neuro General: no focal motor deficits Extrem General: Yes full ROM Psych Appearance: grossly normal Coding Level of Care Code Est Pt Level 3 (78595) Est Pt Prev Care 18-39y(73504) Diagnoses Physical exam Z00.00 Abdominal pain R10.9 Time Spent (min) 32 Assessment & Plan Assessment & Plan (1) Physical exam: Code(s): Z00.00 - Encounter for general adult medical examination without abnormal findings Category: Medical (2) Abdominal pain: Code(s): R10.9 - Unspecified abdominal pain Category: Medical Plan Repeat physical exam in a year. For abdominal pain I order nonfasting labs to rule out any electrolyte abnormality. Patient seems completely normal. Orders: Orders Comprehensive Met. Panel Today Z00.00 - Encounter for general adult medical examination without abnormal findings Complete Blood Count Auto Diff Today D64.9 - Anemia, unspecified Medications: Refilled clotrimazole 1% 1 appl topical BID PRN 30 grams 1RF rash 4 weeks ondansetron 8 mg PO Q8H PRN 90 tabs 0RF nausea and vomiting 30 days R11.2 - Nausea with vomiting, unspecified
--- OUTSIDE RECORDS SUMMARY | 2024-11-26 13:35 | XMS_ITS | Clinical Summary ---
Author Organization [facility] Address [address] [facility] [address] [place] [id number] Phone Care Team Providers Care Sandblaster Stone Name Role Phone Carolyn Umanzor MD Primary Care Provid er Unknown, Unknown Unavailable Unavailable Allergies No known active allergies Medications sertraline (ZOLOFT) 100 MG tablet Take 150 mg by mouth daily. Active metFORMIN (GLUCOPHAGE-XR) 750 MG 24 hr tablet Take 750 mg by mouth 2 (two) times a day. Active melatonin 3 mg Tab Take 6 mg by mouth nightly at bedtime. Active levonorgestrel- ethinyl estradiol (SEASONALE) 0.15-0.03 mg per tablet Take 1 tablet by mouth daily. Active clonazePAM (KLONOPIN) 1 MG tablet Take 1 mg by mouth 2 (two) times a day as needed for anxiety. Active guanFACINE (INTUNIV) 4 mg Tb24 Take 4 mg by mouth daily. Active fluticasone propionate (FLONASE) 50 mcg/actuation nasal spray 1 spray by Nasal route daily. Active chlorproMAZINE (THORAZINE) 100 MG tablet Take 100 mg by mouth 3 (three) times a day. Active divalproex (DEPAKOTE) [address] tablet Take 250 mg by mouth nightly at bedtime. Active Active Problems Problem Noted Date Diagnosed Date Autism 09/09/2022 Social History Tobacco Use Types Packs/Day Years Used Date Smoking Tobacco: Never Education Answer Date Recorded Are you interested in more education? Not on kika e 09/02/2022 Are you concerned about learning? Not on file 09/02/2022 No 09/02/2022 No 09/02/2022 Digital Access Answer Date Recorded No 09/12/2022 No 09/12/2022 Reliable internet access at home? Not on file 09/12/2022 Device with a working camera? Not on file Intimate Partner Violence Answer Date R ecorded Are you denied basic needs s uch as food, clothing, or medical care? No 09/09/2022 In the past 12 months have y ou been in a relationship with a person who hurts, threatens, or tries to control you? No 09/09/2022 Are you denied basic needs s uch as food, clothing, or medical care? No 09/09/2022 In the past 12 months have y ou been in a relationship with a person who hurts, threatens, or tries to control you? No 09/09/2022 Comments Unknown Sex and Gender Information Value Date Recorded Sex Assigned at Female 09/02/2022 12:57 PM EDT Legal Sex Female 8:48 PM EDT Gender Identity Female 09/02/2022 12:57 PM EDT Sexual Orientation Not on file Last Filed Vital Signs Vital Sign Reading Time Taken Comments Blood Pressure 122/82 09/19/2022 8:17 AM EDT Pulse 95 09/19/2022 8:17 AM EDT Temperature 36.4 C (97.5 F) 09/19/2022 8:17 AM EDT Respiratory Rate 15 09/19/2022 8:17 AM EDT Oxygen Saturation 97% 09/19/2022 8:17 AM EDT Inhaled Oxygen Concentration - - Weight 68 kg (150 lb) 09/13/2022 8:04 AM EDT Height 160 cm (5' 3 ) 09/13/2022 8:04 AM EDT Body Mass Index 26.57 09/13/2022 8:04 AM EDT Plan of Treatment Health Maintenance Due Date Last Done Comments DEPRESSION SCREENING 2010 HPV VACCINES (1 - 3-dose series) 2013 HEPATITIS C SCREENING 01/05/2016 HIV ONE-TIME SCREENING (18-6 5 YEARS) 01/05/2016 PAP SMEAR 2019 CREATININE LEVEL 09/16/2023 09/15/2022 VALPROIC ACID (DEPAKENE) LEVEL 09/16/2023 09/15/2022 COVID-19 VACCINE (2 - 2023-2 5 season) 2023 10/06/2020 SMOKING STATUS SCREENING (On ce After 26 Yrs) 01/05/2024 Adult Td,Tdap Booster 12/09/2029 12/10/2019 MENINGOCOCCAL VACCINES (ACWY) Completed 04/22/2015 HEPATITIS A VACCINES Aged Out No long er eligible based on patient's age to complete this topic HIB VACCINES Aged Out No longer eligi ble based on patient's age to complete this topic MENINGOCOCCAL VACCINES (B) Aged Out N o longer eligible based on patient's age to complete this topic PNEUMOCOCCAL VACCINES (0-49 years) Aged Out No longer eligible based on patient's age to complete this topic Medical Devices Not on file Procedures Procedure Name Priority Date/Time Associated Diagnosis Comments VALPROIC ACID Timed 09/15/2022 10:53 AM EDT COMPREHENSIVE METABOLIC PANEL Routine 09/15/2022 10:53 AM EDT from Last 3 Months or Most Recently Relevant to Health Maintenance Results * (ABNORMAL) Comprehensive metabolic panel (09/15/2022 10:53 AM EDT) SODIUM 136 133 - 146 mmol/L [facility] POTASSIUM 4.1 3.3 - 5.1 mmol/L [facility] CHLORIDE 99 96 - 108 mmol/L [facility] CO2 22 21 - 35 mmol/L [facility] BUN 14 6 - 19 mg/dL [facility] CREATININE 0.70 0.5 - 1.5 mg/dL [facility] GLUCOSE 102(H) 70 - 99 mg/dL [facility] ALBUMIN 4.0 3.9 - 4.8 g/dL [facility] TOTAL PROTEIN 7.2 6.5 - 8.0 g/dL [facility] CALCIUM 9.1 8.4 - 10.3 mg/dL [facility] ALKALINE PHOSPHATASE 61 39 - 117 U/L [facility] TOTAL BILIRUBIN 0.2 0.0 - 1.2 mg/dL [facility] AST 23 0 - 37 U/L [facility] ALT 32 0 - 40 U/L [facility] GLOBULIN 3.2 1 - 4.8 g/dL [facility] EGFR >120 >59 mL/min/1.7 3m2 [facility] Comment:Estimated glomerular filtration rate calculated using the CKD-EPI refit equation. ANION GAP 19 10 - 20 mmol/L [facility] Blood 09/15/2022 10:5 3 AM EDT 09/15/2022 11:00 AM EDT Sheila Shaffer MD LAB BLOOD ORDERABLES Final Re sult [address] [address] * Valproic acid (09/15/2022 10:53 AM EDT) VALPROIC ACID 50.5 50.0 - 100.0 ug/mL [facility] Blood 09/15/2022 10:5 3 AM EDT 09/15/2022 11:00 AM EDT Sheila Shaffer MD LAB BLOOD ORDERABLES Final Re sult [address] [address] from Last 3 Months or Most Recently Relevant to Health Maintenance Insurance [facility] MEDICARE PART A & [place] [id number] [place] MEDICARE PART A & B [facility] [place] [id number] MEDICARE PART A & B Care Teams Sandblaster Stone Relationship Specialty Start Date End Date Carolyn Umanzor MD [address] [place] [address] PCP - General Internal Medicine 09/02/22 Unknown, Unknown, [address] [place] [address] 09/02/22 Additional Source Comments The information contained in this document represents components of the legal health record. It is not the complete legal health record.[facility]
--- OUTSIDE RECORDS SUMMARY | 2024-11-26 13:35 | XMS_ITS | Clinical Summary ---
Author Organization [facility] it Address [address] [place] [address] Care Team Providers Care Senior Estimator Name Role Phone Unavailable Primary Care Provider [...] Cervical Cancer Screening: P ap Smear 2019 HIV Screening 03/27/2022 Hepatitis C Screening 03/27/2022 Social Influencers of Health Screening 03/27/2022 COVID-19 Vaccine ( - 2023-2 5 season) 2023 Depression Screening 04/23/2024 Influenza Vaccine (#1) 2024 HIB Vaccines Aged Out No longer [...] 5 Years) and At-Risk Patients (6 to 49 Years) Aged Out No longer eligible b ased on patient's age to complete this topic RSV Immunization Patients Un eh 20 months Aged Out No longer eligible b ased on patient's age to complete this topic Varicella Vaccines Aged Out No longer eligible based on patient's age to complete this topic
== END 2024-11-26 13:33 | disposition home or self-care (01) ==
LOC: HO.HMCH 13:01
PROVIDERS: PCP Internal Medicine; Visit Provider Internal Medicine
DX: Z00.00 Encounter for general adult medical examination without abnormal findings (principal); R10.9 Unspecified abdominal pain

== ENCOUNTER 2024-11-26 13:00 | Outpatient (REF) | payer MEDICARE, MEDICAID, SELFPAY ==
[2024-11-26 14:17] LABS: MANUAL DIFF FLAG NO
--- OUTSIDE RECORDS SUMMARY | 2024-11-26 14:34 | XMS_ITS ---
Author Name [facility] Organization Unknown Care Team Organization Name Specialty Phone Email Start Date End [facility]
[2024-11-26 15:03] LABS: Hematocrit 37.2 % (37.0-47.0); Hemoglobin 13.1 g/dl (12.0-16.0); Imm Gran Abs Auto 0.02 X10*3/uL (0.00-0.03); Imm Gran Pct Auto 0.4 % (0.0-0.4); Lymphocytes Absolute Auto 0.9 X10*3/uL (1.2-4.9); Mean Corpuscular HGB Conc 35.2 g/dl (31.0-35.0); Mean Corpuscular Hemoglobin 30.5 pg (27.0-33.0); Mean Corpuscular Volume 86.7 fL (80.0-98.0); NRBC Abs Auto 0.000 X10*3/uL (0.0-0.012); NRBC Pct Auto 0.0 /100WBC (0.0-0.2); Platelet Count 161 X10*3/uL (160-400); Red Blood Count 4.29 X10*6/uL (4.20-5.50); White Blood Count 5.7 X10*3/uL (4.8-10.8)
[2024-11-26 15:41] LABS: Alanine Aminotransferase 28 U/L (0-31); Albumin Level 4.3 g/dL (3.5-5.0); Alkaline Phosphatase 53 U/L (39-117); Anion Gap 17 (12-20); Aspartate Amino Transferase 30 U/L (5-31); Blood Urea Nitrogen 11 mg/dL (9-16); Calcium 9.1 mg/dL (8.4-10.2); Carbon Dioxide 20 mmol/L (22-29); Chloride 103 mmol/L (96-108); Estimated Glomerular Filt Rate > 60; Potassium 4.1 mmol/L (3.3-5.1); Sodium 136 mmol/L (135-145); Total Protein 7.6 g/dL (6.5-8.0)
== END 2024-11-26 13:01 | disposition home or self-care (01) ==
LOC: HO.LAB 13:00
PROVIDERS: PCP Internal Medicine; Visit Provider Internal Medicine
DX: Z00.00 Encounter for general adult medical examination without abnormal findings (principal); R10.9 Unspecified abdominal pain; D64.9 Anemia, unspecified
CPT/HCPCS: 36415; 80053; 85025; 99212; 99395

== ENCOUNTER 2024-12-24 11:08 | Outpatient (AMB) | payer MEDICARE, MEDICAID, SELFPAY ==
--- NOTE | 2024-12-24 11:24 | MHC.OFFWIV ---
Intake Vital Signs 12/24/24 11:25 Height 5 ft 2 in Weight 185 lb BMI 33.8 BP 84/60 L Blood Pressure Location Lt brachial Position Sitting Pulse 98 Pulse Source Pulse Oximeter Temp 98.5 F Temp Source Oral Pulse Oximetry (%) 96 Oxygen Delivery Method Room Air Intake Visit Reasons: EP-sore throat, dizziness, headaches,fevers, chill Patient Tobacco Use Status: Never used Tobacco Allergies No Known Allergies Allergy (Verified 12/24/24 11:30) Do you need a note to return to daycare/school/sports/work: No HPI HPI Comments History of Present Illness Details History - The patient is a 24-year-old female presenting with dizziness, facial erythema, chills, and sore throat x 1 day. - Symptoms began during breakfast with dizziness and facial erythema. - Denies cough or measured fever but she feels hot. - Chills and sore throat were also reported, with [facility] - Tylenol 500 mg was given at 10:30 AM for symptom relief. - Pt ate a normal breakfast today - People who live [facility] are also sick with similar symptoms. Physical Exam General: Cooperative, healthy appearing, comfortable and no acute distress Orientation/consciousness: Patient oriented x3 Limitations: No limitations Head: Normal to inspection Ears: Hearing grossly normal bilaterally, external ears normal and TM's normal bilaterally Nose: Normal external nose present, Normal nares present and No nasal discharge present Face and sinus: Normal facial exam and Yes sinuses nontender Mouth: Normal oral and palatal mucosa present and moist mucous membranes Throat: Yes tonsils normal, Yes uvula midline. Posterior oropharynx erythema, no exudates Eyes: Appearance normal, both eyes and all related structures Neck: Normal visual inspection, full ROM Respiratory: Clear to auscultation bilaterally. Normal respiratory effort, able to speak in complete sentences, no respiratory distress, not tachypneic, no tripod positioning and no use of accessory muscles Cardiovascular: Regular rate and rhythm. Normal S1 and S2 Skin: No rashes or lesions noted Neuro: Patient oriented x3 Extremities: Normal to inspection and Yes no clubbing, cyanosis or edema [facility] Medical History Nausea and vomiting in adult Cellulitis of toe of left foot Vaginal irritation Trauma of toe of left foot Oppositional defiant disorder Intellectual disability Obsessive compulsive disorder Anxiety Surgical History No pertinent past surgical history Family History Mother No problems noted. Father No problems noted. Social History Housing: House Housing Other:: [facility] Alcohol intake: never Patient Tobacco Use Status: Never used Tobacco e-Cigarette/Vaping Use: Never Used Second Hand Smoke Exposure: No service: No Current occupational status: disabled Gender identity: Female Cognitive needs: Yes Hearing needs: No Vision needs: No Review of Systems Const All systems reviewed & are unremarkable except as noted in HPI and below Physical Exam Vital Signs: Last Vital Signs Temp 98.5 F 12/24/24 11:25 Pulse 98 12/24/24 11:25 BP 84/60 L 12/24/24 11:25 Pulse Ox 96 12/24/24 11:25 Oxygen Delivery Method Room Air 12/24/24 11:25 BMI result Body Mass Index 33.8 Assessment & Plan Assessment & Plan (1) Pharyngitis: Code(s): J02.9 - Acute pharyngitis, unspecified Qualifiers: Pharyngitis/tonsillitis etiology: unspecified etiology Qualified Code(s): J02.9 - Acute pharyngitis, unspecified Plan: Plan Patient was informed and verbally consented to the use of an ambient scribe for clinic note documentation during this visit Likely viral infection - VSS, pt well appearing and PE remarkable posterior oropharynx with erythema. - Await viral panel results for potential viral etiology. - Can continue Tylenol for symptomatic relief. - Rapid strep negative - Throat culture sent - Filled out [facility] paperwork Orders: Orders Resp Pathogen Panel - C Today J06.9 - Acute upper respiratory infection, unspecified Throat Culture Today J02.9 - Acute pharyngitis, unspecified Coding Level of Care Code Est Pt Level 3 (79236) Diagnoses Pharyngitis, unspecified etiology J02.9 Pharyngitis/tonsillitis etiology: unspecified etiology
[2024-12-24 11:25] VITALS: BP 84/60; PULSE 98; TEMP 36.9; O2SAT 96; BMI 33.8
--- OUTSIDE RECORDS SUMMARY | 2024-12-24 13:43 | XMS_ITS | Clinical Summary ---
Author Organization [facility] it Address [address] [place] [address] Care Team Providers Care Senior Planning Analyst Name Role Phone Unavailable Primary Care [...] 03/27/2022 Social Influencers of Health Screening 03/27/2022 Depression Screening 04/23/2024 COVID-19 Vaccine ( - 2023-2 5 season) 2024 Influenza Vaccine (#1) 2024 HIB Vaccines Aged [...]
--- OUTSIDE RECORDS SUMMARY | 2024-12-24 13:44 | XMS_ITS | Clinical Summary ---
Author Organization [facility] Address [address] [facility] [address] [place] [address] Phone Care Team Providers Care Certified Control Systems Technician Name Role Phone Carolyn Umanzor MD Primary [...] 09/15/2022 VALPROIC ACID (DEPAKENE) LEVEL 09/16/2023 09/15/2022 SMOKING STATUS SCREENING (On ce After 26 Yrs) 01/05/2024 INFLUENZA VACCINE (#1) 2024 8, 04/22/2015 COVID-19 VACCINE (2 - 2024-2 6 season) 2024 10/06/2020 Adult Td,Tdap Booster 12/09/2029 12/10/2019 MENINGOCOCCAL VACCINES [...] (0-49 years) Aged Out No longer eligible b ased [...] EDT) SODIUM 136 133 - 146 mmol/L [facility] POTASSIUM 4.1 3.3 - 5.1 mmol/L [facility] CHLORIDE 99 96 - 108 mmol/L [facility] CO2 22 21 - 35 mmol/L [facility] BUN 14 6 - 19 mg/dL [facility] CREATININE 0.70 0.5 - 1.5 mg/dL [facility] GLUCOSE 102(H) 70 - 99 mg/dL [facility] ALBUMIN 4.0 3.9 - 4.8 g/dL [facility] TOTAL PROTEIN 7.2 6.5 - 8.0 g/dL [facility] CALCIUM 9.1 8.4 - 10.3 mg/dL [facility] ALKALINE PHOSPHATASE 61 39 - 117 U/L [facility] TOTAL BILIRUBIN 0.2 0.0 - 1.2 mg/dL [facility] AST 23 0 - 37 U/L [facility] ALT 32 0 - 40 U/L [facility] GLOBULIN 3.2 1 - 4.8 g/dL [facility] EGFR >120 >59 mL/min/1.7 3m2 [facility] Comment:Estimated glomerular filtration rate calculated using the CKD-EPI refit equation. ANION GAP 19 10 - 20 mmol/L [facility] Blood 09/15/2022 10:5 3 AM EDT 09/15/2022 11:00 AM EDT us Sheila Shaffer MD LAB BLOOD ORDERABLES Final Re sult [address] [address] * Valproic acid (09/15/2022 10:53 AM EDT) VALPROIC ACID 50.5 50.0 - 100.0 ug/mL [facility] Blood 09/15/2022 10:5 3 AM EDT 09/15/2022 11:00 AM EDT us Sheila Shaffer MD LAB BLOOD ORDERABLES Final Re sult [address] [address] from Last 3 Months or Most Recently Relevant to Health Maintenance [facility] A & [facility] [place] [phone] [facility] & [place] MEDICARE PART A & B MEDICARE PART A & [place] [facility] [id number] MEDICARE PART A & B Care Teams Certified Control Systems Technician Relationship Specialty Start Date End Date Carolyn Umanzor MD [address] [place] [address] PCP - General Internal Medicine 09/02/22 Unknown, Unknown, [address] [place] [address] 09/02/22 Additional Source Comments The information contained in this document represents components of the legal health record. It is not the complete legal health record.[facility]
== END 2024-12-24 12:21 | disposition home or self-care (01) ==
PROVIDERS: PCP Internal Medicine; Visit Provider Physician Assistant
DX: Z13.9 Encounter for screening, unspecified (principal); J02.9 Acute pharyngitis, unspecified

== ENCOUNTER 2024-12-24 11:08 | Outpatient (REF) | payer MEDICARE, MEDICAID, SELFPAY ==
[2024-12-24 15:36] LABS: Chlamydia pneumoniae PCR Not Detected (Not Detect.); Coronavirus 229E PCR Not Detected (Not Detect.); Coronavirus HKU1 PCR Not Detected (Not Detect.); Coronavirus NL63 PCR Not Detected (Not Detect.); Coronavirus OC43 PCR Not Detected (Not Detect.); RSV PCR Not Detected (Not Detect.); Rhino/Enterovirus PCR Not Detected (Not Detect.)
[2024-12-24 15:44] LABS: Influenza A H1 PCR Not Detected (Not Detect.); Influenza A H1-2009 PCR Not Detected (Not Detect.); Influenza A H3 PCR Not Detected (Not Detect.); SARS-CoV-2 PCR Not Detected (Not Detect.)
== END 2024-12-24 11:09 | disposition home or self-care (01) ==
LOC: HO.LAB 11:08
PROVIDERS: Physician Assistant; PCP Internal Medicine
DX: J02.9 Acute pharyngitis, unspecified (principal); J06.9 Acute upper respiratory infection, unspecified; R51.9 Headache, unspecified; R50.9 Fever, unspecified; R42 Dizziness and giddiness
CPT/HCPCS: 87070; 87633; 87880; 99212

== ENCOUNTER 2025-01-06 15:41 | Outpatient (AMB) | payer MEDICARE, MEDICAID, SELFPAY ==
[2025-01-06 16:29] VITALS: BP 90/60; PULSE 91; RESP 18; TEMP 36.2; O2SAT 94; BMI 34.6
--- NOTE | 2025-01-06 16:29 | MHC.PC.OV ---
Vital Signs 01/06/25 16:29 Height 5 ft 2 in Weight 189 lb 2 oz BMI 34.6 BP 90/60 Blood Pressure Location Lt brachial Position Sitting Respiration 18 Pulse 91 Pulse Source Pulse Oximeter Temp 97.1 F Temp Source Temporal Artery Scan Pulse Oximetry (%) 94 Oxygen Delivery Method Room Air Intake Visit Reasons: follow up Dining Service Inspector Required: No Accompanied by: manager home Allergies No Known Allergies Allergy (Verified 01/06/25 17:00) Medication List - Last Reconciled 01/06/25 by Carolyn Goodwin MD acetaminophen 500 mg PO Q6H PRN 30 days chlorpromazine 100 mg PO QID clonazepam (Klonopin) 1 mg PO BEDTIME PRN clonazepam (Klonopin) 1 mg PO DAILY clotrimazole 1% 1 appl topical BID PRN 4 weeks divalproex ER 500 mg PO DAILY docusate sodium (Colace) 100 mg PO BID PRN 30 days guanfacine ER 4 mg PO DAILY levonorgestrel-ethinyl estrad 0.15 mg-30 mcg (91) (Jolessa) 1 tab PO DAILY melatonin 6 mg PO BEDTIME PRN metformin ER 750 mg PO BID ondansetron 8 mg PO Q8H PRN 30 days sertraline 150 mg PO DAILY Tobacco use date assessed: 01/06/25 Dental Screening Dental Screen Date: 01/06/25 Did you have a dental visit in the last 12 months?: Yes Did you have a dental problem in the last 6 months where you did not have access to dental care?: No Was dental information given to patient?: Patient has dentist HPI HPI Comments History of Present Illness Details This is a 25-year-old female with intellectual disability that comes today accompanied by staff member from her [facility] for follow-up on sore throat that was present December 24 and went to urgent care for it. Labs were done and were within normal limits. Denies any sore throat or fever at the moment. No cough or any other acute complaint. She also has anxiety stable with medications. [facility] Medical History (Updated 12/24/24 @ 12:11 by Jewels Reis PA-C) Nausea and vomiting in adult Cellulitis of toe of left foot Vaginal irritation Trauma of toe of left foot Oppositional defiant disorder Intellectual disability Obsessive compulsive disorder Anxiety Surgical History No pertinent past surgical history Family History Mother No problems noted. Father No problems noted. Social History Housing: House Housing Other:: [facility] Alcohol intake: never Patient Tobacco Use Status: Never used Tobacco e-Cigarette/Vaping Use: Never Used Second Hand Smoke Exposure: No service: No Current occupational status: disabled Gender identity: Female Cognitive needs: Yes Hearing needs: No Vision needs: No Questionnaire Thrive Questionnaire Date Thrive assessed: 09/05/24 I am a: Patient What is your living situation today?: I have a steady place to live Within the past 12 months, did the food you bought not last and you didn't have the money to get more?: Sometimes True Within the past 12 months, did you worry whether your food would run out before you got money to buy more?: Never true Do you have trouble paying for medicines?: No Do you have trouble getting transportation to medical appointments?: No Do you have trouble paying your heating and electricity bill?: No Do you have trouble taking care of your child, family member or friend?: No Do you have trouble with day-to-day activities such as bathing, preparing meals, shopping, managing finances, etc.?: No Are you currently unemployed and looking for a job?: No Are you interested in more education?: No Please select the resources that you would like help with: None THRIVE Score: 1 JO-7 AMB Questionnaire JO-7 Date JO - 7 assessed: 09/05/24 Source: Developed by Drs. Gilbert Hunter, Jina Healy, Slim Gallardo and colleagues, with an educational edie from [employer]. Review of Systems Const All systems reviewed & are unremarkable except as noted in HPI and below Card Denies chest pain at rest, Denies chest pain with activity, Denies edema, Denies irregular heart rhythm, Denies claudication, Denies dyspnea, Denies dyspnea on exertion, Denies orthopnea, Denies paroxysmal nocturnal dyspnea and Denies slow heart rate Resp Denies cough, Denies dyspnea and Denies dyspnea on exertion GI Denies abdominal pain, Denies change in bowel habits, Denies excessive flatus, Denies nausea and Denies vomiting Physical exam (Primary Care) Vital Signs: Last Vital Signs Temp 97.1 F 01/06/25 16:29 Pulse 91 01/06/25 16:29 Resp 18 01/06/25 16:29 BP 90/60 01/06/25 16:29 Pulse Ox 94 01/06/25 16:29 Oxygen Delivery Method Room Air 01/06/25 16:29 BMI result Body Mass Index 34.6 BMI Assessment/Plan discussion: High BMI High, discussed plan: lifestyle, weight reduction, dietary and physical activity Tobacco/Smoking Status: Tobacco use Status Tobacco use date assessed 01/06/25 01/06/25 16:39 Patient Tobacco Use Status Never used Tobacco 01/06/25 16:39 e-Cigarette/Vaping Use Never Used 01/06/25 16:39 Thrive Assessment: Date of Thrive Assessment Date Thrive assessed 09/05/24 01/06/25 16:39 Resp Effort & Inspection: normal respiratory effort Auscultation: clear to auscultation bilaterally Cardio Jugular venous distension: no JVD Rate: regular rate Rhythm: regular rhythm Heart sounds: S1 normal heart sound present and S2 normal heart sound present Extrem General: Yes full ROM Coding Level of Care Code Est Pt Level 3 (38578) Complex EM visit Add On G2211 Diagnoses Anxiety F41.9 Sorethroat J02.9 Time Spent (min) 18 Assessment & Plan Assessment & Plan (1) Anxiety: Code(s): F41.9 - Anxiety disorder, unspecified Category: Medical (2) Sorethroat: Code(s): J02.9 - Acute pharyngitis, unspecified Category: Medical Plan Continue current meds.
--- OUTSIDE RECORDS SUMMARY | 2025-01-06 18:53 | XMS_ITS | Clinical Summary ---
Author Organization [facility] Address [address] [facility] [address] [place] [address] Phone Care Team Providers Care Purchase Order Checker Name Role Phone Carolyn Umanzor MD Primary [...] EDT) SODIUM 136 133 - 146 mmol/L [facility] POTASSIUM 4.1 3.3 - 5.1 mmol/L [facility] CHLORIDE 99 96 - 108 mmol/L [facility] CO2 22 21 - 35 mmol/L [facility] BUN 14 6 - 19 mg/dL [facility] CREATININE 0.70 0.5 - 1.5 mg/dL [facility] GLUCOSE 102(H) 70 - 99 mg/dL [facility] ALBUMIN 4.0 3.9 - 4.8 g/dL [facility] TOTAL PROTEIN 7.2 6.5 - 8.0 g/dL [facility] CALCIUM 9.1 8.4 - 10.3 mg/dL [facility] ALKALINE PHOSPHATASE 61 39 - 117 U/L [facility] TOTAL BILIRUBIN 0.2 0.0 - 1.2 mg/dL [facility] AST 23 0 - 37 U/L [facility] ALT 32 0 - 40 U/L [facility] GLOBULIN 3.2 1 - 4.8 g/dL [facility] EGFR >120 >59 mL/min/1.7 3m2 [facility] Comment:Estimated glomerular filtration rate calculated using the CKD-EPI refit equation. ANION GAP 19 10 - 20 mmol/L [facility] Blood 09/15/2022 10:5 3 AM EDT 09/15/2022 11:00 AM EDT us Sheila Shaffer MD LAB BLOOD ORDERABLES Final Re sult [address] [phone] * Valproic acid (09/15/2022 10:53 AM EDT) VALPROIC ACID 50.5 50.0 - 100.0 ug/mL [facility] Blood 09/15/2022 10:5 3 AM EDT 09/15/2022 11:00 AM EDT us Sheila Shaffer MD LAB BLOOD ORDERABLES Final Re sult [address] [address] from Last 3 Months or Most Recently Relevant to Health Maintenance Insurance [facility] PART A & [facility] [place] [id number] [facility] & [place] MEDICARE PART A & B MEDICARE PART A & B [facility] [place] [id number] MEDICARE PART A & B Care Teams Purchase Order Checker Relationship Specialty Start Date End Date Carolyn Umanzor MD [address] [place] [address] PCP - General Internal Medicine 09/02/22 Unknown, Unknown, [address] [place] [address] 09/02/22 Additional Source Comments The information contained in this document represents components of the legal health record. It is not the complete legal health record.[facility]
--- OUTSIDE RECORDS SUMMARY | 2025-01-06 18:53 | XMS_ITS | Clinical Summary ---
Author Organization [facility] it Address [address] [place] [address] Care Team Providers Care Coating Operator Name Role Phone Unavailable Primary Care Provider Unavailabl e Social History Tobacco Use Types Packs/Day Years Used Date Smoking Tobacco: Never Assessed Comments Unknown Sex and Gender Information Value Date Recorded Sex Assigned at Not on file Legal Sex Female 10:35 AM EST Gender Identity Not on file Sexual Orientation Not on file Plan of Treatment Health Maintenance Due Date Last Done Comments DTaP,Tdap,and Td Vaccines (1 - Tdap) 2017 Hepatitis B Vaccines (1 of 3 - 19+ 3-dose series) 2017 Cervical Cancer Screening: P ap Smear 2019 HIV Screening 03/27/2022 Hepatitis C Screening 03/27/2022 Social Influencers of Health Screening 03/27/2022 Depression Screening 04/23/2024 COVID-19 Vaccine (2023-2 5 season) 2024 Influenza Vaccine (#1) 2024 HIB Vaccines Aged Out No longer eligi ble based on patient's age to complete this topic HPV Vaccines Aged Out No longer eligi ble [...]
== END 2025-01-06 17:10 | disposition home or self-care (01) ==
LOC: HO.HMCH 15:41
PROVIDERS: PCP Internal Medicine; Visit Provider Internal Medicine
DX: F41.9 Anxiety disorder, unspecified (principal); J02.9 Acute pharyngitis, unspecified

== ENCOUNTER → 2025-01-06 15:41 | Outpatient (BNVA) | payer MEDICARE, MEDICAID, SELFPAY | PROVIDERS: PCP Internal Medicine; Visit Provider Internal Medicine | DX: F91.3 Oppositional defiant disorder (principal); F41.9 Anxiety disorder, unspecified; J02.9 Acute pharyngitis, unspecified | CPT/HCPCS: 99212 ==

== ENCOUNTER 2025-02-04 09:05 | Emergency (ER) | payer MEDICARE, MEDICAID, SELFPAY ==
--- NOTE | ~2025-02-04 | CT_ITS ---
EXAMINATION: CT HEAD WITHOUT CONTRAST CLINICAL INFORMATION: Head injury. COMPARISON: 01/25/2024. TECHNIQUE: Contiguous axial imaging was performed from the skull base to vertex without intravenous administration of contrast. This CT examination was performed using dose optimization techniques as appropriate, variously including the following: *Automated exposure control *Adjustment of mA and/or kV according to patient size (this includes techniques or standardized protocols for targeted exams where dose is matched to indication/reason for exam; i.e. extremities or head) *Use of iterative reconstruction technique FINDINGS: There is no evidence of intracranial hemorrhage or extra-axial fluid collection. There is no mass effect, or edema. No CT evidence of acute territorial infarct. Ventricles, sulci, and cisterns are normal in size and configuration for patient age. No hydrocephalus. No midline shift. Negative hyperdense MCA sign. Negative insular ribbon sign. No significant white matter attenuation abnormalities. Partial empty sella. Globes and orbital contents image normally. No extracranial soft tissue abnormalities. Moderate mucosal thickening seen throughout the left maxillary sinus, and lesser amount in the left ethmoid sinuses. Remainder of the paranasal sinuses are normally pneumatized. Mastoids and tympanic cavities are normally aerated. No suspicious bony abnormalities. There are no acute fractures evident. CT/CT head/brain wo IV con IMPRESSION: No acute intracranial abnormality. No fracture evident. Moderate left maxillary sinus disease. Electronically signed by: Adrian Spring MD 02/04/2025 12:40 PM EDT RP
--- NOTE | ~2025-02-04 | CT_ITS ---
EXAMINATION: CT CERVICAL SPINE WITHOUT CONTRAST CLINICAL INFORMATION: Fall, head strike COMPARISON: CT 01/20/2024 TECHNIQUE: Axial imaging. Sagittal and coronal reconstructions. This CT examination was performed using dose optimization techniques as appropriate, variously including the following: *Automated exposure control *Adjustment of mA and/or kV according to patient size (this includes techniques or standardized protocols for targeted exams where dose is matched to indication/reason for exam; i.e. extremities or head) *Use of iterative reconstruction technique FINDINGS: Motion artifact degrading images, limiting evaluation. The cervical spine is imaged from the level of the skull base to the upper C7 vertebral body. The atlantooccipital and atlantoaxial articulations remain well aligned. Straightening of the normal cervical lordosis. 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 Predens space is maintained. No evidence of acute fracture or traumatic subluxation. Disc spaces are maintained. Small anterior osteophyte at C6 vertebral body. The central bony canal is grossly maintained. No prevertebral soft tissue swelling. CT/CT cervical spine wo IV con IMPRESSION: *Cervical spine is visualized from the level of the lung base to the upper C7 vertebral body. *In the imaged portion of the cervical spine, no evidence of acute fracture or traumatic subluxation. Fleischner guidelines were followed. Electronically signed by: Arron Merrill MD 02/04/2025 12:42 PM EDT
[2025-02-04 09:12] VITALS: BP 140/74; PULSE 106; O2SAT 94
[2025-02-04 09:26] VITALS: BP 135/86; PULSE 85; RESP 20; TEMP 36.4; O2SAT 98; BMI 38.4
--- NOTE | 2025-02-04 09:43 | PC.NURSE ---
pt is coming from snf for a witnessed fall, pt rolled out of bed in front of the staff hitting her head, left shoulder and left forearm, small scrape on the left forearm and redness to the back of the left shoulder, no loc no thinners per staff, pt reports pain at 10/10. respirations even and unlabored, vs stable and staff at bedside
--- NOTE | 2025-02-04 10:04 | ED.FALL ---
HPI - Fall General Chief Complaint: Fall Stated Complaint: UNWIT FALL OOB,HIT HEAD,FROM [facility] HOME Time Seen by Provider: 02/04/25 09:57 Source: patient and RN notes reviewed Mode of arrival: ambulatory Limitations: no limitations History of Present Illness ED Provider: Christina Gleason PA-C HPI Narrative: This is a 25-year-old female, with a past medical history of oppositional defiant disorder, intellectual disability, who presents emergency department from [facility] with [facility] staff member with concerns of head injury after fall out of bed. At around 830 this morning, patient accidentally rolled out of bed striking the left side of her head on a night stand, she also injured her left shoulder during this. She denies losing consciousness. She immediately screamed and cried per the [facility] staff. Patient reports that she has a mild headache and some dizziness. retirement staff member reports that patient was up all night and did not sleep well. feed in worker states that she is acting her normal self. No nausea or vomiting. Patient denies any current complaints. No other complaints or concerns at this time. Fall from: out of bed Related Data Home Medications ?Medication ?Instructions ?Recorded ?Confirmed melatonin 3 mg tablet 6 mg PO BEDTIME PRN Sleep 12/03/20 01/06/25 chlorpromazine 100 mg tablet 100 mg PO QID 11/15/22 01/06/25 divalproex 500 mg tablet,extended 500 mg PO DAILY 11/15/23 01/06/25 release 24 hr guanfacine 4 mg tablet,extended 4 mg PO DAILY 08/26/24 01/06/25 release 24 hr sertraline 100 mg tablet 150 mg PO DAILY 08/26/24 01/06/25 clonazepam 1 mg tablet (Klonopin) 1 mg PO BEDTIME PRN 12/24/24 01/06/25 clonazepam 1 mg tablet (Klonopin) 1 mg PO DAILY Anxiety 12/24/24 01/06/25 Previous Rx's ?Medication ?Instructions ?Recorded metformin 750 mg tablet,extended 750 mg PO BID #180 tabs 08/13/24 release 24 hr docusate sodium 100 mg capsule 100 mg PO BID PRN constipation 30 09/05/24 (Colace) days #60 caps levonorgestrel 0.15 mg-ethinyl 1 tab PO DAILY #91 ea 11/10/24 estradiol 30 mcg tablets,3 mos pack(91) (Haroldo) clotrimazole 1 % topical cream 1 appl topical BID PRN rash 4 11/26/24 weeks #30 grams ondansetron 8 mg disintegrating 8 mg PO Q8H PRN nausea and 11/26/24 tablet vomiting 30 days #90 tabs acetaminophen 500 mg tablet 500 mg PO Q6H PRN fever 30 days 12/15/24 #120 tabs amoxicillin 875 mg-potassium 1 tab PO BID 7 days #14 tabs 02/04/25 clavulanate 125 mg tablet Allergies Allergy/AdvReac Type Severity Reaction Status Date / Time No Known Allergies Allergy Verified 02/04/25 09:35 Review of Systems Review of Systems: Constitutional : No Fever, No Chills ENT/Mouth : No sore throat, No Rhinorrhea Eyes: No Eye Pain, No Swelling, No Redness Cardiovascular : No Chest Pain, No SOB Respiratory : No Cough, No Sputum Gastrointestinal : No Nausea, No Vomiting, No Diarrhea, No abdominal Pain Genitourinary : No Dysuria, No Hematuria Musculoskeletal : No joint pain, No Myalgias, No Joint Swelling Skin : No Skin Lesions Neuro : No Weakness, No Numbness, + Headache All other systems reviewed and are negative Yes all other systems are reviewed and are negative Constitutional: Constitutional: Reports as per [facility] Past Medical History Medical History Nausea and vomiting in adult Cellulitis of toe of left foot Vaginal irritation Trauma of toe of left foot Oppositional defiant disorder Intellectual disability Obsessive compulsive disorder Anxiety Surgical History No pertinent past surgical history Family History Family History Mother No problems noted. Father No problems noted. Social History Social History Housing: House Housing Other:: Assisted Alcohol intake: never Patient Tobacco Use Status: Never used Tobacco e-Cigarette/Vaping Use: Never Used Second Hand Smoke Exposure: No service: No Current occupational status: disabled Gender identity: Female Cognitive needs: Yes Hearing needs: No Vision needs: No Physical Exam Vital Signs: Vital Signs: Last Vital Signs Temp 97.4 F 02/04/25 13:31 Pulse 94 02/04/25 13:31 Resp 18 02/04/25 13:31 BP 103/59 L 02/04/25 13:31 Pulse Ox 95 02/04/25 13:31 O2 Del Method Room Air 02/04/25 13:31 BMI result Body Mass Index 38.4 Const: General: cooperative, comfortable and no acute distress Orientation/consciousness: patient oriented x3 Limitations: no limitations HEENT: Other: Head is normocephalic, atraumatic. Head: Yes normal to inspection, Yes normocephalic and Yes atraumatic Ears: hearing grossly normal bilaterally General nose exam: Normal external nose present Face and sinus: Yes normal facial exam Mouth: Normal oral and palatal mucosa present, oropharynx normal and moist mucous membranes Throat: Yes posterior oropharynx normal Eyes: General: appearance normal, both eyes and all related structures Eyelids: Yes eyelids normal Conjunctivae: conjunctivae normal Sclerae: sclerae normal Pupils: Equal, round and reactive pupils present EOM: EOMs intact bilaterally Neck: Other: No midline spine tenderness on examination. Neck: Yes normal visual inspection, Yes full ROM and Yes no lymphadenopathy Lymphatic: no lymphadenopathy noted Chest: Chest palpation & inspection: normal inspection of the chest Resp: Effort & Inspection: normal respiratory effort and able to speak in complete sentences Auscultation: clear to auscultation bilaterally, no crackles, no rales, no rhonchi and no wheezes Cardio: Rate: regular rate Rhythm: regular rhythm Heart sounds: S1 normal heart sound present and S2 normal heart sound present GI: Inspection: Yes normal to inspection Skin: General skin exam: no rashes or lesions noted Trauma: no lacerations or abrasions Wounds: no wounds Neuro: General: patient oriented x3 and moves all extremities Cranial nerves: Yes CN's II-XII intact bilaterally and Yes Equal, round and reactive pupils present Cognition (Neuro): normal cognition Gait exam (Neuro): Normal gait present Motor exam (neuro): 5/5 motor strength present throughout and Pronator motor function not present Extrem: Other: Left posterior shoulder with superficial abrasion noted, mild tenderness palpation, full ROM. General: Yes normal to inspection Right upper extremity: normal to inspection Left upper extremity: normal to inspection Right lower extremity: normal to inspection Left lower extremity: normal to inspection Medical Decision Making Medical Decision Making MDM Narrative: This is a 25-year-old female, with a past medical history of oppositional defiant disorder, intellectual disability, who presents emergency department from [facility] with [facility] staff member with concerns of head injury after fall out of bed. Head is normocephalic, atraumatic. Given headache, will obtain CT head and neck. She has no midline spine tenderness. She also struck her left shoulder, which has a slight superficial abrasion noted, with mild tenderness, no bony tenderness. Full ROM. >> CT head and neck revealing no acute findings. There are some evidence of sinusitis, group dynamics instructor does state that she has been much more congested, will treat with course of Augmentin. Discussed findings with patient as well as group dynamics instructor. Given strict return precautions. She is acting her normal self. Eager for discharge. Patient stable for discharge Differential Diagnosis Differential Diagnoses: The differential diagnosis associated with the presentation includes ICH, closed head injury, concussion, whiplash, C-spine fracture Radiology Impression Discussion of test interpretation with radiology: I have reviewed the radiologist's reading. Radiologist Impression: EXAMINATION: CT HEAD WITHOUT CONTRAST CLINICAL INFORMATION: Head injury. COMPARISON: 01/25/2024. TECHNIQUE: Contiguous axial imaging was performed from the skull base to vertex without intravenous administration of contrast. This CT examination was performed using dose optimization techniques as appropriate, variously including the following: *Automated exposure control *Adjustment of mA and/or kV according to patient size (this includes techniques or standardized protocols for targeted exams where dose is matched to indication/reason for exam; i.e. extremities or head) *Use of iterative reconstruction technique FINDINGS: There is no evidence of intracranial hemorrhage or extra-axial fluid collection. There is no mass effect, or edema. No CT evidence of acute territorial infarct. Ventricles, sulci, and cisterns are normal in size and configuration for patient age. No hydrocephalus. No midline shift. Negative hyperdense MCA sign. Negative insular ribbon sign. No significant white matter attenuation abnormalities. Partial empty sella. Globes and orbital contents image normally. No extracranial soft tissue abnormalities. Moderate mucosal thickening seen throughout the left maxillary sinus, and lesser amount in the left ethmoid sinuses. Remainder of the paranasal sinuses are normally pneumatized. Mastoids and tympanic cavities are normally aerated. No suspicious bony abnormalities. There are no acute fractures evident. CT/CT head/brain wo IV con IMPRESSION: No acute intracranial abnormality. No fracture evident. Moderate left maxillary sinus disease. Electronically signed by: Adrian Spring MD 02/04/2025 12:40 PM EDT RP Dictated By: Adrian Spring MD\ [place] [address] CT Scan Report Signed Patient: Sunni Everett MR#: [id number] : 2000 Acct:[id number] Age/Sex: 25 / F ADM Date: 02/04/25 Loc: HO.ED Attending Dr: Ordering Physician: Christina Gleason Date of Service: 02/04/25 Procedure(s): CT cervical spine wo IV con Accession Number(s): [id number] cc: Carolyn Umanzor MD; Christina Gleason~ Report Number: [id number]: Total DLP = 1070.00 mGy-cm Reason for Exam: fall, +head strike EXAMINATION: CT CERVICAL SPINE WITHOUT CONTRAST CLINICAL INFORMATION: Fall, head strike COMPARISON: CT 01/20/2024 TECHNIQUE: Axial imaging. Sagittal and coronal reconstructions. This CT examination was performed using dose optimization techniques as appropriate, variously including the following: *Automated exposure control *Adjustment of mA and/or kV according to patient size (this includes techniques or standardized protocols for targeted exams where dose is matched to indication/reason for exam; i.e. extremities or head) *Use of iterative reconstruction technique FINDINGS: Motion artifact degrading images, limiting evaluation. The cervical spine is imaged from the level of the skull base to the upper C7 vertebral body. The atlantooccipital and atlantoaxial articulations remain well aligned. Straightening of the normal cervical lordosis. 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 Predens space is maintained. No evidence of acute fracture or traumatic subluxation. Disc spaces are maintained. Small anterior osteophyte at C6 vertebral body. The central bony canal is grossly maintained. No prevertebral soft tissue swelling. CT/CT cervical spine wo IV con IMPRESSION: *Cervical spine is visualized from the level of the lung base to the upper C7 vertebral body. *In the imaged portion of the cervical spine, no evidence of acute fracture or traumatic subluxation. Fleischner guidelines were followed. Electronically signed by: Arron Merrill MD 02/04/2025 12:42 PM EDT RP Dictated By: Arron Merrill MD External Record Review External record reviewed: Inpatient record, Office record, Outpatient record, Prior outpatient labs, Prior outpatient radiology, Primary care record and Outside ED record Discharge Plan Discharge Clinical Impression: Closed head injury, Sinusitis Patient Disposition: Home, Self-Care Instructions: Sinusitis (ED), Head Injury (ED) Additional Instructions: Sunni was seen in the ER after hitting her head this morning. Her CT of her head and neck did not show any new injury. She does have some inflammation in her sinuses given that she is congested, will treat with an antibiotic, please take as prescribed. Physical on mental rest can be very beneficial for the healing process. She may experience some fatigue, intermittent headaches. Please provide her with plenty of fluids and plenty of rest. If any new or worsening symptoms occur including but not limited to severe changes in her behavior, nausea, severe headache, please seek emergent care. Prescriptions: New amoxicillin-pot clavulanate 875-125 mg tablet 1 tab PO BID 7 Days Qty: 14 0RF No Action metformin 750 mg tablet extended release 24 hr 750 mg PO BID Qty: 180 12RF docusate sodium [Colace] 100 mg capsule 100 mg PO BID PRN (Reason: constipation) 30 Days Qty: 60 0RF levonorgestrel-ethinyl estrad [Jolessa] 0.15 mg-30 mcg (91) tablets,dose pack,3 month 1 tab PO DAILY Qty: 91 0RF acetaminophen 500 mg tablet 500 mg PO Q6H PRN (Reason: fever) 30 Days Qty: 120 11RF melatonin 3 mg Tablet 6 mg PO BEDTIME PRN (Reason: Sleep) guanfacine 4 mg tablet extended release 24 hr 4 mg PO DAILY sertraline 100 mg Tablet 150 mg PO DAILY clonazepam [Klonopin] 1 mg tablet 1 mg PO DAILY chlorpromazine 100 mg tablet 100 mg PO QID divalproex 500 mg tablet extended release 24 hr 500 mg PO DAILY clotrimazole 1 % cream 1 appl topical BID PRN (Reason: rash) 28 Days Qty: 30 1RF ondansetron 8 mg tablet,disintegrating 8 mg PO Q8H PRN (Reason: nausea and vomiting) 30 Days Qty: 90 0RF clonazepam [Klonopin] 1 mg tablet 1 mg PO BEDTIME PRN Rx Instructions: administer 30 minutes before bedtime Discharge Date/Time: 02/04/25 14:00 Print Language: Honduran
[2025-02-04 10:52] VITALS: BP 113/66; PULSE 81; RESP 20; TEMP 36.7; O2SAT 95
[2025-02-04 10:54] VITALS: BP 108/64; BP 119/74; PULSE 84; PULSE 90
[2025-02-04 10:57] VITALS: BP 113/66; PULSE 94
--- OUTSIDE RECORDS SUMMARY | 2025-02-04 11:43 | XMS_ITS | Clinical Summary ---
Author Organization [facility] Address [address] [place] [id number] Phone Care Team Providers Care Senior Scrum Master Name Role Phone Carolyn Umanzor MD Primary [...] Date Last Done Comments DEPRESSION SCREENING 2010 HEPATITIS C SCREENING 01/05/2016 HIV ONE-TIME SCREENING [...] EDT) SODIUM 136 133 - 146 mmol/L [facility] POTASSIUM 4.1 3.3 - 5.1 mmol/L [facility] CHLORIDE 99 96 - 108 mmol/L [facility] CO2 22 21 - 35 mmol/L [facility] BUN 14 6 - 19 mg/dL [facility] CREATININE 0.70 0.5 - 1.5 mg/dL [facility] GLUCOSE 102(H) 70 - 99 mg/dL [facility] ALBUMIN 4.0 3.9 - 4.8 g/dL [facility] TOTAL PROTEIN 7.2 6.5 - 8.0 g/dL [facility] CALCIUM 9.1 8.4 - 10.3 mg/dL [facility] ALKALINE PHOSPHATASE 61 39 - 117 U/L [facility] TOTAL BILIRUBIN 0.2 0.0 - 1.2 mg/dL [facility] AST 23 0 - 37 U/L [facility] ALT 32 0 - 40 U/L [facility] GLOBULIN 3.2 1 - 4.8 g/dL [facility] EGFR >120 >59 mL/min/1.7 3m2 [facility] Comment:Estimated glomerular filtration rate calculated using the CKD-EPI refit equation. ANION GAP 19 10 - 20 mmol/L [facility] Blood 09/15/2022 10:5 3 AM EDT 09/15/2022 11:00 AM EDT us Sheila Shaffer MD LAB BLOOD ORDERABLES Final Re sult [address] [address] * Valproic acid (09/15/2022 10:53 AM EDT) VALPROIC ACID 50.5 50.0 - 100.0 ug/mL [facility] Blood 09/15/2022 10:5 3 AM EDT 09/15/2022 11:00 AM EDT us Sheila Shaffer MD LAB BLOOD ORDERABLES Final Re sult Performing Organization Address [facility]/ZIP Co de Phone Number [address] [address] from Last 3 Months or Most Recently Relevant to Health Maintenance Insurance [facility] MEDICARE PART A & [place] [facility] [place] [id number] [facility] [place] [id number] MED[place] A [place] [id number] [place] B [facility] MEDICARE PART A & B Care Teams Senior Scrum Master Relationship Specialty Start Date End Date Carolyn Umanzor MD [address] [place] [address] PCP - General Internal Medicine 09/02/22 Unknown, Unknown, [address] [place] [address] 09/02/22 Additional Source Comments The information contained in this document represents components of the legal health record. It is not the complete legal health record.[facility]
--- OUTSIDE RECORDS SUMMARY | 2025-02-04 11:43 | XMS_ITS | Clinical Summary ---
Author Organization [facility] it Address [address] [place] [address] Care Team Providers Care [employer] Officer Name Role Phone Unavailable Primary Care Provider [...] 5 season) 2024 Influenza Vaccine (#1) 2024 HPV Vaccines (1 - 3-dose SCD M series) 2025 RSV Immunization Adult Patie nts (1 - 1-dose 75+ series) 2073 HIB Vaccines Aged Out No longer eligi [...]
[2025-02-04 13:31] VITALS: BP 103/59; PULSE 94; RESP 18; TEMP 36.3; O2SAT 95
== END 2025-02-04 14:00 | disposition home or self-care (01) ==
PROVIDERS: Emergency Provider Emergency Medicine; PCP Internal Medicine
DX: S09.90XA Unspecified injury of head, initial encounter (principal); S49.92XA Unspecified injury of left shoulder and upper arm, initial encounter; J32.9 Chronic sinusitis, unspecified; M54.2 Cervicalgia; R51.9 Headache, unspecified; R42 Dizziness and giddiness; W06.XXXA Fall from bed, initial encounter; Z91.81 History of falling; Y93.9 Activity, unspecified; Y92.003 Bedroom of unspecified non-institutional (private) residence as the place of occurrence of the external cause; Y99.8 Other external cause status; Z79.899 Other long term (current) drug therapy
CPT/HCPCS: 70450; 72125; 99284

== ENCOUNTER → 2025-02-04 10:11 | Outpatient (BNV) | payer MEDICARE, MEDICAID, SELFPAY | PROVIDERS: Emergency Provider Emergency Medicine; PCP Internal Medicine; Visit Provider Radiology Diagnostic Ultrasound | DX: S09.90XA Unspecified injury of head, initial encounter (principal); J01.00 Acute maxillary sinusitis, unspecified; W06.XXXA Fall from bed, initial encounter | CPT/HCPCS: 70450 ==

== ENCOUNTER 2025-02-11 09:35 | Outpatient (AMB) | payer MEDICARE, MEDICAID, SELFPAY ==
[2025-02-11 09:38] VITALS: BP 116/76; BMI 34.7
--- NOTE | 2025-02-11 09:38 | MHC.OFFVIS ---
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 Resides in a monitored senior care. Patient is holding onto her baby doll throughout the visit. Implementation Services Analyst concerns: Current OCP user due to menstrual bleeding. She denies any contraindications to control such as: migraines with aura, history of DVT or pulmonary emboli, high blood pressure, liver disease, thrombolic disorders, Lupus, +MAURILIO, breast cancer, or smoking. She denies vaginal itching or irritation. STI screening offered; she accepts. She tries to eat healthy and stays active with exercise. Denies family history of breast, ovarian or colon cancer. First pelvic/pap. Not sexually active. [facility] Medical History Nausea and vomiting in adult Cellulitis of toe of left foot Vaginal irritation Trauma of toe of left foot Oppositional defiant disorder Intellectual disability Obsessive compulsive disorder Anxiety Surgical History No pertinent past surgical history Family History Mother No problems noted. Father No problems noted. Social History Housing: House Housing Other:: Shelter Alcohol intake: never Patient Tobacco Use Status: Never used Tobacco e-Cigarette/Vaping Use: Never Used Second Hand Smoke Exposure: No service: No Current occupational status: disabled Gender identity: Female Cognitive needs: Yes Hearing needs: No Vision needs: No Review of Systems Const All systems reviewed & are unremarkable except as noted in HPI and below Reports as per HPI Eyes Reports no additional complaints ENT Reports no additional complaints Card Reports no additional complaints Resp Reports no additional complaints GI Reports as per HPI and Reports no additional complaints Reports as per HPI Musc Reports no additional complaints Skin/Breast Reports as per HPI Neuro Reports no additional complaints Psych Reports no additional complaints Endo Reports no additional complaints Chidi/Lymph Reports no additional complaints Aller/Immun Reports no additional complaints Physical Exam Vital Signs: Last Vital Signs BP 116/76 02/11/25 09:38 BMI result Body Mass Index 34.7 Const General: cooperative, healthy appearing, no acute distress, well developed and alert Orientation/consciousness: patient oriented x3 HEENT Head: Yes normal to inspection Eyes General: appearance normal, both eyes and all related structures Neck Neck: Yes normal visual inspection Thyroid: Thyroid normal Chest Chest palpation & inspection: normal inspection of the chest and other (no puckering, dimpling, peau de orange, retraction, discharge, masses) Breast/axilla inspection: normal inspection of the breasts Breast/axilla palpation: normal palpation of the breasts Resp Effort & Inspection: normal respiratory effort GI Inspection: Yes normal to inspection Palpation (GI): Soft to palpation Rectal Exam - Female: deferred External Female Exam: normal external appearance and normal appearance of the urethra Speculum Exam - Vagina: normal appearance of the vagina (pediatric spec utilized) and normal vaginal discharge Speculum Exam - Cervix: normal appearance of the cervix (limited exam, pt. not tolerant to bimanual) Skin General skin exam: no rashes or lesions noted Rashes: no rashes Neuro General: patient oriented x3 Cognition (Neuro): normal cognition Extrem General: Yes normal to inspection Psych Attitude: cooperative Thought process: Normal thought process present Assessment & Plan Assessment & Plan (1) Surveillance for control, oral contraceptives: Code(s): Z30.41 - Encounter for surveillance of contraceptive pills Category: Medical Plan: Continue with OCP use for cycle control. control hormone use warnings: go to ER if and loss of vision, blindness, severe headache, chest pain or difficulty breathing, severe abdominal pain, or any pain or swelling in an extremity. The patient expressed understanding and agreement with the plan of care. All of her questions and concerns were addressed to the best of my ability. (2) Encounter for well woman exam with routine gynecological exam: Code(s): Z01.419 - Encounter for gynecological examination (general) (routine) without abnormal findings Category: Medical Plan Discussed: Current recommendations for pap smears per ASCCP guidelines. Breast awareness and periodic breast exams. Maintain a healthy lifestyle including a well balanced diet and routine exercise. Patient verbalizes understanding and agrees to the plan of care. She was given opportunity to ask questions and all questions were answered to the best of my ability. RTO in one year for annual med peds examination. This note is constructed using voice recognition software. While every effort has been made to ensure accuracy, junior high school teacher errors may have been included. Orders: Orders Pap Smear Today Z01.419 - Encounter for gynecological examination (general) (routine) without abnormal findings CT NG by PCR Vag/Cerv Today Z20.2 - Contact with and (suspected) exposure to infections with a predominantly sexual mode of transmission Medications: Refilled levonorgestrel-ethinyl estrad 0.15 mg-30 mcg (91) (Jolessa) 1 tab PO DAILY 91 ea 4RF Coding Level of Care Code Est Pt Prev Care 18-39y(53612) Diagnoses Surveillance for control, oral contraceptives Z30.41 Encounter for well woman exam with routine gynecological exam Z01.419
--- OUTSIDE RECORDS SUMMARY | 2025-02-11 11:04 | XMS_ITS | Clinical Summary ---
Author Organization [facility] Address [address] [facility] [address] [place] [phone] Phone Care Team Providers Care X Ray Inspector Name Role Phone Carolyn Umanzor MD Primary [...] SODIUM 136 133 - 146 mmol/L [facility] POTASSIUM 4.1 3.3 - 5.1 mmol/L [facility] CHLORIDE 99 96 - 108 mmol/L [facility] CO2 22 21 - 35 mmol/L [facility] BUN 14 6 - 19 mg/dL [facility] CREATININE 0.70 0.5 - 1.5 mg/dL [facility] GLUCOSE 102(H) 70 - 99 mg/dL [facility] ALBUMIN 4.0 3.9 - 4.8 g/dL [facility] TOTAL PROTEIN 7.2 6.5 - 8.0 g/dL [facility] CALCIUM 9.1 8.4 - 10.3 mg/dL [facility] ALKALINE PHOSPHATASE 61 39 - 117 U/L [facility] TOTAL BILIRUBIN 0.2 0.0 - 1.2 mg/dL [facility] AST 23 0 - 37 U/L [facility] ALT 32 0 - 40 U/L [facility] GLOBULIN 3.2 1 - 4.8 g/dL [facility] EGFR >120 >59 mL/min/1.7 3m2 [facility] Comment:Estimated glomerular filtration rate calculated using the CKD-EPI refit equation. ANION GAP 19 10 - 20 mmol/L [facility] Blood 09/15/2022 10:5 3 AM EDT 09/15/2022 11:00 AM EDT us Sheila Shaffer MD LAB BLOOD ORDERABLES Final Re sult [address] [id number] * Valproic acid (09/15/2022 10:53 AM EDT) VALPROIC ACID 50.5 50.0 - 100.0 ug/mL [facility] Blood 09/15/2022 10:5 3 AM EDT 09/15/2022 11:00 AM EDT us Sheila Shaffer MD LAB BLOOD ORDERABLES Final Re sult Performing Organization Address [facility]/ZIP Co de Phone Number [address] [address] from Last 3 Months or Most Recently Relevant to Health Maintenance Insurance [facility] MEDICARE PART A & [place] [facility] [id number] [facility] [place] [id number] [place] [id number] [place] B [facility] MEDICARE PART A & B Care Teams X Ray Inspector Relationship Specialty Start Date End Date Carolyn Umanzor MD [address] [place] [address] PCP - General Internal Medicine 09/02/22 Unknown, Unknown, [address] [place] [address] 09/02/22 Additional Source Comments The information contained in this document represents components of the legal health record. It is not the complete legal health record.[facility]
--- OUTSIDE RECORDS SUMMARY | 2025-02-11 11:04 | XMS_ITS | Clinical Summary ---
Author Organization [facility] it Address [address] [place] [address] Care Team Providers Care Union Laborer Name Role Phone Unavailable Primary Care Provider [...]
== END 2025-02-11 10:46 | disposition home or self-care (01) ==
LOC: HO.HWS 09:35
PROVIDERS: PCP Internal Medicine; Visit Provider Advanced Practice Midwife
DX: Z01.419 Encounter for gynecological examination (general) (routine) without abnormal findings (principal); Z30.41 Encounter for surveillance of contraceptive pills
CPT/HCPCS: 99395; 99459

== ENCOUNTER 2025-02-11 09:35 | Outpatient (REF) | payer MEDICARE, MEDICAID, SELFPAY ==
[2025-02-12 08:12] LABS: CT PCR NOT DETECTED (Not Detect.); NG PCR NOT DETECTED (Not Detect.)
== END 2025-02-11 09:36 | disposition home or self-care (01) ==
LOC: HO.LNP 09:35
PROVIDERS: PCP Internal Medicine; Visit Provider Advanced Practice Midwife
DX: Z01.419 Encounter for gynecological examination (general) (routine) without abnormal findings (principal); Z30.41 Encounter for surveillance of contraceptive pills; Z20.2 Contact with and (suspected) exposure to infections with a predominantly sexual mode of transmission
CPT/HCPCS: 87491; 87591; 88175; 99395

== ENCOUNTER 2025-02-13 10:56 | Outpatient (AMB) | payer MEDICARE, MEDICAID, SELFPAY ==
[2025-02-13 10:59] VITALS: BP 110/68; PULSE 92; TEMP 36; BMI 34.3
--- NOTE | 2025-02-13 10:59 | MHC.PC.OV ---
Vital Signs 02/13/25 10:59 Height 5 ft 2 in Weight 187 lb 8 oz BMI 34.3 BP 110/68 Blood Pressure Location Lt brachial Position Sitting Pulse 92 Pulse Source Pulse Oximeter Temp 96.8 F Temp Source Temporal Artery Scan Oxygen Delivery Method Room Air Intake Visit Reasons: [facility] 02/04 Fell Allergies No Known Allergies Allergy (Verified 02/13/25 11:01) Medication List - Last Reconciled 02/13/25 by Gela Monroe PA-C acetaminophen 500 mg PO Q6H PRN 30 days chlorpromazine 100 mg PO QID clonazepam (Klonopin) 1 mg PO BEDTIME PRN clonazepam (Klonopin) 1 mg PO DAILY clotrimazole 1% 1 appl topical BID PRN 4 weeks divalproex ER 500 mg PO DAILY docusate sodium (Colace) 100 mg PO BID PRN 30 days guanfacine ER 4 mg PO DAILY levonorgestrel-ethinyl estrad 0.15 mg-30 mcg (91) (Jolessa) 1 tab PO DAILY melatonin 6 mg PO BEDTIME PRN metformin ER 750 mg PO BID ondansetron 8 mg PO Q8H PRN 30 days sertraline 150 mg PO DAILY Tobacco use date assessed: 02/13/25 Dental Screening Dental Screen Date: 02/13/25 Did you have a dental visit in the last 12 months?: Yes Did you have a dental problem in the last 6 months where you did not have access to dental care?: No Was dental information given to patient?: Patient has dentist HPI [facility] 02/04 Fell HPI Details 25 year old female with past medical history of anxiety, hypercholesterolemia, GERD last seen 12/2024 coming in for hospital follow up. In review of the notes, patient was seen in [facility] ED 02/04/2025 after a fall out of bed imaging was negative but did reveal sinusisits. Given abx and discharged home. Presenting with a follow-up after a fall from bed and ongoing sinusitis and cough. The patient reported falling out of bed without any specific inciting event, resulting in a head impact. Imaging showed no fractures, and the patient reports no current head pain or visual disturbances. The patient was diagnosed with sinusitis, for which she was prescribed antibiotics. She reports completing the course of antibiotics with no gastrointestinal side effects. She denies facial pain but reports a stuffy nose. The patient has a persistent cough. A chest x-ray was not performed recently, but one was done in August with no significant findings. The patient was advised to use Mucinex to help alleviate the cough. [facility] Medical History Nausea and vomiting in adult Cellulitis of toe of left foot Vaginal irritation Trauma of toe of left foot Oppositional defiant disorder Intellectual disability Obsessive compulsive disorder Anxiety Surgical History No pertinent past surgical history Family History Mother No problems noted. Father No problems noted. Social History Housing: House Housing Other:: Retirement Alcohol intake: never Patient Tobacco Use Status: Never used Tobacco Tobacco use type: Cigarette e-Cigarette/Vaping Use: Never Used Second Hand Smoke Exposure: No service: No Current occupational status: disabled Gender identity: Female Cognitive needs: Yes Hearing needs: No Vision needs: No Questionnaire PHQ-9 Over the last 2 weeks, how often have you been bothered by any of the following problems? 1. Little interest or pleasure in doing things: not at all 2. Feeling down, depressed, or hopeless: several days 3. Trouble falling or staying asleep, or sleeping too much: several days 4. Feeling tired or having little energy: several days 5. Poor appetite or overeating: several days 6. Feeling bad about yourself - or that you are a failure or have let yourself or your family down: not at all 7. Trouble concentrating on things, such as reading the newspaper or watching television: not at all 8. Moving or speaking so slowly that other people could have noticed. Or the opposite - being so fidgety or restless that you have been moving around a lot more than usual: more than half the days 9. Thoughts that you would be better off or of hurting yourself in some way: not at all Total score: 6 Source: Developed by Drs. Gilbert Hunter, Slim Hdz and colleagues, with an educational edie from [employer]. Thrive Questionnaire Date Thrive assessed: 02/13/25 I am a: Patient What is your living situation today?: I have a steady place to live Within the past 12 months, did the food you bought not last and you didn't have the money to get more?: Sometimes True Within the past 12 months, did you worry whether your food would run out before you got money to buy more?: Never true Do you have trouble paying for medicines?: No Do you have trouble getting transportation to medical appointments?: No Do you have trouble paying your heating and electricity bill?: No Do you have trouble taking care of your child, family member or friend?: No Do you have trouble with day-to-day activities such as bathing, preparing meals, shopping, managing finances, etc.?: No Are you currently unemployed and looking for a job?: No Are you interested in more education?: No Please select the resources that you would like help with: None THRIVE Score: 1 AUDIT C Alcohol Use Questionnaire (AUDIT-C) 1. How often do you have a drink containing alcohol?: Never 3. How often do you have six or more drinks on one occasion?: Never Total Score: 0 JO-7 AMB Questionnaire JO-7 Date JO - 7 assessed: 09/05/24 Source: Developed by Drs. Gilbert Hunter, Slim Hdz and colleagues, with an educational edie from [employer]. Review of Systems Const Denies body aches, Denies chills, Denies fever(s), Denies headache(s) and Denies poor appetite Eyes Reports no additional complaints ENT Denies dysphagia, Denies dizziness, Denies headache(s) and Denies odynophagia Card Denies chest pain, Denies syncope, Denies edema, Denies irregular heart rhythm, Denies lightheadedness and Denies dyspnea Resp Reports cough and Denies dyspnea GI Denies abdominal pain, Denies constipation, Denies dysphagia, Denies diarrhea, Denies nausea, Denies odynophagia and Denies vomiting Reports no additional complaints Musc Reports no additional complaints and Denies abnormal gait Skin/Breast Reports system reviewed and no additional complaints, except as documented Neuro Denies abnormal gait, Denies dizziness, Denies syncope and Denies headache(s) Psych Reports no additional complaints Physical exam (Primary Care) Vital Signs: Last Vital Signs Temp 96.8 F 02/13/25 10:59 Pulse 92 02/13/25 10:59 BP 110/68 02/13/25 10:59 Oxygen Delivery Method Room Air 02/13/25 10:59 BMI result Body Mass Index 34.3 Tobacco/Smoking Status: Tobacco use Status Tobacco use date assessed 02/13/25 02/13/25 11:02 Patient Tobacco Use Status Never used Tobacco 02/13/25 11:02 Tobacco use type Cigarette 02/13/25 11:08 e-Cigarette/Vaping Use Never Used 02/13/25 11:02 PHQ-9: PHQ-9 Score PHQ-9: Total score 6 02/13/25 11:38 Thrive Assessment: Date of Thrive Assessment Date Thrive assessed 02/13/25 02/13/25 11:02 Const General: cooperative, healthy appearing, comfortable and no acute distress Orientation/consciousness: patient oriented x3 HENMT Head: Yes normocephalic Ears: hearing grossly normal bilaterally General nose exam: Normal external nose present Eyes General: appearance normal, both eyes and all related structures Conjunctivae: conjunctivae normal Neck Neck: Yes full ROM and Yes no lymphadenopathy Resp Effort & Inspection: normal respiratory effort Auscultation: clear to auscultation bilaterally, no crackles, no rales, no rhonchi and no wheezes Cardio Rate: regular rate Rhythm: regular rhythm Skin General skin exam: no rashes or lesions noted Neuro General: patient oriented x3 Gait exam (Neuro): Normal gait present Extrem General: Yes normal to inspection, Yes full ROM and No edema Psych Affect: normal affect Attitude: cooperative Insight: Good insight present (Psych) Judgement: Good judgement present (Psych) Coding Level of Care Code Est Pt Level 3 (71786) Diagnoses Cough R05.9 Sinusitis J32.9 Chronicity: unspecified Sinusitis location: unspecified location Assessment & Plan Assessment & Plan (1) Cough: Code(s): R05.9 - Cough, unspecified Category: Medical Plan: The patient has a persistent cough. A chest x-ray was not performed recently, but one was done in August with no significant findings. Mucinex has been prescribed to help alleviate the cough, and a new chest x-ray is planned to rule out any underlying issues. (2) Sinusitis: Code(s): J32.9 - Chronic sinusitis, unspecified Category: Medical Qualifiers: Chronicity: unspecified Sinusitis location: unspecified location Qualified Code(s): J32.9 - Chronic sinusitis, unspecified Plan: The patient was diagnosed with sinusitis and was prescribed antibiotics, which she has completed. She reports a stuffy nose but denies facial pain. Continued monitoring of symptoms is advised, and the use of saline nasal spray is recommended to alleviate congestion. Plan This note was constructed using voice recognition software. While every effort has been made to ensure accuracy and verification engineer, still areas may have been included sometimes these areas may affect the content or meeting of the given symptoms. Total time spent caring for the patient today was 20 minutes. This includes time spent before the visit reviewing the chart, time spent during the visit, and time spent after the visit and documentation. Patient was informed and verbally consented to the use of an ambient scribe for clinic note documentation during this visit. Orders: Orders XR chest 2V Today J06.9 - Acute upper respiratory infection, unspecified, R05.9 - Cough, unspecified Medications: New guaifenesin ER (Mucinex) 1,200 mg PO BID PRN 30 tabs 0RF cough sodium chloride 0.65% (Olivia Saline) 1 spray intranasal BID PRN 50 mL 0RF congestion
--- OUTSIDE RECORDS SUMMARY | 2025-02-13 12:46 | XMS_ITS | Clinical Summary ---
Author Organization [facility] it Address [address] [place] [address] Care Team Providers Care Bacteriology Professor Name Role Phone Unavailable Primary Care Provider [...]
--- OUTSIDE RECORDS SUMMARY | 2025-02-13 12:47 | XMS_ITS | Data Portability ---
Author Organization [facility] [address] Address [address] [place] [id number] Assessment No assessment recorded. Plan of Treatment Reminders Order Date Submit Date Provider Last Modified By Organization Details Last Modified Time Details Appointments None recorded. Lab None recorded. Referral None recorded. Procedures None recorded. Surgeries None recorded. Imaging None recorded. Medication Orders SURGIFOAM 12 mm-7 mm sponge 2021 022 [email or web address] Not available 10:04:22 Patient TargetsNo targets recorded. Patient Instructions Encounter Date Encounter Id Patient Instructions Last Modified By Organization Details Last Modified Time 03/23/2022 [id number] Increase oral fluids, rest while you are ill, ER if needed for worsening symptoms [email or web address] Not available 03/23/2022 19:59:44 Reason for Referral None Reported. Problems No Known Problems Procedures Surgical History Date Name Laterality Status Provider Name and Address Organization Details Recorded Time 03/23/2022 Wound Repair completed Lyn Javier MD [address] [place] [address] [place], [address], [facility] 03/23/2022 20:36:30 Imaging Results None recorded. Procedure Notes None recorded. Medical Equipment None Reported. Allergies No known drug allergies Medications Name Sig Start Date Stop Date Status Note LastModified by Organization Details LastModified Time melatonin 3 mg tabs active Not Available Not Available Not Available gnp melatonin 3 mg tabs active Not Available Not Available Not Available chlorpromaz ine 100 mg tablet 03/23 completed Not Available Not Available Not Available sertraline 100 mg tablet active Not Available Not Available Not Available clonazepam 1 mg tablet active Not Available Not Available Not Available acetaminoph en 500 mg tablet active Not Available Not Available Not Available triamcinolo ne acetonide 0.1 % topical cream APPLY TOPICALLY TO THE AFFECTED AREA DAILY FOR 14 DAYS active Not Available Not Available No t Available amoxicillin 500 mg tablet 03/23 completed Not Available Not Available Not Available cephalexin 500 mg capsule TAKE 1 CAPSULE BY MOUTH FOUR TIMES DAILY FOR 5 DAYS active Not Available Not Available No t Available betamethaso ne dipropionat e 0.05 % topical cream active Not Available Not Available Not Available omeprazole 20 mg capsule,del ayed release TAKE 1 CAPSULE BY MOUTH DAILY active Not Available Not Available No t Available cefuroxime axetil 500 mg tablet TAKE 1 TABLET BY MOUTH TWICE DAILY active Not Available Not Available No t Available ketoconazol e 2 % topical cream active Not Available Not Available Not Available doxycycline hyclate 100 mg tablet TAKE 1 TABLET BY MOUTH TWICE DAILY active Not Available Not Available No t Available Denta 5000 Plus 1.1 % cream BRUSH WITH THIN RIBBON FOR 2 MIN TWICE A DAY (AM & PM)THEN SPIT OUT active Not Available Not Available No t Available metformin ER 750 mg tablet,exte nded release 24 hr active Not Available Not Available Not Available levonorgest rel 0.15 mg-ethinyl estradiol 30 mcg tablets,3 mos pack(91) TAKE 1 TABLET BY MOUTH DAILY active Not Available Not Available No t Available SURGIFOAM 12 mm-7 mm sponge Apply 1 sponge every day by topical route for 1 day. 2021 active Not Available Not Available Not Avai lable guanfacine ER 2 mg tablet,exte nded release 24 hr active Not Available Not Available Not Available guanfacine ER 4 mg tablet,exte nded release 24 hr active Not Available Not Available Not Available Vienva 0.1 mg-20 mcg tablet active Not Available Not Available Not Available Vitals Date Recorded Body height Body mass index (BMI) Body weight Heart rate Respiratory rate Oxygen saturation Oxygen saturation in Arterial blood by Pulse oximetry Body temperature Systolic And Diastolic Provider Name and Address Organization Details Last Updated DateTime 2 157.48 cm 32 kg/m2 64485.6 6 g 96 /min 18 /min 96 % 96 % 97.8 [degF] 100/64 mm[Hg] DONNA SANCHEZ - [facility] 2 19:14:51 Social History Question Answer Notes LastModified by Organizat ion Details LastModified Time Tobacco Smoking Status Never Smoker DONNA VALDERRAMAYENI ishmael [place] - [facility] 03/23/2022 19:12:57 What Is Your Water Source? City Information not available 03/23/2022 What Is Your Heat Source? Gas Information not available 03/23/2022 Sex: Unknown Functional Status Question Answer Note LastModified by Organizat ion Details LastModified Time Do you use any illicit or recreational drugs? No Information not available 03/23/2022 Do you or have you ever used any other forms of tobacco or nicotine? No Information not available 03/23/2022 Mental Status None recorded. Family History Relationship Description Onset Age of this Age Resolved Age Notes LastModified by Organization Details LastModified Time Father No current problems or disability Not available 19:12:47 Mother No current problems or disability Not available 19:12:47 Medical History No medical history recorded. Gynecological HistoryNo gynecological history recorded. Obstetrics History GPAL:G 0 P 0 0 0 0 Past Encounters Encounter ID Performer Location Encounter Start Date Encounter Closed Date Diagnosis/Indication Diagnosis SNOMED-CT Code Diagnosis ICD10 Code Diagnosis IMO Codes Diagnosis Note [id number] [place] [address] [address] 03/23/2022 18:45:03 03/23/2022 19:56:57 Avulsion of toenail of right foot [id number] S91.204A Health Concerns Section Related Observation LastModified by Organization Detai ls LastModified Time None Recorded Concern Status LastModified by Organization Details LastModified Time None Recorded Advance Directives Directive None Recorded Payers Insurance Date Sequence Insurance Name Policy Number Policy Sigala Covered Member ID Sigala Member ID Guarantor Name 04/26/2022 1 [place] [employer] Sunni Everett [id number] Sunni Everett 03/23/2022 2 [place] [facility] Sunni Everett [id number] Sunni Everett Notes Date Note Type Note Provider Name and Address Organization Details Recorded Time 03/23/2022 text/html She stubbed her toe on a table and avulsed the right 3rd toenail completely Lyn Javier MD [address] [place], [address], [place] - [facility] 03/24/2022 14:09:07 OBGyn Episode No OBEpisode recorded.
--- OUTSIDE RECORDS SUMMARY | 2025-02-13 12:47 | XMS_ITS | Clinical Summary ---
Author Organization [facility] Address [address] [facility] [address] [place] [phone] Phone Care Team Providers Care Hospital Account Manager Name Role Phone Carolyn Umanzor MD Primary [...] EDT) SODIUM 136 133 - 146 mmol/L [facility] POTASSIUM 4.1 3.3 - 5.1 mmol/L [facility] CHLORIDE 99 96 - 108 mmol/L [facility] CO2 22 21 - 35 mmol/L [facility] BUN 14 6 - 19 mg/dL [facility] CREATININE 0.70 0.5 - 1.5 mg/dL [facility] GLUCOSE 102(H) 70 - 99 mg/dL [facility] ALBUMIN 4.0 3.9 - 4.8 g/dL [facility] TOTAL PROTEIN 7.2 6.5 - 8.0 g/dL [facility] CALCIUM 9.1 8.4 - 10.3 mg/dL [facility] ALKALINE PHOSPHATASE 61 39 - 117 U/L [facility] TOTAL BILIRUBIN 0.2 0.0 - 1.2 mg/dL [facility] AST 23 0 - 37 U/L [facility] ALT 32 0 - 40 U/L [facility] GLOBULIN 3.2 1 - 4.8 g/dL [facility] EGFR >120 >59 mL/min/1.7 3m2 [facility] Comment:Estimated glomerular filtration rate calculated using the CKD-EPI refit equation. ANION GAP 19 10 - 20 mmol/L [facility] Blood 09/15/2022 10:5 3 AM EDT 09/15/2022 11:00 AM EDT us Sheila Shaffer MD LAB BLOOD ORDERABLES Final Re sult [address] [address] * Valproic acid (09/15/2022 10:53 AM EDT) VALPROIC ACID 50.5 50.0 - 100.0 ug/mL [facility] Blood 09/15/2022 10:5 3 AM EDT 09/15/2022 11:00 AM EDT us Sheila Shaffer MD LAB BLOOD ORDERABLES Final Re sult Performing Organization Address [facility]/ZIP Co de Phone Number [address] [address] from Last 3 Months or Most Recently Relevant to Health Maintenance Insurance [facility] MEDICARE PART A & [place] [facility] [place] [phone] [facility] [place] [address] [place] [id number] [place] B [facility] MEDICARE PART A & B Care Teams Hospital Account Manager Relationship Specialty Start Date End Date Carolyn Umanzor MD [address] [place] [address] PCP - General Internal Medicine 09/02/22 Unknown, Unknown, [address] [place] [address] 09/02/22 Additional Source Comments The information contained in this document represents components of the legal health record. It is not the complete legal health record.[facility]
== END 2025-02-13 11:52 | disposition home or self-care (01) ==
LOC: HO.HMCH 10:57
PROVIDERS: PCP Internal Medicine
DX: R05.9 Cough, unspecified (principal); J32.9 Chronic sinusitis, unspecified

== ENCOUNTER → 2025-02-13 10:56 | Outpatient (BNVA) | payer MEDICARE, MEDICAID, SELFPAY | PROVIDERS: PCP Internal Medicine | DX: R05.9 Cough, unspecified (principal); J32.9 Chronic sinusitis, unspecified | CPT/HCPCS: 99212 ==

== ENCOUNTER 2025-02-16 11:06 | Outpatient (REF) | payer MEDICARE, MEDICAID, SELFPAY ==
--- NOTE | ~2025-02-16 | XR_ITS ---
EXAMINATION: XR CHEST CLINICAL INFORMATION: J06.9 - Acute upper respiratory infection, unspecified COMPARISON: September 18, 2024. TECHNIQUE: PA and lateral views. FINDINGS: No hyperinflation. Mild pulmonary reticular pattern. No consolidation, pleural effusion or pneumothorax. Cardiomediastinal silhouette size is normal. S-shaped curvature of the mid thoracic spine. Patient's large body habitus. XR/XR chest 2V IMPRESSION: No gross acute airspace disease. Acute small airway inflammatory process cannot be excluded. Electronically signed by: Zechariah Manuel MD 02/16/2025 11:34 AM EDT
--- OUTSIDE RECORDS SUMMARY | 2025-02-16 14:06 | XMS_ITS | Clinical Summary ---
Author Organization [facility] Address [address] [facility] [address] [place] [address] Phone Care Team Providers Care Supervisor Shop Name Role Phone Carolyn Umanzor MD Primary [...] EDT) SODIUM 136 133 - 146 mmol/L [facility] POTASSIUM 4.1 3.3 - 5.1 mmol/L [facility] CHLORIDE 99 96 - 108 mmol/L [facility] CO2 22 21 - 35 mmol/L [facility] BUN 14 6 - 19 mg/dL [facility] CREATININE 0.70 0.5 - 1.5 mg/dL [facility] GLUCOSE 102(H) 70 - 99 mg/dL [facility] ALBUMIN 4.0 3.9 - 4.8 g/dL [facility] TOTAL PROTEIN 7.2 6.5 - 8.0 g/dL [facility] CALCIUM 9.1 8.4 - 10.3 mg/dL [facility] ALKALINE PHOSPHATASE 61 39 - 117 U/L [facility] TOTAL BILIRUBIN 0.2 0.0 - 1.2 mg/dL [facility] AST 23 0 - 37 U/L [facility] ALT 32 0 - 40 U/L [facility] GLOBULIN 3.2 1 - 4.8 g/dL [facility] EGFR >120 >59 mL/min/1.7 3m2 [facility] Comment:Estimated glomerular filtration rate calculated using the CKD-EPI refit equation. ANION GAP 19 10 - 20 mmol/L [facility] Blood 09/15/2022 10:5 3 AM EDT 09/15/2022 11:00 AM EDT us Sheila Shaffer MD LAB BLOOD ORDERABLES Final Re sult [address] [address] * Valproic acid (09/15/2022 10:53 AM EDT) VALPROIC ACID 50.5 50.0 - 100.0 ug/mL [facility] Blood 09/15/2022 10:5 3 AM EDT 09/15/2022 11:00 AM EDT us Sheila Shaffer MD LAB BLOOD ORDERABLES Final Re sult Performing Organization Address [facility]/ZIP Co de Phone Number [address] [address] from Last 3 Months or Most Recently Relevant to Health Maintenance Insurance [facility] MEDICARE PART A & [place] [facility] [place] [id number] [facility] [place] [phone] [place] [id number] [place] B [facility] MEDICARE PART A & B Care Teams Supervisor Shop Relationship Specialty Start Date End Date Carolyn Umanzor MD [address] [place] [address] PCP - General Internal Medicine 09/02/22 Unknown, Unknown, [address] [place] [address] 09/02/22 Additional Source Comments The information contained in this document represents components of the legal health record. It is not the complete legal health record.[facility]
--- OUTSIDE RECORDS SUMMARY | 2025-02-16 14:06 | XMS_ITS | Clinical Summary ---
Author Organization [facility] it Address [address] [place] [address] Care Team Providers Care Case Finishing Machine Adjuster Name Role Phone Unavailable Primary Care Provider [...]
== END 2025-02-16 11:07 | disposition home or self-care (01) ==
LOC: HO.XRAY 11:06
PROVIDERS: PCP Internal Medicine
DX: J06.9 Acute upper respiratory infection, unspecified (principal); R05.9 Cough, unspecified
CPT/HCPCS: 71046

== ENCOUNTER → 2025-02-16 11:10 | Outpatient (BNV) | payer MEDICARE, MEDICAID, SELFPAY | PROVIDERS: PCP Internal Medicine; Visit Provider Radiology Diagnostic Radiology | DX: J06.9 Acute upper respiratory infection, unspecified (principal) | CPT/HCPCS: 71046 ==